=== PATIENT | female | born 1995 | race Caucasian/White ===

== ENCOUNTER 2024-07-01 06:09 | Emergency (ER) | payer MEDICAID, SELFPAY ==
[2024-07-01 06:14] VITALS: BP 154/98; PULSE 89; TEMP 36.4; O2SAT 98; BMI 26.5
--- NOTE | 2024-07-01 06:24 | XR_ITS ---
The [address] [address] Patient Name: MAYO BLISS MRN: [id number] date: 1995 Sex: F Assigned Patient Location: ER Current Patient Location: ED.MAIN Accession/Order Number: [id number] Exam Date: 07/01/2024 06:34 Report Date: 07/01/2024 06:44 At the request of: TOMMY MARKER Procedure: XR forearm LT 2V PROCEDURE: XR forearm LT 2V HISTORY: fall, prox forearm pain and swelling COMPARISON: None. FINDINGS: BONES:No fracture, acute abnormality, or significant arthropathy. SOFT TISSUES:No visible soft tissue swelling. EFFUSION:None visible. OTHER: Negative. XR/XR forearm LT 2V IMPRESSION: 1. No acute bone abnormality. 2. No radiopaque foreign bodies. Electronically authenticated by: INÉS FELIX Date: 07/01/2024 06:44
--- NOTE | 2024-07-01 06:25 | ED_ITS ---
HPI HPI - Extremity Injury (Upper) General Chief Complaint: Extremity Injury, Upper Stated Complaint: FALL, UPPER LEFT EXTREMITY INJURY Time Seen by Provider: 07/01/24 06:12 Source: patient Mode of arrival: walk-in Limitations: no limitations History of Present Illness HPI narrative: This 28-year-old female who is right-hand dominant presents for evaluation of an injury to her left proximal forearm. The patient states she slipped this morning and fell onto her forearm. She denies striking her head. She has no neck or back pain. She has an abrasion/contusion to the proximal aspect of the forearm with pain with range of motion. She states she also has pain with movement of her left fourth and fifth fingers. She denies any wrist pain. She did not injure her hand. She took ibuprofen prior to arrival and states it is starting to kick in but still has some pain with movement. She denies the possibility of . Related Data Home Medications ?Medication ?Instructions ?Recorded ?Confirmed No Known Home Medications 07/01/24 07/01/24 Allergies Allergy/AdvReac Type Severity Reaction Status Date / Time No Known Drug Allergies Allergy Verified 07/01/24 06:19 Opioid HPI Opioid Management Most Recent Pain and Opioid Data: No Data to Display Review of Systems ROS Status of ROS 10 or more systems reviewed and unremark able except as noted in history and below PFSH PFSH Social History Little interest or pleasure in doing things: not at all Feeling down, depressed, or hopeless: not at all Exam Narrative Exam Narrative: Vital signs and Nursing Notes reviewed: Pt is afebrile with a normal pulse, blood pressure is mildly elevated 154/98, she is not hypoxic with pulse ox of 98% on room air General: Awake, alert, oriented, no acute distress, sitting on the bed playing with her toddler, no distress noted GCS 15 HEENT: Normocephalic atraumatic, mucous membranes are moist and pink, eyes are clear, normal conjunctiva, vision is grossly intact Chest: Lungs are clear to auscultation with good air entry, there is no wheezing rhonchi or rales appreciated no accessory muscle use, patient is speaking in complete sentences-no chest wall tenderness to palpation CVS: Regular rate and rhythm S1-S2, no murmurs rubs or gallops, pulses are brisk and equal bilaterally Extremities: There is an approximately 6 cm x 3 cm area of ecchymosis with tenderness on the proximal aspect of the left forearm. She has full range of motion of her elbow. There is no tenderness to her shoulder, clavicle, humerus, wrist or fingers. Skin: Normal in appearance without rash,pallor, petechiae or purpura Neuro: No focal deficits Constitutional Vital Signs, click to edit/add: Last Vital Signs Temp 97.5 F L 07/01/24 06:14 Pulse 89 07/01/24 06:14 Resp 18 07/01/24 06:14 BP 154/98 H 07/01/24 06:14 Pulse Ox 98 07/01/24 06:14 O2 Del Method Room Air 07/01/24 06:14 Course Vital Signs Vital signs: Vital Signs Temperature 97.5 F L 07/01/24 06:14 Pulse Rate 89 07/01/24 06:14 Respiratory Rate 18 07/01/24 06:14 Blood Pressure 154/98 H 07/01/24 06:14 Pulse Oximetry 98 07/01/24 06:14 Oxygen Delivery Method Room Air 07/01/24 06:14 Temperature 97.5 F L 07/01/24 06:14 Pulse Rate 89 07/01/24 06:14 Respiratory Rate 18 07/01/24 06:14 Blood Pressure 154/98 H 07/01/24 06:14 Pulse Oximetry 98 07/01/24 06:14 Oxygen Delivery Method Room Air 07/01/24 06:14 MDM - Extremity Injury (Upper) MDM Narrative Medical decision making narrative: This otherwise healthy 28-year-old female presents for evaluation of a left forearm injury that she sustained after accidentally falling this morning and landing on the forearm. She denied any additional complaints. She has an abrasion/contusion to the left distal forearm. She has full range of motion of the extremity but states she has pain with movement of her elbow area. There is no point tenderness to the elbow. She is neurovascularly intact. She had taken ibuprofen prior to arrival and was medicated with a dose of Tylenol. X-ray of the forearm was reviewed by myself and does not show any fracture, foreign body or dislocation. She was placed in an Arcenio wrap by myself for comfort and compression and discharged home. Discharge Plan Discharge Chief Complaint: Extremity Injury, Upper Clinical Impression: Fall from standing, Contusion of forearm, left Patient Disposition: Home, Self-Care Time of Disposition Decision: 06:44 Condition: Good Prescriptions / Home Meds: No Action No Known Home Medications Print Language: Armenian Instructions: Contusion in Adults (ED), Fall Prevention (ED) Referrals: Physician,Non-Staff, MD [Primary Care Provider] - 1 week
[2024-07-01] MEDS: ACETAMINOPHEN 325 MG TABLET 650 MG PO (06:49)
== END 2024-07-01 06:55 | disposition home or self-care (01) ==
PROVIDERS: Emergency Provider Emergency Medicine
DX: S50.12XA Contusion of left forearm, initial encounter (principal); W01.0XXA Fall on same level from slipping, tripping and stumbling without subsequent striking against object, initial encounter; S50.812A Abrasion of left forearm, initial encounter
CPT/HCPCS: 73090; 99283

== ENCOUNTER 2025-01-21 17:38 | Emergency (ER) | payer MEDICAID, SELFPAY ==
[2025-01-21] VITALS (16 sets, daily range): BP systolic 133–149; BP diastolic 89–105; PULSE 69–83; TEMP 36.8; O2SAT 98–100; BMI 29.0
--- OUTSIDE RECORDS SUMMARY | 2025-01-21 17:48 | XMS_ITS | Encounter Summary ---
Author Organization [facility] Address [address] [place] [address] Care Team Providers Care Inter Com Servicer Name Role Phone Unallocated, Noms Provider Primary Care Provi efraín Liya Marc MD Primary Care Provider [phone] Encounter Details Date Type Department Care Team (Late Contact Info) Description 12/21/2022 Orders Only [facility] [address] [facility] [address] [place] [address] ProviderAriel MD [address] [place] [address] Social History Tobacco Use Types Packs/Day Years Used Date Smoking Tobacco: Never Smokeless Tobacco: Never Alcohol Use Standard Drinks/Week Comments Not Currently 0 (1 standard drink = 0.6 oz pure alcohol) Caffeine intake:1-2 cups per day of coffee Comments Yes Sex and Gender Information Value Date Recorded Sex Assigned at Not on file Legal Sex Female 6:59 PM EDT Gender Identity Not on file Sexual Orientation Not on file documented as of this encounter Plan of Treatment Upcoming Encounters Date Type Department Care Team (Late Contact Info) Description 08/04/2025 3:00 PM EST Office Visit [facility] [address] [facility] [address] [place] [address] Sony Champagne MD [address] [facility] [address] [place] [address] documented as of this encounter Procedures Procedure Name Priority Date/Time Associated Diagnosis Comments ULTRASOUND : OBSTETRICS Routine 12/15/19 11:27 AM EDT documented in this encounter Results * ULTRASOUND : OBSTETRICS (12/14/2022 11:27 AM EDT) Anatomical Region Laterality Modality Radiographic Viky ging us Historical Provider MD [facility] XR PROCEDURES Final R esult documented in this encounter Visit Diagnoses Not on filedocumented in this encounter Care Teams Inter Com Servicer Relationship Specialty Start Date End Date Unallocated, Noms Provider, [address] [place] [address] PCP - General 12/13/22 09/16/24 Liya Marc MD [address] [place] [address] PCP - General Family Medicine 09/17/24 documented as of this encounter
--- OUTSIDE RECORDS SUMMARY | 2025-01-21 17:48 | XMS_ITS | Encounter Summary ---
Author Organization [facility] Address [address] [place] [address] Care Team Providers Care Company Doctor Name Role Phone Unallocated, Noms Provider Primary Care Provi efraín Liya Marc MD Primary Care Provider [phone] Encounter Details Date Type Department Care Team (Late Contact Info) Description 03/22/2023 Orders Only [facility] [address] [facility] [address] [place] [address] Sony Champagne MD [address] [place] [address] [address] [place] [address] Social History Tobacco Use Types Packs/Day Years [...] Office Visit [facility] [address] [facility] [address] [place] [address] Sony Champagne MD [facility] [address] [facility] [address] [place] [address] documented as of this encounter Procedures Procedure Name Priority Date/Time Associated Diagnosis Comments ULTRASOUND : OBSTETRICS Routine 11/16/2022 8:52 AM EDT documented in this encounter Results * ULTRASOUND : OBSTETRICS (11/16/2022 8:52 AM EDT) Anatomical Region Laterality Modality Radiographic Viky ging us Sony Champagne MD IMG XR PROCEDURES Final Result documented in this encounter Visit Diagnoses Not on filedocumented in this encounter Care Teams Company Doctor Relationship Specialty Start Date End Date Unallocated, Noms MD Jarrod [address] [place] [address] PCP - General 12/13/22 09/16/24 Liya Marc MD [address] [place] [address] PCP - General Family Medicine 09/17/24 documented as of this encounter
--- OUTSIDE RECORDS SUMMARY | 2025-01-21 17:48 | XMS_ITS | Encounter Summary ---
Author Organization [facility] Address [address] [place] [address] Care Team Providers Care Dwarf Tree Grower Name Role Phone Unallocated, Noms Provider Primary Care Provi efraín Liya Marc MD Primary Care Provider [phone] Encounter Details Date Type Department Care Team (Late Contact Info) Description 12/09/2022 Abstract [facility] [address] [facility] [address] [place] [address] Sony Champagne MD [facility] [address] [facility] [address] [place] [address] Social History Tobacco Use Types Packs/Day Years Used Date Smoking Tobacco: Never Smokeless Tobacco: Never Tobacco Cessation:Counseling Given: Not Answered Alcohol Use Standard Drinks/Week Comments Not Currently [...] Encounters Date Type Department Care Team (Late st Contact Info) Description 08/04/2025 3:00 PM EST Office Visit [facility] [address] [facility] [address] [place] [address] Sony Champagne MD [facility] [address] [facility] [address] [place] [address] documented as of this encounter Visit Diagnoses Not on filedocumented in this encounter Care Teams Dwarf Tree Grower Relationship Specialty Start Date End Date Unallocated, Noms Provider, [address] [place] [address] PCP - General 12/13/22 09/16/24 Liya Marc MD [address] [place] [address] PCP - General Family Medicine 09/17/24 documented as of this encounter
--- OUTSIDE RECORDS SUMMARY | 2025-01-21 17:48 | XMS_ITS | Clinical Summary ---
Author Organization [facility] Address [address] [place] [address] Care Team Providers Care Nurses' Association Counselor Name Role Phone Liya Marc MD Primary Care Provider [phone] Allergies No known active allergies Medications predniSONE (Deltasone) 20 MG tabletIndications :Rash and nonspecific skin eruption Take 3 tabs for 2 days, 2 tabs for 2 days, 1 tab for 2 days, 1/2 tab for 2 days then stop 13 tablet 09/17/2024 Active Resolved Problems Problem Noted Date Diagnosed Date Resolved Date premature rupture of membranes (PPROM) with onset of labor after 24 hours of rupture in first trimester, antepartum ([facility]) 02/07/2023 06/01/2023 Family History Medical History Relation Name Comments No Known Problems Brother 2 brothers No Known Problems Daughter Diabetes Maternal Grandfather No Known Problems Sister Relation Name Status Comments Brother Daughter Alive Father Alive Maternal Grandfather Mother Alive Sister Social History Tobacco Use Types Packs/Day Years Used Date Smoking Tobacco: Former Cigarettes Smokeless Tobacco: Never Tobacco Cessation:Counseling Given: Not Answered Alcohol Use Standard Drinks/Week Comments Never 0 (1 standard drink = 0.6 oz pure alcohol) Caffeine intake:1-2 cups per day of coffee PHQ-2 Answer Date Recorded Patient Health Questionnaire-2 Score 0 06/01/2023 Comments No Sex and Gender Information Value Date Recorded Sex Assigned at Not on file Legal Sex Female 6:59 PM EDT Gender Identity Not on file Sexual Orientation Not on file Last Filed Vital Signs Vital Sign Reading Time Taken Comments Blood Pressure 130/80 09/17/2024 9:34 AM EST Pulse 97 09/17/2024 9:34 AM EST Temperature 36.7 C (98 F) 09/17/2024 9:34 AM EST Respiratory Rate - - Oxygen Saturation 98% 09/17/2024 9:34 AM EST Inhaled Oxygen Concentration - - Weight 98.9 kg (218 lb) 09/17/2024 9:34 AM EST Height 180.3 cm (5' 11 ) 09/15/2022 12:00 PM EST Body Mass Index 30.4 09/15/2022 12:00 PM EST Plan of Treatment Upcoming Encounters Date Type Department Care Team (Late st Contact Info) Description 08/04/2025 3:00 PM EST Office Visit [facility] [address] [facility] [address] [place] [address] Sony Champagne MD [address] [facility] [address] [place] [address] Insurance [facility] MEDICAID [place] Care Teams Nurses' Association Counselor Relationship Specialty Start Date End Date Liya Marc MD PCP - General Family Medicine 09/17/24
--- OUTSIDE RECORDS SUMMARY | 2025-01-21 17:48 | XMS_ITS | Clinical Summary ---
Author Organization [facility] Address [address] [facility] [place] [address] Care Team Providers Care Head Of Physics Name Role Phone Unknown, Provider Primary Care Provider Unavaila ble Encounters Date Type Department Care Team Description 11/20/2024 Telephone [facility] [address] [facility] 2nd [place] [address] Marivel Silverman MS, [facility] Results from Last 3 Months Social History Tobacco Use Types Packs/Day Years Used Date Smoking Tobacco: Never Assessed Comments Unknown Sex and Gender Information Value Date Recorded Sex Assigned at Not on file Legal Sex Female 5:29 PM EST Gender Identity Not on file Sexual Orientation Not on file Plan of Treatment Health Maintenance Due Date Last Done Comments MMR Vaccine (1 of 1 - Standa rd series) 1997 DTaP/Tdap/Td Vaccine (1 - Tdap) 11/06/2003 Varicella Vaccine (1 of 2 - 13+ 2-dose series) 2009 Hepatitis B Vaccine (1 of 3 - 19+ 3-dose series) 11/06/2015 COVID-19 Vaccine ( - 2023-2 5 season) 2024 Influenza Vaccine (Season Ended) 2025 HIB Vaccine Aged Out No longer eligi ble based on patient's age to complete this topic HPV Vaccine Aged Out No longer eligi ble based on patient's age to complete this topic Hepatitis A Vaccine Aged Out No longe r eligible based on patient's age to complete this topic IPV Vaccine Aged Out No longer eligi ble based on patient's age to complete this topic Meningococcal ACWY Vaccine Aged Out N o longer eligible based on patient's age to complete this topic Meningococcal B Vaccine Aged Out No l onger eligible based on patient's age to complete this topic Pneumococcal Vaccine Aged Out No long er eligible based on patient's age to complete this topic RSV, Nirsevimab Immunization Aged Out No longer eligible based on patient's age to complete this topic Rotavirus Vaccine Aged Out No longer eligible based on patient's age to complete this topic Insurance [employer] [place] MEDICAID [facility] Non-Cap Care Teams Head Of Physics Relationship Specialty Start Date End Date Unknown, Provider PCP - General 07/09/24
--- NOTE | 2025-01-21 18:11 | ECG_ITS ---
The [facility] Test Date: 2025-01-21 Pat Name: MAYO BLISS Department: Room: - Gender: Female Solar Energy System Installer: : 1995 Requested By: [id number] Order Number: [id number] Reading MD: GALO BALLESTEROS M.D. Measurements Intervals Media Rate: 77 P: 69 MT: 190 QRS: 62 QRSD: 94 T: 40 QT: 396 QTc: 428 Interpretive Statements 1100 Sinus rhythm 9110 normal ECG No previous ECG available for comparison Electronically Signed On 01-22-2025 6:44:45 EDT by GALO BALLESTEROS M.D.
[2025-01-21 18:18] LABS: Hematocrit 37.7 % (36.0-48.0); Hemoglobin 12.9 g/dL (12.0-16.0); Immature Granulocytes Abs Auto 0.02 10^3/uL (0.00-0.03); Immature Granulocytes Pct Auto 0.3 % (0.0-0.5); Lymphocytes Absolute Auto 2.2 10^3/uL (1.2-3.8); Mean Corpuscular HGB Conc 34.2 g/dL (29.9-35.2); Mean Corpuscular Hemoglobin 29.4 pg (26.7-34.0); Mean Corpuscular Volume 85.9 fL (81.0-99.0); Platelet Count 210 10^3/uL (150-450); Red Blood Count 4.39 10^6/uL (4.20-5.40); White Blood Count 7.0 10^3/uL (4.0-11.0)
[2025-01-21 18:19] LABS: Glucose Urine UA NEGATIVE (NEGATIVE)
[2025-01-21] MEDS: 0.9 % SODIUM CHLORIDE 1,000 ML 999 ML IV (18:22)
--- NOTE | 2025-01-21 18:26 | ED_ITS ---
HPI HPI - General Adult General Chief complaint: Dizziness Stated complaint: DIZZY, WEAKNESS Time Seen by Provider: 01/21/25 17:39 Source: patient Mode of arrival: walk-in Limitations: no limitations History of Present Illness HPI narrative: 29-year-old female to the emergency department with chief complaint of generalized weakness, malaise, nausea. Patient reports that she had some nausea and vomiting weekend which is since resolved. No diarrhea. She denies any abdominal pain, chest pain, shortness of breath. She reports when she stands up she feels mildly dizzy. She works at a detention. They took her blood pressure there today with a variety of readings between 140 and 160 systolic of which the nurse there was concerned and directed her to the emergency department for. Patient reports she took a negative test at home. Related Data Home Medications ?Medication ?Instructions ?Recorded ?Confirmed No Known Home Medications 07/01/2404/16 Allergies Allergy/AdvReac Type Severity Reaction Status Date / Time No Known Drug Allergies Allergy Verified 07/01/24 06:19 Review of Systems ROS Status of ROS 10 or more systems reviewed and unremark able except as noted in history and below PFSH PFSH Social History Little interest or pleasure in doing things: not at all Feeling down, depressed, or hopeless: not at all Exam Narrative Exam Narrative: VITALS: I have reviewed the triage vital signs. GENERAL: Well developed, well appearing adult in no acute distress. NEURO: Alert and oriented. Moves all extremities. Face is symmetric and expressive. EYES: PERRL. No scleral icterus or conjunctival injection. No discharge. HENT: Normocephalic, atraumatic. Hearing is grossly intact. Nares grossly patent and without discharge. Mucous membranes moist. NECK: No JVD. Patient moves neck without restriction. CARDIO: Rhythm regular. Normal rate. No murmur, rub, or gallop. Pulses equal bilaterally in the upper and lower extremity. No lower extremity edema. PULM: Lungs clear to auscultation in all rinaldi. No wheezes, rales, or rhonchi. No conversational dyspnea. No splinting, stridor, or accessory muscle use. GI/: Abdomen is soft and non-tender. Normoactive bowel sounds. EXTREMITIES: Symmetric muscle bulk. No joint swelling. No clubbing, cyanosis, or deformity. SKIN: Warm and dry. Normal turgor. No rash or lesions appreciated. PSYCH: Mood, affect, and interaction is appropriate to the setting. Constitutional Vital Signs, click to edit/add: Last Vital Signs Temp 98.2 F 01/21/25 17:43 Pulse 74 01/21/25 17:43 Resp 18 01/21/25 17:43 BP 147/105 H 01/21/25 17:43 Pulse Ox 99 01/21/25 17:51 O2 Del Method Room Air 01/21/25 17:51 Course Vital Signs Vital signs: Vital Signs Temperature 98.2 F 01/21/25 17:43 Pulse Rate 74 01/21/25 17:43 Respiratory Rate 18 01/21/25 17:43 Blood Pressure 147/105 H 01/21/25 17:43 Pulse Oximetry 99 01/21/25 17:43 Oxygen Delivery Method Room Air 01/21/25 17:43 Temperature 98.2 F 01/21/25 17:43 Pulse Rate 74 01/21/25 17:43 Respiratory Rate 18 01/21/25 17:43 Blood Pressure 147/105 H 01/21/25 17:43 Pulse Oximetry 99 01/21/25 17:51 Oxygen Delivery Method Room Air 01/21/25 17:51 Medical Decision Making MDM Narrative Medical decision making narrative: 29-year-old female to the emergency department chief complaint of malaise, fatigue, dizziness and nausea. Vital stable, the patient is afebrile. Her exam is unremarkable. Will proceed with some Zofran, fluids and basic labs. Patient agrees with this plan. Care was signed out to Dr. Lowe with plan for repeat evaluation and likely discharge. Working diagnosis: Dizziness Nausea Asymptomatic hypertension Medical Records Medical records reviewed: Yes I reviewed the patient's medical records Lab Data Lab results reviewed: Yes I reviewed the patient's lab results Labs: Lab Results 01/21/25 Range/Units 18:00 WBC 7.0 (4.0-11.0) 10^3/uL RBC 4.39 (4.20-5.40) 10^6/uL Hgb 12.9 (12.0-16.0) g/dL Hct 37.7 (36.0-48.0) % MCV 85.9 (81.0-99.0) fL MCH 29.4 (26.7-34.0) pg MCHC 34.2 (29.9-35.2) g/dL RDW 13.1 (11.0-15.0) % Plt Count 210 (150-450) 10^3/uL MPV 11.8 (9.5-13.5) fL Neut % (Auto) 59.7 (43.0-75.0) % Lymph % (Auto) 31.3 (20.5-60.0) % Stonewall % (Auto) 7.3 (1.7-12.0) % Eos % (Auto) 1.1 (0.9-7.0) % Baso % (Auto) 0.3 (0.2-2.0) % Neut # (Auto) 4.2 (1.4-6.5) 10^3/uL Lymph # (Auto) 2.2 (1.2-3.8) 10^3/uL Stonewall # (Auto) 0.5 (0.3-0.8) 10^3/uL Eos # (Auto) 0.1 (0.0-0.7) 10^3/uL Baso # (Auto) 0.0 (0.0-0.1) 10^3/uL Abs Immat Gran (auto) 0.02 (0.00-0.03) 10^3/uL Imm/Tot Granulo (auto) 0.3 (0.0-0.5) % Serum HCG, Qual Negative (NEGATIVE) Urine Color Lt. yellow (YELLOW) Urine Clarity Clear (CLEAR) Urine pH 6.0 (5.0-9.0) Ur Specific Mclaughlin 1.010 (1.005-1.025) Urine Protein Negative (NEG/TRACE) mg/dL Urine Glucose (UA) Negative (NEGATIVE) mg/dL Urine Ketones Trace A (NEGATIVE) mg/dL Urine Occult Blood Large A (NEGATIVE) Urine Nitrite Negative (NEGATIVE) Urine Bilirubin Negative (NEGATIVE) Urine Urobilinogen 0.2 (0.2-1.0) EU/dL Ur Leukocyte Esterase Negative (NEGATIVE) Urine RBC 10-20 A (0-2) #/HPF Urine WBC None seen (NONE SEEN) #/HPF Ur Squamous Epith Cells Moderate A (NONE/RARE) #/LPF Urine Crystals None seen (None Seen) #/HPF Urine Bacteria Trace A (NONE SEEN) #/HPF Urine Casts None seen (NONE SEEN) #/LPF Urine Mucus Trace A (NONE SEEN) Ur Culture Indicated? No ECG Data Attestation: I personally reviewed and interpreted this ECG as follows: (Normal sinus rhythm at a rate of 77. No STEMI. Normal QTc of 428.) Discharge Plan Discharge Patient Disposition: Still a Patient
[2025-01-21 18:29] LABS: Cast Seen? NONE SEEN #/LPF (NONE SEEN); Crystals Seen? None Seen #/HPF (None Seen); Urine Culture Indicated NO
[2025-01-21 18:40] LABS: Anion Gap 13.2; Blood Urea Nitrogen 9.0 mg/dL (7.0-18.0); Calcium 8.8 mg/dL (8.5-10.1); Carbon Dioxide 27.2 mmol/L (21.0-32.0); Chloride 101 mmol/L (98-107); Estimated GFR (African America >60 (>=60 mL/min/1.73m^2); Estimated GFR (Non-African Ame >60 (>=60 mL/min/1.73m^2); Glucose 83 mg/dL (74-106); Potassium 3.4 mmol/L (3.5-5.1); Sodium 138 mmol/L (136-145)
--- NOTE | 2025-01-21 19:26 | ED.DIZZY1 ---
HPI - Dizziness General Chief Complaint: Dizziness Stated Complaint: DIZZY, WEAKNESS Time Seen by Provider: 01/21/25 17:39 Source: patient Mode of arrival: walk-in Limitations: no limitations History of Present Illness HPI Narrative: This 29-year-old female was signed out to me at shift change. She presents for evaluation of dizziness. 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 She had a GI bug over the weekend with nausea and some vomiting. She has not had any diarrhea. She denies any chest pain or shortness of breath. An IV was placed and EKG and routine labs were ordered. She has a normal EKG. She has normal white count and stable hemoglobin. Electrolytes are normal. Urine is negative for infection. She was given IV fluids and Zofran. On reevaluation she states she is feeling better and anxious to be discharged home. She declines the need for any medications to be prescribed to her at the time of discharge. Related Data Home Medications ?Medication ?Instructions ?Recorded ?Confirmed No Known Home Medications 07/01/24 07/01/24 Allergies Allergy/AdvReac Type Severity Reaction Status Date / Time No Known Drug Allergies Allergy Verified 07/01/24 06:19 PFSH PFSH Social History Little interest or pleasure in doing things: not at all Feeling down, depressed, or hopeless: not at all Exam Constitutional Vital Signs, click to edit/add: Last Vital Signs Temp 98.2 F 01/21/25 17:43 Pulse 71 01/21/25 18:50 Resp 18 01/21/25 18:50 BP 133/93 H 01/21/25 18:30 Pulse Ox 100 01/21/25 18:50 O2 Del Method Room Air 01/21/25 17:51 Course Vital Signs Vital signs: Vital Signs Temperature 98.2 F 01/21/25 17:43 Pulse Rate 74 01/21/25 17:43 Respiratory Rate 18 01/21/25 17:43 Blood Pressure 147/105 H 01/21/25 17:43 Pulse Oximetry 99 01/21/25 17:43 Oxygen Delivery Method Room Air 01/21/25 17:43 Temperature 98.2 F 01/21/25 17:43 Pulse Rate 71 01/21/25 18:50 Respiratory Rate 18 01/21/25 18:50 Blood Pressure 133/93 H 01/21/25 18:30 Pulse Oximetry 100 01/21/25 18:50 Oxygen Delivery Method Room Air 01/21/25 17:51 MDM - Dizziness Lab Data Labs: Lab Results 01/21/25 Range/Units 18:00 WBC 7.0 (4.0-11.0) 10^3/uL RBC 4.39 (4.20-5.40) 10^6/uL Hgb 12.9 (12.0-16.0) g/dL Hct 37.7 (36.0-48.0) % MCV 85.9 (81.0-99.0) fL MCH 29.4 (26.7-34.0) pg MCHC 34.2 (29.9-35.2) g/dL RDW 13.1 (11.0-15.0) % Plt Count 210 (150-450) 10^3/uL MPV 11.8 (9.5-13.5) fL Neut % (Auto) 59.7 (43.0-75.0) % Lymph % (Auto) 31.3 (20.5-60.0) % [place] % (Auto) 7.3 (1.7-12.0) % Eos % (Auto) 1.1 (0.9-7.0) % Baso % (Auto) 0.3 (0.2-2.0) % Neut # (Auto) 4.2 (1.4-6.5) 10^3/uL Lymph # (Auto) 2.2 (1.2-3.8) 10^3/uL [place] # (Auto) 0.5 (0.3-0.8) 10^3/uL Eos # (Auto) 0.1 (0.0-0.7) 10^3/uL Baso # (Auto) 0.0 (0.0-0.1) 10^3/uL Abs Immat Gran (auto) 0.02 (0.00-0.03) 10^3/uL Imm/Tot Granulo (auto) 0.3 (0.0-0.5) % Sodium 138 (136-145) mmol/L Potassium 3.4 L (3.5-5.1) mmol/L Chloride 101 (98-107) mmol/L Carbon Dioxide 27.2 (21.0-32.0) mmol/L Anion Gap 13.2 BUN 9.0 (7.0-18.0) mg/dL Creatinine 0.73 (0.55-1.02) mg/dL Est GFR ( Amer) >60 (>=60 mL/min/1.73m^2) Est GFR (Non-Af Amer) >60 (>=60 mL/min/1.73m^2) BUN/Creatinine Ratio 12.3 Glucose 83 (74-106) mg/dL Calcium 8.8 (8.5-10.1) mg/dL Troponin I High Sens 4.1 (4.0-51.3) pg/mL Serum HCG, Qual Negative (NEGATIVE) Urine Color Lt. yellow (YELLOW) Urine Clarity Clear (CLEAR) Urine pH 6.0 (5.0-9.0) Ur Specific [place] 1.010 (1.005-1.025) Urine Protein Negative (NEG/TRACE) mg/dL Urine Glucose (UA) Negative (NEGATIVE) mg/dL Urine Ketones Trace A (NEGATIVE) mg/dL Urine Occult Blood Large A (NEGATIVE) Urine Nitrite Negative (NEGATIVE) Urine Bilirubin Negative (NEGATIVE) Urine Urobilinogen 0.2 (0.2-1.0) EU/dL Ur Leukocyte Esterase Negative (NEGATIVE) Urine RBC 10-20 A (0-2) #/HPF Urine WBC None seen (NONE SEEN) #/HPF Ur Squamous Epith Cells Moderate A (NONE/RARE) #/LPF Urine Crystals None seen (None Seen) #/HPF Urine Bacteria Trace A (NONE SEEN) #/HPF Urine Casts None seen (NONE SEEN) #/LPF Urine Mucus Trace A (NONE SEEN) Ur Culture Indicated? No Discharge Plan Discharge Chief Complaint: Dizziness Clinical Impression: Dizziness, Asymptomatic hypertension Patient Disposition: Home, Self-Care Time of Disposition Decision: 19:24 Prescriptions / Home Meds: No Action No Known Home Medications Print Language: Azeri Instructions: Hypertension (ED), Dizziness (ED) Referrals: Physician,Non-Staff, MD [Primary Care Provider] - 1 week
== END 2025-01-21 19:34 | disposition home or self-care (01) ==
PROVIDERS: Student in an Organized Health Care Education/Training Program; Emergency Provider Emergency Medicine
DX: R42 Dizziness and giddiness (principal); I10 Essential (primary) hypertension; R11.0 Nausea
CPT/HCPCS: 36415; 80048; 81001; 84484; 84703; 85025; 93005; 96361; 96374; 99285; J2405

== ENCOUNTER 2025-04-28 09:14 | Emergency (ER) | payer MEDICAID, SELFPAY ==
[2025-04-28 09:20] VITALS: BP 138/89; PULSE 57; TEMP 36.8; O2SAT 96; BMI 29.3
--- NOTE | 2025-04-28 09:32 | ED.GENADUL1 ---
HPI HPI - General Adult General Chief complaint: Back Pain/Injury Stated complaint: LOW BACK, BILATERAL HIP PAIN, PELVIC PAIN Time Seen by Provider: 04/28/25 09:26 Source: patient Mode of arrival: walk-in Limitations: no limitations History of Present Illness HPI narrative: cc: pelvic cramping Pt has been experiencing intermittent pain across the anterior pelvis with occasional pain in the low back for about 2-3 months. She said that the pain was worse this morning so she came to the ED for evaluation. She said that tylenol and motrin typically help the pain but she did not take any this morning. No urinary complaints. No vaginal discharge or bleeding. No irregular vaginal bleeding other than some spotting in mid January that preceded a normal mesntrual period. Since then her menstrual periods have been normal . LMP about 4 weeks ago. She said her chief concern is that she had abnormal cervical swabs in the past and while I doubt it is my cervix, I just want it checked out . Her F[employer] AND [employer]SEM[employer] SUPERVIS[employer] is at [facility] in [place] - she has not contacted them about any of these symptoms. Related Data Home Medications ?Medication ?Instructions ?Recorded ?Confirmed metoprolol succinate 25 mg 25 mg PO DAILY 04/28/25 04/28/25 tablet,extended release 24 hr Allergies Allergy/AdvReac Type Severity Reaction Status Date / Time No Known Drug Allergies Allergy Verified 07/01/24 06:19 Opioid HPI Opioid Management Most Recent Opioid Data: Last Pain Scale 7 Today, 09:26 PFSH PFSH Social History Little interest or pleasure in doing things: not at all Feeling down, depressed, or hopeless: not at all Exam Narrative Exam Narrative: Nurses notes and vital signs reviewed and patient is not hypoxic. afebrile General: Well-appearing and in no apparent distress. Skin: Warm, dry, no pallor noted. Eye: Pupils are equal, round and EOMI. No scleral icterus. Cardiovascular: Regular Rate and Rhythm without murmur, gallop or rub. Respiratory: No accessory muscle use or respiratory distress. Lungs are clear to auscultation, no wheezing, rales or rhonchi Back: No CVA tenderness Musculoskeletal: normal ROM, no lower extremity edema/swelling GI: Abdomen is soft, non-distended. Normal bowel sounds. No abdominal or adnexal masses appreciated. minimal anterior pelvic tenderness to palpation. No rebound, guarding, or rigidity noted. Neurological: A&O x4. No cranial nerve dysfunction observed. No truncal ataxia. Moves all extremities. Sensation intact. Psychiatric: Cooperative and interactive. Normal mood and affect. Constitutional Vital Signs, click to edit/add: Last Vital Signs Temp 98.2 F 04/28/25 09:20 Pulse 57 L 04/28/25 09:20 Resp 18 04/28/25 09:20 BP 138/89 04/28/25 09:20 Pulse Ox 96 04/28/25 09:20 O2 Del Method Room Air 04/28/25 09:20 Course Vital Signs Vital signs: Vital Signs Temperature 98.2 F 04/28/25 09:20 Pulse Rate 57 L 04/28/25 09:20 Respiratory Rate 18 04/28/25 09:20 Blood Pressure 138/89 04/28/25 09:20 Pulse Oximetry 96 04/28/25 09:20 Oxygen Delivery Method Room Air 04/28/25 09:20 Temperature 98.2 F 04/28/25 09:20 Pulse Rate 57 L 04/28/25 09:20 Respiratory Rate 18 04/28/25 09:20 Blood Pressure 138/89 04/28/25 09:20 Pulse Oximetry 96 04/28/25 09:20 Oxygen Delivery Method Room Air 04/28/25 09:20 Medical Decision Making MDM Narrative Medical decision making narrative: Patient has been experiencing intermittent pelvic pain anteriorly for about 2 months. While her menstrual periods have mostly been normal, she is concerned that there is a pelvic issue related to her uterus and ovaries. She has not contacted her [employer] SUPER[employer]. No urinary symptoms, no irregular vaginal bleeding - aide from some spotting in January prior to her normal period - and no vaginal discharge. She said that she had an STD screen that was negative. Her exam today is unremarkable other than mild anterior pelvic tenderness. Urine obtained and sent for testing. Urine is negative. UA also negative. She was ordered to get pelvic US for further evaluation. According to the radiologist, pelvic ultrasound does not reveal any worrisome pathology. No ovarian cysts. No free fluid. No evidence of torsion. Results were discussed with the patient and she was given reassurance. She was instructed to call her laboratory director for office follow-up. ED return if she worsens. Lab Data Lab results reviewed: Yes I reviewed the patient's lab results Labs: Lab Results 10/06/25 Range/Units 09:35 Urine Color Yellow (YELLOW) Urine Clarity Clear (CLEAR) Urine pH 5.5 (5.0-9.0) Ur Specific [place] 1.020 (1.005-1.025) Urine Protein Negative (NEG/TRACE) mg/dL Urine Glucose (UA) Negative (NEGATIVE) mg/dL Urine Ketones Negative (NEGATIVE) mg/dL Urine Occult Blood Negative (NEGATIVE) Urine Nitrite Negative (NEGATIVE) Urine Bilirubin Negative (NEGATIVE) Urine Urobilinogen 0.2 (0.2-1.0) EU/dL Ur Leukocyte Esterase Negative (NEGATIVE) Urine HCG, Qual Negative (NEGATIVE) Imaging Data pelvic US: Radiologist's impression: ITS Impressions Transvaginal US 04/28/25 09:47 Impression: Unremarkable pelvic ultrasound. Impression dictated by: Roberto Carlos Lowe Jr. [email or web address] 04/28/2025 10:27 AM Dictation Location: [facility] Electronically authenticated by: [id number] Y Date: 04/28/2025 10:27 Discharge Plan Discharge Chief Complaint: Back Pain/Injury Clinical Impression: Pelvic pain Patient Disposition: Home, Self-Care Time of Disposition Decision: 10:33 Prescriptions / Home Meds: No Action metoprolol succinate 25 mg tablet extended release 24 hr 25 mg PO DAILY Print Language: Haitian Instructions: Pelvic Pain (ED) Additional Instructions: call your [facility] laboratory director today for earliest available follow up
--- OUTSIDE RECORDS SUMMARY | 2025-04-28 09:38 | XMS_ITS | Encounter Summary ---
Author Organization [facility] Address [address] [place] [address] Care Team Providers Care Chief Credit Officer Name Role Phone Unallocated, Noms Provider Primary Care Provi efraín Liya Marc MD Primary Care Provider Encounter Details Date Type Department Care Team (Late st Contact Info) Description 03/22/2023 Orders Only DEDRICK SAWYER [address] [facility] [address] [place] [address] Sony Champagne MD [address] [facility] [address] [place] [address] Social History Tobacco Use Types [...] Description 08/04/2025 3:00 PM EST Office Visit DEDRICK SAWYER [address] [place] [address] Sony Champagne MD [address] [place] [address] documented as of this encounter [...] on filedocumented in this encounter Care Teams Chief Credit Officer Relationship Specialty Start Date End Date Unallocated, Noms MD Jarrod [address] [place] [address] PCP - General 12/13/22 09/16/24 Liya Marc MD [address] [place] [address] PCP - General Family Medicine 09/17/24 documented as of this encounter
--- OUTSIDE RECORDS SUMMARY | 2025-04-28 09:38 | XMS_ITS | Encounter Summary ---
Author Organization [facility] Address [address] [facility] [place] [address] Care Team Providers Care Laborer Stores Name Role Phone Unallocated, Noms Provider Primary Care Provi efraín Liya Marc MD Primary Care Provider [phone] Encounter Details Date Type Department Care Team (Late st Contact Info) Description 12/09/2022 Abstract DEDRICK SAWYER [address] [facility] [address] [place] [address] Sony Champagne MD [address] [facility] [address] [place] [address] Social History Tobacco Use Types [...] EST Office Visit DEDRICK SAWYER [address] [place] [address] Sony Champagne MD [address] [facility] [address] [place] [address] documented as of this encounter Visit Diagnoses Not on filedocumented in this encounter Care Teams Laborer Stores Relationship Specialty Start Date End Date Unallocated, Noms Provider, [address] [place] [address] PCP - General 12/13/22 09/16/24 Liya Marc MD [address] [address] PCP - General Family Medicine 09/17/24 documented as of this encounter
--- OUTSIDE RECORDS SUMMARY | 2025-04-28 09:38 | XMS_ITS | Encounter Summary ---
Author Organization [facility] Address [address] [place] [address] Care Team Providers Care Floor Assembler Name Role Phone Unallocated, Noms Provider Primary Care Provi efraín Liya Marc MD Primary Care Provider [phone] Encounter Details Date Type Department Care Team (Late st Contact Info) Description 12/21/2022 Orders Only DEDRICK SAWYER [address] [facility] [address] [place] [address] ProviderAriel MD [address] [place] [address] Social History Tobacco Use Types Packs/Day [...] Description 08/04/2025 3:00 PM EST Office Visit NOM[facility] SAWYER [address] [facility] [address] [place] [address] Sony Champagne MD [address] [facility] [address] [place] [address] documented as of this encounter [...] on filedocumented in this encounter Care Teams Floor Assembler Relationship Specialty Start Date End Date Unallocated, Noms Provider, [address] [place] [address] PCP - General 12/13/22 09/16/24 Liya Marc MD [address] [place] [address] PCP - General Family Medicine 09/17/24 documented as of this encounter
--- OUTSIDE RECORDS SUMMARY | 2025-04-28 09:38 | XMS_ITS | Clinical Summary ---
Author Organization [facility] Address [address] [facility] [place] [address] Care Team Providers Care Cold Roll Packer Sheet Iron Name Role Phone Unknown, Provider Primary Care Provider Unavaila ble Social History Tobacco Use Types Packs/Day Years [...] of 3 - 19+ 3-dose series) 11/06/2015 HPV Vaccine (1 - 3-dose SCDM series) 11/06/2023 COVID-19 Vaccine (2023-2 5 season) 2025 Influenza Vaccine (#1) 2025 HIB Vaccine Aged Out No longer [...] patient's age to complete this topic Insurance [facility] MEDICAID [place] Non-Cap Care Teams Cold Roll Packer Sheet Iron Relationship Specialty Start Date End Date Unknown, Provider PCP - General 07/09/24
--- OUTSIDE RECORDS SUMMARY | 2025-04-28 09:38 | XMS_ITS | Clinical Summary ---
Author Organization [facility] Address [address] [place] [address] Care Team Providers Care Brake Drum Molder Name Role Phone Liya Marc MD Primary Care Provider [phone] Allergies No known active allergies Medications predniSONE [...] hours of rupture in first trimester, antepartum ([facility]) 02/07/2023 06/01/2023 Family History Medical History Relation [...] 08/04/2025 3:00 PM EST Office Visit [facility] [place] [facility] [address] [facility] [address] [place] [id number] Sony Champagne MD [address] [facility] [address] [place] [address] Insurance [employer] [place] Care Teams Brake Drum Molder Relationship Specialty Start Date End Date Liya Marc MD PCP - General Family Medicine 09/17/24
[2025-04-28 09:44] LABS: Glucose Urine UA NEGATIVE (NEGATIVE)
[2025-04-28 09:45] LABS: HCG Qualitative Urine* NEGATIVE (NEGATIVE)
--- OUTSIDE RECORDS SUMMARY | 2025-04-28 09:45 | XMS_ITS | CCD ---
Author Organization [facility] Care Team Providers Care Hvac Mechanic Name Role Phone NO FAMILY, PHYSICIAN Primary Care Provider Unava ilable NO FAMILY, PHYSICIAN Primary Care Provider Unava ilable Britany, FITTING ROOM SUPERVISOR Matthias Emergency Provider [phone] ALPHONSE ., ZAIRA Admitting Unavailable ALPHNOSE ., ZAIRA Attending Unavailable FELIX CAMPBELL Consulting Unavailable REQUEST, NONE LISTED Primary Care Unavaila ble ALPHONSE ., ZAIRA Consulting Unavailable REQUEST, NONE LISTED Primary Care Unavaila RAFY Thomson Admitting Unavailable SOLOMON .JUAN Consulting UnavailRAFY Marquez Attending Unavailable DEQUAN KEANE Consulting Unavailable DIAB ., RAFY Consulting Unavailable DIAB ., RAFY Admitting Unavailable DIAB ., RAFY Attending Unavailable ALPHONSE ., ZAIRA Consulting Unavailable ALPHONSE ., ZAIRA Admitting Unavailable MISC, DR BOWIE Primary Care Unavailable ALPHONSE ., ZAIRA Attending Unavailable DIAB ., RAFY Consulting Unavailable DIAB ., RAFY Admitting Unavailable DIAB ., RAFY Attending Unavailable NO FAMILY, PHYSICIAN Primary Care Provider Unava ilable Britany, FITTING ROOM SUPERVISOR Matthias Emergency Provider [phone] NO FAMILY, PHYSICIAN Primary Care Unavailable Britany, Matthias Admitting Unavailable Eduardo Gargothy Attending Unavailable NO FAMILY, PHYSICIAN Primary Care Unavailable Britany, Matthias Admitting Unavailable Eduardo Gargothy Attending Unavailable Bakari Greenfield Admitting Unavailable Bakari Greenfield Attending Unavailable NO FAMILY, PHYSICIAN Primary Care Unavailable NONE, XXXX Primary Care Physician Unavailab le Unavailable Primary Care Provider UnavailROSETTA Paredes Consulting Unavailable RASHID KINSEY Attending Unavailable RASHID KINSEY Admitting Unavailable NO PRIMARY CAREMD Primary Care Unavailable NESTOR HUMMEL Referring Unavailable LATOYA MOORE Attending Unavailable NO PRIMARY CAREMD Primary Care Unavailable NESTOR HUMMEL Attending Unavailable Unallocated MD, Noms Provider Primary Care Provi efraín Unavailable Primary Care Provider UnavailBENJAMIN Mendez Attending Unavailable REANNA MCKEON Attending Unavailable LOUIS TRINH Attending Unavailable SHERWIN NOVOA Attending Unavailable SHERWIN NOVOA Attending Unavailable SONY DISLA Attending Unavailable SONY DISLA Attending Unavailable JUAN CARLOS ABDULLAHI Primary Care Physician Juan Carlos Abdullahi MD Primary Care Provider UNKNOWN, PROVIDER Primary Care Unavailable MASON DE ANDA Attending Unavailable Unknown, Provider Primary Care Provider UnavailJuan Carlos Duke MD Primary Care Provider Juan Carlos Abdullahi MD Attending Provider DO Jesus Stanley Attending Unavailable Fahad Coleman Attending Unavailable Unavailable Unavailable Unavailable Medications Current Medications Medication Drug Class(es) Dates Sig (Normalized) Sig (Original) amoxicillin 500 mg oral capsule (2 sources) Penicillin-class Antibacterial Start: 07-07-2024 End: 07-17-2024 take 1 capsule by mouth in the morning amoxicillin (Amoxil) 500 MG capsule Indications: Acute streptococcal pharyngitis Take 1 capsule (500 mg) by mouth in the morning and 1 capsule (500 mg) before bedtime. Do all this for 10 days. 20 capsule 07/07/2024 07/17/2024 Active cephalexin 500 mg oral capsule (2 sources) Cephalosporin Antibacterial Start: 09-17-2024 End: 09-24-2024 take 1 capsule by mouth in the morning, then take 1 capsule by mouth in the evening, then take 1 capsule by mouth at bedtime cephalexin (Keflex) 500 MG capsule Indications: Rash and nonspecific skin eruption Take 1 capsule (500 mg) by mouth in the morning and 1 capsule (500 mg) in the evening and 1 capsule (500 mg) before bedtime. Do all this for 7 days. 21 capsule 09/17/2024 09/24/2024 Active docusate sodium 100 mg oral capsule (2 sources) Start: 02-16-2023 End: 03-19-2023 take 1 capsule by mouth twice daily as needed for constipation Docusate Sodium (DSS) 100 MG capsule Take 1 capsule (100 mg) by mouth 2 times daily as needed for constipation. 60 capsule 0 02/17/2023 03/19/2023 Active ferrous sulfate 325 mg oral tablet (2 sources) Start: 02-16-2023 End: 03-19-2023 take 1 tablet by mouth in the morning ferrous sulfate 325 (65 Fe) MG tablet Take 1 tablet (325 mg) by mouth in the morning and 1 tablet (325 mg) in the evening. Take with meals. 60 tablet 0 02/17/2023 03/19/2023 Active ibuprofen 600 mg oral tablet (6 sources) Nonsteroidal Anti-inflammatory Drug Start: 02-16-2023 End: 03-12-2023 take 1 tablet by mouth every six hours ibuprofen 600 MG tablet Take 1 tablet (600 mg) by mouth in the morning and 1 tablet (600 mg) at noon and 1 tablet (600 mg) in the evening and 1 tablet (600 mg) before bedtime. Do all this for 23 days. 90 tablet 0 02/17/2023 03/12/2023 Active Start: 11-06-2021 End: 10-26-2022 take 1 tablet by mouth three times daily as needed for pain Ibuprofen 800 mg tablet Discontinued 800 MG PO Three times daily as needed for pain November 06, 2021 2:25pm October 26, 2022 1:37pm 24 hr metoprolol succinate 25 mg extended release oral tablet (1 source) beta-Adrenergic Darin Start: 01-28-2025 take 1 tablet by mouth once daily Metoprolol Succinate (Toprol Xl) 25 mg tablet extended release 24 hr Active 25 MG PO Daily January 28, 2025 12:00am Complies with drug therapy [place] (No Known Home Meds) (2 sources) Start: 10-26-2022 [place] (No Known Home Meds) Active October 25, 2022 11:00pm Start: 10-26-2022 [place] (No Kn own Home Meds) Active October 26, 2022 12:00am oxyCODONE hydrochloride 5 mg oral tablet (2 sources) Opioid Agonist Start: 02-17-2023 End: 02-22-2023 take 1 tablet by mouth every six hours as needed for pain oxyCODONE (Roxicodone) 5 MG immediate release tablet Indications: S/P Take 1 tablet (5 mg) by mouth every 6 hours as needed for moderate pain (4-6) for up to 5 days. 20 tablet 0 02/17/2023 02/22/2023 Active Start: 02-16-2023 End: 02-20-2023 take 1 tablet by mouth every four hours as needed for pain oxyCODONE (Roxicodone) immediate release tablet 5 mg predniSONE 20 mg oral tablet (2 sources) Start: 09-17-2024 predniSONE (De ltasone) 20 MG tablet Indications: Rash and nonspecific skin eruption Take 3 tabs for 2 days, 2 tabs for 2 days, 1 tab for 2 days, 1/2 tab for 2 days then stop 13 tablet 09/17/2024 Active Byrrlyor-Zzt-Ty-FA ( 1 + IRON PO) (3 sources) Multivi t-Min-Fe-FA ( 1 + IRON PO) Take by mouth. 0 Active Multivi t-Min-Fe-FA ( 1 + IRON PO) Take by mouth. 0 Suspended Multivitamins (2 sources) Start: 02-06-2023 take 1 tablet by mouth once daily Multivitamins 1 tab(s), Oral, Daily, Refill(s) 0 Start Date: 02/06/23 Status: Ordered Completed/Discontinued Medications Medication Drug Class(es) Dates Sig (Normalized) Sig (Original) acetaminophen 325 mg oral tablet (1 source) Start: 02-16-2023 End: 02-20-2023 take 1 tablet by mouth every six hours as needed 650 mg, Oral, Every 6 hours PRN, other, Pain (1-10), Starting on Janie 02/16/23 at 0319, Give in addition to any other pain medication ordered at same time for any pain indication. & amp;nbsp;Maximum dose of acetaminophen is 4000mg from all sources in 24 hours. Alternate ibuprofen and acetaminophen every 3 hours. acetaminophen (Ofirmev) injection (1 source) Start: 02-16-2023 End: 02-16-2023 acetaminophen (Ofirmev) injection acetaminophen 325 mg / butalbital 50 mg / caffeine 40 mg oral tablet (1 source) Barbiturate, Central Nervous System Stimulant, Methylxanthine Start: 02-18-2023 End: 02-20-2023 take 1 tablet by mouth every four hours as needed for headache butalbital-acetami nophen-caffeine 50-325-40 MG per tablet 1 tablet acetaminophen 325 mg / HYDROcodone bitartrate 5 mg oral tablet (4 sources) Opioid Agonist Start: 03-16-2020 End: 06-29-2020 take 1 tablet by mouth every eight hours as needed for pain Hydrocodone-Acetam inophen 5-325 mg tablet Discontinued 1 TAB PO Q8H as needed for pain 10 March 16, 2020 June 29, 2020 12:53pm ARIPiprazole 15 mg oral tablet (5 sources) Atypical Antipsychotic Start: 01-30-2020 End: 06-29-2020 take 1 tablet by mouth once daily Aripiprazole (Abilify) 15 mg Tablet Discontinued 15 MG PO Daily January 30, 2020 12:00am June 29, 2020 12:53pm azithromycin (Zithromax) 500 mg in sodium chloride 0.9 % 250 mL IVPB (ADD-[place]) (1 source) Start: 02-16-2023 End: 02-16-2023 azithromycin (Zithromax) 500 mg in sodium chloride 0.9 % 250 mL IVPB (ADD-[place]) betamethasone 3 mg/ml / betamethasone acetate 3 mg/ml injectable suspension (2 sources) Corticosteroid Start: 02-15-2023 End: 02-15-2023 betamethasone acetate-betamethas one sodium phosphate ([place]) injection 12 mg Start: 02-07-2023 End: 02-07-2023 inject 12 mg by intramuscular injection once 12 mg, IntraMUSCular, Once, On Mon02/07/23 at 0400, For 1 dose, Pre-Delivery 20 ml bupivacaine hydrochloride 7.5 mg/ml injection (1 source) Amide Local Anesthetic Start: 02-16-2023 End: 02-16-2023 bupivacaine in dextrose (Marcaine Spinal) 0.75-8.25 % injection calcium chloride 0.0014 meq/ml / potassium chloride 0.004 meq/ml / sodium chloride 0.103 meq/ml / sodium lactate 0.028 meq/ml injectable solution (2 sources) Start: 02-16-2023 End: 02-16-2023 lactated Ringer's (LR) infusion Start: 02-07-2023 End: 02-07-2023 take 50 mL intravenously every hour 50 mL/hr, IntraVENous, Continuous, Starting on Mon02/07/23 at 0345, Pre-Delivery ceFAZolin 2000 mg injection (1 source) Cephalosporin Antibacterial Start: 02-16-2023 End: 02-16-2023 take 2000 mg intravenously every eight hours ceFAZolin in dextrose 4% (Ancef) IVPB 2,000 mg citric acid 66.8 mg/ml / sodium citrate 100 mg/ml oral solution (2 sources) Calculi Dissolution Agent, Anti-coagulant Start: 02-16-2023 End: 02-16-2023 citric acid-sodium citrate (Bicitra) solution 30 mL Start: 02-15-2023 End: 02-16-2023 citric acid-sodium citrate ( Bicitra) 500-334 MG/5ML solution - Pyxis ADS Override Pull dexamethasone phosphate 10 mg/ml injectable solution (1 source) Corticosteroid Start: 02-16-2023 End: 02-16-2023 dexAMETHasone (Decadron) injection dexAMETHasone-bupiv acaine-epinephrine (TAP) syringe (1 source) Start: 02-16-2023 End: 02-16-2023 dexAMETHasone-bu pivacaine-epinep hrine (TAP) syringe 1 ml diphenhydrAMINE hydrochloride 50 mg/ml cartridge (1 source) Histamine-1 Receptor Antagonist Start: 02-16-2023 End: 02-20-2023 take 25 mg intravenously every six hours as needed 25 mg, IntraVENous, Every 6 hours PRN, itching, hives, Starting on Janie 02/16/23 at 0319, 0.4 ml enoxaparin sodium 100 mg/ml prefilled syringe (1 source) Low Molecular Weight Heparin Start: 02-16-2023 End: 02-20-2023 inject 40 mg by subcutaneous injection once daily in the evening 40 mg, SubCUTAneous, Every evening, First dose on Janie 02/16/23 at 1800, Indication of Use: Prophylaxis-DVT/ PE 1 ml ePHEDrine sulfate 50 mg/ml injection (1 source) alpha-Adrenergic Agonist, beta-Adrenergic Agonist, Norepinephrine Releasing Agent Start: 02-16-2023 End: 02-16-2023 ePHEDrine injection famotidine 20 mg oral tablet (1 source) Histamine-2 Receptor Antagonist Start: 02-16-2023 End: 02-20-2023 take 1 tablet by mouth every twenty-four hours as needed for gastroesophageal reflux disease 20 mg, Oral, Daily PRN, indigestion, heartburn, Starting on Mon02/16/23 at 0319, Renal dose per pharmacy for peptic ulcer prophylaxis.&nbs p; 2 ml fentaNYL 0.05 mg/ml injection (1 source) Opioid Agonist Start: 02-16-2023 End: 02-16-2023 fentaNYL (Sublimaze) injection HYDROmorphone (Dilaudid) injection 0.25 mg (1 source) Start: 02-16-2023 End: 02-20-2023 HYDROmorphone (Dilaudid) injection 0.25 mg 2 ml ketorolac tromethamine 30 mg/ml cartridge (1 source) Nonsteroidal Anti-inflammatory Drug, Cyclooxygenase Inhibitor Start: 02-16-2023 End: 02-16-2023 inject 60 mg by intramuscular injection once 60 mg, IntraMUSCular, Once, On Mon02/16/23 at 0145, For 1 dose, Post-Delivery Postop in recovery room lanolin 1000 mg/ml topical cream (1 source) Start: 02-16-2023 End: 02-20-2023 Topical, Every 1 hour PRN, dry skin, nipple discomfort, Starting on Mon02/16/23 at 0319, Apply to affected area 500 ml magnesium sulfate 40 mg/ml injection (6 sources) Start: 02-16-2023 End: 02-16-2023 magnesium sulfate 20 GM/500ML infusion Start: 02-15-2023 End: 02-15-2023 magnesium sulfate IVPB premi x 4,000 mg Start: 02-07-2023 End: 02-07-2023 take 50 mL intravenously every hour 2,000 mg/hr (50 mL/hr), IntraVENous, Continuous, Starting on Mon02/07/23 at 0415, For 12 hours, Pre-Delivery Pre-Infusion: Assess baseline vital signs (blood pressure, pulse, pulse oximetry, respirations, and temperature), breath sounds, intake and output, neurologic status (deep tendon reflexes, presence or absence of clonus, level of consciousness (LOC), presence of headaches/visual disturbances, presence/absence of epigastric pain, and if applicable Heart Rate/Contractions (continuous monitoring). Loading Dose/Infusion: - Stay with the patient for first hour of initiation of magnesium sulfate to monitor for adverse drug reactions. - Continuous pulse oximetry for first 2 hours of initiation of magnesium sulfate. - Reassess Temperature every 4 hours if membranes are intact or every 2 hours if membranes have ruptured. - Reassess all other parameters every 30 minutes from the initiation of the bolus, through the maintenance dosing for the first 2 - 4 hours. Notify care provider immediately of absent deep tendon reflexes, a urine output of less than 30 mL/hour, respirations of less than 12 breaths/minute, or an oxygen saturation level of less than 90%. Grams to milligrams conversion table: 1 gram = 1000 mg 2 grams = 2000 mg 4 grams = 4000 mg 6 grams = 6000 mg 20 grams = 20,000 mg Start: 02-07-2023 End: 02-07-2023 4,000 mg, IntraVENous, Admin ister over 20 Minutes, Once, On Mon02/07/23 at 0345, For 1 dose, Pre-Delivery Pre-Infusion: Assess baseline vital signs (blood pressure, pulse, pulse oximetry, respirations, and temperature), breath sounds, intake and output, neurologic status (deep tendon reflexes, presence or absence of clonus, level of consciousness (LOC), presence of headaches/visual disturbances, presence/absence of epigastric pain, and if applicable Heart Rate/Contractions (continuous monitoring). Loading Dose/Infusion: - Stay with the patient for first hour of initiation of magnesium sulfate to monitor for adverse drug reactions. - Continuous pulse oximetry for first 2 hours of initiation of magnesium sulfate. - Reassess Temperature every 4 hours if membranes are intact or every 2 hours if membranes have ruptured. - Reassess all other parameters every 30 minutes from the initiation of the bolus, through the maintenance dosing for the first 2 - 4 hours. Notify care provider immediately of absent deep tendon reflexes, a urine output of less than 30 mL/hour, respirations of less than 12 breaths/minute, or an oxygen saturation level of less than 90%. Grams to milligrams conversion table: 1 gram = 1000 mg 2 grams = 2000 mg 4 grams = 4000 mg 6 grams = 6000 mg 20 grams = 20,000 mg metoclopramide 10 mg oral tablet (1 source) Dopamine-2 Receptor Antagonist Start: 02-12-2023 End: 02-12-2023 metoclopramide (Reglan) tablet 10 mg 2 ml morphine sulfate 0.5 mg/ml injection (1 source) Opioid Agonist Start: 02-16-2023 End: 02-16-2023 morphine PF (Duramorph) 0.5 MG/ML injection Ondansetron (3 sources) Serotonin-3 Receptor Antagonist End: 02-20-2023 Ondansetron HCl (ZOFRAN PO) Take by mouth. 0 02/20/2023 Discontinued (Stop taking at discharge) Ondansetron HCl (ZOFRAN PO) Take by mouth. 0 Suspended ondansetron ODT (Zofran-ODT) disintegrating tablet 4 mg (1 source) Start: 02-16-2023 End: 02-20-2023 take 1 tablet by mouth every eight hours as needed for nausea and vomiting ondansetron ODT (Zofran-ODT) disintegrating tablet 4 mg oxytocin (Pitocin) 30 units in 500 mL infusion (2 sources) Start: 02-16-2023 End: 02-16-2023 oxytocin (Pitocin) 30 units in 500 mL infusion oxytocin (Pitocin) 30 units infusion - Pyxis ADS Override Pull (1 source) Start: 02-15-2023 End: 02-16-2023 oxytocin (Pitocin) 30 units infusion - Pyxis ADS Override Pull polyethylene glycol 3350 20237 mg powder for oral solution (1 source) Osmotic Laxative Start: 02-07-2023 End: 02-16-2023 take 17 g by mouth every twenty-four hours as needed for constipation 17 g, Oral, Daily PRN, constipation, Starting on Mon02/07/23 at 0318, Pre-Delivery 1st line for treatment of constipation - give scheduled if no bowel movement in past 24 hours. vitamin tablet (2 sources) Start: 02-16-2023 End: 02-20-2023 take 1 tablet by mouth once daily 1 tablet, Oral, Daily, First dose on Mon02/16/23 at 0900, Begin when normal bowel activity resumes. Start: 02-07-2023 End: 02-16-2023 take 1 tablet by mouth once daily 1 tablet, Oral, Daily, First dose on Mon02/07/23 at 0900, Pre-Delivery With First Dose As Scheduled. simethicone 80 mg chewable tablet (1 source) Start: 02-16-2023 End: 02-20-2023 take 1 tablet by mouth every six hours as needed 80 mg, Oral, Every 6 hours PRN, flatulence, cramping, Starting on Mon02/16/23 at 0319, 5 ml sodium chloride 9 mg/ml injection (4 sources) Start: 02-16-2023 End: 02-20-2023 take 1 dose intravenously twice daily 5-40 mL, IntraVENous, Every 12 hours scheduled (2 times per day), First dose on Mon02/16/23 at 0900, or Line Patency: Peripheral IV = 5 mL; Midline or Central Line = 10 mL/lumen. &n bsp;If following IV push medication, administer flush at same rate as the IV push. Flush volume is determined by type of infusion therapy being given. For non-viscous solutions use: Peripheral IV = 5 mL Midline or Central Line = 10 mL/lumen F or viscous solutions (i.e. blood components, parenteral nutrition, contrast media, or after obtaining blood sample) use: Peripheral IV = 10 mL Midline or Central Line = 20 mL/lumen Start: 02-16-2023 End: 02-20-2023 5-250 mL/hr, IntraVENous, NH N, if patient receiving piggyback infusions and maintenance fluids are not ordered OR KVO fluids to protect IV site / prevent frequent line interruptions/ long duration, Starting on Mon02/16/23 at 0319, For piggyback infusion, administer at same rate as piggyback for a total of 25 mL. Enter 25 mL into dose field and piggyback rate into rate field of order. If piggyback is infusing at a rate less than 100 mL/hr, enter 25 mL into dose field and 100 mL/hr into rate field of order. For KVO fluids, enter rate of 20 mL/hr or less into rate field of order. Start: 02-16-2023 End: 02-20-2023 take 5-40 mL intravenously once as needed 5-40 mL, IntraVENous, PRN, line care, After every IV line use, Starting on Janie 02/16/23 at 0319, or Line Patency: Peripheral IV = 5 mL; Midline or Central Line = 10 mL/lumen. If following IV push medication, administer flush at same rate as the IV push. Flush volume is determined by type of infusion therapy being given. For non-viscous solutions use: Peripheral IV = 5 mL Midline or Central Line = 10 mL/lumen For viscous solutions (i.e. blood components, parenteral nutrition, contrast media, or after obtaining blood sample) use: Peripheral IV = 10 mL Midline or Central Line = 20 mL/lumen Start: 02-08-2023 End: 02-16-2023 take 5-40 mL intravenously every twelve hours sodium chloride 0.9% (NS) flush 5-40 mL 1 ml triamcinolone acetonide 40 mg/ml prefilled syringe (6 sources) Corticosteroid Start: 09-17-2024 End: 09-17-2024 triamcinolone acetonide (Kenalog-40) 40 MG/ML injection Indications: Rash and nonspecific skin eruption Inject 1 mL (40 mg) into the joint 1 (one) time for 1 dose 09/17/2024 09/17/2024 Discontinued (Ineffective) Start: 09-17-2024 End: 09-17-2024 triamcinolone acetonide (Kenalog-40) injection 40 mg Start: 09-17-2024 End: 09-17-2024 inject 40 mg by intramuscular injection once 40 mg, Intramuscular, Once, On Mon09/17/24 at 1030, For 1 dose Start: 09-17-2024 End: 09-17-2024 triamcinolone acetonide (Kenalog-40) injection 40 mg Start: 09-17-2024 End: 09-17-2024 inject 40 mg by intramuscular injection once 40 mg, Intramuscular, Once, On Mon09/17/24 at 1030, For 1 dose Problems Active Problems Problem Classification Problem Date Documented Date Episodic/Chronic Abdominal pain (4 sources) Lower abdominal pain, unspecified; Translations: [LOWER ABDOMINAL PAIN UNSPECIFIED] Onset: 08-23-2022 Episodic Allergic reactions (1 source) Urticaria; Translations: [Urticaria, unspecified] Onset: 09-18-2024 Episodic Cancer of cervix (4 sources) Low grade squamous intraepithelial lesion on cytologic smear of cervix (LGSIL); Translations: [Atypical squamous cells of undetermined significance on cervical Papanicolaou smear] Onset: 03-08-2022 07-30-2024 Episodic Fracture of upper limb (4 sources) Fracture of metacarpal bone; Translations: [Unspecified fracture of other metacarpal bone, initial encounter for closed fracture] 03-16-2020 Episodic Hemorrhage during ; abruptio placenta; placenta previa (8 sources) Antepartum hemorrhage, unspecified, unspecified trimester; Translations: [Hemorrhage in early , unspecified] Onset: 09-11-2022 Episodic Immunizations and screening for infectious disease (5 sources) Contact with and (suspected) exposure to other viral communicable diseases; Translations: [Contact with or exposure to other viral diseases] 01-31-2020 Episodic Malaise and fatigue (2 sources) Fatigue; Translations: [Other fatigue] 06-12-2024 Episodic Nausea and vomiting (2 sources) Nausea; Translations: [Nausea] 06-12-2024 Episodic Other complications of (4 sources) Other specified related conditions, first trimester; Translations: [OTH SPEC PREG RELATED COND 1ST TRI] Onset: 08-25-2022 Episodic Other complications of (1 source) Smoking (tobacco) complicating , first trimester; Translations: [SMOKING TOBACCO COMP PREG 1ST TRI] Onset: 08-24-2022 Episodic Other complications of (3 sources) Spotting per vagina in ; Translations: [Spotting complicating , second trimester] 10-26-2022 Episodic Other injuries and conditions due to external causes (4 sources) Hematoma; Translations: [Other injury of unspecified body region, initial encounter] 11-06-2021 Episodic Other skin disorders (2 sources) Eruption; Translations: [Rash and other nonspecific skin eruption] 09-17-2024 Episodic Other upper respiratory infections (8 sources) Upper respiratory infection; Translations: [Acute upper respiratory infection, unspecified] 07-22-2021 Episodic Residual codes; unclassified (1 source) Less than 8 weeks gestation of ; Translations: [< 8 WEEKS GESTATION ] Onset: 09-13-2022 Episodic Residual codes; unclassified (2 sources) History of uterine scar from previous surgery; Translations: [History of uterine scar from previous surgery] Onset: 02-07-2023 Episodic Residual codes; unclassified (2 sources) Family history of hereditary disease; Translations: [Family history of other specified conditions] 06-14-2024 Episodic Screening and history of mental health and substance abuse codes (1 source) Personal history of nicotine dependence; Translations: [PERSONAL HISTORY OF NICOTINE DEPEND] Onset: 09-13-2022 Episodic Substance-related disorders (1 source) Nicotine dependence, cigarettes, uncomplicated; Translations: [NICOTINE DEPEND CIGARETTES UNCOMP] Onset: 08-24-2022 Chronic Unclassified (1 source) Spotting complicating , second trimester; Translations: [Spotting complicating , second trimester] Onset: 10-26-2022 Unclassified (1 source) S80.11XA - Contusion of right lower leg, initial encounter; Translations: [S80.11XA - Contusion of right lower leg, initial encounter] Onset: 11-06-2021 Viral infection (7 sources) Disease caused by 2019-nCoV; Translations: [COVID-19] 06-29-2020 Episodic Past or Other Problems Problem Classification Problem Date Documented Da te Episodic/Chronic Polyhydramnios and other problems of amniotic cavity (18 sources) premature rupture of membranes with onset of labor later than 24 hours after rupture; Translations: [ premature rupture of membranes, onset of labor more than 24 hours following rupture, first trimester] Onset: 02-07-2023 Resolved: 06-01-2023 02-07-2023 Episodic Residual codes; unclassified (1 source) Family history of other specified conditions; Translations: [Family history of other specified conditions] Onset: 07-06-2024 Episodic Unclassified (4 sources) Onset: 01-09-2016 Resolved: 07-24-2023 02-06-2023 Results Test Name Value Interpretation Reference Range Facility ED Clinical Summaryon 2024 ED Clinical Summary ED Clinical Summary [place] [id number] ED Clinical Summary Person Information Name: [facility] Age[facility] 28 Years : 1995 Sex: Female Language: Honduran PCP: JUAN CARLOS ABDULLAHI MD Marital Status: Single Visit Id: Visit Reason: Rash; RASH Speciality: Acuity: 4 Enc Type: Emergency Med Service: Emergency Arrival: 09/18/2024 07:39:20 Discharge: 09/18/2024 10:01:38 LOS: 000 02:22 Checkin: 09/18/2024 07:39:20 Checkout: 09/18/2024 10:01:38 Dispo Type: Home (Routine DC) EVENTS: Event Name Event Status Request Date/Time Start Date/Time Complete Date/Time Arrive Complete 09/18/2024 07:39:20 09/18/2024 07:39:20 09/18/2024 07:39:20 Document Home Meds Request 09/18/2024 07:39:20 Triage Complete 09/18/2024 07:39:20 09/18/2024 07:53:59 09/18/2024 07:53:59 Registration Complete 09/18/2024 07:45:55 09/18/2024 07:45:55 09/18/2024 07:45:55 Reg Complete Request 09/18/2024 07:45:55 Reg Bed Request Complete 09/18/2024 07:45:55 09/18/2024 07:45:55 09/18/2024 07:45:55 Bed Assign Complete 09/18/2024 07:50:11 09/18/2024 07:50:11 09/18/2024 07:50:11 Dr Exam Complete 09/18/2024 07:50:11 09/18/2024 08:03:07 09/18/2024 08:03:07 RN Exam Complete 09/18/2024 07:50:11 09/18/2024 07:57:54 09/18/2024 07:57:54 Registration Request 09/18/2024 08:03:07 Dr Exam Complete 09/18/2024 08:03:54 09/18/2024 08:03:54 09/18/2024 08:03:54 Meds Admin Cancel 09/18/2024 08:18:35 09/18/2024 08:32:17 Meds Admin Complete 09/18/2024 08:25:43 09/18/2024 08:50:22 Discharge Complete 09/18/2024 09:56:18 09/18/2024 10:01:45 09/18/2024 10:01:45 Transfer Complete 09/18/2024 10:01:45 09/18/2024 10:01:45 09/18/2024 10:01:45 ADDRESS: [address] [place] [phone] [facility] DOC NOTES: MEDICAL INFORMATION: Prescriptions Given: Medications to Continue with No Changes Other Medications multivitamin, ( Multivitamins) 1 Tablets By Mouth every day. PATIENT EDUCATION INFORMATION: Instructions: Hives Follow up: With: Address: When: ASHISH GRANDA In 3 days 09/21/2024 With: Address: When: JUAN CARLOS ABDULLAHI [address] [place], [place] [id number] [facility] () In 3 days 09/21/2024 Comments: Call Dr for diagnosis based follow up. You may take Zyrtec as well as Pepcid for symptoms DIAGNOSIS: Urticarial rash Normal [facility] ED Note-Physicianon 09-18-19 ED Note-Physician ED Note-Physician Basic Information Time Seen: Faustino Sung PA-C 09/18/2024 08:03 Chief Complaint Pt reports rash since yesterday. Pt went to yest and was given steroid injection and PO steroids. Rash is worse today and very itchy. Was also given ABX. Denies any changes in soaps, detergents, allergies. Has not been sick recently. History of Present Illness A 28-year-old female reports to the ED with concerns of a rash. Reports the rash is gone since Monday, with worsening symptoms yesterday. Denies any new soaps due to detergents or shampoos. Denies any new medications. She states that she was placed on steroids as well as antibiotics, and has no improvement. Denies taking any Benadryl. Reports is very itchy. Denies any fevers or chills. States no history of MRSA. She reports that she did was given a steroid shot and did start steroids orally today. Reports no improvement. Review of Systems No other aggravating or relieving factors no other associated symptoms no other prior treatments or complaints. Family: Reviewed and noncontributory Social: lives at home Review of systems negative unless otherwise specified in the HPI. Physical Exam Vitals & Measurements T: 36.7 ???C(Oral) HR: 69(Peripheral) RR: 16 BP: 134/87 SpO2: 100% HT: 180.34 cm WT: 97 kg BMI: 29.83 General: The patient appears well and in no apparent distress. Patient is resting comfortably in chair. Afebrile Skin: Warm, dry, no pallor noted. Scattered on the lower extremities are areas of wheals of the urticaria, that extend into smaller areas located on the legs, as well as the arms. Blanches when palpated. No warmth on palpation. Head: Normocephalic, atraumatic Neck: No JVD Eye: PERRLA, EOMI ENT: Moist mucus membranes. No oral mucosal involvement Cardiovascular: Regular rate. normal peripheral perfusion Respiratory: No respiratory distress. no accessory muscle use. no obvious audible wheezing. Lung sounds clear to auscultation Chest Wall: no deformity Musculoskeletal: normal ROM, no deformity, no swelling GI: No obvious distention Neurological: A&O. moves all extremities equal strength and symmetry Psychiatric: Cooperative and appropriate Medical Decision Making MEDICAL DECISION MAKING Number and Complexity of Problems Differential Diagnosis: [] [facility] Data External documents reviewed: [] My EKG interpretation: [] My CT interpretation: [] My X-ray interpretation: [] My Ultrasound interpretation: [] Decision rules/scores evaluated: [] Discussed with: [] Treatment and Disposition ED Course: 28-year-old female reports to Emergency Department with concerns of a rash. Reports that this has been going on since Monday but worsened over the last couple of days. Exam is consistent with appears to be a urticarial type rash. Blanches when palpated. No signs of infection. No history of MRSA. Patient given hydroxyzine here. Patient already on steroids, as well as she did have a Kenalog shot yesterday. Did start her steroids today. Discussed she needs to continue to take antihistamines as well as let the steroids kick in. Discussed follow-up with dermatology if this is not improved. Follow-up with your primary care provider in 3 to 5 days. If symptoms worsen, do not improve, or new symptoms arise please report back to emergency department for further evaluation. The patient was understanding and agreeable to plan moving forward. Shared decision making: [] Code status: [] Assessment/Plan Urticarial rash (L50.9: Urticaria, unspecified) Orders: hydrOXYzine, 25 mg = 1 tab(s), Tab, Oral, Once, Stop date 09/18/24 8:24:00 EST, STAT, Start date 09/18/24 8:24:00 EST, 09/18/24 8:24:00 EST Disposition Plan Patient Discharge Condition stable Discharge Disposition to home Discharge Prescription List Prescriptions No active prescription medications Follow-up With When Contact Information JUAN CARLOS ADBULLAHI In 3 days 09/21/[address] [place], [place] [id number] Business (1) Additional Instructions: Call Dr for diagnosis based follow up. You may take Zyrtec as well as Pepcid for symptoms ASHISH GRANDA In 3 days 09/21/2024 EST Additional Instructions: Patient Education Hives Attestation Patient seen and evaluated by the physician assistant property manager. Attending physician was present in the emergency department and supervised care. This visit was performed by both the physician and an APC. I performed all aspects of the MDM as documented. This report was transcribed using voice recognition software. Every effort was made to ensure accuracy, however, inadvertently computerized deputy assessor mistakes may be present. Appropriate healthcare PPE was used in evaluating this patient. The patient was placed in a mask. The healthcare provider was wearing mask, gloves, and utilizing proper hand hygiene. All equipment was properly cleansed. I performed a substantive part of the MDM during the (more content not included)... [facility] Comment on above: Result Comment: Elec tronically Signed By: Faustino Sung PA-C\.br\Date and Time Signed: 09/18/24 11:12 EST\.br\Electronically Co-Signed By: Fahad Coleman M.D.\.br\Date and Time Co-Signed: 09/18/24 12:04 EST ED Patient Summaryon 025 ED Patient Summary ED Patient Summary [place] [id number] Patient Discharge Instructions Person Information Name: LEIGHA HERNANDEZYEVJ Velazquez Age: 28 Years Arrival Date: 09/18/2024 07:39:20 Discharge Diagnosis: Urticarial rash Primary Care Physician: JUAN CARLOS ABDULLAHI MD Provider Information Primary Provider: Fahad Coleman M.D. Advanced Publishing Editor:Faustino Sung PA-C The exam and treatment you received in the Emergency Department were for an urgent problem and are not intended as complete care. It is important that you follow up with a doctor, nurse practitioner, or physician???s assistant property manager for ongoing care. If your symptoms become worse or you do not improve as expected and you are unable to reach your usual health care provider, you should return to the Emergency Department. We are available 24 hours a day. MAYO HERNANDEZ Caroline has been given the following list of patient education materials, prescriptions and follow-up instructions: Follow-up Instructions: With: Address: When: ASHISH GRANDA In 3 days 09/21/2024 With: Address: When: JUAN CARLOS ABDULLAHI [address] [place] [id number] [facility] () In 3 days 09/21/2024 Comments: Call Dr for diagnosis based follow up. You may take Zyrtec as well as Pepcid for symptoms In the event that this physician does not participate in your insurance network, please consult with your insurance company to find a nearby participating provider. Patient Education Materials: Hives A MESSAGE TO ALL PATIENTS REGARDING OPIOIDS PRESCRIPTION OPIOIDS: WHAT YOU NEED TO KNOW Prescription opioids can be used to help relieve [id number] pain and are often prescribed following a surgery or injury, or for certain health conditions. These medications can be an important part of the treatment but also come with serious risks. It is important to work with your healthcare provider to make sure you are getting the safest, most effective care. WHAT ARE THE RISKS AND SIDE EFFECTS OF OPIOID USE? Prescription opioids carry serious risks of addiction and overdose, especially with prolonged use. An opioid overdose, often marked by slowed breathing, can cause sudden . The use of prescription opioids can have a number of side effects as well, even when taken as directed: ??? Tolerance???meaning you might need to take more of the medication for the same pain relief ??? Physical dependence???meanin g you have symptoms of withdrawal when a medication is stopped ??? Increased sensitivity to pain ??? Constipation ??? Nausea, vomiting, and dry mouth ??? Sleepiness and dizziness ??? Confusion ??? Depression ??? Low levels of testosterone that can result in lower sex drive, energy, and strength ??? Itching and sweating RISKS ARE GREATER WITH: ??? History of drug misuse, substance use disorder, or overdose ??? Mental health conditions (such as depression or anxiety) ??? Sleep apnea ??? Older age (65 years and older) ??? Avoid alcohol while taking prescription opioids. Also, unless specifically advised by your health care provider, medications to avoid include: ??? Benzodiazepines (such as Xanax or Valium) ??? Muscle relaxants (such as Soma or Flexeril) ??? Hypnotics (such as Ambien or Lunesta) ??? Other prescription opioids KNOW YOUR OPTIONS Talk to your health care provider about ways to manage your pain that don???t involve prescription opioids. Some of these options may actually work better and have fewer risks and side effects. Options may include: ??? Pain relievers such as acetaminophen, ibuprofen, and naproxen ??? Some medication that are also used for depression or seizures ??? Physical therapy and exercise ??? Cognitive behavioral therapy, a psychological, goal-directed approach, in which patients learn how to modify physical, behavioral, and emotional triggers of pain and stress. IF YOU ARE PRESCRIBED OPIOIDS FOR PAIN: ??? Never take opioids in greater amounts or more often than prescribed. ??? Follow up with your primary health care provider. o Work together to create a plan on how to manage your pain. o Talk about ways to help manage your pain that don???t involve prescription opioids. o Talk about any and all concerns and side effects. ??? Help prevent misuse and abuse o Never sell or share prescription opioids. o Never use another person???s prescription opioids. ??? Store prescription opioids in a secure place and out of reach of others (this may include visitors, children, friends, and family). ??? Safely dispose of unused prescription opioids: Find your community drug take-back program or your pharmacy mail-back program, or flush them down the toilet, following guidance from the Food and Drug Administration (www.fda.gov/Drugs/ ResourcesForYou). ??? Visit www.cdc.gov/drugove rdose to learn (more content not included)... [facility] Colposcopyon 08-06-2024 Sony Disla MD 08/06/2024 1:28 PM Colposcopy Date/Time: 08/06/2024 1:25 PM Performed by: Sony Disla MD Authorized by: Sony Disla MD Consent: Patient questions answered: yes Consent obtained: Verbal Consent given by: Patient Pre-procedure: Prep solution(s): acetic acid Procedure: Colposcopy with: cervical biopsy Colposcopy details: Satisfactory. AW change at 4:00. Nearly the entire lesio was removed with single biopsy. ECC done. Cauterized with AgNO3 Cervix visibility: fully visualized SCJ visibility: fully visualized Lesion visualized: fully visualized Acetowhite lesion(s): cervix Ferric subsulfate solution applied: no Tampon inserted: no Post-procedure: Patient tolerance of procedure: Patient tolerated the procedure well with no immediate complications [facility] HCG ( test) Ql (U)o n 08-06-2024 Preg Test, Ur Negative Negative [facility] S. pyogenes DNA VERONICA+probe No m (Unsp spec)on 07-07-2024 Interpretation and review of laboratory results Abnormal [facility] RESULT Positive Negative [facility] Lab Reporton 07-06-2024 Report Normal [facility] Comment on above: Performed By: #### G ALDAIR #### Performed at [facility], [address] [place] [address], [place] [address] CBC W Auto Differential pane l (Bld)on 06-13-2024 Basophils (Bld) [#/Vol] 0 10*3/uL [facility] Basophils/100 WBC (Bld) 0 % Not Estab. [facility] Eosinophils (Bld) [#/Vol] 0.1 10*3/uL [facility] Eosinophils/100 WBC (Bld) 1 % Not Estab. [facility] Erythrocyte distribution width (RBC) [Ratio] 12.7 % 11.7 - 15.4 % [facility] Hematocrit (Bld) [Volume fraction] 39.8 % 34.0 - 46.6 % [facility] Hemoglobin (Bld) [Mass/Vol] 13 g/dL 11.1 - 15.9 g/dL [facility] Immature granulocytes (Bld) [#/Vol] 0 10*3/uL [facility] Immature granulocytes/100 WBC (Bld) 0 % Not Estab. [facility] Lymphocytes (Bld) [#/Vol] 2.4 10*3/uL [facility] Lymphocytes/100 WBC (Bld) 32 % Not Estab. [facility] MCH (RBC) [Entitic mass] 28.6 pg 26.6 - 33.0 pg [facility] MCHC (RBC) [Mass/Vol] 32.7 g/dL 31.5 - 35.7 g/dL [facility] MCV (RBC) [Entitic vol] 88 fL 79 - 97 fL [facility] Monocytes (Bld) [#/Vol] 0.5 10*3/uL [facility] Monocytes/100 WBC (Bld) 7 % Not Estab. [facility] Neutrophils (Bld) [#/Vol] 4.6 10*3/uL [facility] Neutrophils/100 WBC (Bld) 60 % Not Estab. [facility] Platelets (Bld) [#/Vol] 217 10*3/uL [facility] RBC (Bld) [#/Vol] 4.55 10*6/uL [facility] WBC (Bld) [#/Vol] 7.7 10*3/uL [facility] Comment on above: Effective June 24, 2024 profile [id number] WBC will be made non-orderable as a stand-alone order code. Laboratory - Chemistry and C hemistry - challengeon 06-13-2024 Albumin [Mass/Vol] 4.1 g/dL 4.0 - 5.0 g/dL NO [facility] ALP [Catalytic activity/Vol] 46 U/L [facility] ALT [Catalytic activity/Vol] 29 U/L [facility] AST [Catalytic activity/Vol] 24 U/L [facility] Bilirubin [Mass/Vol] 0.2 mg/dL 0.0 - 1 .2 mg/dL [facility] Calcium [Mass/Vol] 9.7 mg/dL 8.7 - 10. 2 mg/dL [facility] Chloride [Moles/Vol] 99 mmol/L 96 - 10 6 mmol/L [facility] CO2 [Moles/Vol] 25 mmol/L 20 - 29 mmol/L [facility] Cobalamin (Vitamin B12) [Mass/Vol] 728 pg/mL 232 - 1245 pg/mL [facility] Creatinine [Mass/Vol] 0.79 mg/dL 0.57 - 1.00 mg/dL [facility] GFR/1.73 sq M.predicted among non-blacks MDRD (S/P/Bld) [Vol rate/Area] 105 mL/min/{1.73_m2} 59 - PINF mL/min/1.73 [facility] Globulin (S) [Mass/Vol] 3 g/dL 1.5 - 4.5 g/ dL [facility] Glucose [Mass/Vol] 86 mg/dL 70 - 99 mg/dL [facility] Potassium [Moles/Vol] 4 mmol/L 3.5 - 5.2 mmol/L [facility] Protein [Mass/Vol] 7.1 g/dL 6.0 - 8.5 g/dL NO [facility] Sodium [Moles/Vol] 138 mmol/L 134 - 144 mmol/L [facility] Urea nitrogen [Mass/Vol] 10 mg/dL 6 - 20 mg/dL [facility] Urea nitrogen/Creatinine [Mass ratio] 13 mg/mg 9 - 23 [facility] No Panel Informationon 06-13 Performed at: [address] [place] [address] [id number] Accounts Executive: Raffi Ngo PhD, Phone: [phone] [facility] HCG ( test) Ql (U)o n 06-12-2024 Interpretation and review of laboratory results Normal [facility] Preg Test, Ur Negative Negative [facility] Laboratory - Chemistry and C hemistry - challengeon 06-12-2024 Bilirubin Ql (U) Negative Negative [facility] Glucose [Mass/Vol] Negative Negative [facility] Ketones Ql (U) Negative Negative [facility] pH (U) 6 [pH] 5.0 - 6.0 [facility] Specific gravity (U) [Rel density] 1.005 1.001 - 1.035 [facility] Urobilinogen (U) [Mass/Vol] 0.2 mg/dL 0.2 - 1.0 [facility] Laboratory - Hematology and Cell countson 06-12-2024 Hemoglobin Ql (U) Negative Negative [facility] Laboratory - Urinalysison Nitrite Ql (U) Negative Negative [facility] Protein Ql (U) Negative Negative [facility] No Panel Informationon 06-12 Interpretation and review of laboratory results Normal [facility] LEUKOCYTES Negative Negative [facility] Progress Noteon 03-23-2023 Sales Activity Manager Authentication Interface Message Text Visit Subjective: Mayo Hernandez is a 27 y.o. female who presents for a visit. She is 5 weeks following a delivery low transverse. I have fully reviewed the and intrapartum course. The delivery was at 29 gestational weeks for PPROM and PreE without SF. Delivering Provider: Hospitalist Avelino . course has been complicated by NICU stay. Baby is feeding by pumped breastmilk. Bleeding staining only. Bowel function is normal. Bladder function is normal. Patient is not sexually active. Contraception method is condoms and plans future BTL with OB . depression screening: negative. Patient's medications, allergies, past medical, surgical, , social, and family histories were reviewed and updated as appropriate. She is unaccompanied. Review of Systems All other systems reviewed and are negative. Objective: BP 118/80 Pulse 88 Ht 180.3 cm Wt 94.7 kg (208 lb 12.8 oz) SpO2 98% Yes Comment: pumping BMI 29.12 kg/m Physical Exam Nursing note and vitals reviewed. Constitutional: Appearance: She is well-developed and well-nourished. Pulmonary: Effort: Pulmonary effort is normal. Abdominal: Palpations: Abdomen is soft. Musculoskeletal: General: Normal range of motion. Neurological: Mental Status: She is alert and oriented to person, place, and time. Skin: General: Skin is warm and dry. Psychiatric: Mood and Affect: Mood and affect normal. Behavior: Behavior normal. Incision healing well Assessment/Plan: Normal exam. 1. Contraception: condoms and Plans future tubal with OB 2. Pt to call with any concerns 3. Follow up with Primary OB for BTL planning and WWE as scheduled. The total time spent on patient care today 03/23/2023 was 30 minutes. -15 minutes direct patient care -15 minutes chart review and documentation Normal [facility] Progress Noteon 02-23-2023 Sales Activity Manager Authentication Interface Message Text Visit Subjective: Mayo Hernandez is a 27 y.o. female who presents for a visit. She is 1 week following a delivery low transverse. I have fully reviewed the and intrapartum course. The delivery was at 29 gestational weeks due to PROM, cat II FHR tracing. Delivering Provider: Hospitalist Avelino . course has been unremarkable. Baby (Marcin) is in NICU due to prematurity. Pt is providing breast milk. Denies issues with breasts. Bleeding no bleeding. Bowel function is normal. Bladder function is normal. Patient is not sexually active. Contraception method is likely planning tubal sterilization . depression screening: denies any mood lability. Aware of Dr Martin for psych support. Patient's medications, allergies, past medical, surgical, , social, and family histories were reviewed and updated as appropriate. She is unaccompanied. Review of Systems Musculoskeletal: Positive for back pain (back and hips sore but improved since blood patch while in hospital). Objective: BP 128/76 Pulse 82 Resp 18 Ht 180.3 cm Wt 92.9 kg (204 lb 11.2 oz) SpO2 98% Yes Comment: pumping for baby in nicu BMI 28.55 kg/m Physical Exam Vitals reviewed. Constitutional: Appearance: She is well-developed and well-nourished. Cardiovascular: Rate and Rhythm: Normal rate. Pulmonary: Effort: Pulmonary effort is normal. Abdominal: Palpations: Abdomen is soft. Musculoskeletal: General: Normal range of motion. Neurological: Mental Status: She is alert and oriented to person, place, and time. Skin: General: Skin is warm and dry. Psychiatric: Mood and Affect: Mood and affect normal. Behavior: Behavior normal. Thought Content: Thought content normal. Judgment: Judgment normal. Incision: incision intact, clean and dry, and without drainage. Steri strips intact. 4 inch ecchymosis on left half of incision. No palpable mass No tenderness with palpation. 27 y.o. at Unknown with Active Non-Hospital Problems Diagnosis Date Noted care following delivery 02/22/2023 02/16/23 Primary LTCS for Cat II tracing. PROM at 29 weeks Pre-eclampsia in puerperium 02/22/2023 PreEcw/o SF Mild range BP and proteinuria antepartum - s/p blood patch on 02/19 for spinal headache without VC or other symptoms - Asx today - One low mild range BP overnight 02/23 Normotensive and asymptomatic History of premature rupture of membranes 02/07/2023 1st PROM 36 weeks with delivery PROM at 28 weeks (was not on progesterone with this ) Delivery 01/2723 for Cat II tracing Follow up : 1 month for final pp visit. Reinforced precautions OK to drive The total time spent on patient care today was 20 minutes. -10 minutes direct patient care -10 minutes chart review and documentation Normal [facility] 36on 02-21-2023 36 Called and scheduled pp visit. Normal [facility] CARECOORDon 02-20-2023 CAR[place]OORD Date: 02/20/2023 Name: Mayo Hernandez : 1995 [facility] Information: [place] Patient Information Primary Caregiver: Self Accompanied by/Relationship: S/O;Family Marital Status: Single Support System: SO/Family Church/Cultural Factors: None Activities of Daily Living Communication: See demographics Living Arrangements Current Residence: Private residence Lives With: S/O; Family Support System: S/O; Family Income Information Income Source: Employed Financial Resource Strain How hard is it for you to pay for the very basics like food, housing, medical care and heating? N/A Housing Stability In the last 12 months, was there a time when you did not have a steady place to sleep or slept in a retirement (including now)? No Transportation Needs Has the lack of Transportation kept you from medical appointments? No In the past 12 months, has the lack of transportation kept you from meetings, work, or from getting things needed for daily living? No Food Insecurity Within the past 12 months, have you worried that your food would run out before you got the money to buy more? No Stress Do you feel stress - tense, restless, nervous, or anxious, or unable to sleep at night because you mind is troubled all the time? Mood stable Referral To Financial Resources: N/A Community Resources: Admission folder given upon admission to PP Unit Social Work: N/A CLP: N/A Medical Information s/p PCD for PNU admit for PPROM at 28/1 weeks; in NICU Discharge Plan Home or Community Resources: Admission folder given upon admission to PP unit Equipment: N/A Education Given: Patient is independent and has insurance. She is prepared with her baby supplies. Denies any needs for housing, transportation or food. Discussion on the A. B. C's of safe sleep. Always place your baby on his or her back to sleep, use a firm sleep surface and your baby should not sleep in an adult bed, on a couch or chair. Keep soft objects, toys and loose bedding out of your baby's sleep area. Reviewed depression. It is common to have blues. This is a normal response to many of the hormonal changes, stress and lack of sleep that go with raising a and physically recovering from the . Don't hesitate to talk to your provider with any concerns. There are resources in your home going booklet. To help prevent germs from spreading to you and your baby, make sure everyone washes their hands before they handle your . Avoid crowds, and keep away from sick people, anyone who is sick with a cough or fever, including family members. Post- warning signs information reviewed with patient per nurse with discharge To be discharged to home. Denies any concerns at this time. Additional Information: N/A Mental Health Services: N/A Developmental Delay: N/A Children's Services: N/A [facility] worker James Cheekwrse [phone] here to meet with new mother before DC. [facility] OK FOR DC [facility] Progress Noteon 02-20-2023 Progress Note Patient discharged to home with FOB at 1327. Patient has all belongings. Jesusita Shrestha RN reviewed paperwork with MOB. Answered all questions and concerns. Patient ambulated to car at 1327. Normal [facility] Progress Note Note- POST OPERATIVE DAY # 4 Mayo Hernandez is a 27 y.o. who was seen & examined today. Her was complicated by: Patient Active Problem List Diagnosis premature rupture of membranes (PPROM) with onset of labor after 24 hours of rupture in first trimester, antepartum Today she is doing well without any chief complaint. Her lochia is light. She denies Headache, Chest Pain, Vision Changes, and Shortness of Breath. She is ambulating well. Flatus present. Bowel movement present. Voiding without difficulty. She is tolerating solids. Pain is controlled yes. Vital Signs: Vitals: 02/18/23 2105 02/19/23 0752 02/19/23 1931 02/19/23 2031 BP: 138/82 123/81 (!) 134/92 134/81 BP Location: Left arm Patient Position: Lying Pulse: 73 76 82 84 Resp: 16 16 16 Temp: 36.8 ?C (98.2 ?F) 36.9 ?C (98.4 ?F) 36.9 ?C (98.4 ?F) TempSrc: Temporal Temporal Temporal SpO2: 98% 98% 100% Weight: Height: Urine Input & Output last 24hrs: No intake or output data in the 24 hours ending 02/20/23 0613 Physical Exam: GENERAL APPEARANCE: alert, well appearing, in no apparent distress ABDOMEN : benign non-tender, without masses or organomegaly palpable EXTREMITIES: no redness or tenderness in the calves or thighs, no edema NEUROLOGIC: alert, oriented, normal speech, no focal findings or movement disorder noted UTERUS : normal size, well involuted, firm, non-tender Desc; incision: healing well, no drainage, no erythema, no swelling, well approximated, slight bruising Labs: Lab Results Component Value Date WBC 11.0 (H) 02/14/2023 HGB 11.3 (L) 02/16/2023 HCT 36.7 02/14/2023 MCV 89.8 02/14/2023 PLT 210 02/14/2023 A+ Antibody Screen: No results found for: LABANTI No results found for: RUBELLAIGG LABOR DELIVERY ??? SCD's ONLY (labor through ambulation) SCD's PLUS Prophylactic Anticoagulation until discharge SCD's PLUS Prophylactic Anticoagulation for 6 weeks SCD's PLUS Therapeutic Anticoagulation for 6 weeks Vaginal Delivery [] BMI ? 40 kg/m2 Delivery All patients Vaginal Delivery [] BMI ? 40 kg/m2 AND [] Antepartum hospitalization ? 72 hours within the past month Delivery 1 Major Risk Factor: [] BMI ? 35 kg/m2 [] Low Risk Thrombophilia [] PPH+RBCs, IR, or operation [] Infection+Antibioti cs [] Antepartum hospitalization ? 72 hours within the past month [] PMH: Sickle Cell, SLE, Cardiac Dz, Active IBD, Active Cancer, Nephrotic Syndrome OR 2 Minor Risk Factors: [] Multiple gestation [] Age > 40 [] PPH ? 1,000cc [] (+)FMH of VTE [] Smoker [] Preeclampsia [] BMI ? 40 kg/m2 AND [] Low Risk Thrombophilia OR ANY OF THE FOLLOWING: [] High Risk Thrombophilia without prior VTE [] Low Risk Thrombophilia with (+)FMH of VTE [] Any single prior VTE ANY OF THE FOLLOWING: [] Already on LMWH/UFH [] Multiple prior VTE [] High Risk Thrombophilia with prior VTE Low Risk Thrombophilia: FVL (heterozygous), Prothrombin (heterozygous), Protein C, Protein S High Risk Thrombophilia: FVL (homozygous), Prothrombin (homozygous), FVL+Prothrombin (heterozygous), Antithrombin III, APLS Assessment/Plan: Mayo Hernandez is a 27 y.o. POD # 4 s/p PLTCS 2/2 PPROM Care - Doing well, VSS - Male - both, breast and bottle feeding - Contraception: Per Private Attending - Encourage ambulation and use of incentive spirometer - D/C rodrigues catheter and saline lock IV on POD #1 - Postop Hb 11.3 - VTE Prophylaxis: Not Indicated PrewoSF - Mild range BP and proteinuria antepartum - s/p blood patch on 02/19 for spinal headache without VC or other symptoms - Asx today - One low mild range BP overnight PPROM - ROM 02/06/2023 - s/p 2 doses of BMZ - s/p mag Disposition: Continue current care Based on my clinical assessment, this patient Yes: Plan B - Risks and benefits discussed. safe for self discharge (does not need transport by wheelchair) if she so chooses. Provider's Name: MD Josette Garcia MD 02/20/2023, 6:13 AM Attestation Statement I saw and evaluated the patient. I agree with the findings and plans of the resident physician, and agree as documented in her note. Doing well POD#4, meeting milestones. CALERO has completely resolved s/p blood patch. BP remains stable, one isolated mild range, otherwise WNL. Ok for discharge to home. Plan f/up 3-5 days for BP and incision check, then 6 weeks routine PP. PP/post-op precautions and instruction provided. The total time spent on patient care today was 25 minutes. -10 minutes of the visit face to face patient care for counseling/coordina tion of care -15 minutes chart review and documentation , 9:13 AM [facility] Blood Patchon 02-19-2023 YANETH Ramsay CRNA 02/19/2023 4:33 PM Blood Patch: Patient location during procedure: Floor Start time: 02/19/2023 3:50 PM End time: 02/19/2023 4:20 PM Time Out: 02/19/2023 3:52 PM Reason for Blood Patch: post-dural puncture headache Staffing: MAULIK/Resident: YANETH Ramsay CRNA Other anesthesia staff: Dusty Ty CRNA Performed by: MAULIK Preanesthetic Checklist: Completed: patient identified, pre-op evaluation, risks and benefits discussed, monitors and equipment checked, IV bolus and anesthesia consent given Procedure Information: Location of venous blood draw: arm Patient position: sitting Prep: Chloraprep Patient monitoring: continuous pulse oximetry, EKG and blood pressure monitoring Approach: midline Injection technique: PATO saline Location: L4-5 Injection method: art Needle gauge: 17 Needle length: 10 cm Loss of resistance depth: 9 cm Assessment: Events: well tolerated [facility] Consulton 02-19-[address] Anil Guerra for anesthesiology consult by Secure Chat, He will have a SEARCH STRATEGIST see the patient today. [facility] Progress Noteon 02-19-2023 Progress Note Note- POST OPERATIVE DAY # 3 Mayo Hernandez is a 27 y.o. who was seen & examined today. Her was complicated by: Patient Active Problem List Diagnosis premature rupture of membranes (PPROM) with onset of labor after 24 hours of rupture in first trimester, antepartum Today she is doing well without any chief complaint. Her lochia is light. She denies Chest Pain, Vision Changes, and Shortness of Breath. She is ambulating well. Flatus present. Bowel movement present. Voiding without difficulty. She is tolerating solids. Pain is controlled yes. The patient has been having persistent headaches when upright and was told it was due to a spinal headache. She denies a blood patch at this time. She is getting some relief with ibuprofen and tylenol. Vital Signs: Vitals: 02/17/23 1935 02/17/23 2254 02/18/23 0718 02/18/23 2105 BP: 112/82 119/76 101/73 138/82 Pulse: 82 73 71 73 Resp: 18 18 18 16 Temp: 36.7 ?C (98 ?F) 36.7 ?C (98.1 ?F) 36.7 ?C (98 ?F) 36.8 ?C (98.2 ?F) TempSrc: Temporal Temporal Temporal Temporal SpO2: 98% 98% 98% 98% Weight: Height: Urine Input & Output last 24hrs: No intake or output data in the 24 hours ending 02/19/23 0630 Physical Exam: GENERAL APPEARANCE: alert, well appearing, in no apparent distress ABDOMEN : benign non-tender, without masses or organomegaly palpable EXTREMITIES: no redness or tenderness in the calves or thighs, no edema NEUROLOGIC: alert, oriented, normal speech, no focal findings or movement disorder noted UTERUS : normal size, well involuted, firm, non-tender Desc; incision: healing well, no drainage, no erythema, no swelling, well approximated, there is ecchymosis superior to the incision stable from previous exams. There is no induration or purulent discharge. Labs: Lab Results Component Value Date WBC 11.0 (H) 02/14/2023 HGB 11.3 (L) 02/16/2023 HCT 36.7 02/14/2023 MCV 89.8 02/14/2023 PLT 210 02/14/2023 A Antibody Screen: No results found for: LABANTI No results found for: RUBELLAIGG LABOR DELIVERY ??? SCD's ONLY (labor through ambulation) SCD's PLUS Prophylactic Anticoagulation until discharge SCD's PLUS Prophylactic Anticoagulation for 6 weeks SCD's PLUS Therapeutic Anticoagulation for 6 weeks Vaginal Delivery [] BMI ? 40 kg/m2 Delivery All patients Vaginal Delivery [] BMI ? 40 kg/m2 AND [] Antepartum hospitalization ? 72 hours within the past month Delivery 1 Major Risk Factor: [] BMI ? 35 kg/m2 [] Low Risk Thrombophilia [] PPH+RBCs, IR, or operation [] Infection+Antibioti cs [] Antepartum hospitalization ? 72 hours within the past month [] PMH: Sickle Cell, SLE, Cardiac Dz, Active IBD, Active Cancer, Nephrotic Syndrome OR 2 Minor Risk Factors: [] Multiple gestation [] Age > 40 [] PPH ? 1,000cc [] (+)FMH of VTE [] Smoker [] Preeclampsia [] BMI ? 40 kg/m2 AND [] Low Risk Thrombophilia OR ANY OF THE FOLLOWING: [] High Risk Thrombophilia without prior VTE [] Low Risk Thrombophilia with (+)FMH of VTE [] Any single prior VTE ANY OF THE FOLLOWING: [] Already on LMWH/UFH [] Multiple prior VTE [] High Risk Thrombophilia with prior VTE Low Risk Thrombophilia: FVL (heterozygous), Prothrombin (heterozygous), Protein C, Protein S High Risk Thrombophilia: FVL (homozygous), Prothrombin (homozygous), FVL+Prothrombin (heterozygous), Antithrombin III, APLS Assessment/Plan: Mayo Hernandez is a 27 y.o. POD # 3 s/p PLTCS 2/2 PPROM Care - Doing well, VSS - Male - both, breast and bottle feeding - Contraception: Per Private Attending - Encourage ambulation and use of incentive spirometer - D/C rodrigues catheter and saline lock IV on POD #1 - Postop Hb 11.3Not Indicated - VTE Prophylaxis: PrewoSF - mild range BP and proteinuria antepartum - spinal headache this am without VC or other sxs. - normotensive - will continue to monitor 4. PPROM - ROM 02/06/2023 - 2 doses of BMZ - S/p mag 5. Disposition: Continue current care Based on my clinical assessment, this patient Yes: Plan B - Risks and benefits discussed. safe for self discharge (does not need transport by wheelchair) if she so chooses. Provider's Name: MD Larry Garcia MD 02/19/2023, 6:30 AM Attestation Statement I saw and evaluated the patient. I agree with the findings and plans of the resident physician, and agree as documented in his note. Doing well overall POD#3, still c/o CALERO, now radiating down neck to shoulders. Better when laying flat. Has tried conservative management since yesterday, pain meds including Fioricet, heating pad, caffeine and increased fluids. VS including BP WNL. Initially did not want to meet with Anesthesia, now willing to discuss blood patch. Finding it hard to pump and visit baby in NICU with the CALERO. Anesthesia consult order. Patient tracee (more content not included)... [facility] Progress Noteon 02-18-2023 Progress Note .Nutrition update completed. Chart reviewed. Patient to be monitored and followed by the diet central supply technician. .BALBIR Ribeiro [facility] Progress Note Note- POST OPERATIVE DAY # 2 Mayo Hernandez is a 27 y.o. who was seen & examined today. Her was complicated by: Patient Active Problem List Diagnosis premature rupture of membranes (PPROM) with onset of labor after 24 hours of rupture in first trimester, antepartum Today she is doing well without any chief complaint. Her lochia is light. She denies Headache, Chest Pain, Vision Changes, and Shortness of Breath. She is ambulating well. Flatus present. Bowel movement present. Voiding without difficulty. She is tolerating solids. Pain is controlled yes. Vital Signs: Vitals: 02/17/23 0759 02/17/23 1558 02/17/23 1935 02/17/23 2254 BP: 120/78 138/85 112/82 119/76 Pulse: 75 77 82 73 Resp: 18 18 18 18 Temp: 37.2 ?C (99 ?F) 36.8 ?C (98.2 ?F) 36.7 ?C (98 ?F) 36.7 ?C (98.1 ?F) TempSrc: Temporal Temporal Temporal Temporal SpO2: 97% 98% 98% 98% Weight: Height: Urine Input & Output last 24hrs: No intake or output data in the 24 hours ending 02/18/23 0626 Physical Exam: GENERAL APPEARANCE: alert, well appearing, in no apparent distress ABDOMEN : mild tenderness diffusely, no peritoneal signs. Mildly painful along the incision. EXTREMITIES: no redness or tenderness in the calves or thighs, no edema NEUROLOGIC: alert, oriented, normal speech, no focal findings or movement disorder noted UTERUS : normal size, well involuted, firm Desc; incision: no drainage, well approximated, ecchymosis around the pfannenstiel incision Labs: Lab Results Component Value Date WBC 11.0 (H) 02/14/2023 HGB 11.3 (L) 02/16/2023 HCT 36.7 02/14/2023 MCV 89.8 02/14/2023 PLT 210 02/14/2023 LABOR DELIVERY ??? SCD's ONLY (labor through ambulation) SCD's PLUS Prophylactic Anticoagulation until discharge SCD's PLUS Prophylactic Anticoagulation for 6 weeks SCD's PLUS Therapeutic Anticoagulation for 6 weeks Vaginal Delivery [] BMI ? 40 kg/m2 Delivery All patients Vaginal Delivery [] BMI ? 40 kg/m2 AND [] Antepartum hospitalization ? 72 hours within the past month Delivery 1 Major Risk Factor: [] BMI ? 35 kg/m2 [] Low Risk Thrombophilia [] PPH+RBCs, IR, or operation [] Infection+Antibioti cs [] Antepartum hospitalization ? 72 hours within the past month [] PMH: Sickle Cell, SLE, Cardiac Dz, Active IBD, Active Cancer, Nephrotic Syndrome OR 2 Minor Risk Factors: [] Multiple gestation [] Age > 40 [] PPH ? 1,000cc [] (+)FMH of VTE [] Smoker [] Preeclampsia [] BMI ? 40 kg/m2 AND [] Low Risk Thrombophilia OR ANY OF THE FOLLOWING: [] High Risk Thrombophilia without prior VTE [] Low Risk Thrombophilia with (+)FMH of VTE [] Any single prior VTE ANY OF THE FOLLOWING: [] Already on LMWH/UFH [] Multiple prior VTE [] High Risk Thrombophilia with prior VTE Low Risk Thrombophilia: FVL (heterozygous), Prothrombin (heterozygous), Protein C, Protein S High Risk Thrombophilia: FVL (homozygous), Prothrombin (homozygous), FVL+Prothrombin (heterozygous), Antithrombin III, APLS Assessment/Plan: Mayo Hernandez is a 27 y.o. POD # 2 s/p PLTCS 2/2 non reassuring well-being Care - Doing well, VSS - Male - both, breast and bottle feeding - Contraception: Per Private Attending - Encourage ambulation and use of incentive spirometer - D/C rodrigues catheter and saline lock IV on POD #1 - Postop Hb 11.3 - VTE Prophylaxis: Not Indicated PreEwoSF - BP's normotensive - Asymptomatic - Continue to monitor closely Disposition: Continue current care Based on my clinical assessment, this patient Yes: Plan B - Risks and benefits discussed. safe for self discharge (does not need transport by wheelchair) if she so chooses. Provider's Name: MD Larry Garcia MD 02/18/2023, 6:26 AM Attestation Statement I saw and evaluated the patient. I agree with the findings and plans of the resident physician, and agree as documented in his note. Doing well POD#2, meeting milestones. Patient c/o off and on frontal CALERO, seems better in the morning and gets worse as the day progresses. No CALERO currently. Has been resting, taking pain meds, and did have a coffee this morning. Advised patient to keep an eye on the CALERO, if returns can consult anesthesia re: spinal CALERO and management (d/w nurse). Advised patient that she can try adding an abdominal binder to decrease intraabdominal pressure if CALERO returns to continue trying conservative mgmt of spinal CALERO. Blood pressures normal range. Patient states that she would like discharge on Monday morning, as baby is in the [facility] NICU. Discussed will look as PP censes tomorrow, but would be ok with discharge POD#4. Continue current management. The total time spent on patient care today was 25 minutes. -10 minutes of the visit face to face patient care for counseling/coordina tion of care -15 minutes richardson (more content not included)... Normal [facility] 42on 02-17-2023 42 This is the patient's second baby. She pumped and bottle fed one year with her first. This baby was born at 29 weeks and is in the NICU. She is going to contact nicu for a hospital pump for home. She has a credit card and her licence ready. Pt denies discomfort or problems with pumping. Reviewed settings and regimen, reviewed establishing a milk supply. Reviewed and shown breast milk storage chart. Discussed collection, labeling, storage and transport. Informed of support and how to contact as needed. Denies questions or needs at this time. Normal [facility] CARECOORDon 02-17-2023 CARECOSANDERS Sw consult due to thc use. Tox screen positive thc on 02-06-23 while at [facility] in [place]. Baby born at 29 wks gestation and is in the [facility] NICU at [facility]. [facility] Sw has met with new mother and completed full Sw assessment. Referral will be [facility] and mob is aware. NICU SW to follow. OK FOR MOB TO BE DC WHEN MEDICALLY READY. Normal [facility] CARECOORD Date: 02/17/2023 Name: Mayo Hernandez : 1995 Patient Information Primary Caregiver: Self Accompanied by/Relationship: S/O;Family Marital Status: single Support System: SO/Family Church/Cultural Factors: declined to answer Activities of Daily Living Communication: See demographics Living Arrangements Current Residence: Private residence Lives With: S/O; Family Support System: S/O; Family Income Information Income Source: Employed Financial Resource Strain How hard is it for you to pay for the very basics like food, housing, medical care and heating? N/A Housing Stability In the last 12 months, was there a time when you did not have a steady place to sleep or slept in a retirement (including now)? No Transportation Needs Has the lack of Transportation kept you from medical appointments? No In the past 12 months, has the lack of transportation kept you from meetings, work, or from getting things needed for daily living? No Food Insecurity Within the past 12 months, have you worried that your food would run out before you got the money to buy more? No Stress Do you feel stress - tense, restless, nervous, or anxious, or unable to sleep at night because you mind is troubled all the time? Mood stable Referral To Financial Resources: N/A Community Resources: Admission folder given upon admission to PP Unit Social Work: N/A CLP: N/A Medical Information 27 year old admitted for PPROM at 28/1 weeks. 2 Para 1. History of delivery. delivery for Cat II FHT, PPROM and preeclampsia without severe features. Infant jn NICU Discharge Plan Home or Community Resources: Admission folder given upon admission to PP unit Equipment: N/A Education Given: Patient is independent and has insurance. She is prepared with her baby supplies. Denies any needs for housing, transportation or food. Discussion on the A. B. C's of safe sleep. Always place your baby on his or her back to sleep, use a firm sleep surface and your baby should not sleep in an adult bed, on a couch or chair. Keep soft objects, toys and loose bedding out of your baby's sleep area. Reviewed depression. It is common to have blues. This is a normal response to many of the hormonal changes, stress and lack of sleep that go with raising a and physically recovering from the . Don't hesitate to talk to your provider with any concerns. There are resources in your home going booklet. To help prevent germs from spreading to you and your baby, make sure everyone washes their hands before they handle your . Avoid crowds, and keep infant away from sick people, anyone who is sick with a cough or fever, including family members. Post- warning signs information reviewed with patient per nurse with discharge To be discharged to home. Denies any concerns at this time. Additional Information: N/A Mental Health Services: N/A Developmental Delay: N/A Children's Services: N/A [facility] Progress Noteon 02-17-2023 Progress Note Note- POST OPERATIVE DAY # 1 Mayo Hernandez is a 27 y.o. who was seen & examined today. Her was complicated by: Patient Active Problem List Diagnosis premature rupture of membranes (PPROM) with onset of labor after 24 hours of rupture in first trimester, antepartum Today she is doing well without any chief complaint. Her lochia is light. She denies Headache, Chest Pain, Vision Changes, and Shortness of Breath. She is ambulating well. Flatus present. Bowel movement present. Voiding without difficulty. She is tolerating solids. Pain is controlled yes. Vital Signs: Vitals: 02/16/23 0555 02/16/23 1727 02/16/23 1807 02/17/23 0006 BP: 127/68 130/83 131/84 123/61 Pulse: 87 72 72 70 Resp: 16 16 18 15 Temp: 36.7 ?C (98 ?F) 36.3 ?C (97.4 ?F) 36.9 ?C (98.4 ?F) 36.8 ?C (98.2 ?F) TempSrc: Oral Temporal Temporal Temporal SpO2: 100% 100% 100% 97% Weight: Height: Urine Input & Output last 24hrs: Intake/Output Summary (Last 24 hours) at 02/17/2023 0550 Last data filed at 02/16/2023 0800 Gross per 24 hour Intake 260.42 ml Output 2450 ml Net -2189.58 ml Physical Exam: GENERAL APPEARANCE: alert, well appearing, in no apparent distress ABDOMEN : benign non-tender, without masses or organomegaly palpable EXTREMITIES: no redness or tenderness in the calves or thighs NEUROLOGIC: alert, oriented, normal speech, no focal findings or movement disorder noted UTERUS : normal size, well involuted, firm, non-tender Desc; incision: Dressing in place without drainage, no surrounding erythema Labs: Lab Results Component Value Date WBC 11.0 (H) 02/14/2023 HGB 11.3 (L) 02/16/2023 HCT 36.7 02/14/2023 MCV 89.8 02/14/2023 PLT 210 02/14/2023 A Antibody Screen: No results found for: LABANTI No results found for: RUBELLAIGG LABOR DELIVERY ??? SCD's ONLY (labor through ambulation) SCD's PLUS Prophylactic Anticoagulation until discharge SCD's PLUS Prophylactic Anticoagulation for 6 weeks SCD's PLUS Therapeutic Anticoagulation for 6 weeks Vaginal Delivery [] BMI ? 40 kg/m2 Delivery All patients Vaginal Delivery [] BMI ? 40 kg/m2 AND [] Antepartum hospitalization ? 72 hours within the past month Delivery 1 Major Risk Factor: [] BMI ? 35 kg/m2 [] Low Risk Thrombophilia [] PPH+RBCs, IR, or operation [] Infection+Antibioti cs [x] Antepartum hospitalization ? 72 hours within the past month [] PMH: Sickle Cell, SLE, Cardiac Dz, Active IBD, Active Cancer, Nephrotic Syndrome OR 2 Minor Risk Factors: [] Multiple gestation [] Age > 40 [] PPH ? 1,000cc [] (+)FMH of VTE [] Smoker [] Preeclampsia [] BMI ? 40 kg/m2 AND [] Low Risk Thrombophilia OR ANY OF THE FOLLOWING: [] High Risk Thrombophilia without prior VTE [] Low Risk Thrombophilia with (+)FMH of VTE [] Any single prior VTE ANY OF THE FOLLOWING: [] Already on LMWH/UFH [] Multiple prior VTE [] High Risk Thrombophilia with prior VTE Low Risk Thrombophilia: FVL (heterozygous), Prothrombin (heterozygous), Protein C, Protein S High Risk Thrombophilia: FVL (homozygous), Prothrombin (homozygous), FVL+Prothrombin (heterozygous), Antithrombin III, APLS Assessment/Plan: Mayo Hernandez is a 27 y.o. POD # 1 s/p PLTCS 2/2 Cat II, PPROM Care - Doing well, VSS - Male - Contraception: Declines - Encourage ambulation and use of incentive spirometer - D/C rodrigues catheter and saline lock IV on POD #1 - Postop Hb 11.3 - VTE Prophylaxis: Prophylactic Dosing until Discharge PreEwoSF -Met criteria with mild range BP and proteinuria -Bps trending normotensive overall with occasional mild range noted -Asx this AM -Continue to monitor PPROM -ROM 02/06/2023 @ 1730 -s/p 2 doses BMZ -s/p mag for neuroprotection Disposition: Continue current care Based on my clinical assessment, this patient Yes: Plan B - Risks and benefits discussed. safe for self discharge (does not need transport by wheelchair) if she so chooses. Provider's Name: MD Nicole Garcia Beth Salcedo, DO 02/17/2023, 5:50 AM Attestation Statement I saw and evaluated the patient. I agree with the findings and plans of the resident physician, and agree as documented in her note. Doing well POD#1, meeting milestones. BP normal range. Baby boy in [facility]. Continue current management. The total time spent on patient care today was 25 minutes. -10 minutes of the visit face to face patient care for counseling/coordina tion of care -15 minutes chart review and documentation , 10:11 AM [facility] 36on 02-16-2023 36 Unable to lm, Normal [facility] 36 Please schedule pt for visit on HROB (02/27/2023) [facility] 42on 02-16-2023 42 Patient in l&d due to full capacity on floor. Breast pump use indicated for this pt. Due to: 29 weeks in [facility] breast pump, supplies kit, swabs and colostrum collectors provided and set up for patient at the bedside. Instruction given on pump operation, settings, technique and frequency/duration. Return demonstration given by patient. Observation of pumping session and flange fitting done. Mom instructed to double pump every 2-3 hours for 8-10 times per day with at least one pump session between 12 and 6 AM. Suction to be set for comfort but recommend between 20-60%. Reassured patient that it is normal to not collect any significant amounts of breast milk in the first days of pumping, but consistent pumping is important and typically results in increased milk production. Discussed projected amounts and daily goals. Reviewed breast massage and hand expression for increasing milk production. Reviewed colostrum collectors and swabs- how to use and collect colostrum and label swabs/syringes. Breast milk storage guidelines reviewed. Cleaning of pump parts reviewed and basin, soap and clean towels provided for this purpose. Encouraged skin to skin as soon as baby's condition is stable. Discussed plans for home electric breast pump. All questions answered. Will continue to monitor, encourage and support patient. Last was also and patient pumped for 1 year for infant. No longer eligible for ameda carol pump study since it's been over 6 hours after delivery. Educated patient would need rental pump for home through NICU Normal [facility] Hemoglobinon 02-16-2023 Hemoglobin (Bld) [Mass/Vol] 11.3 g/dL Low 11.7 - 16.0 g/dL [facility] Hemoglobin (Bld) [Mass/Vol]o n 02-16-2023 Interpretation and review of laboratory results Abnormal [facility] Op Noteon 02-16-2023 Op Note Operative Note Patient: Mayo Hernandez : 1995 Date of Procedure: 02/16/2023 Principal Problem: premature rupture of membranes (PPROM) with onset of labor after 24 hours of rupture in first trimester, antepartum PREOPERATIVE DIAGNOSES: 1. at 29w3d 2. Unscheduled Primary 3. Cat II FHT 4. PPROM 5. PreEwoSF POSTOPERATIVE DIAGNOSES: 1. Same 2. Living , male PROCEDURE: Primary low transverse section SURGEON: Dr. You ASST: Dr. Mahmood ANESTHESIA: spinal ANTIBIOTIC(S): 2g Ancef and Azithromycin VAG PREP (Iodine): Yes FINDINGS: Normal appearing uterus, ovaries and fallopian tubes FLUIDS: 1800 ml crystalloids URINE: 200 ml EBL: 600 ml QBL: Quantitative Blood Loss (mL): 655 mL DRAINS: rodrigues catheter SPECIMENS: none COMPLICATIONS: none CONDITION: good, transferred to : post anesthesia recovery FINDINGS: Live male infant, Cephalic APGARS 1 min: 7 5 min: 8 Weight: 1440 grams Tubes and ovaries: within normal limits. Description: normal INDICATION FOR PROCEDURE Patient admitted to Labor and Delivery for PPROM, patient had already received latency antibiotics and betamethasone when first admitted. On hospital day 9, FHT became Cat II and therefore was consented for a primary section. She was started on Magnesium for neuroprotection and given rescue steroids. Patient was consented for a section and was agreeable to blood products as medically indicated. This was a unscheduled non-emergent section. DETAILS OF PROCEDURE: Patient was brought into the operating room and she was placed in the supine position slightly tilted to the left. The abdomen was prepped and draped in the usual manner. Anesthesia level was checked and was found to be adequate. The abdomen was entered through a pfannenstiel incision. The incision was carried through the subcutaneous tissue to the fascia which was nicked in the midline and carried transversely using paz scissors. Kochers were used to grasp the edges of the fascia and sharp and blunt dissection used to reflect the underlying rectus abdominis muscles. The muscles were in the midline bluntly and sharply exposing the parietal peritoneum. The peritoneum was entered bluntly. The peritoneal incision was extended bluntly with good visualization of bladder. Bladder retractor was placed as well as Malin retractor. The lower uterine segment was opened in a low transverse fashion with a scalpel. The amniotic cavity was entered and Clear amniotic fluid was noted. Bladder retractor and Malin retractor were removed, and baby was delivered from the cephalic presentation with fundal pressure without difficulty.The baby was handed over to the NICU personnel standing by. Placenta was extracted intact with gentle traction. The uterus was exteriorized and wrapped in a wet lap. The uterine cavity was swept and cleared of all clots and debris using a dry lap. The uterine incision was closed using a continuous locked suture of 0 monocryl. A second layer was performed. Hemostasis was ensured. The uterus was replaced in the abdomen. Hemostasis of the operative field was ensured and the gutters were cleared of all clots and debris. Fascia was closed with 0 Vicryl in a running fashion. Subcutaneous closure was performed with 3-0 Monocryl Hemostasis was ensured. Skin closure was performed with 4-0 Vicryl suture and steri-strips. Sponge, needle and instrument counts were correct twice. Patient was transferred to the recovery room in satisfactory stable condition. BUD MAHMOOD DO 02/16/2023 1:40 AM LABOR DELIVERY ??? SCD's ONLY (labor through ambulation) SCD's PLUS Prophylactic Anticoagulation until discharge SCD's PLUS Prophylactic Anticoagulation for 6 weeks SCD's PLUS Therapeutic Anticoagulation for 6 weeks Vaginal Delivery [] BMI ? 40 kg/m2 Delivery All patients Vaginal Delivery [] BMI ? 40 kg/m2 AND [] Antepartum hospitalization ? 72 hours within the past month Delivery 1 Major Risk Factor: [] BMI ? 35 kg/m2 [] Low Risk Thrombophilia [] PPH+RBCs, IR, or operation [] Infection+Antibioti cs [x] Antepartum hospitalization ? 72 hours within the past month [] PMH: Sickle Cell, SLE, Cardiac Dz, Active IBD, Active Cancer, Nephrotic Syndrome OR 2 Minor Risk Factors: [] Multiple gestation [] Age > 40 [] PPH ? 1,000cc [] (+)FMH of VTE [] Smoker [] Preeclampsia [] BMI ? 40 kg/m2 AND [] Low Risk Thrombophilia OR ANY OF THE FOLLOWING: [] High Risk Thrombophilia without prior VTE [] Low Risk Thrombophilia with (+)FMH of VTE [] Any single prior VTE ANY OF THE FOLLOWING: [] Already on LMWH/UFH [] Multiple prior VTE [] High Risk Thrombophilia with prior VTE Low Risk Thrombophilia: FVL (heterozygous), Prothrombin (heterozygous), Protein C, Pro (more content not included)... [facility] Peripheral Blockon 3 YANETH Roman CRNA 02/16/2023 1:21 AM Peripheral Block Time Out: 02/16/2023 1:15 AM Patient location during procedure: Procedural Start time: 02/16/2023 1:15 AM End time: 02/16/2023 1:20 AM Reason for block: at surgeon's request and post-op pain management Staffing Performed: MAULIK Resident/SEARCH STRATEGIST: YANETH Roman CRNA Preanesthetic Checklist Completed: patient identified, IV checked, site marked, risks and benefits discussed, surgical consent, monitors and equipment checked, pre-op evaluation and timeout performed Region: Truncal Primary: TAP (60ml of Bupivacaine 0.375% with dexamethasone 0.01% with epinephrine 1:200,000 divided evenly bilaterally) Peripheral Block Patient position: supine Prep: ChloraPrep Patient monitoring: heart rate, restaurant front manager and continuous pulse ox O2: Room air Laterality: bilateral Injection technique: single-shot Guidance: ultrasound guided -image retained in chart, tip of the needle identified by ultraound during injection. Needle Needle: 21G X 110 mm Additional Notes 02/16/2023 1:15 AM Assessment Injection assessment: negative aspiration for heme, no paresthesia on injection, incremental injection and local visualized surrounding nerve on ultrasound Paresthesia pain: none Heart rate change: no Slow fractionated injection: yes Required Documentation: Relevant anatomy identified (Nerves, Vessels, Muscles), Negative for blood on aspiration, Local anesthetic injected incrementally with intermittent aspiration every 5 mL, No EKG changes noted, No symptoms of toxicity, Local anesthetic spread visualized around nerves or plane., Normal resistance with injection, No paresthesias reported by patient during injection and Local anesthetic injected without difficultyMedicatio ns dexAMETHasone-bupiv acaine-epinephrine (TAP) syringe - Injection 50 mL - 02/16/2023 1:18:00 AM [facility] Progress Noteon 02-16-2023 Progress Note Ameda Carol Study - Screen Failure RN noted that patient had delivered [id number] @ 0037 and call was not received to 24 hour research cell phone until day shift arrived. Breast assessment and pumping session not charted by warehouse shift supervisor staff. I rounded on subject this morning to evaluate at approximate 0800. Subject states she had to have an unscheduled during the night. She states she has not pumped at all since delivery. Subject did not meet study I&E criteria based on inclusion 4, as she did not initiate and expression of breast milk with Ameda Carol breast pump within 6 hours of delivery. Breast tissue assessment (Exclusion 1) is also unknown at this time. Subject did not use Ameda Carol pump at any point while in her possession or participate in any study related procedures during night. At this time she has been determined to be a screen-failure on day of delivery. At end of discussion, subject did not have any immediate questions or concerns. Reassurance provided to subject about not participating. Reiterated voluntary nature or research and thanked her for her time. Ameda Carol pump taken back to CRC. Dr. Tesfaye notified of Subject 16 screen failure. For questions or concerns, please call the 24 Hour Research Cellphone ([phone]). I have reviewed the study documentation and am aware of the screen failure. Gin Tesfaye, DO Normal [facility] Progress Note Safety Huddle: FHT tracing Cat II for recurrent variable decels for the past 45min and now late decels despite conservative measures with IVF and repositioning. Pattern ran with Dr. Pardo and agrees to proceed with delivery. Mag bolus running for neuroprotection and dose of BMZ given. SSE performed and closed cervix, no cord noted. Patient consented for PCD 2/2 Cat II FHT remote from delivery. Dr. You notified and counseled the patient as well on PCD. Consents signed. Chad called, Dr. You, OB anesthesia, primary RN, battery recharger, NICU present and all in agreement. Will proceed with primary unscheduled, non-emergent section. BUD TIMOTEO, 02/15/2023 11:54 PM Normal [facility] Spinal Blockon 02-16-2023 YANETH Roman CRNA 02/16/2023 12:16 AM Spinal Block Time Out: 02/16/2023 12:14 AM Patient location during procedure: OB Start time: 02/16/2023 12:14 AM End time: 02/16/2023 12:17 AM Reason for block: primary anesthetic Staffing Performed: SEARCH STRATEGIST Resident/SEARCH STRATEGIST: YANETH Roman CRNA Performed by: YANETH Roman CRNA Authorized by: YANETH Roman CRNA Preanesthetic Checklist Completed: patient identified, IV checked, site marked, risks and benefits discussed, surgical consent, monitors and equipment checked, pre-op evaluation and timeout performed Spinal Block Patient position: sitting Prep: ChloraPrep Sterility prep: drape Sedation level: no sedation Patient monitoring: continuous pulse oximetry and heart rate Approach: midline Location: L3-4 Injection technique: single-shot Needle Needle type: pencil-tip Needle gauge: 24 G Needle length: 10 cm Medications Administered bupivacaine in dextrose (Marcaine Spinal) 0.75-8.25 % injection - Intrathecal 13.5 mg - 02/16/2023 12:14:00 AM morphine PF (Duramorph) 0.5 MG/ML injection - Intrathecal 150 mcg - 02/16/2023 12:14:00 AM Assessment Sensory level: T10 Block outcome: block to be assessed in the OR Number of attempts: 1 Additional Notes Free flow CSF. No Heme. No Parathesia [facility] Blood type and Crossmatch pa guerita (Bld)on 02-15-2023 ABO group Nom (Bld) A [facility] Blood group antibody screen GEL Ql Negative [facility] D Ag Ql (RBC) [facility] Progress Noteon 02-15-2023 Progress Note Weekly inpatient rounding done on subject yesterday morning. Subject denies any questions or concerns regarding Ameda Carol study or breast pump at this time. Will continue to monitor and intermittently touch base with nursing staff regarding subject enrollment and procedures. Please call the 24 Hour Research Cellphone ([phone]) if subject delivers. For the subject to remain enrolled in the study, a breast assessment must be charted before first pumping session. If breast assessment is normal, the first pumping session must be within 6 hours of delivery and subject must exclusively use Ameda Carol pump a minimum of 6 times per day to remain compliant with study. Normal [facility] Progress Note ---- Attestation signed by Aubrie Pardo MD at 02/15/2023 4:42 PM I independently saw and evaluated the patient. I agree with the findings and plan of care as documented in the resident's note. No vaginal bleeding or concerns today 27 yr old at 29 2/7 GA with the following: PPROM s/p Magnesium for neuroprotection, s/p BMZ x 2 and AGA growth s/p latency antibiotics reports with past history of precipitous delivery low threshold to perform spec exam PreEwoSF by mild range BP and proteinuria. Watch for signs and symptoms of pre-eclampsia with SF plan for weekly labs History of not on vaginal progesterone not a candidate currently with PROM Ongoing inpatient hospitalization recommended and expectant management, no signs of chorioamnionitis or concerns currently. Recommend delivery for concerns of wellbeing, labor, vaginal bleeding or chorio whichever comes first prior to 34 weeks GA. She is a candidate for neuroprotection if delivery occurs prior to 32 weeks GA I spent 20 minutes in the visit today on the floor reviewing the chart, discussing the case with the residency staff and nursing Aubrie Pardo MD ---- Maternal Medicine Service Resident Progress Note 02/15/2023 5:31 AM 02/07/2023 Hospital Day: 9 Mayo Hernanedz, 27 y.o. 29w2d Patient has been seen and examined. Pt has no acute complaints this AM. Patient states that her bleeding has resolved and has not had another episode since the morning. She denies experiencing any headaches, abdominal pain, fevers, chills, or night sweats. She states she is still experiencing leakage of fluid at this time. Positive movement Negative vaginal bleeding Positive LOF Negative Contractions Vitals: 02/14/23 1556 02/14/237 02/15/23 0019 02/15/23 0411 BP: 130/79 132/79 116/69 BP Location: Left arm Patient Position: Sitting Pulse: 74 84 84 70 Resp: 18 18 18 16 Temp: 36.4 ?C (97.6 ?F) 37 ?C (98.6 ?F) 37.4 ?C (99.4 ?F) 37 ?C (98.6 ?F) TempSrc: Oral Temporal Temporal Temporal SpO2: 100% 98% 98% 98% Weight: Height: FHT: 130, moderate variability Accels: present Decels: absentabsent Contractions: none Physical Exam: Gen: NAD, resting comfortably in bed HEENT: Normocephalic, Atraumatic Resp: No increased WOB, no respiratory distress Card: Regular rate Abd: soft, NTND, no rebound, no guarding. negative fundal tenderness Ext: No calf tenderness, swelling Medications: Current Facility-Administer ed Medications Medication Dose Route Frequency Provider Last Rate Last Admin calcium gluconate 10 % injection 1 g 1 g IntraVENous PRN Bud Mahmood, DO ondansetron ODT (Zofran-ODT) disintegrating tablet 4 mg 4 mg Oral q8h PRN Bud Mahmood DO 4 mg at 02/14/23 0626 Or ondansetron (Zofran) injection 4 mg 4 mg IntraVENous q6h PRN Bud Mahmood, DO polyethylene glycol (PEG) 3350 (Miralax) packet 17 g 17 g Oral Daily PRN Bud Mahmood, DO 17 g at 02/14/232028 vitamin tablet 1 tablet Oral Daily Bud Mahmood, DO 1 tablet at 02/14/23 0936 sodium chloride 0.9 % infusion 5-250 mL/hr IntraVENous PRN Bud Mahmood, sodium chloride 0.9% (NS) flush 5-40 mL 5-40 mL IntraVENous q12h Bud Timoteo, DO 10 mL at 02/12/23 2235 sodium chloride 0.9% (NS) flush 5-40 mL 5-40 mL IntraVENous PRN Bud Mahmood, Assessment/Plan: Mayo Hernandez is a 27 y.o. female 29w2d PPROM - Ruptured 02/06/2023 at 1730 - S/p x2 dose of betamethasone 02/06-02/07. - S/p magnesium sulfate for 12 hrs for neuroprotection - S/p latency antibiotics - US BPP 02/10: 6/8, off for fluid, SANAZ 1 cm, no 2x2 pocket - Pending US BPP 02/17 - S/P NICU consult on 02/08 - Repeat exam 02/14 showed a closed cervix - Rh positive - Continue inpatient management until 34 weeks or sooner pending clinical indications PreEwoSF - Met criteria with 2 mild range BP >4hrs apart - Total protein slightly elevated at 16 on protein urine 02/07 - UPC ~.17 - CMP, CMP wnl - Asymptomatic w/ normal Bps overnight - Will continue to trend Bps and weekly labs History of Delivery - Delivered at 36 weeks for PPROM - Not on vaginal progesterone this - Per patient hx of quick labor IUP @ 29w2d - Dating by LMP - Cephalic on 02/10 - Monitorinhr TID - Diet:General - BMZ x2 on 02/06-02/07 Further plan pending d/w attending. Ashish Lujan 02/15/2023, 5:31 AM I saw and evaluated the patient, participating in the mark portions of the service. I reviewed the medical student's note. I agree with the medical student?s findings and plan. Etta Kraus, DO 02/15/2023 6:32 AM [facility] CBC panel Auto (Bld)on 02-14 Erythrocyte distribution width (RBC) [Ratio] 13.6 % 11.5 - 14.5 % [facility] Hematocrit (Bld) [Volume fraction] 36.7 % 35.0 - 47.0 % [facility] Hemoglobin (Bld) [Mass/Vol] 12.2 g/dL 11.7 - 16.0 g/dL [facility] Interpretation and review of laboratory results Abnormal [facility] MCH (RBC) [Entitic mass] 29.8 pg 26.0 - 34.0 pg [facility] MCHC (RBC) [Mass/Vol] 33.2 % 32.0 - 36.0 % [facility] MCV (RBC) [Entitic vol] 89.8 fL 80.0 - 98.0 fL [facility] Platelet mean volume (Bld) [Entitic vol] 9.7 fL 7.4 - 12.4 fL [facility] Platelets (Bld) [#/Vol] 210 10*3/uL 140 - 440 10*3/uL [facility] RBC (Bld) [#/Vol] 4.09 10*6/uL 3.8 - 5.20 10*6/uL [facility] WBC (Bld) [#/Vol] 11.0 10*3/uL High 3.6 - 10.7 10*3/uL [facility] Comprehensive metabolic 1998 panelon 02-14-2023 Albumin [Mass/Vol] 3.2 g/dL Low 3.5 - 5.0 g/dL [facility] ALP [Catalytic activity/Vol] 53 U/L 38 - 126 U/L [facility] ALT [Catalytic activity/Vol] 25 U/L 0 - 34 U/L [facility] Anion gap [Moles/Vol] 4 mmol/L 3 - 13 mmol/L [facility] AST [Catalytic activity/Vol] 23 U/L 15 - 46 U/L [facility] Bilirubin [Mass/Vol] 0.3 mg/dL 0.2 - 1 .3 mg/dL [facility] Calcium [Mass/Vol] 8.4 mg/dL 8.4 - 10. 4 mg/dL [facility] Chloride [Moles/Vol] 104 mmol/L 98 - 10 7 mmol/L [facility] CO2 [Moles/Vol] 24 mmol/L 22 - 30 mmol/L [facility] Creatinine [Mass/Vol] 0.46 mg/dL Low 0.52 - 1.04 mg/dL [facility] GFR/1.73 sq M.predicted MDRD (S/P/Bld) [Vol rate/Area] - PINF [facility] Comment on above: Calculation based on the Chronic Kidney Disease Epidemiology Collaboration (CKD-EPI) equation refit without adjustment for race Glucose [Mass/Vol] 72 mg/dL 70 - 100 mg/dL [facility] Interpretation and review of laboratory results Abnormal [facility] Potassium [Moles/Vol] 4.1 mmol/L 3.5 - 5.1 mmol/L [facility] Protein [Mass/Vol] 6.3 g/dL 6.3 - 8.2 g/dL [facility] Sodium [Moles/Vol] 132 mmol/L Low 135 - 145 mmol/L [facility] Urea nitrogen [Mass/Vol] 10 mg/dL 7 - 17 mg/dL [facility] Creatinine (U) [Mass/Vol]on 02-14-2023 CREATININE, URINE 64.5 mg/dL No Range [facility] ealt No Panel Informationon 02-14 [facility] Progress Noteon 02-14-2023 Progress Note Nutrition update completed. Chart reviewed. Patient to be monitored and followed by the diet central supply technician. Normal [facility] Progress Note Blood drawn for CBC & CMP on 2nd attempt from right AC ,URINE obtained for protien & creatinine,all sent to lab. Normal [facility] Progress Note ---- Attestation signed by Aubrie Pardo MD at 02/14/2023 4:01 PM I independently saw and evaluated the patient. I agree with the findings and plan of care as documented in the resident's note. Some pink this am 27 yr old at 29 1/7 GA with the following: PPROM s/p Magnesium for neuroprotection, s/p BMZ x 2 and AGA growth s/p latency antibiotics reports with past history of precipitous delivery will plan spec post rounding today PreEwoSF by mild range BP and proteinuria. Watch for signs and symptoms of pre-eclampsia with SF plan for weekly labs History of not on vaginal progesterone Ongoing inpatient hospitalization recommended and expectant management, no signs of chorioamnionitis or concerns currently. Recommend delivery for concerns of wellbeing, labor, vaginal bleeding or chorio whichever comes first prior to 34 weeks GA. She is a candidate for neuroprotection if delivery occurs prior to 32 weeks GA I spent 25 minutes in the visit today on the floor reviewing the chart, discussing the case with the residency staff and nursing Aubrie Pardo MD ---- Maternal Medicine Service Resident Progress Note 02/14/2023 5:35 AM 02/07/2023 Hospital Day: 8 Mayo Hernandez, 27 y.o. 29w1d Patient has been seen and examined. Pt has no complaints at this time. She denies any headaches, abdominal pain, fevers, chills, or night sweats. Positive movement Negative vaginal bleeding Positive LOF Negative Contractions Vitals: 02/13/23 1810 02/13/23 1815 02/13/23201902/13/23 2333 BP: 125/82 123/83 BP Location: Left arm Left arm Patient Position: Lying Sitting Pulse: 77 75 83 70 Resp: 18 18 Temp: 37.5 ?C (99.5 ?F) 36.9 ?C (98.4 ?F) TempSrc: Temporal Temporal SpO2: 97% 99% Weight: Height: FHT: 130, moderate variability Accels: present Decels: absentabsent Contractions: none Physical Exam: Gen: NAD, resting comfortably in bed HEENT: Normocephalic, Atraumatic Resp: No increased WOB, no respiratory distress Card: Regular rate Abd: soft, NTND, no rebound, no guarding. negative fundal tenderness Ext: No calf tenderness, swelling Medications: Current Facility-Administer ed Medications Medication Dose Route Frequency Provider Last Rate Last Admin calcium gluconate 10 % injection 1 g 1 g IntraVENous PRN Bud Timoteo, DO ondansetron ODT (Zofran-ODT) disintegrating tablet 4 mg 4 mg Oral q8h PRN Bud Mahmood, DO 4 mg at 02/13/23 1020 Or ondansetron (Zofran) injection 4 mg 4 mg IntraVENous q6h PRN Bud Timoteo, DO polyethylene glycol (PEG) 3350 (Miralax) packet 17 g 17 g Oral Daily PRN Bud Mahmood, DO vitamin tablet 1 tablet Oral Daily Bud Mahmood, DO 1 tablet at 02/13/23 0918 sodium chloride 0.9 % infusion 5-250 mL/hr IntraVENous PRN Budsri Mahmood, DO sodium chloride 0.9% (NS) flush 5-40 mL 5-40 mL IntraVENous q12h Bud Timoteo, DO 10 mL at 02/12/23 2235 sodium chloride 0.9% (NS) flush 5-40 mL 5-40 mL IntraVENous PRN Bud Timoteo, DO Assessment/Plan: Mayo Hernandez is a 27 y.o. female 29w1d PPROM - Ruptured 02/06/2023 at 1730 - S/p x2 dose of betamethasone 02/06-02/07. - S/p magnesium sulfate for 12 hrs for neuroprotection - S/p latency antibiotics - GBS negative - Urine culture negative - US BPP 02/10: 6/8, off for fluid, SANAZ 1 cm, no 2x2 pocket - S/P NICU consult on 02/08 - Continue inpatient management until 34 weeks or sooner pending clinical indications PreEwoSF - Met criteria with 2 mild range BP >4hrs apart - Total protein slightly elevated at 16 on protein urine 02/07 - Pending CMP, CBC, UPC today - Asymptomatic - BP NT overnight - Will continue to trend Bps and weekly labs History of Delivery - Delivered at 36 weeks for PPROM - Not on vaginal progesterone this - Per patient hx of quick labor IUP @ 29w1d - Dating by LMP - Cephalic on 02/10 - Monitorinhr TID - Diet:General - BMZ x2 on 02/06-02/07 Further plan pending d/w attending. Ashish Lujan 02/14/2023, 5:35 AM I saw and evaluated the patient, participating in the mark portions of the service. I reviewed the medical student?s note. I agree with the medical student?s findings and plan. Etta Kraus DO 02/14/2023 6:32 AM Normal [facility] Protein, urine, randomon Interpretation and review of laboratory results Normal [facility] Protein (U) [Mass/Vol] 11 mg/dL 0 - 12 mg/dL [facility] CARECOORDon 02-13-2023 [facility] Hospital day 6; Mood stable; no concerns at this time Normal [facility] Progress Noteon 02-13-2023 Progress Note ---- Attestation signed by Kelly Leslie DO at 02/13/2023 3:52 PM Hospital Care (Independent): I independently saw and evaluated the patient. I agree with the findings and plan of care as documented in the resident's note. 27 y.o. yo at 29w0d hospital day 6 with PPROM. Stable maternal and status at this time. Pt requests to leave IV out. RN verified that she has good IV access and RN feels confident that IV could be quickly obtained in an emergency. Okay to leave IV out at this time to preserve IV sites for future use and increase pt comfort. Pt also desires wheelchair ride with family. R/B/A reviewed and pt agreeable. Chart review and preparation: 10 minutes. Face to face: 10 minutes. Documentation and care coordination: 8 minutes. Total time spent on patient care today: 28 minutes. ---- Maternal Medicine Service Resident Progress Note 02/13/2023 5:12 AM 02/07/2023 Hospital Day: 7 Mayo Hernandez, 27 y.o. 29w0d Patient has been seen and examined. Pt complains of continued LOF that has remained the same throughout admission. Patient states she had a headache last night that resolved with 1x dose of Reglan. Patient denies any headaches, vision changes, abdominal pain, or swelling this AM. Patient also denies any fevers, chills, or night sweats. Positive movement Negative vaginal bleeding Positive LOF Negative Contractions Vitals: 02/12/23 1208 02/12/23 1613 02/12/23 1945 02/12/23 2338 BP: 124/83 129/87 139/84 114/72 BP Location: Left arm Left arm Left arm Patient Position: Sitting Sitting Pulse: 92 80 92 73 Resp: 18 20 17 16 Temp: 37.1 ?C (98.8 ?F) 36.8 ?C (98.3 ?F) 36.8 ?C (98.3 ?F) 37.3 ?C (99.1 ?F) TempSrc: Temporal Temporal Temporal Temporal SpO2: 96% 98% 97% 96% Weight: Height: FHT: 140, moderate variability Accels: present Decels: absentabsent Contractions: none Physical Exam: Gen: NAD, resting comfortably in bed HEENT: Normocephalic, Atraumatic Resp: No increased WOB, no respiratory distress Card: Regular rate Abd: soft, NTND, no rebound, no guarding. negative fundal tenderness Ext: No calf tenderness, swelling Medications: Current Facility-Administer ed Medications Medication Dose Route Frequency Provider Last Rate Last Admin amoxicillin (Amoxil) capsule 500 mg 500 mg Oral 3 times per day Bud Mahmood DO 500 mg at 02/12/23 2235 azithromycin (Zithromax) tablet 500 mg 500 mg Oral Daily Bud Mahmood, DO 500 mg at 02/12/23 1004 calcium gluconate 10 % injection 1 g 1 g IntraVENous PRN Bud Mahmood, DO ondansetron ODT (Zofran-ODT) disintegrating tablet 4 mg 4 mg Oral q8h PRN Bud Mahmood, DO 4 mg at 02/12/23 0315 Or ondansetron (Zofran) injection 4 mg 4 mg IntraVENous q6h PRN Bud Mahmood, DO polyethylene glycol (PEG) 3350 (Miralax) packet 17 g 17 g Oral Daily PRN Budsri Mahmood, DO vitamin tablet 1 tablet Oral Daily Bud Mahmood, DO 1 tablet at 02/12/23 1004 sodium chloride 0.9 % infusion 5-250 mL/hr IntraVENous PRN Bud Mahmood, DO sodium chloride 0.9% (NS) flush 5-40 mL 5-40 mL IntraVENous q12h Bud Mahmood, DO 10 mL at 02/12/23 2235 sodium chloride 0.9% (NS) flush 5-40 mL 5-40 mL IntraVENous PRN Bud Mahmood, DO Assessment/Plan: Mayo Hernandez is a 27 y.o. female 29w0d PPROM - Ruptured 02/06/2023 at 1730 - S/p x2 dose of betamethasone 02/06-02/07. - S/p magnesium sulfate for 12 hrs for neuroprotection - Last day of PO Amoxicillin and Azithromycin - Received 1x dose of Reglan overnight for headache - GBS negative - Urine culture negative - US BPP 02/10: 6/8, off for fluid, SANAZ 1 cm, no 2x2 pocket - S/P NICU consult on 02/08 - Continue inpatient management until 34 weeks or sooner pending clinical indications PreEwoSF - Met criteria with 2 mild range BP >4hrs apart - Total protein slightly elevated at 16 on protein urine 02/07 - Bps normotensive overnight, patient asymptomatic this am - Pending CMP, CBC on 02/14 - Will continue to trend Bps and weekly labs History of Delivery - Delivered at 36 weeks for PPROM - Not on vaginal progesterone this - Per patient hx of quick labor IUP @ 29w0d - Dating by LMP - Cephalic on 02/10 - Monitorinhr TID - Diet:General - BMZ x2 on 02/06-02/07 Further plan pending d/w attending. Ashish Lujan 02/13/2023, 5:12 AM I saw and evaluated the patient, participating in the mark portions of the service. I reviewed the med student?s note. I agree with the med student?s findings and plan. Etta Kraus DO 6:22 AM 02/13/2023 [facility] Progress Noteon 02-12-2023 Progress Note ---- Attestation signed by Aubrie Pardo MD at 02/12/2023 11:39 AM I independently saw and evaluated the patient. I agree with the findings and plan of care as documented in the resident's note. Late entry no changes today 27 yr old at 28 6/7 GA with the following: PPROM s/p Magnesium for neuroprotection, s/p BMZ x 2 and AGA growth continued latency antibiotics reports with past history of precipitous delivery PreEwoSF by mild range BP and proteinuria. Watch for signs and symptoms of pre-eclampsia with SF plan for weekly labs History of not on vaginal progesterone Ongoing inpatient hospitalization recommended and expectant management, no signs of chorioamnionitis or concerns currently. Recommend delivery for concerns of wellbeing, labor, vaginal bleeding or chorio whichever comes first prior to 34 weeks GA. I spent 20 minutes in the visit today on the floor reviewing the chart, discussing the case with the residency staff and nursing Aubrie Pardo MD ---- Maternal Medicine Service Resident Progress Note 02/12/2023 7:13 AM 02/07/2023 Hospital Day: 6 Mayo Hernandez, 27 y.o. 28w6d Patient has been seen and examined. She is doing well this morning. She denies any fevers or chills. Notes continued leakage of fluid, but states it has not increased. She denies any headache, blurry vision, chest pain or shortness of breath. Positive movement Negative vaginal bleeding Negative LOF Negative Contractions Vitals: 02/11/23 1606 02/11/23 2002 02/12/23 0013 02/12/23 0551 BP: 139/87 122/83 99/67 104/65 BP Location: Left arm Left arm Left arm Left arm Patient Position: Sitting Pulse: 90 82 75 80 Resp: 18 18 17 18 Temp: 36.9 ?C (98.4 ?F) 36.6 ?C (97.9 ?F) 36.8 ?C (98.3 ?F) 36.9 ?C (98.5 ?F) TempSrc: Temporal Temporal Temporal Temporal SpO2: 98% 97% 97% 97% Weight: Height: FHT Baseline 140, moderate variability, spontaneous accelerations, no decelerations noted Physical Exam: Gen: NAD HEENT: Normocephalic, Atraumatic, EOMI, MMM Resp: no increased work of breathing Abd: soft, gravid, NTND, no rebound, no guarding, no fundal tenderness Ext: No LE edema, no calf tenderness or swelling Medications: Current Facility-Administer ed Medications Medication Dose Route Frequency Provider Last Rate Last Admin amoxicillin (Amoxil) capsule 500 mg 500 mg Oral 3 times per day Bud Mahmood DO 500 mg at 02/12/23 0550 azithromycin (Zithromax) tablet 500 mg 500 mg Oral Daily Bud Mahmood DO 500 mg at 02/11/23 0945 calcium gluconate 10 % injection 1 g 1 g IntraVENous PRN Bud Mahmood DO ondansetron ODT (Zofran-ODT) disintegrating tablet 4 mg 4 mg Oral q8h PRN Bud Mahmood DO 4 mg at 02/12/23 0315 Or ondansetron (Zofran) injection 4 mg 4 mg IntraVENous q6h PRN Bud Mahmood, DO polyethylene glycol (PEG) 3350 (Miralax) packet 17 g 17 g Oral Daily PRN Bud Mahmood, DO vitamin tablet 1 tablet Oral Daily Bud Mahmood, DO 1 tablet at 02/11/23 0945 sodium chloride 0.9 % infusion 5-250 mL/hr IntraVENous PRN Bud Mahmood, DO sodium chloride 0.9% (NS) flush 5-40 mL 5-40 mL IntraVENous q12h Bud Mahmood, DO 10 mL at 02/11/23 2147 sodium chloride 0.9% (NS) flush 5-40 mL 5-40 mL IntraVENous PRN Bud Mahmood, DO Tdap (BoostRIX) vaccine 0.5 mL 0.5 mL IntraMUSCular Once Lilian Jarrett, Assessment/Plan: Mayo Hernandez is a 27 y.o. female 28w6d PPROM - Ruptured 02/06/2023 at 1730 - Afebrile this morning, with no fundal tenderness - S/p x2 dose of betamethasone 02/06-02/07. - S/p magnesium sulfate for 12 hrs for neuroprotection - Continue PO Amoxicillin and Azithromycin for 5 days; on day 45 - GBS negative - Urine culture negative - Growth US 02/07: AGA EFW 1204 grams (53%), oligohydramnios w SANAZ of 1.3, 6/ BPP, off for fluid - US BPP 02/12: 6/8, off for fluid, SANAZ 1 cm, no 2x2 pocket - S/P NICU consult on 02/08 - Continue inpatient management until 34 weeks or sooner pending clinical indications PreEwoSF - Met criteria with 2 mild range BP >4hrs apart - Bps normotensive overnight, patient asymptomatic this am - Total protein slightly elevated at 16 on protein urine 02/07 - Will continue to monitor and trend Bps History of Delivery - Delivered at 36 weeks for PPROM - Not on vaginal progesterone this - Pt denies any abdominal cramping this am - Per patient hx of quick labor IUP @ 28w6d - Dating by LMP - Cephalic - Monitorinhr TID - Diet:General - BMZ x2 on 02/06-02/07 Further plan pending d/w attending. Kya Silver, DO 02/12/2023, 7:13 AM Normal [facility] Blood type and Crossmatch juan dexter (Bld)on 02-11-2023 ABO group Nom (Bld) A [facility] Blood group antibody screen GEL Ql Negative [facility] [employer] [facility] D Ag Ql (RBC) Positive [facility] Progress Noteon 02-11-2023 Progress Note ---- Attestation signed by Aubrie Pardo MD at 02/11/2023 10:10 PM I independently saw and evaluated the patient. I agree with the findings and plan of care as documented in the resident's note. Late entry no changes today 27 yr old at 28 5/7 GA with the following: PPROM s/p Magnesium for neuroprotection, s/p BMZ x 2 and AGA growth continued latency antibiotics reports with past history of precipitous delivery PreEwoSF by mild range BP and proteinuria. Watch for signs and symptoms of pre-eclampsia with SF plan for weekly labs History of not on vaginal progesterone Ongoing inpatient hospitalization recommended and expectant management, no signs of chorioamnionitis or concerns currently. Recommend delivery for concerns of wellbeing, labor, vaginal bleeding or chorio whichever comes first prior to 34 weeks GA. I spent 25 minutes in the visit today on the floor reviewing the chart, discussing the case with the residency staff and nursing Aubrie Pardo MD ---- Maternal Medicine Service Resident Progress Note 02/11/2023 5:16 AM 02/07/2023 Hospital Day: 5 Mayo Hernandez, 27 y.o. 28w5d Patient has been seen and examined. Pt complains of continued intermittent leakage when moving. She denies any fevers, chills or night night sweats. She states she slept well. Positive movement Negative vaginal bleeding Positive LOF Negative Contractions Vitals: 02/10/23 1236 02/10/23 1628 02/10/23 2100 02/11/23 0007 BP: 122/74 125/76 107/68 114/71 BP Location: Patient Position: Pulse: 76 92 82 72 Resp: 16 16 15 15 Temp: 37.2 ?C (99 ?F) 36.9 ?C (98.5 ?F) 36.7 ?C (98 ?F) 36.5 ?C (97.7 ?F) TempSrc: Temporal Temporal Temporal Temporal SpO2: 98% 98% 98% 98% Weight: Height: FHT: 140, moderate variability Accels: present Decels: absent Contractions: none Physical Exam: Gen: NAD HEENT: Normocephalic, Atraumatic, EOMI, MMM Resp: No increased WOB, no respiratory distress Card: Regular rate Abd: soft, gravid, NTND, no rebound, no guarding. No fundal tenderness Ext: No LE edema, no calf tenderness or swelling Medications: Current Facility-Administer ed Medications Medication Dose Route Frequency Provider Last Rate Last Admin amoxicillin (Amoxil) capsule 500 mg 500 mg Oral 3 times per day Bud Mahmood, DO 500 mg at 02/10/23 2100 azithromycin (Zithromax) tablet 500 mg 500 mg Oral Daily Bud Mahmood, DO 500 mg at 02/10/23 0808 calcium gluconate 10 % injection 1 g 1 g IntraVENous PRN Bud Mahmood DO ondansetron ODT (Zofran-ODT) disintegrating tablet 4 mg 4 mg Oral q8h PRN Bud Mahmood, DO 4 mg at 02/10/23 0935 Or ondansetron (Zofran) injection 4 mg 4 mg IntraVENous q6h PRN Bud Mahmood, DO polyethylene glycol (PEG) 3350 (Miralax) packet 17 g 17 g Oral Daily PRN Bud Mahmood, vitamin tablet 1 tablet Oral Daily Bud Mahmood, DO 1 tablet at 02/10/23 0808 sodium chloride 0.9 % infusion 5-250 mL/hr IntraVENous PRN Bud Mahmood, sodium chloride 0.9% (NS) flush 5-40 mL 5-40 mL IntraVENous q12h Bud Mahmood, DO 5 mL at 02/10/23 2245 sodium chloride 0.9% (NS) flush 5-40 mL 5-40 mL IntraVENous PRN Bud Mahmood, Assessment/Plan: Mayo Hernandez is a 27 y.o. female 28w5d PPROM - Ruptured 02/06/2023 at 1730 - Afebrile, with no fundal tenderness - S/p x2 dose of betamethasone 02/06-02/07. - S/p magnesium sulfate for 12 hrs for neuroprotection - Continue PO Amoxicillin and Azithromycin for 5 days; on day 35 - GBS negative - Urine culture negative - Growth US 02/07: AGA EFW 1204 grams (53%), oligohydramnios w SANAZ of 1.3, 12/29 BPP, off for fluid - US BPP yesterday 12/29, off for fluid, SANAZ 1 cm, no 2x2 pocket - S/P NICU consult on 02/08, appreciate recommendations - Continue inpatient management until 34 weeks or sooner pending clinical indications PreEwoSF - Met criteria with 2 mild range BP >4hrs apart - Bps normotensive overnight, patient asymptomatic this am - Total protein slightly elevated at 16 on protein urine 02/07 - Will continue to monitor and trend Bps - Patient asymptomatic this am History of Delivery - Delivered at 36 weeks for PPROM - Not on vaginal progesterone this - Per patient hx of quick labor IUP @ 28w5d - Dating by LMP - Cephalic on 02/07 - Monitorinhr TID - Diet:General - BMZ x2 on 02/06-02/07 Further plan pending d/w attending. Kya Silver, 02/11/2023, 5:16 AM [facility] Progress Noteon 02-10-2023 Progress Note ---- Attestation signed by Aubrie Pardo MD at 02/10/2023 6:17 PM I independently saw and evaluated the patient. I agree with the findings and plan of care as documented in the resident's note. No complaints some cramping intermittently 27 yr old at 28 4/7 GA with the following: PPROM s/p Magnesium for neuroprotection, s/p BMZ x 2 and AGA growth continued latency antibiotics reports with past history of precipitous delivery PreEwoSF by mild range BP and proteinuria. Watch for signs and symptoms of pre-eclampsia with SF plan for weekly labs History of not on vaginal progesterone Ongoing inpatient hospitalization recommended and expectant management, no signs of chorioamnionitis or concerns currently. Recommend delivery for concerns of wellbeing, labor, vaginal bleeding or chorio whichever comes first prior to 34 weeks GA. I spent 25 minutes in the visit today on the floor reviewing the chart, discussing the case with the residency staff and nursing Aubrie Pardo MD ---- Maternal Medicine Service Resident Progress Note 02/10/2023 5:19 AM 02/07/2023 Hospital Day: 4 Mayo Hernandez, 27 y.o. 28w4d Patient has been seen and examined. Pt complains of continued leakage of clear fluid, mostly when she gets up from bed. Patient states amount of leakage seems to be decreasing. Patient denies any fevers, chills, or night sweats. Per nurse, patient slept well throughout night with no complaints. Positive movement Negative vaginal bleeding Positive LOF Negative Contractions Vitals: 02/09/23 1624 02/09/23201102/10/23 0010 02/10/23 0408 BP: 121/82 95/64 99/67 110/73 BP Location: Left arm Left arm Left arm Left arm Patient Position: Sitting Lying Lying Lying Pulse: 73 71 73 63 Resp: 18 18 16 16 Temp: 36.7 ?C (98.1 ?F) 36.6 ?C (97.9 ?F) 36.6 ?C (97.9 ?F) 37 ?C (98.6 ?F) TempSrc: Oral Temporal Temporal Temporal SpO2: 98% 99% 97% 98% Weight: Height: FHT: 140, moderate variability Accels: present Decels: absentabsent Contractions: none Physical Exam: Gen: NAD, resting comfortably in bed HEENT: Normocephalic, Atraumatic Resp: No increased WOB, no respiratory distress Card: Regular rate Abd: soft, NTND, no rebound, no guarding. negative fundal tenderness Ext: No calf tenderness, swelling Medications: Current Facility-Administer ed Medications Medication Dose Route Frequency Provider Last Rate Last Admin amoxicillin (Amoxil) capsule 500 mg 500 mg Oral 3 times per day Bud Mahmood, DO 500 mg at 02/09/23 2139 azithromycin (Zithromax) tablet 500 mg 500 mg Oral Daily Bud Mahmood DO 500 mg at 02/09/23 0841 calcium gluconate 10 % injection 1 g 1 g IntraVENous PRN Bud Mahmood, DO ondansetron ODT (Zofran-ODT) disintegrating tablet 4 mg 4 mg Oral q8h PRN Bud Mahmood, DO 4 mg at 02/08/23 0625 Or ondansetron (Zofran) injection 4 mg 4 mg IntraVENous q6h PRN Bud Mahmood, polyethylene glycol (PEG) 3350 (Miralax) packet 17 g 17 g Oral Daily PRN Bud Mahmood, DO vitamin tablet 1 tablet Oral Daily Bud Mahmood, DO 1 tablet at 02/09/23 0841 sodium chloride 0.9 % infusion 5-250 mL/hr IntraVENous PRN Bud Mahmood DO sodium chloride 0.9% (NS) flush 5-40 mL 5-40 mL IntraVENous q12h Bud Mahmood, DO 10 mL at 02/09/232138 sodium chloride 0.9% (NS) flush 5-40 mL 5-40 mL IntraVENous PRN Bud Mahmood DO Assessment/Plan: Mayo Hernandez is a 27 y.o. female 28w4d PPROM - Ruptured 02/06/2023 at 1730 - remains Afebrile, with no fundal tenderness - S/p x2 dose of betamethasone 02/06-02/07. - S/p magnesium sulfate for 12 hrs for neuroprotection - Continue PO Amoxicillin and Azithromycin for 5 days; on day 25 - GBS negative - Urine culture negative - Growth US 02/07: AGA EFW 1204 grams (53%), oligohydramnios w SANAZ of 1.3, 12/29 BPP (off for fluid) - US BPP pending this AM - S/P NICU consult on 02/08, appreciate recommendations - Continue inpatient management until 34 weeks or sooner pending clinical indications PreEwoSF - Met criteria with 2 mild range BP >4hrs apart - remains asymptomatic and normotensive overnight - total protein slightly elevated at 16 on protein urine 02/07 - continue to monitor and trend Bps History of delivery -Delivered at 36 weeks for PPROM -Not on vaginal progesterone this -Per patient hx of quick labor IUP @ 28w4d - Dating by LMP - Cephalic on 02/07 - Monitorinhr TID - Diet:General - BMZ x2 on 02/06-02/07 Further plan pending d/w attending. Ashish Lujan 02/10/2023, 5:19 AM I saw and evaluated the patient, participating in the mark portions of the service. I review (more content not included)... Normal [facility] US BIOPHYSICAL PROFILE WO NON STRESS TESTINGon 02-10-2023 US BIOPHYSICAL PROFILE WO NON STRESS TESTING OBSTETRICS REPORT (Signed Final 02/10/2023 10:57 am) PATIENT INFO: ID #: [id number] : [birth year] (27 yrs)(F) Name: MAYO HERNANDEZ Visit Date: 02/10/2023 09:27 am PERFORMED BY: Attending: Aubrie Pardo MD Performed By: Bebe Jackman RDMS Referred By: RYAN ALEXANDRA Location: [facility] IP Visit Type: Inpatient - Hospital SERVICE(S) PROVIDED: AMADEO w/out TEENA [id number] INDICATIONS: premature rupture of membranes, O42.111 onset of labor more than 24 hours following rupture, first trimester VITAL SIGNS: Weight (lb): 210 Height: 5'11 BMI: 29.29 EVALUATION: Num Of Fetuses: 1 Heart Rate(bpm): 134 Cardiac Activity: Regular rhythm Lie: Longitudinal Spine up Presentation: Cephalic Placenta: Anterior Amniotic Fluid SANAZ FV: Oligohydramnios SANAZ Sum(cm) %Tile 1 < 3 Comment: There is no 2 x 2cm pocket. BIOPHYSICAL EVALUATION: Amniotic F.V: Oligohydramnios F. Tone: Observed F. Movement: Observed Score: 6 F. Breathing: Observed BIOMETRY: GESTATIONAL AGE: Clinical GEORGINA: 28w 4d GEORGINA: 05/01/23 Best: 28w 4d Det. By: Clinical GEORGINA GEORGINA: 05/01/23 ANATOMY: Stomach: Normal appearance Bladder: Normal appearance Aubrie Pardo MD Electronically Signed Final Report 02/10/2023 10:57 am IMPRESSION: - Garcia live intrauterine at 28w 4d. - The amniotic fluid index is 1.cm, which is oligohydramnios - Reassuring biophysical profile, 6/8. see IP note from today Ultrasound is not diagnostic of chromosomal aneuploidy and does not detect all subtle defects. Normal ultrasound findings do not guarantee normal outcomes. Normal [facility] US biophysical profile wo non stress testingon 02-10-2023 - Garcia live intrauterine at 28w 4d. - The amniotic fluid index is 1.cm, which is oligohydramnios - Reassuring biophysical profile, 6/8. see IP note from today Ultrasound is not diagnostic of chromosomal aneuploidy and does not detect all subtle defects. Normal ultrasound findings do not guarantee normal outcomes. [facility] OBSTETRICS REPORT (Signed Final 02/10/2023 10:57 am) PATIENT INFO: ID #: [id number] : [birth year] (27 yrs)(F) Name: MAYO HERNANDEZ Visit Date: 02/10/2023 09:27 am PERFORMED BY: Attending: Aubrie Pardo MD Performed By: Bebe Jackman RDMS Referred By: RYAN ALEXANDRA Location: [facility] Visit Type: Inpatient - Hospital SERVICE(S) PROVIDED: AMADEO w/out JAYJAYT [id number] INDICATIONS: premature rupture of membranes, O42.111 onset of labor more than 24 hours following rupture, first trimester VITAL SIGNS: Weight (lb): 210 Height: 5'11 BMI: 29.29 EVALUATION: Num Of Fetuses: 1 Heart Rate(bpm): 134 Cardiac Activity: Regular rhythm Lie: Longitudinal Spine up Presentation: Cephalic Placenta: Anterior Amniotic Fluid SANAZ FV: Oligohydramnios SANAZ Sum(cm) %Tile 1 < 3 Comment: There is no 2 x 2cm pocket. BIOPHYSICAL EVALUATION: Amniotic F.V: Oligohydramnios F. Tone: Observed F. Movement: Observed Score: 6/8 F. Breathing: Observed BIOMETRY: GESTATIONAL AGE: Clinical GEORGINA: 28w 4d GEORGINA: 05/01/23 Best: 28w 4d Det. By: Clinical GEORGINA GEORGINA: 05/01/23 ANATOMY: Stomach: Normal appearance Bladder: Normal appearance Aubrie Pardo MD Electronically Signed Final Report 02/10/2023 10:57 am [facility] Aubrie Pardo MD - 02/10/2023 OBSTETRICS REPORT (Signed Final 02/10/2023 10:57 am) PATIENT INFO: ID #: [id number] : [birth year] (27 yrs)(F) Name: MAYO HERNANDEZ Visit Date: 02/10/2023 09:27 am PERFORMED BY: Attending: Aubrie Pardo MD Performed By: Bebe Jackman RDMS Referred By: RYAN ALEXANDRA Location: [facility] IP Visit Type: Inpatient - Hospital SERVICE(S) PROVIDED: BPP w/out NST 27808 INDICATIONS: premature rupture of membranes, O42.111 onset of labor more than 24 hours following rupture, first trimester VITAL SIGNS: Weight (lb): 210 Height: 5'11 BMI: 29.29 EVALUATION: Num Of Fetuses: 1 Heart Rate(bpm): 134 Cardiac Activity: Regular rhythm Lie: Longitudinal Spine up Presentation: Cephalic Placenta: Anterior Amniotic Fluid SANAZ FV: Oligohydramnios SANAZ Sum(cm) %Tile 1 < 3 Comment: There is no 2 x 2cm pocket. BIOPHYSICAL EVALUATION: Amniotic F.V: Oligohydramnios F. Tone: Observed F. Movement: Observed Score: 12/29 F. Breathing: Observed BIOMETRY: GESTATIONAL AGE: Clinical GEORGINA: 28w 4d GEORGINA: 05[birth year] Best: 28w 4d Det. By: Clinical GEORGINA GEORGINA: 05/01/23 ANATOMY: Stomach: Normal appearance Bladder: Normal appearance Aubrie Pardo MD Electronically Signed Final Report 02/10/2023 10:57 am IMPRESSION: - Garcia live intrauterine at 28w 4d. - The amniotic fluid index is 1.cm, which is oligohydramnios - Reassuring biophysical profile, 12/29. see IP note from today Ultrasound is not diagnostic of chromosomal aneuploidy and does not detect all subtle defects. Normal ultrasound findings do not guarantee normal outcomes. [facility] Study observation (narrative) Nabilliat Kay alth US biophysical profile wo non stress testingOrdered By: Aubrie Pardo on 02-10-2023 [facility] Work Phone: CARECOORDon 02-09-2023 CHRISTIANOALEXX Spoke with pt re: +THC in [place]; Pamphlet given; pt states she used for N/V and appetite in earlier preg; Marijuana use during can be harmful to your baby's health. The chemicals in marijuana (in particular, THC) pass through your system to your baby and can negatively affect your baby's development. Some research shows that using marijuana while you are can cause health problems in newborns-- including low weight and developmental problems. Research shows marijuana use during may make it hard for your child to pay attention or to learn, these issues may only become noticeable as your child grows older Chemicals from marijuana can be passed to your baby through breast milk. THC is stored in fat and is slowly released over time, meaning an infant could be exposed for a longer period of time. Normal [facility] [employer] [facility] Consulton 02-09-2023 Consult Consult by Neonatology Request by OB: Dr. Leslie Reason for Consult: 28wk pprom Maternal History and current problem: PPROM 02/06/23 around 1730 Significant history: Per H&P Patient noted water broke around 1730 on 02/06/2023, she went to [facility] where she was noted to be P PROM. They started her on penicillin and gave her a dose of betamethasone and transported to our hospital. She is comfortable, she declines any contractions at this time. She denies any vaginal bleeding or decreased movement. Her is uncomplicated. She does have a history of a delivery at 36 weeks and her first , she presented with PPROM as well at that time and delivered within a few days of admission. She has not been on any vaginal progesterone during this . Medications: PNV Betamethasone given: 02/06, 02/07 Labs: Blood type: A+ Antibody: neg GBS: unk Hepatitis B Ag: RPR: Rubella: HIV: Hepatitis C: neg GC/CT: neg HSV history: unk CF: Glucose challenge test: Present for Consult: Patient, maternal grandmother, maternal aunts Baby Sex: boy Baby Name: Marcin US findings: EFW ~1200g (53% on 02/07), low SANAZ Any known anomalies: none I discussed: Survival statistics (>90%) Delivery room management: Delayed cord clamping, possible need for CPAP, Oxygen, intubation and surfactant. IV access, possible need for advanced resuscitation, possible need for umbilical lines. Baby is a full resuscitation. Respiratory distress syndrome, chronic lung disease Feeding with NG tube and benefit of MBM. Mom plans on providing MBM--she reports providing BrM for her daughter. Fortification of MBM. Feeding readiness and growth expectations, Risk of Necrotizing enterocolitis Jaundice and phototherapy Apnea of prematurity and caffeine Possible need for transfusion Heart Murmur: PDA Neurodevelopmental Outcome and Risk: IVH Retinopathy of prematurity Hearing problems Risk of infection- early and late onset Skin to skin opportunities Physiologic criteria for discharge and timing of discharge estimate from NICU Potential need for transfer to [facility] if needs esclation of care, based on a variety of factors. Handouts given. No further questions. Mom's older child delivered at 36wks GA, complex congenital heart defect with heterotaxy--spent significant time in CVICU at [facility]. She is familiar with pumping/providing BrM and plans to do the same for this baby. Reviewed anticipated length of stay, discharge criteria (good PO intake, weight gain, stable temps in open crib, and free from apnea/bradycardia events). A/P: Patient is a 27 Year old G2 P 1 At 28 Weeks With PPROM 1. Current Management per OB 2. NICU to attend delivery 3. Call NICU if further questions. Consult done on 7/19/23. Total consult time 50 min, >50% face to face. Mildred Santos MD [facility] Progress Noteon 02-09-2023 Progress Note Subject consented to the APS01 Ameda Carol Breast Pump study on [id number]. See Documentation of Informed Consent in the Media Tab. Subject completed initial questionnaires and final enrollment is pending delivery and normal breast tissue assessment. Subject has Ameda Carol pump and supplies, pumping logs, and remaining questionnaires in room. Subject aware how to contact research staff with questions or concerns. consultants, bedside staff and maternal department managers notified of consent. Please call the 24 Hour Research Cellphone ([phone]) if subject delivers. For the patient to remain enrolled in the study, a breast assessment must be charted before first pumping session. If breast assessment is normal, the first pumping session must be within 6 hours of delivery. Patient must exclusively use Ameda Carol pump a minimum of 6 times per day over next 14 days and cannot breastfeed to remain compliant with study. Normal [facility] Progress Note Nutrition rescreen completed. Chart reviewed. Patient to be monitored and followed by the diet central supply technician. BALBIR Quintana [facility] Progress Note ---- Attestation signed by Aubrie Pardo MD at 02/09/2023 11:40 AM (Updated) I independently saw and evaluated the patient. I agree with the findings and plan of care as documented in the resident's note. No complaints, significant other Helga in room sleeping today 27 yr old at 28 3/7 GA with the following: PPROM s/p Magnesium for neuroprotection, s/p BMZ x 2 and AGA growth continued latency antibiotics PreEwoSF by mild range BP and proteinuria. Watch for signs and symptoms of pre-eclampsia with SF History of not on vaginal progesterone Ongoing inpatient hospitalization recommended and expectant management, no signs of chorioamnionitis or concerns currently. Recommend delivery for concerns of wellbeing, labor, vaginal bleeding or chorio whichever comes first prior to 34 weeks GA. I spent 25 minutes in the visit today on the floor reviewing the chart, discussing the case with the residency staff and nursing Aubrie Pardo MD ---- Maternal Medicine Service Resident Progress Note 02/09/2023 5:42 AM 02/07/2023 Hospital Day: 3 Mayo Hernandez, 27 y.o. 28w3d Patient has been seen and examined. Pt has no complaints at this time. Slept throughout the night. Denies any fevers, chills, or night sweats. Positive movement Negative vaginal bleeding Negative LOF Negative Contractions Vitals: 02/08/23 1630 02/08/23 1700 02/08/23 2104 02/09/23 0005 BP: 105/62 111/70 BP Location: Left arm Pulse: 75 75 78 64 Resp: 17 17 Temp: 37.4 ?C (99.4 ?F) 37.4 ?C (99.4 ?F) TempSrc: Temporal Temporal SpO2: 98% 98% Weight: Height: FHT: 130, moderate variability Accels: present Decels: presentvariable @ 2219, otherwise no other decel noted Contractions: none Physical Exam: Gen: NAD, resting comfortably in bed HEENT: Normocephalic, Atraumatic Resp: No increased WOB, no respiratory distress Card: Regular rate Abd: soft, NTND, no rebound, no guarding. negative fundal tenderness Ext: No calf tenderness, swelling Medications: Current Facility-Administer ed Medications Medication Dose Route Frequency Provider Last Rate Last Admin amoxicillin (Amoxil) capsule 500 mg 500 mg Oral 3 times per day Bud Mahmood DO azithromycin (Zithromax) tablet 500 mg 500 mg Oral Daily Bud Mahmood DO calcium gluconate 10 % injection 1 g 1 g IntraVENous PRN Budsri Mahmood, DO ondansetron ODT (Zofran-ODT) disintegrating tablet 4 mg 4 mg Oral q8h PRN Bud Mahmood, DO 4 mg at 02/08/23 0625 Or ondansetron (Zofran) injection 4 mg 4 mg IntraVENous q6h PRN Bud Timoteo, DO polyethylene glycol (PEG) 3350 (Miralax) packet 17 g 17 g Oral Daily PRN Bud Mahmood, DO vitamin tablet 1 tablet Oral Daily Bud Timoteo, DO 1 tablet at 02/08/23 0953 sodium chloride 0.9 % infusion 5-250 mL/hr IntraVENous PRN Bud Mahmood, DO sodium chloride 0.9% (NS) flush 5-40 mL 5-40 mL IntraVENous q12h Bud Mahmood, DO 10 mL at 02/08/23 2354 sodium chloride 0.9% (NS) flush 5-40 mL 5-40 mL IntraVENous PRN Bud Mahmood, DO Assessment/Plan: Mayo Hernandez is a 27 y.o. female 28w3d PPROM - Ruptured 02/06/2023 at 1730 - remains Afebrile, with no fundal tenderness - S/p x2 dose of betamethasone 02/06-02/07. - S/p magnesium sulfate for 12 hrs for neuroprotection - Start on PO Amoxicillin and Azithromycin for 5 days - GBS negative - Growth US 02/07: AGA EFW 1204 grams (53%), oligohydramnios w SANAZ of 1.3, 12/29 BPP (off for fluid) - S/P NICU consult on 02/08, appreciate recommendations - Continue inpatient management until 34 weeks or sooner pending clinical indications gHTN with Proteinuria PreEwoSF? - Met criteria with 2 mild range BP >4hrs apart - remains asymptomatic and normotensive - total protein slightly elevated at 16 on protein urine 02/07 - consider repeat total protein level - continue to monitor and trend Bps History of delivery -Delivered at 36 weeks for PPROM -Not on vaginal progesterone this IUP @ 28w3d - Dating by LMP - Cephalic on 02/07 - Monitorinhr TID - Diet:General - BMZ x2 on 02/06-02/07 Further plan pending d/w attending. Ashish Le 02/09/2023, 5:42 AM I saw and evaluated the patient, participating in the mark portions of the service. I reviewed the medical student?s note. I agree with the medical students?s findings and plan. Etta Efra, 02/09/2023 6:15 AM [facility] Bacteria identified Cx Nom ( U)Ordered By: Nahomi Reyes on 02-08-2023 Interpretation and review of laboratory results Normal [facility] Progress Noteon 02-08-2023 Progress Note Spoke to Dr. Franklin, requested that an order for saline flush orders be put into this pt's orders. Also asked to have toco orders entered to read as one hour tid to correspond with monitoring times. She states she will enter those orders as soon as she is able. [facility] Progress Note ---- Attestation signed by Aubrie Pardo MD at 02/08/2023 1:10 PM I independently saw and evaluated the patient. I agree with the findings and plan of care as documented in the resident's note. 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 Recommend delivery for concerns of wellbeing, labor, vaginal bleeding or chorio whichever comes first prior to 34 weeks GA. I spent 25 minutes in the visit today on the floor reviewing the chart, discussing the case with the residency staff and nursing Aubrie Pardo MD ---- Maternal Medicine Service Resident Progress Note 02/08/2023 5:35 AM 02/07/2023 Hospital Day: 2 Mayo Hernandez, 27 y.o. 28w2d Patient has been seen and examined. Patient has no complaints at this time. Patient states she slept throughout the night, she has clear LOF only, denies any contractions. She also states she is experiencing no fevers, chills, or night sweats. Positive movement Negative vaginal bleeding Positive LOF Negative Contractions Vitals: 02/07/23 1631 02/07/23 1958 02/08/23 0025 02/08/23 0431 BP: 136/86 126/89 112/67 108/65 Pulse: 83 81 68 73 Resp: Temp: 37.1 ?C (98.7 ?F) 37.4 ?C (99.3 ?F) 37.2 ?C (98.9 ?F) 37.3 ?C (99.1 ?F) TempSrc: Temporal Temporal Temporal Temporal SpO2: 98% 98% 96% 100% Weight: Height: FHT: 130, moderate variability Accels: present Decels: rare variable decel, overall reassuring Contractions: none Physical Exam: Gen: NAD HEENT: Normocephalic, Atraumatic, EOMI, MMM Resp: CTABL, no WRR Card: RRR S1S2 Abd: soft, gravid, NTND, no rebound, no guarding. negative fundal tenderness Ext: No LE edema, no calf tenderness or swelling Medications: Current Facility-Administer ed Medications Medication Dose Route Frequency Provider Last Rate Last Admin ampicillin (Omnipen) 2,000 mg in sodium chloride 0.9 % 100 mL IVPB 2,000 mg IntraVENous 4 times per day Bud Mahmood DO Stopped at 02/08/23 0051 Followed by [START ON 02/09/2023] amoxicillin (Amoxil) capsule 500 mg 500 mg Oral 3 times per day Bud Mahmood DO [START ON 02/09/2023] azithromycin (Zithromax) tablet 500 mg 500 mg Oral Daily Bud Mahmood, calcium gluconate 10 % injection 1 g 1 g IntraVENous PRN Bud Mahmood, ondansetron ODT (Zofran-ODT) disintegrating tablet 4 mg 4 mg Oral q8h PRN Bud Mahmood, Or ondansetron (Zofran) injection 4 mg 4 mg IntraVENous q6h PRN Bud Mahmood, DO polyethylene glycol (PEG) 3350 (Miralax) packet 17 g 17 g Oral Daily PRN Bud Mahmood, DO vitamin tablet 1 tablet Oral Daily Bud Mahmood, DO 1 tablet at 02/07/23 0840 Assessment/Plan: Mayo Hernandez is a 27 y.o. female 28w2d PPROM - Ruptured 02/06/2023 at 1730 - Afebrile, VSS, no fundal tenderness - S/p x2 dose of betamethasone 02/06-02/07. - S/p magnesium sulfate for 12 hrs for neuroprotection - Continue on Azithromycin and Amp, start PO tomorrow - GBS and urine culture pending - Growth US 02/07: AGA EFW 1204 grams (53%), oligohydramnios w SANAZ of 1.3, 12/29 BPP (off for fluid) - NICU consulted, pending recs - Continue inpatient management until 34 weeks or sooner pending clinical indications tHTN Proteinuria - Mild range BP on 02/07 - Normotensive otherwise - ASX - CBC, CMP wnl on admission - UPC elevated at 0.51, no prior to compare - Continue trending Bps per protocol - If another elevated BP, will meet criteria for PreEwoSF History of delivery -Delivered at 36 weeks for PPROM -Not on vaginal progesterone this IUP @ 28w2d - Dating by LMP - Cephalic on 02/07 - Monitorinhr TID - Diet:General - BMZ x2 on 02/06-02/07 Further plan pending d/w attending. Ashish Lujan 02/08/2023, 5:35 AM Above documentation per Medical student with changes made to reflect current clinical status. PPROM, s/p BMZx2 and Mag for neuroprotection. Cervix appeared visually close on admission, No ctx on toco. Vertex presentation. Continue inpatient management. Mild range BP on 02/07, if another elevated BP, will meet criteria for PreEwoSF due to proteinuria. Ryan Alexandra MD 02/08/2023 6:28 AM Normal [facility] Urine cultureOrdered By: Alpa rincon Danielonesimo Reyes on 02-08-2023 Bacteria identified Cx Nom (U) No growth (<1,000 CFU/mL) [facility] ABO and Rh group Confirm Nom (Bld)on 02-07-2023 ABO group Nom (Bld) A [facility] D Ag Ql (RBC) Positive [facility] AmniSure ROMOrdered By: Costa Lanza on 02-07-2023 [id number] lacental Ql (Vag fld) Positive Abnormal Negative [facility] Comment on above: Rupture of membranes is likely. Methodology: Lateral flow immunoassay Interpretation and review of laboratory results Abnormal [facility] Bacterial vaginosis and vagi nitis rRNA panel Probe (Vag fld)on 02-07-2023 Bacterial vaginosis Ql (Vag fld) [Interp] Not detected Not Detected [facility] C. glabrata DNA VERONICA+probe Ql (Vag fld) Not detected Not Detected [facility] Inge sp DNA VERONICA+probe Ql (Vag fld) Not detected Not Detected [facility] Interpretation and review of laboratory results Normal [facility] T. vaginalis DNA VERONICA+probe Ql (Vag fld) Not detected Not Detected [facility] Methodology: real-time PCR A negative result does not preclude a possible infection. This assay can detect the Inge species C. albicans, C. tropicalis, C. parapsilosis, and C. dubliniensis but does not differentiate among them. The assay also detects C. glabrata and C. krusei, but does not differentiate between them. Results should be interpreted in conjunction with other clinical data. This test has not been validated for use with specimens collected by patients at home. This test is intended for medical purposes only and is not valid for the evaluation of suspected sexual abuse or for other forensic purposes. [facility] Blood type and Crossmatch pa guerita (Bld)on 02-07-2023 ABO group Nom (Bld) A [facility] Blood group antibody screen GEL Ql Negative [facility] D Ag Ql (RBC) Positive [facility] CARECOORDon 02-07-2023 RONAN Vides is a 27 yo admitted at 28/1 weeks for PPROM from [place]; denies concerns with food, transportation, or housing; no other concerns voiced at this time; will let primary RN know if any other needs arise that we can assist with Normal [facility] CBC panel Auto (Bld)Ordered By: Bere Leslie on 02-07-2023 Erythrocyte distribution width (RBC) [Ratio] 13.6 % 11.5 - 14.5 % [facility] Hematocrit (Bld) [Volume fraction] 33.7 % Low 35.0 - 47.0 % [facility] Hemoglobin (Bld) [Mass/Vol] 11.3 g/dL Low 11.7 - 16.0 g/dL [facility] Interpretation and review of laboratory results Abnormal [facility] MCH (RBC) [Entitic mass] 30.0 pg 26.0 - 34.0 pg [facility] MCHC (RBC) [Mass/Vol] 33.6 % 32.0 - 36.0 % [facility] MCV (RBC) [Entitic vol] 89.3 fL 80.0 - 98.0 fL [facility] Platelet mean volume (Bld) [Entitic vol] 10.3 fL 7.4 - 12.4 fL [facility] Platelets (Bld) [#/Vol] 201 10*3/uL 140 - 440 10*3/uL [facility] RBC (Bld) [#/Vol] 3.78 10*6/uL Low 3.8 - 5.20 10*6/uL [facility] WBC (Bld) [#/Vol] 14.0 10*3/uL High 3.6 - 10.7 10*3/uL [facility] Comprehensive metabolic 1998 panelon 02-07-2023 Albumin [Mass/Vol] 3.3 g/dL Low 3.5 - 5.0 g/dL [facility] ALP [Catalytic activity/Vol] 63 U/L 38 - 126 U/L [facility] ALT [Catalytic activity/Vol] 23 U/L 0 - 34 U/L [facility] Anion gap [Moles/Vol] 7 mmol/L 3 - 13 mmol/L [facility] AST [Catalytic activity/Vol] 25 U/L 15 - 46 U/L [facility] Bilirubin [Mass/Vol] 0.5 mg/dL 0.2 - 1 .3 mg/dL [facility] Calcium [Mass/Vol] 7.9 mg/dL Low 8.4 - 10. 4 mg/dL [facility] Chloride [Moles/Vol] 105 mmol/L 98 - 10 7 mmol/L [facility] CO2 [Moles/Vol] 20 mmol/L Low 22 - 30 mmol/L [facility] Creatinine [Mass/Vol] 0.43 mg/dL Low 0.52 - 1.04 mg/dL [facility] GFR/1.73 sq M.predicted MDRD (S/P/Bld) [Vol rate/Area] - PINF [facility] Comment on above: Calculation based on the Chronic Kidney Disease Epidemiology Collaboration (CKD-EPI) equation refit without adjustment for race Glucose [Mass/Vol] 109 mg/dL High 70 - 100 mg/dL [facility] Interpretation and review of laboratory results Abnormal [facility] Potassium [Moles/Vol] 4.0 mmol/L 3.5 - 5.1 mmol/L [facility] Protein [Mass/Vol] 6.5 g/dL 6.3 - 8.2 g/dL [facility] Sodium [Moles/Vol] 132 mmol/L Low 135 - 145 mmol/L [facility] Urea nitrogen [Mass/Vol] 5 mg/dL Low 7 - 17 mg/dL [facility] Creatinine (U) [Mass/Vol]on 02-07-2023 CREATININE, URINE 31.1 mg/dL No Range [facility] HCV Ab IA Qlon 02-07-2023 Interpretation and review of laboratory results Normal [facility] Hepatitis C antibodyon 02-07 HCV Ab IA Ql Not detected Not Detected [facility]asema Comment on above: Patients with DETECT ED Hepatitis C Ab results should have a new specimen submitted for supplemental testing with a Hepatitis C Quantitative RNA assay (viral load), if clinically indicated. N. gonorrhoeae DNA VERONICA+probe Ql (Cervical mucus)on 02-07-2023 C. trachomatis DNA VERONICA+probe Ql (Unsp spec) Not detected Not Detected [facility] Interpretation and review of laboratory results Normal [facility] N gonorrhoeae, DNA Probe Not detected Not Detected [facility] Methodology: real-time PCR This test is intended for medical purposes only and is not intended for the evaluation of suspected sexual abuse or for other forensic purposes. In certain contexts, culture may be required to meet applicable laws and regulations for diagnosis of C. trachomatis and N. gonorrhoeae infections. Per 2014 CDC recommmendations, this test does not include confirmation of positive results by an alternative nucleic acid target. A negative result does not exclude the possibility of infection. A result of invalid indicates that a new specimen should be collected if clinically indicated. [facility] No Panel Informationon 02-07 1. Garcia live intrauterine at 28w 1d with known PPROM. 2. Normal growth; EFW 1204 grams, which is at the 53% for this gestational age. 3. Oligohydramnios. The amniotic fluid index is 1.3cm. 4. Visualized anatomy appears normal as noted above. [facility] OBSTETRICS REPORT (Signed Final 02/07/2023 12:43 pm) PATIENT INFO: ID #: [id number] : [birth year] (27 yrs)(F) Name: MAYO HERNANDEZ Visit Date: 02/07/2023 09:09 am PERFORMED BY: Attending: Kelly Leslie DO, FACOG Performed By: Bebe Jackman RDMS Referred By: RYAN ALEXANDRA Location: [facility] IP Visit Type: Inpatient - Hospital SERVICE(S) PROVIDED: [place] [address] BPP w/out NST 49731 INDICATIONS: premature rupture of membranes, O42.111 onset of labor more than 24 hours following rupture, first trimester premature rupture of membranes, O42.111 onset of labor more than 24 hours following rupture, first trimester VITAL SIGNS: Weight (lb): 210 Height: 5'11 BMI: 29.29 EVALUATION: Num Of Fetuses: 1 Heart Rate(bpm): 139 Cardiac Activity: Regular rhythm Lie: Longitudinal Presentation: Cephalic Placenta: Anterior Amniotic Fluid SANAZ FV: Oligohydramnios SANAZ Sum(cm) %Tile Largest Pocket(cm) 1.3 < 3 1.3 RUQ(cm) 1.3 Comment: There is no 2 x 2cm pocket. BIOPHYSICAL EVALUATION: Amniotic F.V: Pocket < 2 cm two F. Tone: Observed planes F. Movement: Observed Score: 12/29 F. Breathing: Observed BIOMETRY: BPD: 75.2 mm G.Age: 30w 1d 92 % OFD: 95.6 mm HC: 274.1 mm G.Age: 30w 0d 75 % AC: 228.9 mm G.Age: 27w 2d 18 % FL: 54.9 mm G.Age: 29w 0d 60 % LV: 8.7 mm CI: 78.7 % 70 - 86 FL/HC: 20.0 % 18.8 - 20.6 HC/AC: 1.20 1.05 - 1.21 FL/BPD: 73.0 % 71 - 87 FL/AC: 24.0 % 20 - 24 Est. FW: 1204 gm 2 lb 10 oz 53 % GESTATIONAL AGE: Clinical GEORGINA: 28w 1d GEORGINA: 05/01/[birth year] U/S Today: 29w 1d GEORGINA: 04/24/23 Best: 28w 1d Det. By: Clinical GEORGINA GEORGINA: [birth year]/01/[birth year] ANATOMY: Cranium: Normal appearance Cavum: Suboptimal views Ventricles: Normal appearance Choroid Plexus: Normal appearance Cerebellum: Normal appearance Posterior Fossa: Normal appearance Nuchal Fold: Normal appearance Face: Suboptimal views Lips: Suboptimal views Palate: Suboptimal views Thoracic: Normal appearance Heart: Normal appearance RVOT: Normal appearance LVOT: Normal appearance Aortic Arch: Normal appearance Ductal Arch: Normal appearance Diaphragm: Normal appearance Stomach: Normal appearance Abdomen: Normal appearance Abdominal Wall: Normal appearance Cord Vessels: Normal 3-Vessel Cord Kidneys: Normal appearance Bladder: Normal appearance Spine: Suboptimal views Upper Extremities: Present Lower Extremities: Present RECOMMENDATIONS: See inpatient chart. Ultrasound is not diagnostic of chromosomal aneuploidy and does not detect all subtle defects. Normal ultrasound findings do not guarantee normal outcomes. Kelly Leslie DO, FACOG Electronically Signed Final Report 02/07/2023 12:43 pm [facility] Kelly Leslie DO - 02/07/2023 OBSTETRICS REPORT (Signed Final 02/07/2023 12:43 pm) PATIENT INFO: ID #: [id number] : [birth year] (27 yrs)(F) Name: MAYO HERNANDEZ Visit Date: 02/07/2023 09:09 am PERFORMED BY: Attending: Kelly Leslie DO, FACOG Performed By: Bebe Jackman RDMS Referred By: RYAN ALEXANDRA Location: [facility] IP Visit Type: Inpatient - Hospital SERVICE(S) [place]: [place] [address] BPP w/out NST 54959 INDICATIONS: premature rupture of membranes, O42.111 onset of labor more than 24 hours following rupture, first trimester premature rupture of membranes, O42.111 onset of labor more than 24 hours following rupture, first trimester VITAL SIGNS: Weight (lb): 210 Height: 5'11 BMI: 29.29 EVALUATION: Num Of Fetuses: 1 Heart Rate(bpm): 139 Cardiac Activity: Regular rhythm Lie: Longitudinal Presentation: Cephalic Placenta: Anterior Amniotic Fluid SANAZ FV: Oligohydramnios SANAZ Sum(cm) %Tile Largest Pocket(cm) 1.3 < 3 1.3 RUQ(cm) 1.3 Comment: There is no 2 x 2cm pocket. BIOPHYSICAL EVALUATION: Amniotic F.V: Pocket < 2 cm two F. Tone: Observed planes F. Movement: Observed Score: 6/8 F. Breathing: Observed BIOMETRY: BPD: 75.2 mm G.Age: 30w 1d 92 % OFD: 95.6 mm HC: 274.1 mm G.Age: 30w 0d 75 % AC: 228.9 mm G.Age: 27w 2d 18 % FL: 54.9 mm G.Age: 29w 0d 60 % LV: 8.7 mm CI: 78.7 % 70 - 86 FL/HC: 20.0 % 18.8 - 20.6 HC/AC: 1.20 1.05 - 1.21 FL/BPD: 73.0 % 71 - 87 FL/AC: 24.0 % 20 - 24 Est. FW: 1204 gm 2 lb 10 oz 53 % GESTATIONAL AGE: Clinical GEORGINA: 28w 1d GEORGINA: 05/01/23 U/S Today: 29w 1d GEORGINA: 04/24/23 Best: 28w 1d Det. By: Clinical GEORGINA GEORGINA: 05/01/23 ANATOMY: Cranium: Normal appearance Cavum: Suboptimal views Ventricles: Normal appearance Choroid Plexus: Normal appearance Cerebellum: Normal appearance Posterior Fossa: Normal appearance Nuchal Fold: Normal appearance Face: Suboptimal views Lips: Suboptimal views Palate: Suboptimal views Thoracic: Normal appearance Heart: Normal appearance RVOT: Normal appearance LVOT: Normal appearance Aortic Arch: Normal appearance Ductal Arch: Normal appearance Diaphragm: Normal appearance Stomach: Normal appearance Abdomen: Normal appearance Abdominal Wall: Normal appearance Cord Vessels: Normal 3-Vessel Cord Kidneys: Normal appearance Bladder: Normal appearance Spine: Suboptimal views Upper Extremities: Present Lower Extremities: Present RECOMMENDATIONS: See inpatient chart. Ultrasound is not diagnostic of chromosomal aneuploidy and does not detect all subtle defects. Normal ultrasound findings do not guarantee normal outcomes. Kelly Leslie DO, FACOG Electronically Signed Final Report 02/07/2023 12:43 pm IMPRESSION: 1. Garcia live intrauterine at 28w 1d with known PPROM. 2. Normal growth; EFW 1204 grams, which is at the 53% for this gestational age. 3. Oligohydramnios. The amniotic fluid index is 1.3cm. 4. Visualized anatomy appears normal as noted above. [employer] [facility] Radiology Study observation (narrative) Jared Snyder Panel InformationOrdered By: Kelly Leslie on 02-07-2023 [employer] [facility] Work Phone: Protein, urine, randomon Interpretation and review of laboratory results Abnormal [employer] [facility] Protein (U) [Mass/Vol] 16 mg/dL High 0 - 12 mg/dL [employer] [facility] T. vaginalis DNA VERONICA+probe Q l (Genital specimen)on 02-07-2023 Interpretation and review of laboratory results Normal [facility] [employer] [facility] Trichomonas vaginalis Not detected Not Detected [facility] [employer] [facility] Methodology: real-time PCR A negative result does not completely rule out infection with T. vaginalis. Results should be interpreted in conjunction with other clinical data. This test has not been validated for use with self-collected vaginal swab specimens from patients. This test is intended for medical purposes only and is not intended for the evaluation of suspected sexual abuse or for other forensic purposes. [facility] [employer] [facility] BIOPHYSICAL PROFILE WO NON STRESS TESTINGon 02-07-2023 US BIOPHYSICAL PROFILE WO NON STRESS TESTING OBSTETRICS REPORT (Signed Final 02/07/2023 12:43 pm) PATIENT INFO: ID #: [id number] : [birth year] (27 yrs)(F) Name: MAYO HERNANDEZ Visit Date: 02/07/2023 09:09 am PERFORMED BY: Attending: Kelly Leslie DO, FACOG Performed By: Bebe Jackman RDMS Referred By: RYAN ALEXANDRA Location: [facility] IP Visit Type: Inpatient - Hospital SERVICE(S) [place] [address] BPP w/out NST 22707 INDICATIONS: premature rupture of membranes, O42.111 onset of labor more than 24 hours following rupture, first trimester premature rupture of membranes, O42.111 onset of labor more than 24 hours following rupture, first trimester VITAL SIGNS: Weight (lb): 210 Height: 5'11 BMI: 29.29 EVALUATION: Num Of Fetuses: 1 Heart Rate(bpm): 139 Cardiac Activity: Regular rhythm Lie: Longitudinal Presentation: Cephalic Placenta: Anterior Amniotic Fluid SANAZ FV: Oligohydramnios SANAZ Sum(cm) %Tile Largest Pocket(cm) 1.3 < 3 1.3 RUQ(cm) 1.3 Comment: There is no 2 x 2cm pocket. BIOPHYSICAL EVALUATION: Amniotic F.V: Pocket < 2 cm two F. Tone: Observed planes F. Movement: Observed Score: 12/29 F. Breathing: Observed BIOMETRY: BPD: 75.2 mm G.Age: 30w 1d 92 % OFD: 95.6 mm HC: 274.1 mm G.Age: 30w 0d 75 % AC: 228.9 mm G.Age: 27w 2d 18 % FL: 54.9 mm G.Age: 29w 0d 60 % LV: 8.7 mm CI: 78.7 % 70 - 86 FL/HC: 20.0 % 18.8 - 20.6 HC/AC: 1.20 1.05 - 1.21 FL/BPD: 73.0 % 71 - 87 FL/AC: 24.0 % 20 - 24 Est. FW: 1204 gm 2 lb 10 oz 53 % GESTATIONAL AGE: Clinical GEORGINA: 28w 1d GEORGINA: 05/01/23 U/S Today: 29w 1d GEORGINA: 04/24/23 Best: 28w 1d Det. By: Clinical GEORGINA GEORGINA: 05/01/23 ANATOMY: Cranium: Normal appearance Cavum: Suboptimal views Ventricles: Normal appearance Choroid Plexus: Normal appearance Cerebellum: Normal appearance Posterior Fossa: Normal appearance Nuchal Fold: Normal appearance Face: Suboptimal views Lips: Suboptimal views Palate: Suboptimal views Thoracic: Normal appearance Heart: Normal appearance RVOT: Normal appearance LVOT: Normal appearance Aortic Arch: Normal appearance Ductal Arch: Normal appearance Diaphragm: Normal appearance Stomach: Normal appearance Abdomen: Normal appearance Abdominal Wall: Normal appearance Cord Vessels: Normal 3-Vessel Cord Kidneys: Normal appearance Bladder: Normal appearance Spine: Suboptimal views Upper Extremities: Present Lower Extremities: Present RECOMMENDATIONS: See inpatient chart. Ultrasound is not diagnostic of chromosomal aneuploidy and does not detect all subtle defects. Normal ultrasound findings do not guarantee normal outcomes. Kelly Leslie DO, FACOG Electronically Signed Final Report 02/07/2023 12:43 pm IMPRESSION: 1. Garcia live intrauterine at 28w 1d with known PPROM. 2. Normal growth; EFW 1204 grams, which is at the 53% for this gestational age. 3. Oligohydramnios. The amniotic fluid index is 1.3cm. 4. Visualized anatomy appears normal as noted above. Normal [facility] US OB FOLLOW UP TRANSABDOMIN AL APPROACHon 02-07-2023 US OB FOLLOW UP TRANSABDOMINAL APPROACH OBSTETRICS REPORT (Signed Final 02/07/2023 12:43 pm) PATIENT INFO: ID #: [id number] : [birth year] (27 yrs)(F) Name: MAYO HERNANDEZ Visit Date: 02/07/2023 09:09 am PERFORMED BY: Attending: Kelly Leslie DO, FACOG Performed By: Bebe Jackman RDMS Referred By: RYAN ALEXANDRA Location: [facility] IP Visit Type: Inpatient - Hospital SERVICE([place] [address] [facility] w/out [facility] [id number] INDICATIONS: premature rupture of membranes, O42.111 onset of labor more than 24 hours following rupture, first trimester premature rupture of membranes, O42.111 onset of labor more than 24 hours following rupture, first trimester VITAL SIGNS: Weight (lb): 210 Height: 5'11 BMI: 29.29 EVALUATION: Num Of Fetuses: 1 Heart Rate(bpm): 139 Cardiac Activity: Regular rhythm Lie: Longitudinal Presentation: Cephalic Placenta: Anterior Amniotic Fluid SANAZ FV: Oligohydramnios SANAZ Sum(cm) %Tile Largest Pocket(cm) 1.3 < 3 1.3 RUQ(cm) 1.3 Comment: There is no 2 x 2cm pocket. BIOPHYSICAL EVALUATION: Amniotic F.V: Pocket < 2 cm two F. Tone: Observed planes F. Movement: Observed Score: 6/8 F. Breathing: Observed BIOMETRY: BPD: 75.2 mm G.Age: 30w 1d 92 % OFD: 95.6 mm HC: 274.1 mm G.Age: 30w 0d 75 % AC: 228.9 mm G.Age: 27w 2d 18 % FL: 54.9 mm G.Age: 29w 0d 60 % LV: 8.7 mm CI: 78.7 % 70 - 86 FL/HC: 20.0 % 18.8 - 20.6 HC/AC: 1.20 1.05 - 1.21 FL/BPD: 73.0 % 71 - 87 FL/AC: 24.0 % 20 - 24 Est. FW: 1204 gm 2 lb 10 oz 53 % GESTATIONAL AGE: Clinical GEORGINA: 28w 1d GEORGINA: 05/01/23 U/S Today: 29w 1d GEORGINA: 04/24/23 Best: 28w 1d Det. By: Clinical GEORGINA GEORGINA: 05/01/23 ANATOMY: Cranium: Normal appearance Cavum: Suboptimal views Ventricles: Normal appearance Choroid Plexus: Normal appearance Cerebellum: Normal appearance Posterior Fossa: Normal appearance Nuchal Fold: Normal appearance Face: Suboptimal views Lips: Suboptimal views Palate: Suboptimal views Thoracic: Normal appearance Heart: Normal appearance RVOT: Normal appearance LVOT: Normal appearance Aortic Arch: Normal appearance Ductal Arch: Normal appearance Diaphragm: Normal appearance Stomach: Normal appearance Abdomen: Normal appearance Abdominal Wall: Normal appearance Cord Vessels: Normal 3-Vessel Cord Kidneys: Normal appearance Bladder: Normal appearance Spine: Suboptimal views Upper Extremities: Present Lower Extremities: Present RECOMMENDATIONS: See inpatient chart. Ultrasound is not diagnostic of chromosomal aneuploidy and does not detect all subtle defects. Normal ultrasound findings do not guarantee normal outcomes. Kelly Leslie DO, FACOG Electronically Signed Final Report 02/07/2023 12:43 pm IMPRESSION: 1. Garcia live intrauterine at 28w 1d with known PPROM. 2. Normal growth; EFW 1204 grams, which is at the 53% for this gestational age. 3. Oligohydramnios. The amniotic fluid index is 1.3cm. 4. Visualized anatomy appears normal as noted above. Normal [facility] [employer] [facility] BLOOD BANKOrdered By: Marti Ortega on 02-06-2023 [facility] 0 mL Invalid Interpretation Code [facility] CHEMISTRYOrdered By: T[employer] SYSTEM on 02-06-2023 Albumin [Mass/Vol] 3.1 g/dL Low 3.3 - 5.0 gm/dL [facility] Albumin/Globulin [Mass ratio] 0.9 {ratio} Low 1.1 - 2.2 [facility] ALP [Catalytic activity/Vol] 46 [iU]/d Normal 21 - 98 Int._Unit/L [facility] ALT No additional P-5'-P [Catalytic activity/Vol] 21 [iU]/d Normal 6 - 46 Int._Unit/L [facility] Anion gap [Moles/Vol] 14 mmol/L Normal 6 - 16 mEq/L F [facility] AST [Catalytic activity/Vol] 19 [iU]/d Normal 5 - 43 Int._Unit/L [facility] Bilirubin [Mass/Vol] 0.6 mg/dL Normal 0.0 - 1 .1 mg/dL [facility] Bilirubin.direct [Mass/Vol] mg/dL Normal 0.1 - 0.4 mg/dL [facility] Bilirubin.indirect [Mass or moles/Vol] Unable to Calculate mg/dL Invalid Interpretation Code 0.1 - 0.9 mg/dL [facility] Chloride [Moles/Vol] 104 mmol/L Normal 101 - 1 11 mmol/L [facility] CO2 [Moles/Vol] 23 mmol/L Normal 21 - 31 mmol/L [facility] Creatinine [Mass/Vol] 0.6 mg/dL Normal 0.5 - 1.3 mg/dL [facility] GFR/1.73 sq M.predicted among non-blacks MDRD (S/P/Bld) [Vol rate/Area] 127 mL/min/1.73 m2 Normal >=59mL/min/1.7 3 m2 [facility] Chem S Globulin (S) [Mass/Vol] 3.4 g/dL Normal 1.4 - 4.0 gm/dL [facility] Potassium [Moles/Vol] 3.6 mmol/L Normal 3.5 - 5.3 mmol/L [facility] Protein [Mass/Vol] 6.5 g/dL Normal 6.0 - 7.8 gm/dL [facility] Sodium [Moles/Vol] 137 mmol/L Normal 135 - 145 mmol/L [facility] Urate [Mass/Vol] 3.8 mg/dL Normal 2.2 - 7.4 mg/dL [facility] Urea nitrogen [Mass/Vol] 10 mg/dL Normal 5 - 21 mg/dL [facility] Amphetamines Screen method >1000 ng/mL Ql (U) Negative (02/06/23 7:13 PM) Normal Negative [facility] Barbiturates Screen Ql (U) Negative (02/06/23 7:13 PM) Normal Negative [facility] Benzodiazepines Ql (U) Negative (02/06/23 7:13 PM) Normal Negative [facility] Cocaine Ql (U) Negative (02/06/23 7:13 PM) Normal Negative [facility] Opiates Screen Ql (U) Negative (02/06/23 7:13 PM) Normal Negative [facility] Phencyclidine Screen method >25 ng/mL Ql (U) Negative (02/06/23 7:13 PM) Normal Negative [facility] Tetrahydrocannabinol Screen method >50 ng/mL Ql (U) Positive 1 *ABN* (02/06/23 7:13 PM) Invalid Interpretation Code Negative [facility] Comment on above: Result Comment: Crit ical Result verified by repeat analysis\No confirmation requested by Physican\Unconfirmed by alternate method\Critical Result UD_THC:POS Called to VERONICA TADEO AT OB by FABIANO LUI And Read Back For Confirmation at: 02/06/2023 22:24:31 COAGULATIONOrdered By: Annabel Ortega on 02-06-2023 aPTT Coag (PPP) [Time] 29.8 s Normal 25.1 - 36.5 second(s) [facility] Auto Coag Fibrin+Fibrinogen fragments (S) [Mass/Vol] <10 (02/06/23 9:55 PM) Normal <10 [facility] Man Sero Fibrinogen Coag (PPP) [Mass/Vol] 341 mg/dL Normal 200 - 393 mg/dL [facility] Auto Coag INR Coag (PPP) [Relative time] 0.9 {INR} Invalid Interpretation Code [facility] Auto Coag PT Coag (PPP) [Time] 10.0 s Normal 9.4 - 1 2.5 second(s) [facility] Auto Coag HEMATOLOGYOrdered By: Shilpa James on 02-06-2023 Erythrocyte distribution width (RBC) [Ratio] 13.5 % Normal 10.9 - 14.2 % [facility] HemeAutoSS Hematocrit (Bld) [Volume fraction] 34.8 % Normal 34.0 - 46.0 % [facility] HemeAutoSS Hemoglobin (Bld) [Mass/Vol] 11.8 g/dL Low 12.0 - 16.0 gm/dL [facility] HemeAutoSS MCH (RBC) [Entitic mass] 29.6 pg Normal 27.0 - 34.0 pg [facility] HemeAutoSS MCHC (RBC) [Mass/Vol] 33.9 g/dL Normal 31.4 - 36.0 gm/dL [facility] HemeAutoSS MCV (RBC) [Entitic vol] 87.6 fL Normal 80.0 - 100.0 fL [facility] HemeAutoSS Platelet mean volume (Bld) [Entitic vol] 9.6 fL Normal 6.4 - 10.8 fL [facility] HemeAutoSS Platelets (Bld) [#/Vol] 208.0 E9/L Normal 150. 0 - 500.0 E9/L [facility] HemeAutoSS RBC (Bld) [#/Vol] 4.0 E12/L Low 4.3 - 5.9 E12/L [facility] HemeAutoSS WBC corrected for nucl RBC Auto (Bld) [#/Vol] 12.3 E9/L High 4.0 - 11.0 E9/L [facility] HemeAutoSS SEROLOGYOrdered By: Saumya Ortega on 02-06-2023 PAMG-1 Protein Positive 2 *CRIT* (02/06/23 7:13 PM) Invalid Interpretation Code Negative [facility] SendOutsSS Comment on above: Result Comment: Resu lts Called To Veronica Tadeo/OB By Lindy Ortega And Read Back For Confirmation On 02/06/2023 19:43:16 EDT. URINALYSISOrdered By: Marti Ortega on 02-06-2023 Bilirubin Ql (U) Negative (02/06/23 7:13 PM) Normal Negative [facility] UA Auto SS Clarity (U) Clear (02/06/23 7:13 PM) Normal Clear [facility] UA Auto SS Color (U) STRAW Invalid Interpretation Code [facility] UA Auto SS Epithelial cells.squamous LM.HPF (Urine sed) [#/Area] 0-2 /HPF Normal 0-2/HPF [facility] UA Aut o SS Glucose Test strip (U) [Mass/Vol] Negative (02/06/23 7:13 PM) Normal Negative [facility] UA Auto SS Hemoglobin Ql (U) Negative (02/06/23 7:13 PM) Normal Negative [facility] UA Auto SS Ketones (U) [Mass/Vol] Negative (02/06/23 7:13 PM) Normal Negative [facility] UA Auto SS [place].plasma/[place]. RBC (Bld) [Mass ratio] 0-3 /HPF Normal 0-3/HPF [facility] UA A uto SS Nitrite Ql (U) Negative (02/06/23 7:13 PM) Normal Negative [facility] UA Auto SS pH (U) 7.0 *NA* (02/06/23 7:13 PM) Invalid Interpretation Code 5.0 - 9.0 [facility] UA Auto SS Protein (U) [Mass/Vol] Negative (02/06/23 7:13 PM) Normal Negative [facility] UA Auto SS Specific gravity (U) [Rel density] 1.010 *NA* (02/06/23 7:13 PM) Invalid Interpretation Code 1.005 - 1.030 [facility] UA Auto SS UA Spec Desc Clean Catch (02/06/23 7:13 PM) Normal [facility] UA Auto SS Urobilinogen Qn (U) [id number] {Berry'U}/dL Normal 0.0 - 1.0 EU/dL [facility] UA Auto SS WBC Auto Ql (U) Negative (02/06/23 7:13 PM) Normal Negative [facility] UA Auto SS WBC LM.HPF (Urine sed) [#/Area] 0-5 /HPF Normal 0-5/HPF [facility] UA Auto SS Activated partial thrombopla stin time (aPTT) in platelet poor plasma by coagulation aOrdered By: Matthias Garg on 10-26-2022 aPTT Coag (PPP) [Time] 31.4 s 25.1-36.5 [facility] Automated erythrocytes count in urine sediment (number/area)Ordered By: Matthias Garg on 10-26-2022 RBC Auto (Urine sed) [#/Area] None seen [HPF] 0-4 [facility] Automated leukocytes count i n urine sediment (number/area)Ordered By: Matthias Garg on 10-26-2022 WBC Auto (Urine sed) [#/Area] None seen [HPF] 0-4 [facility] Basic Metabolic Panelon Anion gap [Moles/Vol] 10.4 mmol/L Normal 6.0-15.0 [facility] Comment on above: Performed By: #### H CGQNT, BMP, CBC #### [facility] [address] [place] [address] [place] Calcium [Mass/Vol] 9.2 mg/dL Normal 8.6-10.3 [facility] Comment on above: Performed By: #### H CGQNT, BMP, CBC #### [facility] [address] [place] [address] [place] Chloride [Moles/Vol] 102 mmol/L Normal 98-107 [facility] Comment on above: Performed By: #### H CGQNT, BMP, CBC #### [facility] [address] [place] [address] [place] CO2 [Moles/Vol] 26.9 mmol/L Normal 21.0-31.0 [facility] Comment on above: Performed By: #### H CGQNT BMP, CBC #### [facility] [address] [place] [address] [place] Creatinine [Mass/Vol] 0.59 mg/dL Low 0.60-1.20 [facility] Comment on above: Performed By: #### H CGQNT, BMP, CBC #### [facility] [address] [place] [address] [place] Creatinine Clr Calc Pharmacy 162.92 [facility] Comment on above: Performed By: #### H CGQNT BMP, CBC #### [facility] [address] [place] [address] [place] GFR/1.73 sq M.predicted MDRD (S/P/Bld) [Vol rate/Area] mL/min/{1.73_m2} [facility] Comment on above: Performed By: #### H CGQNT BMP, CBC #### [place] [address] [place] Glucose [Mass/Vol] 78 mg/dL Normal 70-100 [facility] Comment on above: Result Comment: [place] Glucose Reference Range is dependent on time and content of last meal. Glucose of more than 200 mg/dL in a nonstressed, ambulatory subject supports the diagnosis of Diabetes Mellitus. ADA recommended reference range Performed By: #### H CGQNT BMP, CBC #### [facility] [address] [place] [address] [place] Potassium [Moles/Vol] 4.3 mmol/L Normal 3.5-5.1 [facility] Comment on above: Performed By: #### H CGQNT, BMP, CBC #### [facility] [address] [place] [address] [place] Sodium [Moles/Vol] 135 mmol/L Low 136-145 [facility] Comment on above: Performed By: #### H CGQNT, BMP, CBC #### [facility] [address] [place] [id number] [facility] Urea nitrogen [Mass/Vol] 8 mg/dL Normal 7-25 [facility] Comment on above: Performed By: #### H CGQNT, BMP, CBC #### [facility] [address] [place] [id number] [facility] Basophils Auto (Bld) [#/Vol] Ordered By: Matthias Garg on 10-26-2022 Basophils (Bld) [#/Vol] 0.0 10*3/uL 0.0-0.2 [facility] Basophils/100 WBC Auto (Bld) Ordered By: Matthias Garg on 10-26-2022 Basophils/100 WBC (Bld) 0.4 % . [facility] Bilirubin Test strip Ql (U)O rdered By: Matthias Garg on 10-26-2022 Bilirubin Ql (U) Negative Negative [facility] Calcium [Mass/volume] in Ser um or PlasmaOrdered By: Matthias Garg on 10-26-2022 Calcium [Mass/Vol] 9.2 mg/dL 8.6-10.3 [facility] Carbon dioxide, total [Moles /volume] in Serum or PlasmaOrdered By: Matthias Garg on 10-26-2022 CO2 [Moles/Vol] 26.9 mmol/L 21.0-31.0 [facility] Chloride [Moles/volume] in S guerrero or PlasmaOrdered By: Matthias Garg on 10-26-2022 Chloride [Moles/Vol] 102 mmol/L 98-107 [facility] Choriogonadotropin.beta subu nit [Units/volume] in Serum or PlasmaOrdered By: Matthias Garg on 10-26-2022 [place] [address].00 m[IU]/mL [facility] Comment on above: Approximate Approxim ate hCG Gestational Age Range (mIU/ml) (weeks)0.2-1 5-50 1-2 50-500 2-3 100-5,000 3-4 500-10,000 4-5 1,000-50,000 5-6 10,000-100,000 6-8 15,000-200,000 8-12 10,000-100,000 Color Auto (U)Ordered By: Isrrael Garg on 10-26-2022 Color (U) Yellow Yellow [facility] Complete Blood Count Auto Di ffon 10-26-2022 Basophils (Bld) [#/Vol] 0.0 10*3/uL Normal 0.0-0.2 [facility] Comment on above: Result Comment: PERF ORMED BY: [place] [address] PATHOLOGIST [employer] SPECIALIST SAI GOLDMAN M.D. Performed By: #### H CGQNT, BMP, CBC #### [facility] [address] Basophils/100 WBC (Bld) 0.4 % Normal . [facility] Comment on above: Performed By: #### H CGQNT, BMP, CBC #### [facility] [address] [place] [address] Eosinophils (Bld) [#/Vol] 0.1 10*3/uL Normal 0.0-0.45 [facility] Comment on above: Performed By: #### H CGQNT, BMP, CBC #### [facility] [address] [place] [address] Eosinophils/100 WBC (Bld) 0.7 % Normal . [facility] Comment on above: Performed By: #### H CGQNT, BMP, CBC #### [facility] [address] [place] [address] Erythrocyte distribution width (RBC) [Ratio] 13.3 % Normal 11.9-15.3 [facility] Comment on above: Performed By: #### H CGQNT, BMP, CBC #### [facility] [address] Hematocrit (Bld) [Volume fraction] 36.4 % Normal 34.0-46.4 [facility] Comment on above: Performed By: #### H CGQNT, BMP, CBC #### [facility] [address] Hemoglobin (Bld) [Mass/Vol] 12.1 g/dL Normal 11.8-15.4 [facility] Comment on above: Performed By: #### H CGQNT, BMP, CBC #### [address] Lymphocytes (Bld) [#/Vol] 1.7 10*3/uL Normal 1.00-4.8 [facility] Comment on above: Performed By: #### H CGQNT, BMP, CBC #### [address] Lymphocytes/100 WBC (Bld) 17.8 % Normal . [facility] Comment on above: Performed By: #### H CGQNT, BMP, CBC #### [address] MCH (RBC) [Entitic mass] 29.5 pg Normal 24.7-34.3 [facility] Comment on above: Performed By: #### H CGQNT, BMP, CBC #### [address] MCV (RBC) [Entitic vol] 88.5 fL Normal 80-100 [facility] Comment on above: Performed By: #### H CGQNT, BMP, CBC #### [address] Mean Corpuscular HGB Conc 33.3 g/dL Normal 32.0-35.0 [facility] Comment on above: Performed By: #### H CGQNT, BMP, CBC #### [address] Monocytes (Bld) [#/Vol] 0.4 10*3/uL Normal 0.0-0.8 [facility] Comment on above: Performed By: #### H CGQNT, BMP, CBC #### [address] Monocytes/100 WBC (Bld) 17.94 % Normal 0.00-20.00 [facility] [facility] Comment on above: Performed By: #### H CGQNT, BMP, CBC #### [address] [address] [place] [address] [place] Monocytes/100 WBC (Bld) 4.6 % Normal . [facility] Comment on above: Performed By: #### H CGQNT, BMP, CBC #### [facility] [address] Neutrophils (Bld) [#/Vol] 7.4 10*3/uL Normal 1.8-7.7 [facility] Comment on above: Performed By: #### H CGQNT, BMP, CBC #### [facility] [address] Neutrophils/100 WBC (Bld) 76.5 % Normal . [facility] Comment on above: Performed By: #### H CGQNT, BMP, CBC #### [facility] [address] NRBC% 0.1 /100{WBC} Normal 0-0.5 [facility] Comment on above: Performed By: #### H CGQNT, BMP, CBC #### [facility] [address] [place] [address] [place] Platelet mean volume (Bld) [Entitic vol] 9.5 fL Normal 6.3-10.7 [facility] Comment on above: Performed By: #### H CGQNT, BMP, CBC #### [facility] [address] [place] [address] [place] Platelets (Bld) [#/Vol] 214 10*3/uL Normal 150-450 [facility] Comment on above: Performed By: #### H CGQNT, BMP, CBC #### [facility] [address] [place] [address] [place] RBC (Bld) [#/Vol] 4.12 10*6/uL Normal 3.60-5.00 [facility] Comment on above: Performed By: #### H CGQNT, BMP, CBC #### [facility] [address] [place] [address] [place] WBC (Bld) [#/Vol] 9.6 10*3/uL Normal 3.8-11.6 [facility] Comment on above: Performed By: #### H CGQNT, BMP, CBC #### [facility] [address] Creatinine [Mass/volume] in Serum or PlasmaOrdered By: Matthias Garg on 10-26-2022 Creatinine [Mass/Vol] 0.59 mg/dL 0.60-1.20 [facility] Dipstick and Microscopicon 0 10-26-2022 Appearance (U) Clear Normal Clear [facility] Comment on above: Order Comment: Name Collection Type:: Clean-Voided Midstream Performed By: #### U HCG, ADDONUAPLUS #### [facility] [address] [place] [address] Bacteria,Urine None Seen Normal None Seen [facility] Comment on above: Order Comment: Name Collection Type:: Clean-Voided Midstream Performed By: #### U HCG, ADDONUAPLUS #### [facility] [address] [place] [address] [place] Bilirubin,Urine Negative Normal Negative [facility] Comment on above: Order Comment: Name Collection Type:: Clean-Voided Midstream Performed By: #### U HCG, ADDONUAPLUS #### [facility] [address] [place] [address] Color (U) Yellow Normal Yellow [facility] Comment on above: Order Comment: Name Collection Type:: Clean-Voided Midstream Performed By: #### U HCG, ADDONUAPLUS #### [facility] [address] [place] [address] [place] Glucose Ql (U) Normal Normal Normal [facility] Comment on above: Order Comment: Name Collection Type:: Clean-Voided Midstream Performed By: #### U HCG, ADDONUAPLUS #### [facility] [address] [place] [address] [place] Hyaline Casts,Urine None Seen Normal 0-8 [facility] Comment on above: Order Comment: Name Collection Type:: Clean-Voided Midstream Performed By: #### U HCG, ADDONUAPLUS #### [address] [address] [place] Ketones Ql (U) Negative Normal Negative [facility] Comment on above: Order Comment: Name Collection Type:: Clean-Voided Midstream Performed By: #### U HCG, ADDONUAPLUS #### [facility] [address] [place] [address] Leukocyte esterase Test strip Ql (U) Negative Normal Negative [facility] Comment on above: Order Comment: Name Collection Type:: Clean-Voided Midstream Performed By: #### U HCG, ADDONUAPLUS #### [facility] [address] [place] [address] Nitrite,Urine Negative Normal Negative [facility] Comment on above: Order Comment: Name Collection Type:: Clean-Voided Midstream Performed By: #### U HCG, ADDONUAPLUS #### [facility] [address] [place] [address] Occult Blood,Urine 3+ High Negative [facility] Comment on above: Order Comment: Name Collection Type:: Clean-Voided Midstream Performed By: #### U HCG, ADDONUAPLUS #### [facility] [address] [place] [address] [place] pH (U) 6.5 [pH] Normal 5.0-9.0 [facility] Comment on above: Order Comment: Name Collection Type:: Clean-Voided Midstream Performed By: #### U HCG, ADDONUAPLUS #### [facility] [address] [place] [address] [place] Protein,Urine Negative Normal Negative [facility] Comment on above: Order Comment: Name Collection Type:: Clean-Voided Midstream Performed By: #### U HCG, ADDONUAPLUS #### [facility] [address] [place] [address] [place] RBC,Urine None Seen Normal 0-4 [facility] Comment on above: Order Comment: Name Collection Type:: Clean-Voided Midstream Performed By: #### U HCG, ADDONUAPLUS #### [facility] [address] [place] [address] [place] Specificy [place],Urine 1.007 Normal 1.001-1.030 [facility] Comment on above: Order Comment: Name Collection Type:: Clean-Voided Midstream Performed By: #### U HCG, ADDONUAPLUS #### [facility] [address] [place] [address] Squamous Epithelial Cell,Urine 0-1 Normal 0-2 [facility] Comment on above: Order Comment: Name Collection Type:: Clean-Voided Midstream Performed By: #### U HCG, ADDONUAPLUS #### [facility] [address] [place] [address] Urobilinogen,Urine Normal Normal Normal [facility] Comment on above: Order Comment: Name Collection Type:: Clean-Voided Midstream Performed By: #### U HCG, ADDONUAPLUS #### [facility] [address] [place] [address] WBC,Urine None Seen Normal 0-4 [facility] Comment on above: Order Comment: Name Collection Type:: Clean-Voided Midstream Performed By: #### U HCG, ADDONUAPLUS #### [facility] [address] [place] [address] Eosinophils Auto (Bld) [#/Vo l]Ordered By: Matthias Garg on 10-26-2022 Eosinophils (Bld) [#/Vol] 0.1 10*3/uL 0.0-0.45 [facility] Eosinophils/100 WBC Auto (Bl d)Ordered By: Matthias Garg on 10-26-2022 Eosinophils/100 WBC (Bld) 0.7 % . [facility] Erythrocyte distribution wid th Auto (RBC) [Ratio]Ordered By: Matthias Garg on 10-26-2022 Erythrocyte distribution width (RBC) [Ratio] 13.3 % 11.9-15.3 [facility] Glucose [Mass/volume] in Ser um or PlasmaOrdered By: Matthias Garg on 10-26-2022 Glucose [Mass/Vol] 78 mg/dL 70-100 [facility] Comment on above: ADA recommended refe rence rangeRandom Glucose Reference Range is dependent on time and content of last meal. Glucose of more than 200 mg/dL in a nonstressed, ambulatory subject supports the diagnosis of Diabetes Mellitus. HCG ( test) IA.rapi d Ql (U)Ordered By: Matthias Garg on 10-26-2022 HCG ( test) Ql (U) Positive [facility] HCG,Quantitativeon 3 HCG,Quantitative 83330.00 m[iU]/mL Normal [facility] Comment on above: Result Comment: Appr oximate Approximate hCG Gestational Age Range (mIU/ml) (weeks) 0.2-1 5-50 1-2 50-500 2-3 100-5,000 3-4 500-10,000 4-5 1,000-50,000 5-6 10,000-100,000 6-8 15,000-200,000 8-12 10,000-100,000 PERFORMED BY: [place] [address] PATHOLOGIST [employer] SPECIALIST SAI GOLDMAN M.D. Performed By: #### H CGQNT, BMP, CBC #### [facility] [address] [place] [address] HCG,Urineon 10-26-2022 Beta HCG ( test) Ql (U) Positive High [facility] Comment on above: Order Comment: Name Collection Type:: Clean-Voided Midstream Result Comment: PERF ORMED BY: [place] [address] PATHOLOGIST [employer] SPECIALIST SAI GOLDMAN M.D. Performed By: #### U HCG, ADDONUAPLUS #### [facility] [address] [place] [address] Hematocrit Auto (Bld) [Volum e fraction]Ordered By: Matthias Garg on 10-26-2022 Hematocrit (Bld) [Volume fraction] 36.4 % 34.0-46.4 [facility] Hemoglobin [Mass/volume] in BloodOrdered By: Matthias Garg on 10-26-2022 Hemoglobin (Bld) [Mass/Vol] 12.1 g/dL 11.8-15.4 [facility] Ketones Auto test strip (U) [Mass/Vol]Ordered By: Matthias Garg on 10-26-2022 Ketones (U) [Mass/Vol] Negative Negative [facility] - UrinalysisOrder ed By: Matthias Garg on 10-26-2022 Hyaline casts LM Ql (Urine sed) None seen [LPF] 0-8 [facility] Leukocytes [#/volume] correc jie for nucleated erythrocytes in Blood by Automated counOrdered By: Matthias Garg on 10-26-2022 WBC corrected for nucl RBC Auto (Bld) [#/Vol] 9.6 10*3/uL 3.8-11.6 [facility] Lymphocytes Auto (Bld) [#/Vo l]Ordered By: Matthias Garg on 10-26-2022 Lymphocytes (Bld) [#/Vol] 1.7 10*3/uL 1.00-4.8 [facility] Lymphocytes/100 WBC Auto (Bl d)Ordered By: Matthias Garg on 10-26-2022 Lymphocytes/100 WBC (Bld) 17.8 % . [facility] MCH Auto (RBC) [Entitic mass ]Ordered By: Matthias Garg on 10-26-2022 MCH (RBC) [Entitic mass] 29.5 pg 24.7-34.3 [facility] MCHC Auto (RBC) [Mass/Vol]Or dered By: Matthias Garg on 10-26-2022 MCHC (RBC) [Mass/Vol] 33.3 g/dL 32.0-35.0 [facility] MCV Auto (RBC) [Entitic vol] Ordered By: Matthias Garg on 10-26-2022 MCV (RBC) [Entitic vol] 88.5 fL 80-100 [facility] Monocyte distribution width [Entitic volume] in Blood by AutomatedOrdered By: Matthias Garg on 10-26-2022 Monocyte distribution width Auto (Bld) [Entitic vol] 17.94 % 0.00-20.00 [facility] Monocytes Auto (Bld) [#/Vol] Ordered By: Matthias Garg on 10-26-2022 Monocytes (Bld) [#/Vol] 0.4 10*3/uL 0.0-0.8 [facility] Monocytes/100 WBC Auto (Bld) Ordered By: Matthias Garg on 10-26-2022 Monocytes/100 WBC (Bld) 4.6 % . [facility] Neutrophils Auto (Bld) [#/Vo l]Ordered By: Matthias Garg on 10-26-2022 Neutrophils (Bld) [#/Vol] 7.4 10*3/uL 1.8-7.7 [facility] Neutrophils/100 WBC Auto (Bl d)Ordered By: Matthias Garg on 10-26-2022 Neutrophils/100 WBC (Bld) 76.5 % . [facility] Nitrite Test strip Ql (U)Ord ered By: Matthias Garg on 10-26-2022 Nitrite Ql (U) Negative Negative [facility] No Panel InformationOrdered By: Matthias Garg on 10-26-2022 Estimated GFR (CKD-EPI) > 60.0 mL/Min [facility] Pharmacy Creatinine Clearance (Chem 162.92 [facility] Nucleated erythrocytes [Pres ence] in Blood by Automated countOrdered By: Matthias Garg on 10-26-2022 Nucleated RBC Auto Ql (Bld) 0.1 /100{WBC} 0-0.5 [facility] Partial Thromboplastin Timeo n 10-26-2022 aPTT Coag (Bld) [Time] 31.4 s Normal 25.1-36.5 [facility] Comment on above: Result Comment: PERF ORMED BY: [place] [address] PATHOLOGIST [employer] SPECIALIST SAI GOLDMAN M.D. Performed By: #### P TT #### [address] Platelet mean volume Auto (B ld) [Entitic vol]Ordered By: Matthias Garg on 10-26-2022 Platelet mean volume (Bld) [Entitic vol] 9.5 fL 6.3-10.7 [facility] Platelets Auto (Bld) [#/Vol] Ordered By: Matthias Garg on 10-26-2022 Platelets (Bld) [#/Vol] 214 10*3/uL 150-450 [facility] Potassium [Moles/volume] in Serum or PlasmaOrdered By: Matthias Garg on 10-26-2022 Potassium [Moles/Vol] 4.3 mmol/L 3.5-5.1 [facility] Protein Auto test strip (U) [Mass/Vol]Ordered By: Matthias Garg on 10-26-2022 Protein (U) [Mass/Vol] Negative Negative [facility] RBC Auto (Bld) [#/Vol]Ordere d By: Matthias Garg on 10-26-2022 RBC (Bld) [#/Vol] 4.12 10*6/uL 3.60-5.00 [facility] Serum or plasma anion gap de terminationOrdered By: Matthias Garg on 10-26-2022 Anion gap [Moles/Vol] 10.4 mmol/L 6.0-15.0 [facility] Sodium [Moles/volume] in Ser um or PlasmaOrdered By: Matthias Garg on 10-26-2022 Sodium [Moles/Vol] 135 mmol/L 136-145 [facility] Specific gravity Auto test s trip (U) [Rel density]Ordered By: Matthias Garg on 10-26-2022 Specific gravity (U) [Rel density] 1.007 1.001-1.030 [facility] Squamous epithelial cells de tection in urine sediment by light microscopyOrdered By: Matthias Garg on 10-26-2022 Epithelial cells.squamous LM Ql (Urine sed) 0-1 [HPF] 0-2 [facility] US OB <= 14 weeks fetuson US OB <= 14 [place] [address] Ultrasound Report Signed Patient: Mayo Hernandez I MR#: [id number] : 1995 Acct:[id number] Age/Sex: 26 / F ADM Date: 10/26/22 Loc: ER Room: Type: [facility] ER Attending Dr: Ordering Provider: Matthias Garg APRN Date of Service: 10/26/22 US/US OB <= 14 weeks fetus: OB/Uterine Contractions Copies to: Matthias Garg APRN Obstetrical ultrasound for fetus less than 14 weeks HISTORY: Spotting for 2 days COMPARISON: None The heart rate is 153bpm. LEFT ovary not visualized. RIGHT ovary unremarkable. No free fluid identified in cul-de-sac. No subchorionic hemorrhage identified. Gutierrez-rump length measures 7.1cm consistent with 13 weeks 3 days. The yolk sac is not seen. The estimated due date by this ultrasound is 05/01/23. US/US OB <= 14 weeks fetus IMPRESSION: Single live intrauterine gestation 13 weeks 3 days. Impression dictated by: Tanner Sharma M.D.10/26/2022 3:24 PM Dictation Location: [place] [address] Tech: Latoya Dahlia Transcribed By: VIJAY 10/26/22 1524 Dictated By: Tanner Sharma DO 10/26/22 1522 Signed By: 10/26/22 1524 Normal [facility] Urea nitrogen [Mass/volume] in Serum or PlasmaOrdered By: Matthias Garg on 10-26-2022 Urea nitrogen [Mass/Vol] 8 mg/dL 7-25 [facility] Urine bacteria detection by automated methodOrdered By: Matthias Garg on 10-26-2022 Bacteria Auto Ql (U) None seen None Seen [facility] Urine clarity by refractomet ry automatedOrdered By: Matthias Garg on 10-26-2022 Clarity Refractometry automated (U) Clear Clear [facility] Urine glucose measurement by automated test strip (mass/volume)Ordered By: Matthias Garg on 10-26-2022 Glucose Auto test strip (U) [Mass/Vol] Normal mg/dL Normal [facility] Urine hemoglobin detection b y automated test stripOrdered By: Matthias Garg on 10-26-2022 Hemoglobin Auto test strip Ql (U) 3+ Negative [facility] Urine leukocyte esterase det ection by automated test stripOrdered By: Matthias Garg on 10-26-2022 Leukocyte esterase Auto test strip Ql (U) Negative Negative [facility] Urobilinogen Auto test strip (U) [Mass/Vol]Ordered By: Matthias Garg on 10-26-2022 Urobilinogen (U) [Mass/Vol] Normal mg/dL Normal [facility] WBC Auto (Bld) [#/Vol]Ordere d By: Matthias Medranomond on 10-26-2022 WBC (Bld) [#/Vol] 9.6 10*3/uL 3.8-11.6 [facility] pH Auto test strip (U)Ordere d By: Matthias Medranomond on 10-26-2022 pH (U) 6.5 [pH] 5.0-9.0 [facility] Chlamydia sp identified Org specific cx Nom (Genital specimen)on 10-11-2022 External Chlamydia Screen Negative Negative [facility] Gonorrhea screenon External Gonorrhea Screen Negative Negative [facility] No Panel Informationon 10-11 [facility] HBV surface Ag IA Qlon 09-15 External Hepatitis B Surface Ag Negative Negative, None Detected [facility] HIV 1+2 Ab and HIV1 p24 Ag I A.rapid Nom (S/P/Bld)on 09-15-2022 HIV-1/HIV-2 Ab Non-Reactive [facility]th No Panel Informationon 09-15 [facility] Reagin Ab RPR Ql (S)on 09-15 External RPR Non-Reactive Borderline, Nonreactive, Weakly Reactive, Equivocal, Undetermined [facility] Rubella antibody, IgGon 08-25 External Rubella IGG Quantitation Negative [facility] Comment on above: <0.90 [facility] RH FACTOR, EXTE RNAL RESULTon 09-15-2022 External Rh Factor Positive [facility] PREG QUANT HCGon 09-13-2022 HCG QUANT 9955 mIU/mL Normal [facility] Comment on above: Performed By: #### P REGQNT #### [facility] [address] [address] [address] Marisa Cardona HCG RANGE SEE BELOW Normal [facility] Comment on above: Result Comment: 5-50 0.2-1 WEEK 50-500 1-2 WEEKS 100-5,000 2-3 WEEKS 500-10,000 3-4 WEEKS 1,000-50,000 4-5 WEEKS 10,000-100,000 5-6 WEEKS 15,000-200,000 6-8 WEEKS 10,000-100,000 2-3 MONTHS Performed By: #### P REGQNT #### [facility] [address] [place] [address] Dr. Marisa Cardona CBC AUTO DIFFon 09-11-2022 BASO # 0.0 103/ul Normal 0.0-0.1 [facility] Comment on above: Performed By: #### P REGQNT #### [facility] [address] [place] [address] Dr. Marisa Cardona Basophils/100 WBC (Bld) 0.3 % Normal 0.2-2.0 [facility] [place] [facility] Comment on above: Performed By: #### P REGQNT #### [facility] [address] [place] [address] Dr. Marisa Cardona EO # 0.1 103/ul Normal 0.0-0.7 [facility] Comment on above: Performed By: #### P REGQNT #### [facility] [address] [place] [address] Dr. Marisa Cardona Eosinophils/100 WBC (Bld) 1.8 % Normal 0.9-7.0 [facility] Comment on above: Performed By: #### P REGQNT #### [facility] [address] [place] [address] Dr. Marisa Cardona Erythrocyte distribution width (RBC) [Ratio] 12.8 % Normal 11.0-15.0 [facility] Comment on above: Performed By: #### P REGQNT #### [facility] [address] [place] [address] Dr. Marisa Cardona Hematocrit (Bld) [Volume fraction] 37.7 % Normal 36.0-48.0 [facility] Comment on above: Performed By: #### P REGQNT #### [facility] [address] [place] [address] Dr. Marisa Cardona Hemoglobin (Bld) [Mass/Vol] 12.7 g/dL Normal 12.0-16.0 [facility] Comment on above: Performed By: #### P REGQNT #### [facility] [address] [place] [address] Dr. Marisa Cardona IG # 0.04 10e3/ul Critically high 0.00-0.03 [facility] Comment on above: Performed By: #### P REGQNT #### [facility] [address] [place] [address] Dr. Marisa Cardona IG % 0.6 % Critically high 0.0-0.5 [facility] Comment on above: Performed By: #### P REGQNT #### [facility] [address] [place] [address] Dr. Marisa Cardona LYMPH # 1.2 103/ul Normal 1.2-3.8 [facility] Comment on above: Performed By: #### P REGQNT #### [facility] [address] [place] [address] Dr. Marisa Cardona Lymphocytes/100 WBC (Bld) 18.6 % Critically low 20.5-60.0 [facility] Comment on above: Performed By: #### P REGQNT #### [facility] [address] [place] [address] Dr. Marisa Cardona MANUAL DIFF REQ NO Normal [facility] Comment on above: Performed By: #### P REGQNT #### [facility] [address] [place] [address] Dr. Marisa Cardona MCH (RBC) [Entitic mass] 29.3 pg Normal 26.7-34.0 [facility] Comment on above: Performed By: #### P REGQNT #### [facility] [address] [place] [address] Dr. Marisa Cardona MCHC (RBC) [Mass/Vol] 33.7 g/dL Normal 29.9-35.2 [facility] Comment on above: Performed By: #### P REGQNT #### [facility] [address] [place] [address] Dr. Marisa Cardona MCV (RBC) [Entitic vol] 86.9 fL Normal 81.0-99.0 [facility] [place] [facility] Comment on above: Performed By: #### P REGQNT #### [facility] [address] [place] [address] Dr. Marisa Cardona MONO # 0.4 103/ul Normal 0.3-0.8 [facility] Comment on above: Performed By: #### P REGQNT #### [facility] [address] [place] [address] Dr. Marisa Cardona Monocytes/100 WBC (Bld) 6.6 % Normal 1.7-12.0 [facility] [place] [facility] Comment on above: Performed By: #### P REGQNT #### [facility] [address] [place] [address] Dr. Marisa Cardona NEUT # 4.7 103/ul Normal 1.4-6.5 [facility] Comment on above: Performed By: #### P REGQNT #### [facility] [address] [place] [address] Dr. Marisa Cardona Neutrophils/100 WBC (Bld) 72.1 % Normal 43.0-75.0 [facility] Comment on above: Performed By: #### P REGQNT #### [facility] [address] [place] [address] Dr. Marisa Cardona Platelet mean volume (Bld) [Entitic vol] 11.0 fL Normal 9.5-13.5 [facility] Comment on above: Performed By: #### P REGQNT #### [facility] [address] [place] [address] Dr. Marisa Cardona PLT 199 103/ul Normal 150-450 [facility] Comment on above: Performed By: #### P REGQNT #### [facility] [address] [place] [address] Dr. Marisa Cardona RBC 4.34 106/ul Normal 4.20-5.40 [facility] Comment on above: Performed By: #### P REGQNT #### [facility] [address] [place] [address] Dr. Marisa Cardona WBC 6.5 103/ul Normal 4.0-11.0 [facility] Comment on above: Performed By: #### P REGQNT #### [facility] [address] [place] [address] Dr. Marisa Cardona ER URINE PROFILEon 3 Bilirubin Ql (U) Negative Normal NEGATIVE [facility] Comment on above: Performed By: #### U MICRO, ERUR #### [facility] [address] [address] [address] Marisa Cardona Clarity (U) CLEAR Normal CLEAR [facility] Comment on above: Performed By: #### U MICRO, ERUR #### [facility] [address] [address] [address] Marisa Cardona Color (U) LT. YELLOW Normal YELLOW [facility] Comment on above: Performed By: #### U MICRO, ERUR #### [facility] [address] [place] [address] Dr. Marisa MONTEMAYORD A micrscopic examination will be performed if indicated. Normal [facility] Comment on above: Performed By: #### U MICRO, ERUR #### [facility] [address] [place] [address] Dr. Marisa Cardona Glucose Ql (U) Negative Normal NEGATIVE [facility] Comment on above: Performed By: #### U MICRO, ERUR #### [facility] [address] [place] [address] Dr. Marisa Cardona Hemoglobin Ql (U) TRACE Abnormal NEGATIVE [facility] Comment on above: Performed By: #### U MICRO, ERUR #### [facility] [address] [place] [address] Dr. Marisa Cardona Ketones Ql (U) Negative Normal NEGATIVE [facility] Comment on above: Performed By: #### U MICRO, ERUR #### [facility] [address] [place] [address] Dr. Marisa Cardona LEUKOCYTES Negative Normal NEGATIVE [facility] Comment on above: Performed By: #### U MICRO, ERUR #### [facility] [address] [place] [address] Dr. Marisa Cardona Nitrite Ql (U) Negative Normal NEGATIVE [facility] Comment on above: Performed By: #### U MICRO, ERUR #### [facility] [address] [place] [address] Dr. Marisa Cardona pH (U) 7.0 [pH] Normal 5-9 [facility] Comment on above: Performed By: #### U MICRO, ERUR #### [facility] [address] [place] [address] Dr. Marisa Cardona SPEC GRAVITY <=1.005 Abnormal 1.005-<=1.025 [facility] Comment on above: Performed By: #### U MICRO, ERUR #### [facility] [address] [place] [address] Dr. Marisa Cardona UA PROTEIN Negative Normal NEGATIVE/ TRACE [facility] Comment on above: Performed By: #### U MICRO, ERUR #### [facility] [address] [place] [address] Dr. Marisa Cardona UR MICRO IND INDICATED Normal [facility] Comment on above: Performed By: #### U MICRO, ERUR #### [facility] [address] [place] [address] Dr. Marisa Cardona Urobilinogen Qn (U) 0.2 {Berry'U}/dL Normal 0.2 - 1. 0 [facility] Comment on above: Performed By: #### U MICRO, ERUR #### [facility] [address] [place] [address] Dr. Marisa Cardona PREG QUANT HCGon 09-11-2022 HCG QUANT 7641 mIU/mL Normal [facility] Comment on above: Performed By: #### P REGQNT #### [facility] [address] [place] [address] Dr. Marisa Cardona HCG RANGE SEE BELOW Normal [facility] Comment on above: Result Comment: 5-50 0.2-1 WEEK 50-500 1-2 WEEKS 100-5,000 2-3 WEEKS 500-10,000 3-4 WEEKS 1,000-50,000 4-5 WEEKS 10,000-100,000 5-6 WEEKS 15,000-200,000 6-8 WEEKS 10,000-100,000 2-3 MONTHS Performed By: #### P REGQNT #### [facility] [address] [place] [address] Dr. Marisa Cardona PROF CHEM 8 (BAS METB)on Anion gap [Moles/Vol] 12.3 mmol/L Normal [facility] Comment on above: Performed By: #### P REGQNT #### [facility] [address] [address] [address] Marisa Cardona Calcium [Mass/Vol] 9.5 mg/dL Normal 8.5-10.1 [facility] Comment on above: Performed By: #### P REGQNT #### [facility] [address] [address] [address] Marisa Cardona Chloride [Moles/Vol] 103 mmol/L Normal 98-107 [facility] Comment on above: Performed By: #### P REGQNT #### [facility] [address] [place] [address] Dr. Marisa Cardona CO2 [Moles/Vol] 27.0 mmol/L Normal 21.0-32.0 [facility] Comment on above: Performed By: #### P REGQNT #### [facility] [address] [address] [address] Marisa Cardona Creatinine [Mass/Vol] 0.66 mg/dL Normal 0.55-1.02 [facility] Comment on above: Performed By: #### P REGQNT #### [facility] [address] [place] [address] Dr. Marisa Cardona EGFR-AF COLOMBIAN >60 Normal >=60 [facility] Comment on above: Performed By: #### P REGQNT #### [facility] [address] [address] [address] Marisa Cardona EGFR-NON AF COLOMBIAN >60 Normal >=60 [facility] Comment on above: Performed By: #### P REGQNT #### [facility] [address] [address] [address] Marisa Cardona Glucose [Mass/Vol] 88 mg/dL Normal 74-106 [facility] Comment on above: Performed By: #### P REGQNT #### [facility] [address] [address] [address] Marisa Cardona Potassium [Moles/Vol] 4.3 mmol/L Normal 3.5-5.1 [facility] Comment on above: Performed By: #### P REGQNT #### [facility] [address] [place] [address] Dr. Marisa Cardona Sodium [Moles/Vol] 138 mmol/L Normal 136-145 [facility] Comment on above: Performed By: #### P REGQNT #### [facility] [address] [place] [address] Dr. Marisa Cardona Urea nitrogen [Mass/Vol] 7.0 mg/dL Normal 7.0-18.0 [facility] Comment on above: Performed By: #### P REGQNT #### [facility] [address] [place] [address] Dr. Marisa Cardona Urea nitrogen/Creatinine [Mass ratio] 10.6 mg/mg Normal [facility] Comment on above: Performed By: #### P REGQNT #### [facility] [address] [place] [address] Dr. Marisa Cardona URINE MICROSCOPIC ONLYon BACTERIA NONE SEEN Normal NONE SEEN [facility] Comment on above: Performed By: #### U MICRO, ERUR #### [facility] [address] [place] [address] Dr. Marisa Cardona Bacteria identified Cx Nom (U) NOT INDICATED Normal [facility] Comment on above: Performed By: #### U MICRO, ERUR #### [facility] [address] [place] [address] Dr. Marisa Cardona CAST NONE SEEN Normal NONE SEEN [facility] Comment on above: Performed By: #### U MICRO, ERUR #### [facility] [address] [place] [address] Dr. Marisa Cardona Crystals LM Nom (Urine sed) NONE SEEN Normal NONE SEEN [facility] Comment on above: Performed By: #### U MICRO, ERUR #### [facility] [address] [place] [address] Dr. Marisa Cardona Epithelial cells LM Ql (Urine sed) NONE SEEN Normal NONE SEEN /RARE [facility] Comment on above: Performed By: #### U MICRO, ERUR #### [facility] [address] [address] [address] Marisa Cardona MUCOUS NONE SEEN Normal NONE SEEN [facility] Comment on above: Performed By: #### U MICRO, ERUR #### [facility] [address] [address] [address] Marisa Cardona RBC 0-2 Normal 0-2 [facility] Comment on above: Performed By: #### U MICRO, ERUR #### [facility] [address] [address] [address] Marisa Cardona WBC NONE SEEN Normal NONE SEEN [facility] Comment on above: Performed By: #### U MICRO, ERUR #### [facility] [address] [address] [address] Marisa Cardona US PREG TVon 09-11-2022 US PREG TV EXAM: US PREG TV HISTORY: Abnormal vaginal bleeding COMPARISON: Pelvic ultrasound dated 09/06/2022. TECHNIQUE: Endovaginal approach ultrasound is performed. Multiple grayscale and color images are submitted for review. FINDINGS: Anteverted uterus is seen. Intrauterine gestation sac is seen which appears to be implanted low within the uterus and which appears small, and contains minimal internal sonolucence. Mean sac diameter measures 0.98 cm. Endometrial thickness measures 1.55 cm. Small hypoechoic area is seen adjacent to the gestational sac measuring 0.43 x 0.55 x 0.95 cm, suggestive of a small subchorionic hemorrhage. The yolk sac is poorly visualized. The visualized yolk sac measures 0.13 cm in diameter. pole is visualized. Gutierrez-rump length measures 0.92 cm in diameter, consistent with ultrasound dates 7 weeks 0 day. Cardiac activity is noted. heart rate measures 138 bpm. The right ovary measures 3.4 x 3.3 x 3.2 cm. A 2.5 x 2.2 x 2.4 cm a right ovarian cyst is seen which may represent a corpus luteal cyst. The left ovary measures 2.2 x 2.2 x 2.1 cm The cervix appears closed. The cervical length measures 4.9 cm. IMPRESSION: Single live intrauterine with ultrasound dates consistent with 7 weeks 0 day. However, the gestation sac appears small and appears implanted low within the uterus. Additionally, a definite normal-appearing yolk sac is not visualized. Threatened miscarriage cannot be excluded. Clinical, laboratory and possible continued ultrasound follow-up is suggested. heart rate measures 138 bpm. Small subchorionic hemorrhage. Probable right ovarian corpus luteal cyst. The cervix appears closed. I discussed findings with Physician: ZAIRA CUNHA in the ED at 3:30 PM. Electronically authenticated by: FELIX DIANAKAUSHAL Date: 2022-09-11 15:40 Normal [facility] ABO AND RH TYPEon 09-06-2022 ABO and Rh group Nom (Bld) ABO Rh Typing A Rh Positive Normal [facility] Comment on above: Performed By: #### P REGQNT #### [facility] [address] [place] [address] Dr. Marisa Cardona ER URINE PROFILEon 3 Bilirubin Ql (U) Negative Normal NEGATIVE [facility] Comment on above: Performed By: #### E RUR #### [facility] [address] [place] [address] Dr. Marisa Cardona Clarity (U) CLEAR Normal CLEAR [facility] Comment on above: Performed By: #### E RUR #### [facility] [address] [place] [address] Dr. Marisa aCrdona Color (U) LT. YELLOW Normal YELLOW [facility] Comment on above: Performed By: #### E RUR #### [facility] [address] [place] [address] Dr. Marisa Cardona ERUD A micrscopic examination will be performed if indicated. Normal [facility] Comment on above: Performed By: #### E RUR #### [facility] [address] [place] [address] Dr. Marisa Cardona Glucose Ql (U) Negative Normal NEGATIVE [facility] Comment on above: Performed By: #### E RUR #### [facility] [address] [place] [address] Dr. Marisa Cardona Hemoglobin Ql (U) Negative Normal NEGATIVE [facility] Comment on above: Performed By: #### E RUR #### [facility] [address] [place] [address] Dr. Marisa Cardona Ketones Ql (U) Negative Normal NEGATIVE [facility] Comment on above: Performed By: #### E RUR #### [facility] [address] [place] [address] Dr. Marisa Cardona LEUKOCYTES Negative Normal NEGATIVE [facility] Comment on above: Performed By: #### E RUR #### [facility] [address] [place] [address] Dr. Marisa Cardona Nitrite Ql (U) Negative Normal NEGATIVE [facility] Comment on above: Performed By: #### E RUR #### [facility] [address] [place] [address] Dr. Marisa Cardona pH (U) 6.0 [pH] Normal 5-9 [facility] Comment on above: Performed By: #### E RUR #### [facility] [address] [place] [address] Dr. Marisa Cardona SPEC GRAVITY 1.010 Normal 1.005-<=1.025 [facility] Comment on above: Performed By: #### E RUR #### [facility] [address] [place] [address] Dr. Marisa Cardona UA PROTEIN Negative Normal NEGATIVE/ TRACE [facility] Comment on above: Performed By: #### E RUR #### [facility] [address] [place] [address] Dr. Marisa Cardona UR MICRO IND NOT INDICATED Normal [facility] Comment on above: Performed By: #### E RUR #### [facility] [address] [place] [address] Dr. Marisa Cardona Urobilinogen Qn (U) 0.2 {Berry'U}/dL Normal 0.2 - 1. 0 [facility] Comment on above: Performed By: #### E RUR #### [facility] [address] [place] [address] Dr. Marisa Cardona PREG QUANT HCGon 09-06-2022 HCG QUANT 3534 mIU/mL Normal [facility] Comment on above: Performed By: #### P REGQNT #### [facility] [address] [place], [place] [address] Dr. Marisa Cardona HCG RANGE SEE BELOW Normal [facility] Comment on above: Result Comment: 5-50 0.2-1 WEEK 50-500 1-2 WEEKS 100-5,000 2-3 WEEKS 500-10,000 3-4 WEEKS 1,000-50,000 4-5 WEEKS 10,000-100,000 5-6 WEEKS 15,000-200,000 6-8 WEEKS 10,000-100,000 2-3 MONTHS Performed By: #### P REGQNT #### [facility] [address] [place], [place] [address] Dr. Marisa Cardona US PREG TVon 09-06-2022 US PREG TV Obstetrical ultrasound, 1st trimester CLINICAL: patient with vaginal bleeding. TECHNIQUE: Transabdominal and transvaginal obstetrical ultrasound was performed. FINDINGS: Comparison: None. UTERUS: A single intrauterine gestation sac is visualized. Mean gestational sac diameter is 0.68 cm. Yolk sac and pole identified. Gutierrez rump length is 4.2 mm. heart rate of 124 beats per minute. OVARIES/ADNEXA: The right ovary measures 4.8 x 4.4 x 3.1 cm, with a dominant mildly complex cyst measuring 2.7 x 2.5 x 2.2 cm. The left ovary measures 2.3 x 2.2 x 2.4 cm. There is normal vascular flow to both ovaries. Small physiologic sized follicles are identified in both ovaries. OTHER FINDINGS: None. There is no subchorionic hemorrhage. Cervix is closed and cervical length is 3.7 cm. ULTRASOUND GESTATIONAL AGE AND ESTIMATED DATE OF CONFINEMENT: The estimated gestational age by ultrasound is 6 weeks 1 day with an estimated date of confinement by the ultrasound of 05/01/2023. IMPRESSION: 1. Single viable intrauterine gestation with yolk sac and pole identified. heart rate of 124 beats per minute. Estimated gestational age by ultrasound is 6 weeks 1 day with an estimated date of confinement by ultrasound of 05/01/2023. Follow-up ultrasound at 18-22 weeks' gestation for anatomy evaluation. 2. Negative for subchorionic hemorrhage. 3. Probable 2.7 cm corpus luteum cyst in right ovary. 4. Closed cervix and cervical length of 3.7 cm. Electronically authenticated by: DEQUAN MCGEENG Date: 2022-09-06 16:57 Normal [facility] PREG QUANT HCGon 08-25-2022 HCG QUANT 111 mIU/mL Normal [facility] Comment on above: Performed By: #### P REGQNT #### [facility] [address] [place] [address] Dr. Marisa Cardona HCG RANGE SEE BELOW Normal [facility] Comment on above: Result Comment: 5-50 0.2-1 WEEK 50-500 1-2 WEEKS 100-5,000 2-3 WEEKS 500-10,000 3-4 WEEKS 1,000-50,000 4-5 WEEKS 10,000-100,000 5-6 WEEKS 15,000-200,000 6-8 WEEKS 10,000-100,000 2-3 MONTHS Performed By: #### P REGQNT #### [facility] [address] [place] [address] Dr. Marisa Cardona CBC AUTO DIFFon 08-23-2022 BASO # 0.1 103/ul Normal 0.0-0.1 [facility] Comment on above: Performed By: #### C BC #### [facility] [address] [place] [address] Dr. Marisa Cardona Basophils/100 WBC (Bld) 0.7 % Normal 0.2-2.0 [facility] Comment on above: Performed By: #### C BC #### [facility] [address] [place] [address] Dr. Marisa Cardona EO # 0.2 103/ul Normal 0.0-0.7 [facility] Comment on above: Performed By: #### C BC #### [facility] [address] [place] [address] Dr. Marisa Cardona Eosinophils/100 WBC (Bld) 2.5 % Normal 0.9-7.0 [facility] Comment on above: Performed By: #### C BC #### [facility] [address] [place] [address] Dr. Marisa Cardona Erythrocyte distribution width (RBC) [Ratio] 12.7 % Normal 11.0-15.0 [facility] Comment on above: Performed By: #### C BC #### [facility] [address] [place] [address] Dr. Marisa Cardona Hematocrit (Bld) [Volume fraction] 38.7 % Normal 36.0-48.0 [facility] Comment on above: Performed By: #### C BC #### [facility] [address] [place] [address] Dr. Marisa Cardona Hemoglobin (Bld) [Mass/Vol] 13.3 g/dL Normal 12.0-16.0 [facility] Comment on above: Performed By: #### C BC #### [facility] [address] [place] [address] Dr. Marisa Cardona IG # 0.01 10e3/ul Normal 0.00-0.03 [facility] Comment on above: Performed By: #### C BC #### [facility] [address] [place] [address] Dr. Marisa Cardona IG % 0.1 % Normal 0.0-0.5 [facility] Comment on above: Performed By: #### C BC #### [facility] [address] [place] [address] Dr. Marisa Cardona LYMPH # 2.4 103/ul Normal 1.2-3.8 [facility] Comment on above: Performed By: #### C BC #### [facility] [address] [place] [address] Dr. Marisa Cardona Lymphocytes/100 WBC (Bld) 31.7 % Normal 20.5-60.0 [facility] Comment on above: Performed By: #### C BC #### [facility] [address] [place] [address] Dr. Marisa Cardona MANUAL DIFF REQ NO Normal [facility] Comment on above: Performed By: #### C BC #### [facility] [address] [place] [address] Dr. Marisa Cardona MCH (RBC) [Entitic mass] 29.6 pg Normal 26.7-34.0 [facility] Comment on above: Performed By: #### C BC #### [facility] [address] [address] [address] Marisa Cardona MCHC (RBC) [Mass/Vol] 34.4 g/dL Normal 29.9-35.2 [facility] Comment on above: Performed By: #### C BC #### [facility] [address] [place] [address] Dr. Marisa Cardona MCV (RBC) [Entitic vol] 86.0 fL Normal 81.0-99.0 [facility] Comment on above: Performed By: #### C BC #### [facility] [address] [place] [address] Dr. Marisa Cardona MONO # 0.5 103/ul Normal 0.3-0.8 [facility] Comment on above: Performed By: #### C BC #### [facility] [address] [place] [address] Dr. Marisa Cardona Monocytes/100 WBC (Bld) 6.1 % Normal 1.7-12.0 [facility] Comment on above: Performed By: #### C BC #### [facility] [address] [place] [address] Dr. Marisa Cardona NEUT # 4.4 103/ul Normal 1.4-6.5 [facility] Comment on above: Performed By: #### C BC #### [facility] [address] [place] [address] Dr. Marisa Cardona Neutrophils/100 WBC (Bld) 58.9 % Normal 43.0-75.0 [facility] Comment on above: Performed By: #### C BC #### [facility] [address] [place] [address] Dr. Marisa Cardona Platelet mean volume (Bld) [Entitic vol] 10.8 fL Normal 9.5-13.5 [facility] Comment on above: Performed By: #### C BC #### [facility] [address] [place] [address] Dr. Marisa Cardona PLT 235 103/ul Normal 150-450 [facility] Comment on above: Performed By: #### C BC #### [facility] [address] [place] [address] Dr. Marisa Cardona RBC 4.50 106/ul Normal 4.20-5.40 [facility] Comment on above: Performed By: #### C BC #### [facility] [address] [place] [address] Dr. Marisa Cardona WBC 7.5 103/ul Normal 4.0-11.0 [facility] Comment on above: Performed By: #### C BC #### [facility] [address] [place] [address] Dr. Marisa Cardona ER URINE PROFILEon 3 Bilirubin Ql (U) Negative Normal NEGATIVE [facility] Comment on above: Performed By: #### E RUR #### [facility] [address] [place] [address] Dr. Marisa Cardona Clarity (U) CLEAR Normal CLEAR [facility] Comment on above: Performed By: #### E RUR #### [facility] [address] [place] [address] Dr. Marisa Cardona Color (U) YELLOW Normal YELLOW [facility] Comment on above: Performed By: #### E RUR #### [facility] [address] [place] [address] Dr. Marisa TRENT A micrscopic examination will be performed if indicated. Normal [facility] Comment on above: Performed By: #### E RUR #### [facility] [address] [place] [address] Dr. Marisa Cardona Glucose Ql (U) Negative Normal NEGATIVE [facility] Comment on above: Performed By: #### E RUR #### [facility] [address] [place] [address] Dr. Marisa Cardona Hemoglobin Ql (U) Negative Normal NEGATIVE [facility] Comment on above: Performed By: #### E RUR #### [facility] [address] [place] [address] Dr. Marisa Cardona Ketones Ql (U) TRACE Abnormal NEGATIVE [facility] Comment on above: Performed By: #### E RUR #### [facility] [address] [place] [address] Dr. Marisa Cardona LEUKOCYTES Negative Normal NEGATIVE [facility] Comment on above: Performed By: #### E RUR #### [facility] [address] [place] [address] Dr. Marisa Cardona Nitrite Ql (U) Negative Normal NEGATIVE [facility] Comment on above: Performed By: #### E RUR #### [facility] [address] [place] [address] Dr. Marisa Cardona pH (U) 5.5 [pH] Normal 5-9 [facility] Comment on above: Performed By: #### E RUR #### [facility] [address] [place] [address] Dr. Marisa Cardona SPEC GRAVITY 1.025 Normal 1.005-<=1.025 [facility] Comment on above: Performed By: #### E RUR #### [facility] [address] [place] [address] Dr. Marisa Cardona UA PROTEIN Negative Normal NEGATIVE/ TRACE [facility] Comment on above: Performed By: #### E RUR #### [facility] [address] [place] [address] Dr. Marisa Cardona UR MICRO IND NOT INDICATED Normal [facility] Comment on above: Performed By: #### E RUR #### [facility] [address] [place] [address] Dr. Marisa Cardona Urobilinogen Qn (U) 0.2 {Berry'U}/dL Normal 0.2 - 1. 0 [facility] Comment on above: Performed By: #### E RUR #### [facility] [address] [place] [address] Dr. Marisa Cardona PREG QUANT HCGon 08-23-2022 HCG QUANT 36 mIU/mL Normal [facility] Comment on above: Performed By: #### P REGQNT #### [facility] [address] [place] [address] Dr. Marisa Cardona HCG RANGE SEE BELOW Normal [facility] Comment on above: Result Comment: 5-50 0.2-1 WEEK 50-500 1-2 WEEKS 100-5,000 2-3 WEEKS 500-10,000 3-4 WEEKS 1,000-50,000 4-5 WEEKS 10,000-100,000 5-6 WEEKS 15,000-200,000 6-8 WEEKS 10,000-100,000 2-3 MONTHS Performed By: #### P REGQNT #### [facility] [address] [place] [address] Dr. Marisa Cardona PROF CHEM 8 (BAS METB)on Anion gap [Moles/Vol] 8.2 mmol/L Normal [facility] Comment on above: Performed By: #### B MP #### [facility] [address] [place] [address] Dr. Marisa Cardona Calcium [Mass/Vol] 9.1 mg/dL Normal 8.5-10.1 [facility] Comment on above: Performed By: #### B MP #### [facility] [address] [place] [address] Dr. Marisa Cardona Chloride [Moles/Vol] 104 mmol/L Normal 98-107 [facility] Comment on above: Performed By: #### B MP #### [facility] [address] [place] [address] Dr. Marisa Cardona CO2 [Moles/Vol] 30.2 mmol/L Normal 21.0-32.0 [facility] Comment on above: Performed By: #### B MP #### [facility] [address] [place] [address] Dr. Marisa Cardona Creatinine [Mass/Vol] 0.67 mg/dL Normal 0.55-1.02 [facility] Comment on above: Performed By: #### B MP #### [facility] [address] [place] [address] Dr. Marisa Cardona EGFR-AF COLOMBIAN >60 Normal >=60 [facility] Comment on above: Performed By: #### B MP #### [facility] [address] [place] [address] Dr. Marisa Cardona EGFR-NON AF COLOMBIAN >60 Normal >=60 [facility] Comment on above: Performed By: #### B MP #### [facility] [address] [address] [address] Marisa Cardona Glucose [Mass/Vol] 98 mg/dL Normal 74-106 [facility] Comment on above: Performed By: #### B MP #### [facility] [id number] Marisa Cardona Potassium [Moles/Vol] 3.4 mmol/L Critically low 3.5-5.1 [facility] Comment on above: Performed By: #### B MP #### [facility] [address] [address] [address] Marisa Cardona Sodium [Moles/Vol] 139 mmol/L Normal 136-145 [facility] Comment on above: Performed By: #### B MP #### [facility] [address] [address] [address] Marisa Cardona Urea nitrogen [Mass/Vol] 10.0 mg/dL Normal 7.0-18.0 [facility] Comment on above: Performed By: #### B MP #### [facility] [address] [address] [address] Marisa Cardona Urea nitrogen/Creatinine [Mass ratio] 14.9 mg/mg Normal [facility] Comment on above: Performed By: #### B MP #### [facility] [address] [address] [address] Marisa Aguiar 03-07-2022 L Specimen: [id number] Received: 03/08/22 Status: SUJATA Maynard Num: [id number] Spec Type: Surgical Subm Dr: Bakari Greenfield, Tissues: A Endocervix - Curettings (ECC) Procedures: HE Stain/2, Gross/Micro L4 Age/ Patient Sex Location Account Attending Physician Mayo Hernandez I 26/ [place] [id number] Bakari Greenfield DO SPEC NUM: [id number] RECD: 03/08/22 STATUS: SUJATA MAYNARD NUM: [id number] JOSE: 03/07/22- [facility] DR: Bakari Greenfield DO ENTERED: 03/08/22-1153 [facility] DR: MANOHAR TYPE: Surgical DEPT: S ORDERED: HE Stain/2, Gross/Micro L4 ORDERED: HE Stain/2, Gross/Micro L4 Pathological Diagnosis Endocervix, curettage: - Minute fragments of endocervical epithelium admixed with mucinous. - No dysplasia identified. Clinical Information LGSIL Gross Description Received in formalin labeled with the patient's name, number and ECC is a 1.4 x 1.0 x 0.3 cm aggregate of zabala brown mucous and soft tissue. Entirely submitted in one cassette labeled A1. Microscopic Description Two glass slide with H E stained material has been examined. The microscopic findings support the above pathologic diagnosis. CPT Codes 92943 Specimen: [id number] Received: 03/08/22 Status: SUJATA Maynard Num: [id number] Spec Type: Surgical Subm Dr: Bakari Greenfield DO Tissues: A Endocervix - Curettings (ECC) Procedures: HE Stain/2, Gross/Micro L4 Patient: HernandezMayo I [id number] (Continued) Signed (signatur e on file) Al Kovacs MD 03/09/22 1044 [facility] US venous duplex LE RTon US venous duplex LE RT [facility] [place] [address] [place] [address] Ultrasound Report Signed Patient: Mayo Hernandez I MR#: [id number] : 1995 Acct:[id number] Age/Sex: 26 / F ADM Date: 11/06/21 Loc: ER Room: Type: [facility] ER Attending Dr: Ordering Provider: Matthias Garg APRN Date of Service: 11/06/21 US/US venous duplex LE RT: pain, bruising Copies to: Matthias Garg APRN RIGHT LOWER EXTREMITY VENOUS DUPLEX INDICATION: Painful swollen right leg Unilateral right lower extremity venous duplex Doppler study was obtained utilizing B-mode, color- flow and spectral Doppler. FINDINGS: The right common femoral, femoral, and popliteal veins showed adequate compressibility, color-flow and augmentation. The right posterior tibial and peroneal veins were compressible, as well as proximal greater saphenous vein. The contralateral left common femoral vein was compressible with color-flow and augmentation. US/US venous duplex LE RT IMPRESSION: NO EVIDENCE OF DEEP VENOUS THROMBOSIS IN THE RIGHT LOWER EXTREMITY. NO SUPERFICIAL THROMBOPHLEBITIS WAS NOTED. Impression dictated by: Tanner Pitts M.D.11/10/2021 2:46 PM Dictation Location: [place] [address] Tech: [facility] Transcribed By: VIJAY 11/10/21 1446 Dictated By: Tanner Pitts MD 11/10/21 1445 Signed By: 11/10/21 1446 [facility] Vital Signs Date Time Vital Sign Value Performing Clinician Facility 01-28-2025 15:03-0400 Body height 180.34 cm Juan Carlos Abdullahi MD Work Phone: [facility] 01-28-2025 15:03-0400 Body mass index (BMI) [Ratio] 29.1 kg/m2 Juan Carlos Abdullahi MD Work Phone: [facility] 01-28-2025 15:03-0400 Body weight 94.8 kg Juan Carlos Abdullahi MD Work Phone: [facility] 01-28-2025 15:03-0400 Diastolic blood pressure 85 mm[Hg] Juan Carlos Abdullahi MD Work Phone: [facility] 01-28-2025 15:03-0400 Heart rate 77 /min Juan Carlos Abdullahi MD Work Phone: [facility] 01-28-2025 15:03-0400 Systolic blood pressure 123 mm[Hg] Juan Carlos Abdullahi MD Work Phone: [facility] 09-18-2024 07:50-0500 Body temperature 98.06 [degF] [facility] 09-18-2024 07:50-0500 Diastolic blood pressure 87 mm[Hg] [facility] 09-18-2024 07:50-0500 Heart rate 69 /min [facility] 09-18-2024 07:50-0500 Respiratory rate 16 /min [facility] 09-18-2024 07:50-0500 SaO2% (BldA) [Mass fraction] 100 % [facility] 09-18-2024 07:50-0500 Systolic blood pressure 134 mm[Hg] [facility] 09-17-2024 09:34-0500 Body mass index (BMI) [Ratio] 30.4 kg/m2 Benjamin Winters [employer] WORK[employer] Work Phone: [facility] 09-17-2024 09:34-0500 Body temperature 98.01 [degF] Benjamin Winters [employer] WORKER Work Phone: [facility] 09-17-2024 09:34-0500 Body weight 98.88 kg Benjamin Winters [employer] FA[employer] WORKER Work Phone: [facility] 09-17-2024 09:34-0500 Diastolic blood pressure 80 mm[Hg] Benjamin Winters [employer] FA[employer] WORKER Work Phone: [facility] 09-17-2024 09:34-0500 Heart rate 97 /min Benjamin Winters [employer] FA[employer] WORKER Work Phone: [facility] 09-17-2024 09:34-0500 SaO2% (BldA) [Mass fraction] 98 % Benjamin Winters [employer] WORKER Work Phone: [facility] 09-17-2024 09:34-0500 Systolic blood pressure 130 mm[Hg] Benjamin Winters [employer] FA[employer] WORKER Work Phone: [facility] 08-06-2024 13:04-0500 Body mass index (BMI) [Ratio] 29.29 kg/m2 Sony Disla MD Work Phone: [facility] 08-06-2024 13:04-0500 Body weight 95.25 kg Sony Disla MD Work Phone: [facility] 08-06-2024 13:04-0500 Diastolic blood pressure 78 mm[Hg] Sony Disla MD Work Phone: [facility] 08-06-2024 13:04-0500 Systolic blood pressure 120 mm[Hg] Sony Disla MD Work Phone: [facility] 07-30-2024 11:47-0500 Body mass index (BMI) [Ratio] 30.54 kg/m2 Sony Disla MD Work Phone: [facility] 07-30-2024 11:47-0500 Body weight 99.34 kg Sony Disla MD Work Phone: [facility] 07-30-2024 11:47-0500 Diastolic blood pressure 82 mm[Hg] Sony Disla MD Work Phone: [facility] 07-30-2024 11:47-0500 Systolic blood pressure 122 mm[Hg] Sony Disla MD Work Phone: [facility] 07-07-2024 10:43-0500 Body mass index (BMI) [Ratio] 30.68 kg/m2 Summer Workman PA Work Phone: [facility] 07-07-2024 10:43-0500 Body temperature 97.81 [degF] Summer Workman PA Work Phone: [facility] 07-07-2024 10:43-0500 Body weight 99.79 kg Summer Workman PA Work Phone: [facility] 07-07-2024 10:43-0500 Diastolic blood pressure 70 mm[Hg] Summer Workman PA Work Phone: [facility] 07-07-2024 10:43-0500 Heart rate 78 /min Summer Workman PA Work Phone: [facility] 07-07-2024 10:43-0500 SaO2% (BldA) [Mass fraction] 98 % Summer Workman PA Work Phone: [facility] 07-07-2024 10:43-0500 Systolic blood pressure 120 mm[Hg] Summer Workman PA Work Phone: [facility] 06-12-2024 12:55-0500 Body mass index (BMI) [Ratio] 30.68 kg/m2 Summer Workman PA Work Phone: [facility] 06-12-2024 12:55-0500 Body temperature 97.9 [degF] Summer Workman PA Work Phone: [facility] 06-12-2024 12:55-0500 Body weight 99.79 kg Summer Workman PA Work Phone: [facility] 06-12-2024 12:55-0500 Diastolic blood pressure 88 mm[Hg] Summer Workman PA Work Phone: [facility] 06-12-2024 12:55-0500 Heart rate 97 /min Summer Workman PA Work Phone: [facility] 06-12-2024 12:55-0500 SaO2% (BldA) [Mass fraction] 97 % Summer Workman PA Work Phone: [facility] 06-12-2024 12:55-0500 Systolic blood pressure 138 mm[Hg] Summer Workman PA Work Phone: [facility] 09-18-2023 11:32-0500 Body height 180.34 cm [facility] 09-18-2023 11:32-0500 Body mass index (BMI) [Ratio] 27.8 kg/m2 [facility] 09-18-2023 11:32-0500 Body weight 90.32 kg [facility] 09-18-2023 11:32-0500 Diastolic blood pressure 82 mm[Hg] [facility] 09-18-2023 11:32-0500 Heart rate 91 /min [facility] 09-18-2023 11:32-0500 SaO2% (BldA) [Mass fraction] 97 % [facility] 09-18-2023 11:32-0500 Systolic blood pressure 128 mm[Hg] [facility] 02-20-2023 08:11-0400 Body temperature 99.5 [degF] Rashid Kinsey MD Work Phone: [facility] 02-20-2023 08:11-0400 Diastolic blood pressure 83 mm[Hg] Rashid Kinsey MD Work Phone: [facility] 02-20-2023 08:11-0400 Heart rate 81 /min Rashid Kinsey MD Work Phone: [facility] 02-20-2023 08:11-0400 Respiratory rate 18 /min Rashid Kinsey MD Work Phone: [facility] 02-20-2023 08:11-0400 SaO2% (BldA) [Mass fraction] 97 % Rashid Kinsey MD Work Phone: [facility] 02-20-2023 08:11-0400 Systolic blood pressure 129 mm[Hg] Rashid Kinsey MD Work Phone: [facility] [employer] [facility] 02-07-2023 01:38-0400 Body height 180.3 cm Rashid Kinsey MD Work Phone: [facility] [employer] [facility] 02-07-2023 01:38-0400 Body mass index (BMI) [Ratio] 29.29 kg/m2 Rashid Kinsey MD Work Phone: [facility] 02-07-2023 01:38-0400 Body weight 95.25 kg Rashid Kinsey MD Work Phone: [facility] 02-06-2023 23:45-0400 Hourly Rounding Vipin Grider [facility] Comment on above: Result Comment: Patient transferred off unit with [facility]. No s/s of distress in patient. Pt discharged on stretcher. 02-06-2023 23:15-0400 Body temperature 97.88 [degF] Vipin Grider [facility] 02-06-2023 22:45-0400 Blood Pressure Location Vipin Grider [facility] 02-06-2023 22:45-0400 Diastolic blood pressure 71 mm[Hg] Vipin Grider [facility] 02-06-2023 22:45-0400 Heart rate 78 /min Vipin Grider [facility] 02-06-2023 22:45-0400 Mean blood pressure 93 mm[Hg] Vipin Grider [facility] 02-06-2023 22:45-0400 Respiratory rate 16 /min Vipin Grider [facility] 02-06-2023 22:45-0400 Systolic blood pressure 136 mm[Hg] Vipin Grider [facility] 02-06-2023 22:30-0400 Hourly Rounding Vipin Grider [facility] Comment on above: Result Comment: Patient sitting in bed. Pt denied any additional needs. Call light within reach. 02-06-2023 21:30-0400 Blood Pressure Location Vipin Grider [facility] 02-06-2023 21:30-0400 Body temperature 98.96 [degF] Vipin Grider [facility] 02-06-2023 21:30-0400 Diastolic blood pressure 79 mm[Hg] Vipin Grider [facility] 02-06-2023 21:30-0400 Heart rate 76 /min Vipin Grider [facility] 02-06-2023 21:30-0400 Mean blood pressure 100 mm[Hg] Vipin Grider [facility] 02-06-2023 21:30-0400 Respiratory rate 16 /min Vipin Grider [facility] 02-06-2023 21:30-0400 Systolic blood pressure 141 mm[Hg] Vipin Grider [facility] 02-06-2023 21:00-0400 Hourly Rounding Vipin Grider [facility] Comment on above: Result Comment: US in room. Pt denied an y additional needs. Call light within reach. 02-06-2023 19:10-0400 Body temperature 98.6 [degF] Vipin Grider [facility] 02-06-2023 19:07-0400 Blood Pressure Location Vipin Grider [facility] 02-06-2023 19:07-0400 Diastolic blood pressure 83 mm[Hg] Vipin Grider [facility] 02-06-2023 19:07-0400 Heart rate 76 /min Vipin Grider [facility] 02-06-2023 19:07-0400 Mean blood pressure 99 mm[Hg] Vipin Grider [facility] 02-06-2023 19:07-0400 Respiratory rate 16 /min Vipin Grider [facility] 02-06-2023 19:07-0400 Systolic blood pressure 132 mm[Hg] Vipin Grider [facility] 10-26-2022 13:38-0400 Body height 180.34 cm PHYSICIAN NO [facility] 10-26-2022 13:38-0400 Body temperature 98.2 [degF] PHYSICIAN NO [facility] 10-26-2022 13:38-0400 Body weight 84.35 kg PHYSICIAN NO [facility] 10-26-2022 13:38-0400 Diastolic blood pressure 74 mm[Hg] PHYSICIAN NO [facility] 10-26-2022 13:38-0400 Heart rate 65 /min PHYSICIAN NO [facility] 10-26-2022 13:38-0400 Respiratory rate 18 /min PHYSICIAN NO [facility] 10-26-2022 13:38-0400 SaO2% (BldA) [Mass fraction] 100 % PHYSICIAN NO [facility] 10-26-2022 13:38-0400 Systolic blood pressure 134 mm[Hg] PHYSICIAN NO [facility] 11-06-2021 13:05-0400 Body height 180.34 cm PHYSICIAN NO [facility] 11-06-2021 13:05-0400 Body mass index (BMI) [Ratio] 26.1 kg/m2 PHYSICIAN NO [facility] 11-06-2021 13:05-0400 Body temperature 98.2 [degF] PHYSICIAN NO [facility] 11-06-2021 13:05-0400 Body weight 85 kg PHYSICIAN NO [facility] 11-06-2021 13:05-0400 Diastolic blood pressure 84 mm[Hg] PHYSICIAN NO [facility] 11-06-2021 13:05-0400 Heart rate 98 /min PHYSICIAN NO [facility] 11-06-2021 13:05-0400 Respiratory rate 20 /min PHYSICIAN NO [facility] 11-06-2021 13:05-0400 SaO2% (BldA) [Mass fraction] 100 % PHYSICIAN NO [facility] 11-06-2021 13:05-0400 Systolic blood pressure 134 mm[Hg] PHYSICIAN NO [facility] 01-30-2020 15:12-0400 BMI (Body Mass Index) 36.8 kg/m2 PHYSICIAN NO [facility] 01-30-2020 15:12-0400 Body Temperature 99 [degF] PHYSICIAN NO [facility] 01-30-2020 15:12-0400 Body weight 119.74 kg PHYSICIAN NO [facility] 01-30-2020 15:12-0400 BP Diastolic 93 mm[Hg] PHYSICIAN NO [facility] 01-30-2020 15:12-0400 BP Systolic 145 mm[Hg] PHYSICIAN NO [facility] 01-30-2020 15:12-0400 Height 180.34 cm PHYSICIAN NO [facility] 01-30-2020 15:12-0400 Pulse (Heart Rate) 86 /min PHYSICIAN NO [facility] 01-30-2020 15:12-0400 Pulse Oximetry 98 % PHYSICIAN NO [facility] 01-30-2020 15:12-0400 Respiratory Rate 18 /min PHYSICIAN NO [facility] Encounters Encounter Date Encounter Type Care Provider Facility Start: 01-28-2025 End: 01-28-2025 ambulatory Juan Carlos Abdullahi MD Work Phone: [facility] Work Phone: Start: 01-28-2025 End: 01-28-2025 Patient encounter procedure Juan Carlos Abdullahi MD -[facility] Work Phone: Start: 01-27-2025 End: 01-27-2025 ambulatory DO Jesus Stanley Facility:[facility] Start: 11-20-2024 End: 11-21-2024 Telephone encounter Mason De [place]a MS, [facility] [place] [facility] Comment on above: Results Start: 09-18-2024 End: 09-18-2024 Emergency department patient visit Fahad Jennifer Jared [facility] Start: 09-17-2024 End: 09-17-2024 Office outpatient visit 25 minutes Benjamin Winters NP Work Phone: [facility] Comment on above: Rash and nonspecific skin eruption (Primary Dx) Start: 09-17-2024 End: 09-17-2024 ambulatory BENJAMIN WINTERS Not Available Start: 08-06-2024 End: 08-06-2024 Patient encounter procedure Sony Disla MD Work Phone: [facility] Comment on above: LGSIL of cervix of u ndetermined significance; Human papilloma virus (HPV) infection Start: 08-06-2024 End: 08-06-2024 ambulatory SONY DISLA Not Available Start: 07-30-2024 End: 07-30-2024 Bamboo flowsheet Sony Disla MD Work Phone: [facility] Start: 07-30-2024 End: 07-30-2024 Bamboo flowsheet Sony Disla MD Work Phone: [facility] Start: 07-30-2024 End: 07-30-2024 ambulatory SONY DISLA Not Available Start: 07-30-2024 End: 07-30-2024 Office outpatient visit 25 minutes Sony Disla MD Work Phone: [facility] Comment on above: ASCUS with positive high risk HPV cervical (Primary Dx); HPV (human papilloma virus) infection Start: 07-07-2024 End: 07-07-2024 ambulatory SUMMER M WORKMAN Not Available Start: 07-07-2024 End: 07-07-2024 Office outpatient visit 25 minutes Summer M Workman PA Work Phone: [facility] Comment on above: Acute streptococcal pharyngitis (Primary Dx); Pharyngitis, unspecified etiology Start: 07-06-2024 End: 07-06-2024 ambulatory PROVIDER UNKNOWN [facility] Start: 07-06-2024 End: 07-06-2024 Subsequent hospital visit by physician Mason De Anda MS, CGC Work Phone: [facility] Comment on above: Family history of ge netic disease Start: 06-14-2024 End: 06-25-2024 Orders Only Mason De Anda MS, CGC Work Phone: [facility] Comment on above: Genetic Counseling Start: 06-13-2024 End: 06-13-2024 Telephone encounter Summer M Workman PA Work Phone: [facility] Start: 06-12-2024 End: 06-12-2024 Office outpatient visit 25 minutes Summer M Workman PA Work Phone: [facility] Comment on above: Other fatigue (Prima ry Dx); Nausea Start: 06-12-2024 End: 06-12-2024 ambulatory SUMMER M WORKMAN Not Available Start: 10-25-2023 End: 10-25-2023 ambulatory LOUIS TRINH Not Available Start: 09-25-2023 End: 09-25-2023 ambulatory REANNA MCKEON Not Available Start: 09-20-2023 Patient encounter status Devi Abdullahi MD Work Phone: [facility] Start: 09-18-2023 End: 09-18-2023 ambulatory [facility] Work Phone: Start: 09-18-2023 End: 09-18-2023 Patient encounter procedure [facility] Physician [facility] Work Phone: Start: 03-23-2023 End: 03-23-2023 ambulatory MD NO PRIMARY CARE [facility] Start: 02-23-2023 End: 02-23-2023 ambulatory NO PRIMARY CARE [facility] Start: 02-16-2023 Telephone encounter Ryan stewart MD Work Phone: [facility] Start: 02-16-2023 End: 02-16-2023 Evaluation and management of inpatient Sony Alexandra MD Work Phone: [facility] Start: 02-07-2023 End: 02-20-2023 Evaluation and management of inpatient [facility] Start: 02-07-2023 End: 02-20-2023 Evaluation and management of inpatient Rashid Kinsey MD Work Phone: [facility] Comment on above: S/P (Prima ry Dx); premature rupture of membranes (PPROM) with onset of labor after 24 hours of rupture in first trimester, antepartum Start: 02-06-2023 End: 02-06-2023 OB Triage Vipin Martinez Marni [facility] Start: 10-26-2022 End: 10-26-2022 Emergency department patient visit PHYSICIAN NO FAMILY Facility:[facility] Start: 10-26-2022 End: 10-26-2022 Emergency department patient visit PHYSICIAN NO [facility] Work Phone: Start: 09-13-2022 End: 09-14-2022 ambulatory ZAIRA CUNHA . Facility:[facility] Start: 09-11-2022 End: 09-11-2022 ambulatory ZAIRA CUNHA . Facility:[facility] Start: 09-06-2022 End: 09-06-[address] NONE LISTED REQUEST Facility:[facility] Start: 08-25-2022 End: 08-26-2022 ambulatory RAFY DIAB . Facility:[facility] Start: 08-23-2022 End: 08-23-2022 ambulatory RAFY DIAB . Facility:[facility] Start: 03-08-2022 End: 03-08-2022 ambulatory Bakari Greenfield Facility:[facility] Start: 11-06-2021 End: 11-06-2021 Emergency department patient visit PHYSICIAN NO [facility] Facility:[facility] Start: 11-06-2021 End: 11-06-2021 Emergency department patient visit PHYSICIAN NO [facility] Start: 01-30-2020 End: 01-30-2020 Emergency department patient visit PHYSICIAN NO [facility] Procedures Date Procedure Procedure Detail Performing Clinician Start: 08-06-2024 COLPOSCOPY Sony maloney MD Work Phone: Start: 08-06-2024 Urine test visual color cmprsn meths Sony Disla MD Work Phone: Start: 07-07-2024 Iadna streptococcus group a amplified probe tq Louis Trinh DO Work Phone: Start: 06-12-2024 Complete blood count with white cell differential, automated Sherwin MARTINEZ Work Phone: Start: 06-12-2024 Comprehensive metabo lic panel [facility] Shira Novoa PA Work Phone: Start: 06-12-2024 End: 06-12-2024 Urine test visual color cmprsn meths [facility] Shira Novoa HI Work Phone: Start: 02-19-2023 Injection epidural blood/clot patch Mingcristi Edna [employer]TING RO[employer] SUPERVISOR - SEARCH STRATEGIST Start: 02-16-2023 Blood count hemoglobin Bud Mahmood DO Work Phone: Start: 02-16-2023 Tap block bilateral by injection(s) Maxx Lopez FITTING ROOM SUPERVISOR - SEARCH STRATEGIST Work Phone: Start: 02-16-2023 Spinal anesthesia Scott Lopez FITTING ROOM SUPERVISOR - SEARCH STRATEGIST Work Phone: Start: 02-15-2023 Blood typing serologic abo Rashid Kinsey MD Work Phone: Start: 02-14-2023 End: 02-14-2023 Comprehensive metabolic panel Karen Del Rio DO Work Phone: Start: 02-11-2023 Blood typing serologic abo Rashid Kinsey MD Work Phone: Start: 02-10-2023 biophysical pr ofile w/o non-stress testing Karen Del Rio DO Work Phone: Start: 02-07-2023 Creatinine other source Karen Del Rio DO Work Phone: Start: 02-07-2023 Culture bacterial quanttative colony count urine Etta Magisheldonjacinto DO Work Phone: Start: 02-07-2023 Us preg uterus real time f/u trnsabdl per fetus Bud Mahmood DO Work Phone: Start: 02-07-2023 ABO and Rh group [Ty pe] in Blood by Confirmatory method Bud Mahmood DO Work Phone: Start: 02-07-2023 Blood typing serologic abo Bud Mahmood DO Work Phone: Start: 02-07-2023 Comprehensive metabo lic panel Karen Del Rio DO Work Phone: Start: 02-07-2023 AMNISURE ROM Bud Ja mino DO Work Phone: Start: 02-07-2023 Bacterial vaginosis and vaginitis rRNA panel - Vaginal fluid by Probe Bud Mahmood DO Work Phone: Start: 10-26-2022 Diagnostic ultrasoun d of gravid uterus PHYSICIAN NO FAMILY Start: 10-11-2022 Chlamydia trachomatis H istorical Provider Work Phone: Start: 09-15-2022 Antibody hiv-1&hiv-2 single result Historical Provider Work Phone: Start: 09-15-2022 Iaad ia hepatitis b surface antigen Historical Provider Work Phone: Start: 09-15-2022 [employer] [id number] RH FACT OR, EXTERNAL RESULT Historical Provider Work Phone: Betamethasone (substance) Kevin cloud Marni section Yomaira You MD Work Phone: H/O: section S/P Guru Kinsey MD Work Phone: Plan of Treatment Date Care Activity Detail Author Start: 2046 Zoster Vaccines (1 o f 2) Zoster Vaccines (1 of 2) [employer] [facility] Start: 02-12-2033 DTaP/Tdap/Td Vaccine s (2 - Td or Tdap) DTaP/Tdap/Td Vaccines (2 - Td or Tdap) [facility] Start: 08-04-2025 End: 08-04-2025 Patient encounter procedure 08/04/2025 3:00 PM EST Office Visit [facility] [address] [place] [id number] Sony Disla MD [address] [place] [address] [facility] Start: 07-29-2024 End: 07-29-2024 Patient encounter procedure 07/29/2024 11:15 AM EST Office Visit [facility] [address] [place] [address] Sony Disla MD [address] [place] [address] [facility] Start: 06-14-2024 End: 07-31-2024 GENETICS STAT SPECIMEN LABEL- REQUIRED FOR INHOUSE GENETIC TESTING GENETICS STAT SPECIMEN LABEL- REQUIRED FOR INHOUSE GENETIC TESTING Lab STAT Family history of genetic disease Expected: 06/14/2024 (Approximate), Expires: 07/31/[address] [facility] Comment on above: Expected: 06/14/2024 (Approximate), Expires: 07/31/2024 Start: 06-14-2024 End: 07-31-2024 GENOME SEQUENCING - PARENT SAMPLE GENOME SEQUENCING - PARENT SAMPLE Lab Routine Family history of genetic disease Expected: 06/14/2024 (Approximate), Expires: 07/31/2024 [facility] Work Phone: Comment on above: Expected: 06/14/2024 (Approximate), Expires: 07/31/2024 Start: 03-24-2024 COVID-19 Vaccine ( season) COVID-19 Vaccine ( season) [facility] Start: 03-24-2024 Influenza vaccination Influenza Vacc ine (#1) [facility] Start: 03-24-2023 Influenza vaccination Influenza Vacc ine (#1) [facility] Start: 03-01-2023 End: 03-01-2023 Patient encounter procedure 03/01/2023 2:45 PM EDT Office Visit [facility] [address] [place] [id number] Tres Carvajal, [place] [facility] [place] [address] [facility] Start: 10-26-2022 Physical therapy procedure [facility] Start: 11-06-2021 Duplex scan of lower limb veins US venous duplex LE RT [facility] Start: 2017 Screening for malign ant neoplasm of cervix Pap Smear [facility] Start: 11-06-2015 Hepatitis B Vaccine (1 of 3 - 19+ 3-dose series) Hepatitis B Vaccine (1 of 3 - 19+ 3-dose series) [facility] Start: 2009 Varicella Vaccine (1 of 2 - 13+ 2-dose series) Varicella Vaccine (1 of 2 - 13+ 2-dose series) [facility] Start: 2008 Depression Screening Depression Scre ening [facility] Start: 11-06-2007 HPV Vaccines (1 - 2-dose series) HPV Vaccines (1 - 2-dose series) [facility] Start: 11-06-2003 DTaP/Tdap/Td Vaccine (1 - Tdap) DTaP/Tdap/Td Vaccine (1 - Tdap) [facility] Start: 1997 MMR Vaccine (1 of 1 - Standard series) MMR Vaccine (1 of 1 - Standard series) [facility] Start: 1997 MMR Vaccines (1 of 1 - Standard series) MMR Vaccines (1 of 1 - Standard series) [facility] Start: 1997 Varicella vaccination Varicell a Vaccines (1 of 2 - 2-dose childhood series) [facility] Start: 05-07-1997 COVID-19 Vaccine (#1) COVID-19 Vacci ne (#1) [facility] Start: 1996 Hepatitis B Vaccines (1 of 3 - 3-dose series) Hepatitis B Vaccines (1 of 3 - 3-dose series) [facility] Start: 1996 Lipid panel Lipid Panel [facility] End: 07-09-2024 GENETICS STAT SPECIMEN LABEL- REQUIRED FOR INHOUSE GENETIC TESTING [facility] Work Phone: Comment on above: One Time for 1 Occur rences starting 07/09/2024 until 07/09/2024 End: 07-09-2024 GENOME SEQUENCING - PARENT SAMPLE [facility] Comment on above: One Time for 1 Occur rences starting 07/09/2024 until 07/09/2024 IGP, APT HPV,RFX 16/18,45 IGP, APT HPV,RFX 16/18,45 Lab Routine ASCUS with positive high risk HPV cervical HPV (human papilloma virus) infection Ordered: 07/30/2024 [employer] Work Phone: Comment on above: Ordered: 07/30/2024 Pathology Report Pathology Repor t Pathology and Cytology Routine LGSIL of cervix of undetermined significance Human papilloma virus (HPV) infection Ordered: 08/06/2024 [employer] Work Phone: Comment on above: Ordered: 08/06/2024 Patient Education [facility] Patient referral [facility] Immunizations Immunization Date Immunization Notes Care Provider Rafael khan 02-12-2023 tetanus toxoid, redu josh diphtheria toxoid, and acellular pertussis vaccine, adsorbed Maxx Briscoe CRNA Work Phone: [employer] NEGATED: Highlighted row has not occurred!02-20-2023 measles, mumps and rubella virus vaccine Rashid Kinsey MD Work Phone: [employer] Comment on above: Deferred: Patient Re fused NEGATED: Highlighted row has not occurred!02-20-2023 tetanus toxoid, reduced diphtheria toxoid, and acellular pertussis vaccine, adsorbed Rashid Kinsey MD Work Phone: [employer] Comment on above: Deferred: Contraindi cation Payers Date Payer Category Payer Medicaid [id number] 2022 Medicaid [id number] 2021 Self-pay [id number] 1996 Unknown [id number] 2.16.84 0.1.792808.3.579.2.593 1996 Unknown [id number] 2.16.84 0.1.543538.3.579.2.593 1996 Unknown [id number] 2.16.84 0.1.452626.3.579.2.593 1996 Unknown [id number] 2.16.84 0.1.399524.3.579.2.593 1996 Unknown [id number] 2.16.84 0.1.345440.3.579.2.593 1996 Unknown [id number] 2.16. 840.1.534153.3.579.2.479 1996 Unknown [id number] 2.16. 840.1.021293.3.579.2.479 1996 Unknown [id number] 2.16.84 0.1.938439.3.579.2.1259 1996 Unknown [id number] 2.16.84 0.1.838385.3.579.2.1259 1996 Unknown [id number] 2.16.84 0.1.799865.3.579.2.1259 1996 Unknown [id number] 2.16.84 0.1.394298.3.579.2.1259 1996 Unknown [id number] 2.16.84 0.1.185017.3.579.2.1259 1996 Unknown [id number] 2.16.84 0.1.555105.3.579.2.1259 1996 Unknown [id number] 2.16.84 0.1.583477.3.579.2.1259 1996 Unknown [id number] 2.16.8 40.1.138491.3.579.2.727 1996 Unknown [id number] 2.16.8 40.1.587299.3.579.2.727 1959 Unknown [id number] Unknown Self Pay [id number] Unknown [id number] Unknown [id number] 2.16.8 40.1.419210.3.579.2.531 Unknown [id number] 2.16.8 40.1.255868.3.579.2.531 Unknown [id number] 2.16.8 40.1.490938.3.579.2.531 Social History Date Type Detail Facility Start: 01-30-2020 End: 11-06-2021 Tobacco smoking status NHIS Smoker (finding) [facility] Start: 1995 Sex Assigned At Female F [facility] Start: 10-26-2022 End: 01-28-2025 Tobacco smoking status NHIS Never smoked tobacco (finding) [facility] Tobacco smoking status No Smoking Status Entered [facility] Start: 02-16-2023 End: 06-01-2023 Sex Assigned At Female [facility] Start: 02-07-2023 End: 07-30-2024 Tobacco smoking status LAIS Ex-smoker [facility] History of tobacco use Cigarette Smoker [facility] Start: 02-07-2023 End: 07-30-2024 Tobacco use and exposure Smokeless tobacco non-user [facility] Start: 02-16-2023 End: 09-17-2024 Alcohol intake Lifetime non-drinker (finding) [facility] Start: 02-16-2023 End: 06-01-2023 History of Social function [facility] Start: 1995 Sex Assigned At Not on file [facility] [place] Start: 01-28-2023 End: 02-07-2023 Exposure to SARS-CoV-2 (event) Not sure [facility] Start: 06-01-2023 Tobacco smoking status NHIS Occasional tobacco smoker [facility] Start: 12-09-2022 Alcohol Comment Caffeine intak e:1-2 cups per day of coffee [facility] Tobacco smoking status NHIS Tobacco smoking consumption unknown [facility] Sex Female (finding) [facility] Goals Date Patient Goal Desired Activity /State Functional Status Date Assessment Result Facility 09-18-2024 Functional Status N/A [facility] 02-06-2023 Functional Status N/A [facility] Clinical Notes 02-06-2023 to 11-20-2024 Telephone Encounter - Her[place] [facility] [place]20[place] 4:15 PM EDTTelephone Encounter - Mason De Anda [place], [facility] [place] 11/20/2024 4:15 PM EDT Note Date & Type Note Facility 11-20-2024 Telephone encounter Note GENETIC TESTING RESULTS DISCUSSION I called and spoke with Mayo Hernandez on 11/20/2024 regarding her child's clinical trio genome sequencing results. As part of this testing, Mayo submitted a blood sample. Mayo's testing was performed at [facility] (accession number [id number]; report date 10/09/2024). This test report is available in the labs/results tab of Mayo's medical record. For a detailed review of Mayo's daughter's test results, please see her medical record. Mayo's testing did NOT identify any variants present in Mayo that are likely causal for her child's phenotype. 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 Please see her daughter's chart for additional details regarding this variant of uncertain significance. Additionally, Mayo elected to receive secondary findings (variants in medically actionable genes); this testing did not identify any secondary findings for Mayo. For a list of the genes included in the secondary findings category, please see the test report in the labs/results tab. A copy of Jessicas results will be provided to her. At this time, all of her questions were answered and I encouraged her to reach out should additional questions or concerns arise. These results and follow-up plan were reviewed with Dominic Mandel MD. Mason De Anda [place], [facility] [place], Certified Genetic Counselor [facility] Total Patient Care Time: 30 minutes Task(s) completed: Chart Review, Provider Consultation, Genetic Counseling, Genetic Test Order, Result Interpretation, Results Disclosure Clinic Subspecialty: CardioGenetics [facility] 11-20-2024 Miscellaneous Notes GENETIC TESTING RESULTS DISCUSSION I called and spoke with Mayo Hernandez on 11/20/2024 regarding her child's clinical trio genome sequencing results. As part of this testing, Mayo submitted a blood sample. Jessicas testing was performed at [facility] (accession number [id number]; report date 10/09/2024). This test report is available in the labs/results tab of Mayo's medical record. For a detailed review of Mayo's daughter's test results, please see her medical record. Mayo's testing did NOT identify any variants present in Mayo that are likely causal for her child's phenotype. 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 Please see her daughter's chart for additional details regarding this variant of uncertain significance. Additionally, Mayo elected to receive secondary findings (variants in medically actionable genes); this testing did not identify any secondary findings for Mayo. For a list of the genes included in the secondary findings category, please see the test report in the labs/results tab. A copy of Jessicas results will be provided to her. At this time, all of her questions were answered and I encouraged her to reach out should additional questions or concerns arise. These results and follow-up plan were reviewed with Dominic Mandel MD. Mason De Anda MS, [facility] [place], Certified Genetic Counselor [facility] Total Patient Care Time: 30 minutes Task(s) completed: Chart Review, Provider Consultation, Genetic Counseling, Genetic Test Order, Result Interpretation, Results Disclosure Clinic Subspecialty: CardioGenetics documented in this encounter [facility] 09-18-2024 Evaluation + Plan note Extrac jie from: Title:ED Note Author:Pineda COPPOLA, Faustino Ellsworth te:09/18/24 Urticarial rash (L50.9: Urti caria, unspecified) Orders: hydrOXYzine, 25 mg = 1 tab(s), Tab, Oral, Once, Stop date 09/18/24 8:24:00 EST, STAT, Start date 09/18/24 8:24:00 EST, 09/18/24 8:24:[address] [facility] 02-26-2025 Hospital Discharge instructions Patient Education 09/18/2024 10:01:46 Hives Hives Hives (urticaria) are itchy, red, swollen areas of skin. They can show up on any part of the body. They often fade within 24 hours (acute hives). If you get new hives after the old ones fade and the cycle goes on for many days or weeks, it is called chronic hives. Hives do not spread from person toperson (are not contagious). Hives can happen when your body reacts to something you are allergic to (allergen) or to something that irritates your skin. When you are exposed to something that triggers hives, your body releases a chemical called histamine. This causes redness, itching, and swelling. Hives can show up right after you are exposed to a trigger or hours later. What are the causes? Hives may be caused by: Food allergies. Insect bites or stings. Allergies to pollen or pets. Spending time in sunlight, heat, or cold (exposure). Exercise. Stress. You can also get hives from other conditions and treatments. These include: Viruses, such as the common cold. Bacterial infections, such as urinary tract infections and strep throat. Certain medicines. Contact with latex or chemicals. Allergy shots. Blood transfusions. In some cases, the cause of hives is not known (idiopathic hives). What increases the risk? You are more likely to get hives if: You are female. You have food allergies. Hives are more common if you are allergic to citrus fruits, milk, eggs, peanuts, tree nuts, or shellfish. You are allergic to: ?Medicines. ?Latex. ?Insects. ?Animals. ?Pollen. What are the signs or symptoms? Common symptoms of hives include raised, itchy, red or white bumps or patches on your skin. These areas may: Become large and swollen (welts). Quickly change shape and location. This may happen more than once. Be separate hives or connect over a large area of skin. Sting or become painful. Turn white when pressed in the center (sb). In severe cases, your hands, feet, and face may also become swollen. This may happen if hives form deeper in your skin. How is this diagnosed? Hives may be diagnosed based on your symptoms, medical history, and a physical exam. You may have skin, pee (urine), or blood tests done. These can help find out what is causing your hives and rule out other health issues. You may also have a biopsy done. This is when a small piece of skin is removed for testing. How is this treated? Treatment for hives depends on the cause and on how severe your symptoms are. You may be told to use cool, wet cloths (cool compresses) or to take cool showers to relieve itching. Treatment may also include: Medicines to help: ?Relieve itching (antihistamines). ?Reduce swelling (corticosteroids). ?Treat infection (antibiotics). An injectable medicine called omalizumab. You may need this if you have chronic idiopathic hives and still have symptoms even after you are treated with antihistamines. In severe cases, you may need to use a device filled with medicine that gives an emergency shot of epinephrine (auto-injector pen) to prevent a very bad allergic reaction (anaphylactic reaction). Follow these instructions at home: Medicines Take and apply ggjn-nlf-ojqhnch and prescription medicines only as told by your health care provider. If you were prescribed antibiotics, take them as told by your provider. Do not stop using the antibiotic even if you start to feel better. Skin care Apply cool compresses to the affected areas. Do not scratch or rub your skin. General instructions Do not take hot showers or baths. This can make itching worse. Do not wear tight-fitting clothing. Use sunscreen. Wear protective clothing when you are outside. Avoid anything that causes your hives. Keep a journal to help track what causes your hives. Write down: ?What medicines you take. ?What you eat and drink. ?What products you use on your skin. Keep all follow-up visits. Your provider will track how well treatment is working. Contact a health care provider if: Your symptoms do not get better with medicine. Your joints are painful or swollen. You have a fever. You have pain in your abdomen. Get help right away if: Your tongue, lips, or eyelids swell. Your chest or throat feels tight. You have trouble breathing or swallowing. These symptoms may be an emergency. Use the auto-injector pen right away. Then call 911. Do not wait to see if the symptoms will go away. Do not drive yourself to the hospital. This information is not intended to replace advice given to you by your health care provider. Make sure you discuss any questions you have with your health care provider. Document Revised: 04/06/2023 Document Reviewed: 03/28/2023 [employer] Patient Education 2023 [employer]. Follow Up Care 09/18/2024 07:40:34 With:ASHISH GRANDA Address:Unknown When:09/21/2024 09:55:59 With:JUAN CARLOS ABDULLAHI Address: [address] [place], [place] [address]- Business (1) When:09/21/2024 09:56:06 Comments:Call Dr for diagnosis based follow up. You may take Zyrtec as well as Pepcid for symptoms [facility] 02-26-2025 NoteED Patient Education Note Immunology Hives Hives (urticaria) are itchy, red, swollen areas of skin. They can show up on any part of the body. They often fade within 24 hours (acute hives). If you get new hives after the old ones fade and the cycle goes on for many days or weeks, it is called chronic hives. Hives do not spread from person toperson (are not contagious). Hives can happen when your body reacts to something you are allergic to (allergen) or to something that irritates your skin. When you are exposed to something that triggers hives, your body releases a chemical called histamine. This causes redness, itching, and swelling. Hives can show up right after you are exposed to a trigger or hours later. What are the causes? Hives may be caused by: ??? Food allergies. ??? Insect bites or stings. ??? Allergies to pollen or pets. ??? Spending time in sunlight, heat, or cold (exposure). ??? Exercise. ??? Stress. You can also get hives from other conditions and treatments. These include: ??? Viruses, such as the common cold. ??? Bacterial infections, such as urinary tract infections and strep throat. ??? Certain medicines. ??? Contact with latex or chemicals. ??? Allergy shots. ??? Blood transfusions. In some cases, the cause of hives is not known (idiopathic hives). What increases the risk? You are more likely to get hives if: ??? You are female. ??? You have food allergies. Hives are more common if you are allergic to citrus fruits, milk, eggs, peanuts, tree nuts, or shellfish. ??? You are allergic to: ? Medicines. ? Latex. ? Insects. ? Animals. ? Pollen. What are the signs or symptoms? Common symptoms of hives include raised, itchy, red or white bumps or patches on your skin. These areas may: ??? Become large and swollen (welts). ??? Quickly change shape and location. This may happen more than once. ??? Be separate hives or connect over a large area of skin. ??? Sting or become painful. ??? Turn white when pressed in the center (sb). In severe cases, your hands, feet, and face may also become swollen. This may happen if hives form deeper in your skin. How is this diagnosed? Hives may be diagnosed based on your symptoms, medical history, and a physical exam. ??? You may have skin, pee (urine), or blood tests done. These can help find out what is causing your hives and rule out other health issues. ??? You may also have a biopsy done. This is when a small piece of skin is removed for testing. How is this treated? Treatment for hives depends on the cause and on how severe your symptoms are. You may be told to use cool, wet cloths (cool compresses) or to take cool showers to relieve itching. Treatment may also include: ??? Medicines to help: ? Relieve itching (antihistamines). ? Reduce swelling (corticosteroids). ? Treat infection (antibiotics). ??? An injectable medicine called omalizumab. You may need this if you have chronic idiopathic hives and still have symptoms even after you are treated with antihistamines. In severe cases, you may need to use a device filled with medicine that gives an emergency shot of epinephrine (auto-injector pen) to prevent a very bad allergic reaction (anaphylactic reaction). Follow these instructions at home: Medicines ??? Take and apply zxkx-srj-wridzlz and prescription medicines only as told by your health care provider. ??? If you were prescribed antibiotics, take them as told by your provider. Do not stop using the antibiotic even if you start to feel better. Skin care ??? Apply cool compresses to the affected areas. ??? Do not scratch or rub your skin. General instructions ??? Do not take hot showers or baths. This can make itching worse. ??? Do not wear tight-fitting clothing. ??? Use sunscreen. Wear protective clothing when you are outside. ??? Avoid anything that causes your hives. Keep a journal to help track what causes your hives. Write down: ? What medicines you take. ? What you eat and drink. ? What products you use on your skin. ??? Keep all follow-up visits. Your provider will track how well treatment is working. Contact a health care provider if: ??? Your symptoms do not get better with medicine. ??? Your joints are painful or swollen. ??? You have a fever. ??? You have pain in your abdomen. Get help right away if: ??? Your tongue, lips, or eyelids swell. ??? Your chest or throat feels tight. ??? You have trouble breathing or swallowing. These symptoms may be an emergency. Use the auto-injector pen right away. Then call 911. ??? Do not wait to see if the symptoms will go away. ??? Do not drive yourself to the hospital. This information is not intended to replace advice given to you by your health care provider. Make sure you discuss any questions you have with your health care provider. Document Revised: 04/06/2023 Document Reviewed: 03/28/2023 Madelaine Butler (more content not included)...[facility] 09-17-2024 History of Present illness Narrative* Benjamin Winters NP - 09/17/2024 9:40 AM EST Images from the original note were not included. [address] , [address] [facility], [address] P: [phone] F: [phone] [facility] Historian of [facility]: patient Mayo Hernandez is a 28 y.o. female who presents today to the Urgent Care with the following complaints and denials which have been present for 2 day(s). C/O Denies Symptom Comments [] [x] Lesion [x] [] Rash Hands and Feet [] [x] Lump [] [x] Bump [] [x] Depression [] [x] abscess [] [x] cellulitis [x] [] itching [x] [] pain [x] [] burning [] [x] Sensation of insects crawling Additional Comments: pt has taken hydrocortisone cream OTC medication without relief Pt denies the following living changes new laundry detergent and new body soap Rash is slightly raised/red in appearance hives or welts on bilateral hands and feet. Pt admits to rash spreading fast up legs and on arms as well. Pt describes as itching and burning. ROS A complete system ROS was performed and negative aside from the pertinent positives noted in the HPI and PE. Visit Vitals BP 130/80 (BP Location: Left arm, Patient Position: Sitting, BP Cuff Size: Adult) Pulse 97 Temp 98 F Wt 218 lb SpO2 98% BMI 30.40 kg/m OB Status Having periods Smoking Status Former BSA 2.23 m PHYSICAL EXAM Physical Exam Vitals reviewed. Constitutional: General: She is not in acute distress. Appearance: Normal appearance. HENT: Head: Normocephalic. Nose: Nose normal. Mouth/Throat: Mouth: Mucous membranes are moist. Pharynx: Oropharynx is clear. Eyes: Extraocular Movements: Extraocular movements intact. Conjunctiva/sclera: Conjunctivae normal. Pupils: Pupils are equal, round, and reactive to light. Cardiovascular: Rate and Rhythm: Normal rate and regular rhythm. Pulses: Normal pulses. Heart sounds: Normal heart sounds. Pulmonary: Effort: Pulmonary effort is normal. No respiratory distress. Breath sounds: No wheezing, rhonchi or rales. Musculoskeletal: General: Normal range of motion. Cervical back: Normal range of motion and neck supple. Skin: General: Skin is warm and dry. Findings: Erythema and rash present. Comments: Bilateral arms, bilateral lower legs, ankles Neurological: General: No focal deficit present. Mental Status: She is alert and oriented to person, place, and time. Psychiatric: Mood and Affect: Mood normal. TREATMENT PLAN 1. Rash and nonspecific skin eruption (Primary) Presents today for evaluation of rash that started 3 days ago. The criselda is widespread and located onlegs, arms, and hands. She denies any illnesses. Denies any changes or other rashes on people in the house. Will treat with oral steroid and oral antibiotic for coverage of secondary skin infection due to intense itching. Follow up with PCP if no improvement. - predniSONE (Deltasone) 20 MG tablet; Take 3 tabs for 2 days, 2 tabs for 2 days, 1 tab for 2 days,1/2 tab for 2 days then stop Dispense: 13 tablet; Refill: 0 - cephalexin (Keflex) 500 MG capsule; Take 1 capsule (500 mg) by mouth in the morning and 1 capsule(500 mg) in the evening and 1 capsule (500 mg) before bedtime. Do all this for 7 days. Dispense: 21capsule; Refill: 0 - triamcinolone acetonide (Kenalog-40) injection 40 mg documented in this [facility]01-14-2025 History of Present illness Narrative* Sony Disla MD - 08/06/2024 1:15 PM ESTAssociated Order(s): Colposcopy Post-Procedure Diagnose(s): LGSIL of cervix of undetermined significance Images from the original note were not included. Patient ID: Mayo Hernandez is a 28 y.o. female. Colposcopy Date/Time: 08/06/2024 1:25 PM Performed by: Sony Disla MD Authorized by: Sony Disla MD Consent: Patient questions answered: yes Consent obtained: Verbal Consent given by: Patient Pre-procedure: Prep solution(s): acetic acid Procedure: Colposcopy with: cervical biopsy Colposcopy details: Satisfactory. AW change at 4:00. Nearly the entire lesio was removed with single biopsy. ECC done. Cauterized with AgNO3 Cervix visibility: fully visualized SCJ visibility: fully visualized Lesion visualized: fully visualized Acetowhite lesion(s): cervix Ferric subsulfate solution applied: no Tampon inserted: no Post-procedure: Patient tolerance of procedure: Patient tolerated the procedure well with no immediate complications documented in this [facility]01-07-2025 History of Present illness Narrative* Sony Disla MD - 07/30/2024 11:45 AM EST Images from the original note were not included. Sony Disla MD Obstetrics and Gynecology Patient: Mayo Hernandez, : 1995 (28 y.o.) DOS 07/30/24 Exam Date: 07/30/2024 HPI: Yealry exam PAP 06/15: ASCUS/HPV+ Colpo 06/15: neg BX Today is 1st follow up PAP She does not need/want BC Visit Vitals BP 122/82 Wt 219 lb LMP 07/28/2024 BMI 30.54 kg/m OB Status Having periods Smoking Status Former BSA 2.23 m OB History Para Term AB Living 2 2 1 1 0 2 SAB IAB Ectopic Multiple Live Births 0 0 0 0 2 # Outcome Date GA Lbr Wale/2nd Weight Sex Type Anes PTL Lv 2 Term 2022 CS-LTranv CHARO 1 2017 [id number] Vag-Spont CHARO Obstetric Comments Colpo: 06/15-Benign Pap: 06/15-ASCUS, HPV Pos Pap: 10/13-LGSIL: HPV Pos Pap: 03/14-LGSIL Pap: 06/15-ASCUS, HPV Pos No control; every month, varies in blood loss, LMP: 07/28/24 Medication and Allergies Medication Documentation Review Audit Reviewed by Sarah Turcios MA (Health Insurance Adjuster) on 07/30/24 at 1149 Medication Order Taking? Sig Documenting Provider Last Dose Status No Medications to Display No Known Allergies Past Medical History: Diagnosis Date Clotting disorder ([facility]) 08/2022 premature rupture of membranes (PPROM) with onset of labor after 24 hours of rupture in first trimester, antepartum 02/07/2023 Varicella zoster Past Surgical History: Procedure Laterality Date SECTION, LOW TRANSVERSE VAGINAL DELIVERY 08/2016 Physical Exam: Objective Physical Exam Constitutional: Appearance: Normal appearance. Genitourinary: Vulva normal. Vaginal bleeding present. No vaginal discharge. Right Adnexa: not palpable. Left Adnexa: not palpable. No cervical lesion. Uterus is not enlarged or tender. Breasts: Right: Normal. Left: Normal. Pulmonary: Effort: Pulmonary effort is normal. Abdominal: General: Abdomen is flat. Palpations: Abdomen is soft. Neurological: Mental Status: She is alert. Associated Treatments and Results - ICD-10-CM 1. ASCUS with positive high risk HPV cervical R87.610 R87.810 2. HPV (human papilloma virus) infection B97.7 PAP repeated today Assessment/Plan No orders of the defined types were placed in this encounter. documented in this encounterGolden Valley Memorial [id number] History of Present illness Narrative* JUAN Julian - 07/07/2024 10:15 AM EST [address], [address] [facility], [address] P: [phone] F: [phone] HPI Historian of HPI: patient Mayo Hernandez is a 28 y.o. female who presents today to the Urgent Care with the following complaints and denials which have been present for 1 and 2 day(s). Pt reports sore throat, dry cough, nasal congestion. 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 Denies fevers, chills, myalgias, sob, wheezing. Denies any chance of and is not . C/O Denies Symptom Comments [] [x] Runny Nose [] [x] Difficulty Swallowing [x] [] Sore Throat [x] [] Cough [] [x] Ear Pain [] [x] Fever [] [x] Chills [x] [] Nasal Congestion [] [x] Myalgia [] [x] Sinus Pain [] [x] Sinus Pressure Additional Comments: Pt c/o white spots in her throat and is requesting strep testing at this time. ROS A complete system ROS was performed and negative aside from the pertinent positives noted in the HPI and PE. IH Testing: The following tests were performed PCR Strep Test SEE TEST(S) ORDERS FOR RESULTS PHYSICAL EXAM General Examination: alert, oriented, normal affect, well-appearing, in no acute distress, well developed, well nourished. Head: normocephalic, atraumatic Eyes: sclera non-icteric Ears: auditory canal clear, tympanic membrane intact, clear Nose: Slight congestion noted Oral Cavity: no lesions, mucosa moist Throat: symmetrical rise of soft palate and uvula, + erythema + white exudate b/l, right worse thenleft, tonsils 2+ b/l Lymph Nodes: + anterior b/l cervical adenopathy Heart: regular rate and rhythm, S1, S2 normal Lungs: clear to auscultation bilaterally. No wheezes, rales, rhonchi. Psych: alert, oriented, cognitive function intact, cooperative with exam. TREATMENT PLAN 1. Acute streptococcal pharyngitis (Primary) Discussed etiology and management. Discussed antibiotic therapy and common side effects. Discussed symptomatic therapy such as increase in liquids, sore throat spray including either menthol or benzocaine as tolerated, OTC Tylenol. Discussed contagious until been taking antibiotic for 24 hours. Advised if symptoms worsen, persist, or do not change to return for immediate re- evaluation. Follow up with pcp in 3-5 days. Off work Monday and Monday note provided per front end developer designer. Recommend new toothbrush day 3 of antibiotic. Patient voiced understanding and agreement with the plan. All questions/concerns addressed - amoxicillin (Amoxil) 500 MG capsule; Take 1 capsule (500 mg) by mouth in the morning and 1 capsule (500 mg) before bedtime. Do all this for 10 days. Dispense: 20 capsule; Refill: 0 2. Pharyngitis, unspecified etiology Strep pos, reviewed with pt. - STREP DNA PROBE documented in this encounterGolden Valley Memorial HospitalBihjeveyff29-51-1521 Telephone encounter Note* Telephone Encounter - Mason De Anda MS[place] [facility] [place]14/[place]24 5:35 PM EST GENETIC COUNSELING NOTE - CONSENT FOR CLINICAL GENOME SEQUENCING - PARENTAL SAMPLE Rodriguez Hernandez is a 28 year old female who is the mother of Tonya Hernandez, a seven year old female under our care in the cardiovascular genetics clinic. At Mayo's daughter's recent visit, Dominic Mandel MD, recommended proceeding with clinical genome sequencing, including a sample from Tonya and both parents. I called and spoke with Mayo on 06/14/2024 to review the consent form for genome sequencing for inclusion of her sample. The following information was reviewed with Mayo. Purpose and Nature of Genome Sequencing (GS) I discussed with Mayo Hernandez that GS is recommended for her daughter. I explained that this test looks for genetic changes (variants) in a person's DNA that may cause or contribute to their medical condition. This test is best interpreted when samples for both biological parents are included, when available. What Will and Will Not be Reported I explained that the GS test report will list and describe variants found in DNA that may be related to the reason for testing this child. The GS report will include variant inheritance if biologicalparental samples were included in the testing. Each biological parent tested will receive a GS report including variant(s) identified in the patient that were inherited from that biological parent. We reviewed the possible types of genetic testing results, including positive, negative, and variants of uncertain significance. Positive results can include both pathogenic (disease-causing) and likely pathogenic variants. Benign (not disease-causing) and likely benign results will not be reportedby the laboratory. Variants of uncertain significance are uncertain results for which there is currently not enough information to determine whether they are pathogenic or benign. We reviewed the difference between primary and secondary findings. Primary findings include changesin genes that could be consistent with the clinical features seen in Mayo's daughter. Secondaryfindings include changes in genes that are not directly related to her daughter's current health concerns. Secondary findings include the ACMG recommended medically actionable disorders. This includes disease-causing genetic changes in genes that increase the chance for a person to develop certain types of cancers or increase the chance for a person to develop certain types of cardiac disease, among others. This does not include findings in genes that cause adult onset neurological conditionsfor which there is no prevention or cure. Mayo Hernandez consented to receive secondary findings on the call today and this choice is marked on the consent form. Limitations of GS I reviewed that the accuracy of GS results depend on the: Quality and type of sample sent to the laboratory; Way the test is performed and analyzed by the laboratory; Accuracy of medical information provided; Accuracy of the family history provided, including how family members are related to each other. Inaccurate or incomplete medical information may lead to inaccurate results and such inaccuracies may impact both the patient and biological parent reports. I described the limitations of GS testing including: A chance of error or test failure. Not all genes involved in human genetic disorders are known, and not all genetic variants can be found by GS. All the genes present in human DNA are not tested, nor does GS test all parts of known genes. Certain types of genetic abnormalities cannot be found by GS but can still cause disease. It is possible that the child's medical condition has a non-genetic cause. I explained that the interpretation of the genetic variants is based on information available at the time of testing and may change in the future. The laboratory may learn new information about variants in the future which may change their interpretation. If significant, the laboratory may issue anupdated report to the ordering healthcare provider and/or other healthcare provider(s) involved in the child's medical care. If new information about the child's medical condition is discovered in the future, re-analysis of the child's GS data in light of this new information may be performed with additional charges. Parental samples submitted for initial analysis, and data generated in this process, may be re-used as part of this reanalysis. Unanticipated Consequences of GS and Other Risks I explained the potential risks associated with this test including that: Genetic test results could have importance for additional family members; testing of other family members may be recommended. It is possible to learn genetic information about the child and/or their family that is not directly related to the reason for ordering GS. This information might relate to diseases with symptoms that may develop in the future in the patient or other family members, as well as conditions with no current treatment. The GS test can determine biological relationships between the patient and parents who submit samples for this test. If the reported relationships are different from the GS results, this information will be disclosed to the ordering healthcare provider. Please note that determinations of biological relationships from the GS results cannot be used to legally determine paternity or maternity. The GS test results and data will be kept as part of the medical record. A very small risk exists for data to be unintentionally released/accessed. I discussed considerations related to genetic discrimination. At this time there are federal laws in place that prevent health insurers and most employers from discriminating based on genetic information, such as the Genetic Information Nondiscrimination Act (SOLOMON) of 2008. It is possible that thislaw, like any other, may become less or more protective in the future. There are currently no federal laws that prohibit life insurance, long-term care, or disability insurance companies from discriminating based on genetic information. Different states may have more comprehensive laws about preventing discrimination based on genetic test results. SOL[place]ON does not apply to the [place] armed forces or employers with fewer than 15 employees. Data Sharing and Publication I explained information related to data sharing and publication. Results, data, and clinical information (such as age, sex, and medical symptoms) may be shared with the medical and scientific community after all personal identifying information is removed. Data sharing and publication are done to improve genetic test result interpretation and to help understand how different genetic variants relate to medical symptoms. Results from GS may be published in the medical literature, as may the combined results from GS of many patients. These publications will not include any personal identifying information that would enable others to link the published result to a specific patient's identity, unless a separate consent to allow this is obtained. [facility] may analyze compiled genome sequencing data from many patients for construction quality control manager or to assess test performance. Results of these analyses may be published in the medical literature without personal identifying information. I explained that information on variant(s) and/or DNA sequencing data, along with patient clinical information, may be submitted to public databases and/or restricted, controlled-access databases. Although all specific personal identifying information will be removed when data are sent to public and controlled-access databases, each person's DNA sequencing data contains unique components, and it may be possible to re-identify a person by comparing his/her DNA sequencing data to information available in genetic/ancestry databases. Consent for Testing Mayo Hernandez expressed a good understanding of the information discussed and elected to submit his sample as part of her daughter's clinical genome sequencing through [facility]. An order will be placed in her [facility] chart for this testing. She requested a saliva sample and a kit will be sent to the home address. The results from the genome sequencing will be available about 10 weeks after the lab receives the samples. A wet signature from Mayo is not needed on the consent form, as Kelly Murcia MS, SUE was a witness for the consent today. At this time, all of her questions were answered and she was encouraged to reach out should additional questions or concerns arise. I spent 15 minutes on the phone with Mayo today. This plan is being carried out under the recommendations of Dominic Mandel MD. Mason De Anda MS, CGC Licensed, Certified Genetic Counselor [facility] Total Patient Care Time: 45 minutes Task(s) completed: Genetic Counseling, Genetic Test Order, Send-out Coordination, Phone Consent Clinic Subspecialty: CardioGenetics [facility]11-22-2024 Miscellaneous Notes* Telephone Encounter - Mason De Anda MS, CGC - 06/14/2024 5:35 PM EST GENETIC COUNSELING NOTE - CONSENT FOR CLINICAL GENOME SEQUENCING - PARENTAL SAMPLE Rodriguez Hernandez is a 28 year old female who is the mother of Tonya Hernandez, a seven year old female under our care in the cardiovascular genetics clinic. At Mayo's daughter's recent visit, Dominic Mandel MD, recommended proceeding with clinical genome sequencing, including a sample from Tonya and both parents. I called and spoke with Mayo on 06/14/2024 to review the consent form for genome sequencing for inclusion of her sample. The following information was reviewed with Mayo. Purpose and Nature of Genome Sequencing (GS) I discussed with Mayo Hernandez that GS is recommended for her daughter. I explained that this test looks for genetic changes (variants) in a person's DNA that may cause or contribute to their medical condition. This test is best interpreted when samples for both biological parents are included, when available. What Will and Will Not be Reported I explained that the GS test report will list and describe variants found in DNA that may be related to the reason for testing this child. The GS report will include variant inheritance if biologicalparental samples were included in the testing. Each biological parent tested will receive a GS report including variant(s) identified in the patient that were inherited from that biological parent. We reviewed the possible types of genetic testing results, including positive, negative, and variants of uncertain significance. Positive results can include both pathogenic (disease-causing) and likely pathogenic variants. Benign (not disease-causing) and likely benign results will not be reportedby the laboratory. Variants of uncertain significance are uncertain results for which there is currently not enough information to determine whether they are pathogenic or benign. We reviewed the difference between primary and secondary findings. Primary findings include changesin genes that could be consistent with the clinical features seen in Mayo's daughter. Secondaryfindings include changes in genes that are not directly related to her daughter's current health concerns. Secondary findings include the ACMG recommended medically actionable disorders. This includes disease-causing genetic changes in genes that increase the chance for a person to develop certain types of cancers or increase the chance for a person to develop certain types of cardiac disease, among others. This does not include findings in genes that cause adult onset neurological conditionsfor which there is no prevention or cure. Mayo Hernandez consented to receive secondary findings on the call today and this choice is marked on the consent form. Limitations of GS I reviewed that the accuracy of GS results depend on the: Quality and type of sample sent to the laboratory; Way the test is performed and analyzed by the laboratory; Accuracy of medical information provided; Accuracy of the family history provided, including how family members are related to each other. Inaccurate or incomplete medical information may lead to inaccurate results and such inaccuracies may impact both the patient and biological parent reports. I described the limitations of GS testing including: A chance of error or test failure. Not all genes involved in human genetic disorders are known, and not all genetic variants can be found by GS. All the genes present in human DNA are not tested, nor does GS test all parts of known genes. Certain types of genetic abnormalities cannot be found by GS but can still cause disease. It is possible that the child's medical condition has a non-genetic cause. I explained that the interpretation of the genetic variants is based on information available at the time of testing and may change in the future. The laboratory may learn new information about variants in the future which may change their interpretation. If significant, the laboratory may issue anupdated report to the ordering healthcare provider and/or other healthcare provider(s) involved in the child's medical care. If new information about the child's medical condition is discovered in the future, re-analysis of the child's GS data in light of this new information may be performed with additional charges. Parental samples submitted for initial analysis, and data generated in this process, may be re-used as part of this reanalysis. Unanticipated Consequences of GS and Other Risks I explained the potential risks associated with this test including that: Genetic test results could have importance for additional family members; testing of other family members may be recommended. It is possible to learn genetic information about the child and/or their family that is not directly related to the reason for ordering GS. This information might relate to diseases with symptoms that may develop in the future in the patient or other family members, as well as conditions with no current treatment. The GS test can determine biological relationships between the patient and parents who submit samples for this test. If the reported relationships are different from the GS results, this information will be disclosed to the ordering healthcare provider. Please note that determinations of biological relationships from the GS results cannot be used to legally determine paternity or maternity. The GS test results and data will be kept as part of the medical record. A very small risk exists for data to be unintentionally released/accessed. I discussed considerations related to genetic discrimination. At this time there are federal laws in place that prevent health insurers and most employers from discriminating based on genetic information, such as the Genetic Information Nondiscrimination Act (SOLOMON) of 2008. It is possible that thislaw, like any other, may become less or more protective in the future. There are currently no federal laws that prohibit life insurance, long-term care, or disability insurance companies from discriminating based on genetic information. Different states may have more comprehensive laws about preventing discrimination based on genetic test results. SOL[place]ON does not apply to the [place] armed forces or employers with fewer than 15 employees. Data Sharing and Publication I explained information related to data sharing and publication. Results, data, and clinical information (such as age, sex, and medical symptoms) may be shared with the medical and scientific community after all personal identifying information is removed. Data sharing and publication are done to improve genetic test result interpretation and to help understand how different genetic variants relate to medical symptoms. Results from GS may be published in the medical literature, as may the combined results from GS of many patients. These publications will not include any personal identifying information that would enable others to link the published result to a specific patient's identity, unless a separate consent to allow this is obtained. [facility] may analyze compiled genome sequencing data from many patients for construction quality control manager or to assess test performance. Results of these analyses may be published in the medical literature without personal identifying information. I explained that information on variant(s) and/or DNA sequencing data, along with patient clinical information, may be submitted to public databases and/or restricted, controlled-access databases. Although all specific personal identifying information will be removed when data are sent to public and controlled-access databases, each person's DNA sequencing data contains unique components, and it may be possible to re-identify a person by comparing his/her DNA sequencing data to information available in genetic/ancestry databases. Consent for Testing Mayo Hernandez expressed a good understanding of the information discussed and elected to submit his sample as part of her daughter's clinical genome sequencing through [facility]. An order will be placed in her [facility] chart for this testing. She requested a saliva sample and a kit will be sent to the home address. The results from the genome sequencing will be available about 10 weeks after the lab receives the samples. A wet signature from Mayo is not needed on the consent form, as Kelly Murcia MS, [facility] was a witness for the consent today. At this time, all of her questions were answered and she was encouraged to reach out should additional questions or concerns arise. I spent 15 minutes on the phone with Mayo today. This plan is being carried out under the recommendations of Dominic Mandel MD. Mason De Anda MS, [facility] Licensed, Certified Genetic Counselor [facility] Total Patient Care Time: 45 minutes Task(s) completed: Genetic Counseling, Genetic Test Order, Send-out Coordination, Phone Consent Clinic Subspecialty: CardioGenetics documented in [facility]Nat[facility] Telephone encounter Note* Telephone Encounter - Stephanie Chavez MA - 06/13/2024 10:01 AM EST Spoke to pt over the phone, pt verbally understood results and had no questions during time of call. [facility] [id number] Miscellaneous Notes* Telephone Encounter - Stephanie Chavez MA - 06/13/2024 10:01 AM EST Spoke to pt over the phone, pt verbally understood results and had no questions during time of call. * Telephone Encounter - JUAN Julian - 06/13/2024 9:00 AM EST Let pt know labs looked good, follow up with pcp. documented in this encounterGolden Valley [facility] [id number] Telephone encounter Note* Telephone Encounter - JUAN Julian - 06/13/2024 9:00 AM EST Let pt know labs looked good, follow up with pcp. [facility] Work Phone: [phone] History of Present illness Narrative* JUAN Julian - 06/12/2024 12:50 PM EST Images from the original note were not included. [address], [address] [facility], [address] P: [phone] F: [phone] HPI Historian of HPI: patient Mayo Hernandez is a 28 y.o. female who presents today to the Urgent Care with the following complaints and denials which have been present for 2 day(s). Pt c/o feeling nauseated, fatigued, light headed, hot and cold flashes. Pt denies feeling sick . Reports she has had a loose cough for about a week but does not feel sick . Denies sore throat/cough/body aches, chest pain, abd pain, abdominal cramping, vaginal discharge or itching, dysuria, fevers, palpitations. Pt denies current /breast feeding. Pt also c/o mild frontal headache. LMP 06/02/24-06/06/24. C/O Denies Symptom Comments [] [x] Abd Pain [x] [] Nausea [] [x] Vomiting [] [x] Loss of appetite [] [x] Fever Just feels hot flashes [x] [] Chills [] [x] Radiation of pain [] [x] OTC Medication use [] [x] PMHx of Abd issues Additional Comments: No Known Allergies No current outpatient medications Visit Vitals BP 138/88 Pulse 97 Temp 97.9 F Wt 220 lb SpO2 97% BMI 30.68 kg/m OB Status Having periods Smoking Status Some Days BSA 2.24 m ROS A complete system ROS was performed and negative aside from the pertinent positives noted in the HPI and PE. PHYSICAL EXAM General Examination: alert, oriented, normal affect, well-appearing, in no acute distress, well developed, well nourished. Head: normocephalic, atraumatic Eyes: sclera non-icteric Ears: auditory canal clear, tympanic membrane intact, clear Oral Cavity: no lesions, mucosa moist Throat: clear, symmetrical rise of soft palate and uvula, no erythema or exudate Lymph Nodes: no cervical adenopathy Heart: regular rate and rhythm, S1, S2 normal Lungs: clear to auscultation bilaterally. No wheezes, rales, rhonchi. Neuro: PERRLA, EOMI, finger to nose normal, gait steady, heel to toe normal, romberg negative Abd: soft, non-tender, no HSM, no palpable masses, no guarding or rigidity Extremities: no edema, no cyanosis Psych: alert, oriented, cognitive function intact, cooperative with exam. TREATMENT PLAN 1. Other fatigue (Primary) Discussed ddx for multiple vague symptoms. Her UA is normal and urine preg is negative, reviewed with pt. She is going to get some blood work done today and I will call her with results once available. Advised any new/worse sx to ER. Patient voiced understanding and agreement with the plan. All questions/concerns addressed. Must follow up with pcp in 3-5 days or sooner if needed. - CBC and differential - Comprehensive metabolic panel - Vitamin B12 2. Nausea See above. documented in this encounterGolden Valley Memorial [id number] Telephone encounter Note* Telephone Encounter - Divina Bob MA - 02/21/2023 2:10 PM EDT Called and scheduled pp visit. [id number] Miscellaneous Notes* Telephone Encounter - Divina Bob MA - 02/21/2023 2:10 PM EDT Called and scheduled pp visit. * Telephone Encounter - Rosalia Lopez - 02/16/2023 12:06 PM EDT Unable to lm, * Telephone Encounter - Ryan Alexandra MD - 02/16/2023 10:35 AM EDT Please schedule pt for visit on [facility] (02/27/2023) documented in this [facility]07-31-2023 History of Present illness Narrative* Jacqui Alejo RN - 02/20/2023 1:27 PM EDT Patient discharged to home with FOB at 1327. Patient has all belongings. Jesusita Shrestha RN reviewed paperwork with MOB. Answered all questions and concerns. Patient ambulated to car at 1327. * Triny Zhang PA-C - 02/20/2023 6:13 AM EDT Images from the original note were not included. Note- POST OPERATIVE DAY # 4 Mayo Hernandez is a 27 y.o. who was seen & examined today. Her was complicated by: Patient Active Problem List Diagnosis premature rupture of membranes (PPROM) with onset of labor after 24 hours of rupture in first trimester, antepartum Today she is doing well without any chief complaint. Her lochia is light. She denies Headache, Chest Pain, Vision Changes, and Shortness of Breath. She is ambulating well. Flatus present. Bowel movement present. Voiding without difficulty. She is tolerating solids. Pain is controlled yes. Vital Signs: Vitals: 02/18/23 2105 02/19/23 0752 02/19/23 1931 02/19/23 2031 BP: 138/82 123/81 (!) 134/92 134/81 BP Location: Left arm Patient Position: Lying Pulse: 73 76 82 84 Resp: 16 16 16 Temp: 36.8 C (98.2 F) 36.9 C (98.4 F) 36.9 C (98.4 F) TempSrc: Temporal Temporal Temporal SpO2: 98% 98% 100% Weight: Height: Urine Input & Output last 24hrs: No intake or output data in the 24 hours ending 07/31/23 0613 Physical Exam: GENERAL APPEARANCE: alert, well appearing, in no apparent distress ABDOMEN : benign non-tender, without masses or organomegaly palpable EXTREMITIES: no redness or tenderness in the calves or thighs, no edema NEUROLOGIC: alert, oriented, normal speech, no focal findings or movement disorder noted UTERUS : normal size, well involuted, firm, non-tender Desc; incision: healing well, no drainage, no erythema, no swelling, well approximated, slight bruising Labs: Lab Results Component Value Date WBC 11.0 (H) 02/14/2023 HGB 11.3 (L) 02/16/2023 HCT 36.7 02/14/2023 MCV 89.8 02/14/2023 PLT 210 02/14/2023 A+ Antibody Screen: No results found for: LABANTI No results found for: RUBELLAIGG LABOR DELIVERY ??? SCD's ONLY (labor through ambulation) SCD's PLUS Prophylactic Anticoagulation until discharge SCD's PLUS Prophylactic Anticoagulation for 6 weeks SCD's PLUS Therapeutic Anticoagulation for 6 weeks Vaginal Delivery [] BMI ? 40 kg/m2 Delivery All patients Vaginal Delivery [] BMI ? 40 kg/m2 AND [] Antepartum hospitalization ? 72 hours within the past month Delivery 1 Major Risk Factor: [] BMI ? 35 kg/m2 [] Low Risk Thrombophilia [] PPH+RBCs, IR, or operation [] Infection+Antibiotics [] Antepartum hospitalization ? 72 hours within the past month [] PMH: Sickle Cell, SLE, Cardiac Dz, Active IBD, Active Cancer, Nephrotic Syndrome OR 2 Minor Risk Factors: [] Multiple gestation [] Age > 40 [] PPH ? 1,000cc [] (+)FMH of VTE [] Smoker [] Preeclampsia [] BMI ? 40 kg/m2 AND [] Low Risk Thrombophilia OR ANY OF THE FOLLOWING: [] High Risk Thrombophilia without prior VTE [] Low Risk Thrombophilia with (+)FMH of VTE [] Any single prior VTE ANY OF THE FOLLOWING: [] Already on LMWH/UFH [] Multiple prior VTE [] High Risk Thrombophilia with prior VTE Low Risk Thrombophilia: FVL (heterozygous), Prothrombin (heterozygous), Protein C, Protein S High Risk Thrombophilia: FVL (homozygous), Prothrombin (homozygous), FVL+Prothrombin (heterozygous), Antithrombin III, APLS Assessment/Plan: Mayo Hernandez is a 27 y.o. POD # 4 s/p PLTCS 2/2 PPROM Care - Doing well, VSS - Male - both, breast and bottle feeding - Contraception: Per Private Attending - Encourage ambulation and use of incentive spirometer - D/C rodrigues catheter and saline lock IV on POD #1 - Postop Hb 11.3 - VTE Prophylaxis: Not Indicated PrewoSF - Mild range BP and proteinuria antepartum - s/p blood patch on 02/19 for spinal headache without VC or other symptoms - Asx today - One low mild range BP overnight PPROM - ROM 02/06/2023 - s/p 2 doses of BMZ - s/p mag Disposition: Continue current care Based on my clinical assessment, this patient Yes: Plan B - Risks and benefits discussed. safe for self discharge (does not need transport by wheelchair) if she so chooses. Provider's Name: MD Josette Garcia MD 02/20/2023, 6:13 AM Attestation Statement I saw and evaluated the patient. I agree with the findings and plans of the resident physician, andagree as documented in her note. Doing well POD#4, meeting milestones. CALERO has completely resolved s/p blood patch. BP remains stable, one isolated mild range, otherwise WNL. Ok for discharge to home. Plan f/up 3-5 days for BP and incision check, then 6 weeks routine PP. PP/post-op precautions and instruction provided. The total time spent on patient care today was 25 minutes. -10 minutes of the visit face to face patient care for counseling/coordination of care -15 minutes chart review and documentation , 9:13 AM * Triny Zhang PA-C - 02/19/2023 6:30 AM EDT Images from the original note were not included. Note- POST OPERATIVE DAY # 3 Mayo Hernandez is a 27 y.o. who was seen & examined today. Her was complicated by: Patient Active Problem List Diagnosis premature rupture of membranes (PPROM) with onset of labor after 24 hours of rupture in first trimester, antepartum Today she is doing well without any chief complaint. Her lochia is light. She denies Chest Pain, Vision Changes, and Shortness of Breath. She is ambulating well. Flatus present. Bowel movement present. Voiding without difficulty. She is tolerating solids. Pain is controlled yes. The patient has been having persistent headaches when upright and was told it was due to a spinal headache. She denies a blood patch at this time. She is getting some relief with ibuprofen and tylenol. Vital Signs: Vitals: 02/17/23 1935 02/17/23 2254 02/18/23 0718 02/18/23 2105 BP: 112/82 119/76 101/73 138/82 Pulse: 82 73 71 73 Resp: 18 18 18 16 Temp: 36.7 C (98 F) 36.7 C (98.1 F) 36.7 C (98 F) 36.8 C (98.2 F) TempSrc: Temporal Temporal Temporal Temporal SpO2: 98% 98% 98% 98% Weight: Height: Urine Input & Output last 24hrs: No intake or output data in the 24 hours ending 02/19/23 0630 Physical Exam: GENERAL APPEARANCE: alert, well appearing, in no apparent distress ABDOMEN : benign non-tender, without masses or organomegaly palpable EXTREMITIES: no redness or tenderness in the calves or thighs, no edema NEUROLOGIC: alert, oriented, normal speech, no focal findings or movement disorder noted UTERUS : normal size, well involuted, firm, non-tender Desc; incision: healing well, no drainage, no erythema, no swelling, well approximated, there is ecchymosis superior to the incision stable from previous exams. There is no induration or purulent discharge. Labs: Lab Results Component Value Date WBC 11.0 (H) 02/14/2023 HGB 11.3 (L) 02/16/2023 HCT 36.7 02/14/2023 MCV 89.8 02/14/2023 PLT 210 02/14/2023 A Antibody Screen: No results found for: LABANTI No results found for: RUBELLAIGG LABOR DELIVERY ??? SCD's ONLY (labor through ambulation) SCD's PLUS Prophylactic Anticoagulation until discharge SCD's PLUS Prophylactic Anticoagulation for 6 weeks SCD's PLUS Therapeutic Anticoagulation for 6 weeks Vaginal Delivery [] BMI ? 40 kg/m2 Delivery All patients Vaginal Delivery [] BMI ? 40 kg/m2 AND [] Antepartum hospitalization ? 72 hours within the past month Delivery 1 Major Risk Factor: [] BMI ? 35 kg/m2 [] Low Risk Thrombophilia [] PPH+RBCs, IR, or operation [] Infection+Antibiotics [] Antepartum hospitalization ? 72 hours within the past month [] PMH: Sickle Cell, SLE, Cardiac Dz, Active IBD, Active Cancer, Nephrotic Syndrome OR 2 Minor Risk Factors: [] Multiple gestation [] Age > 40 [] PPH ? 1,000cc [] (+)FMH of VTE [] Smoker [] Preeclampsia [] BMI ? 40 kg/m2 AND [] Low Risk Thrombophilia OR ANY OF THE FOLLOWING: [] High Risk Thrombophilia without prior VTE [] Low Risk Thrombophilia with (+)FMH of VTE [] Any single prior VTE ANY OF THE FOLLOWING: [] Already on LMWH/UFH [] Multiple prior VTE [] High Risk Thrombophilia with prior VTE Low Risk Thrombophilia: FVL (heterozygous), Prothrombin (heterozygous), Protein C, Protein S High Risk Thrombophilia: FVL (homozygous), Prothrombin (homozygous), FVL+Prothrombin (heterozygous), Antithrombin III, APLS Assessment/Plan: Mayo Hernandez is a 27 y.o. POD # 3 s/p PLTCS 2/2 PPROM Care - Doing well, VSS - Male - both, breast and bottle feeding - Contraception: Per Private Attending - Encourage ambulation and use of incentive spirometer - D/C rodrigues catheter and saline lock IV on POD #1 - Postop Hb 11.3Not Indicated - VTE Prophylaxis: PrewoSF - mild range BP and proteinuria antepartum - spinal headache this am without VC or other sxs. - normotensive - will continue to monitor 4. PPROM - ROM 02/06/2023 - 2 doses of BMZ - S/p mag 5. Disposition: Continue current care Based on my clinical assessment, this patient Yes: Plan B - Risks and benefits discussed. safe for self discharge (does not need transport by wheelchair) if she so chooses. Provider's Name: MD Larry Garcia MD 02/19/2023, 6:30 AM Attestation Statement I saw and evaluated the patient. I agree with the findings and plans of the resident physician, andagrshellie as documented in his note. Doing well overall POD#3, still c/o CALERO, now radiating down neck to shoulders. Better when laying flat. Has tried conservative management since yesterday, pain meds including Fioricet, heating pad, caffeine and increased fluids. VS including BP WNL. Initially did not want to meet with Anesthesia, now willing to discuss blood patch. Finding it hard to pump and visit baby in NICU with the CALERO. Anesthesia consult order. Patient desires discharge tomorrow POD#4, awaiting a room at [facility]. Continue current post-op/PP management. The total time spent on patient care today was 25 minutes. -10 minutes of the visit face to face patient care for counseling/coordination of care -15 minutes chart review and documentation , 9:17 AM * Mary Wyman - 02/18/2023 2:20 PM EDT .Nutrition update completed. Chart reviewed. Patient to be monitored and followed by the diet central supply technician. .BALBIR Ribeiro * Triny Zhang PA-C - 02/18/2023 6:18 AM EDT Images from the original note were not included. Note- POST OPERATIVE DAY # 2 Mayo Hernandez is a 27 y.o. who was seen & examined today. Her was complicated by: Patient Active Problem List Diagnosis premature rupture of membranes (PPROM) with onset of labor after 24 hours of rupture in first trimester, antepartum Today she is doing well without any chief complaint. Her lochia is light. She denies Headache, Chest Pain, Vision Changes, and Shortness of Breath. She is ambulating well. Flatus present. Bowel movement present. Voiding without difficulty. She is tolerating solids. Pain is controlled yes. Vital Signs: Vitals: 02/17/23 0759 02/17/23 1558 02/17/23 1935 02/17/23 2254 BP: 120/78 138/85 112/82 119/76 Pulse: 75 77 82 73 Resp: 18 18 18 18 Temp: 37.2 C (99 F) 36.8 C (98.2 F) 36.7 C (98 F) 36.7 C (98.1 F) TempSrc: Temporal Temporal Temporal Temporal SpO2: 97% 98% 98% 98% Weight: Height: Urine Input & Output last 24hrs: No intake or output data in the 24 hours ending 02/18/23 06 Physical Exam: GENERAL APPEARANCE: alert, well appearing, in no apparent distress ABDOMEN : mild tenderness diffusely, no peritoneal signs. Mildly painful along the incision. EXTREMITIES: no redness or tenderness in the calves or thighs, no edema NEUROLOGIC: alert, oriented, normal speech, no focal findings or movement disorder noted UTERUS : normal size, well involuted, firm Desc; incision: no drainage, well approximated, ecchymosis around the pfannenstiel incision Labs: Lab Results Component Value Date WBC 11.0 (H) 02/14/2023 HGB 11.3 (L) 02/16/2023 HCT 36.7 02/14/2023 MCV 89.8 02/14/2023 PLT 210 02/14/2023 LABOR DELIVERY ??? SCD's ONLY (labor through ambulation) SCD's PLUS Prophylactic Anticoagulation until discharge SCD's PLUS Prophylactic Anticoagulation for 6 weeks SCD's PLUS Therapeutic Anticoagulation for 6 weeks Vaginal Delivery [] BMI ? 40 kg/m2 Delivery All patients Vaginal Delivery [] BMI ? 40 kg/m2 AND [] Antepartum hospitalization ? 72 hours within the past month Delivery 1 Major Risk Factor: [] BMI ? 35 kg/m2 [] Low Risk Thrombophilia [] PPH+RBCs, IR, or operation [] Infection+Antibiotics [] Antepartum hospitalization ? 72 hours within the past month [] PMH: Sickle Cell, SLE, Cardiac Dz, Active IBD, Active Cancer, Nephrotic Syndrome OR 2 Minor Risk Factors: [] Multiple gestation [] Age > 40 [] PPH ? 1,000cc [] (+)FMH of VTE [] Smoker [] Preeclampsia [] BMI ? 40 kg/m2 AND [] Low Risk Thrombophilia OR ANY OF THE FOLLOWING: [] High Risk Thrombophilia without prior VTE [] Low Risk Thrombophilia with (+)FMH of VTE [] Any single prior VTE ANY OF THE FOLLOWING: [] Already on LMWH/UFH [] Multiple prior VTE [] High Risk Thrombophilia with prior VTE Low Risk Thrombophilia: FVL (heterozygous), Prothrombin (heterozygous), Protein C, Protein S High Risk Thrombophilia: FVL (homozygous), Prothrombin (homozygous), FVL+Prothrombin (heterozygous), Antithrombin III, APLS Assessment/Plan: Mayo Hernandez is a 27 y.o. POD # 2 s/p PLTCS 2/2 non reassuring well-being Care - Doing well, VSS - Male - both, breast and bottle feeding - Contraception: Per Private Attending - Encourage ambulation and use of incentive spirometer - D/C rodrigues catheter and saline lock IV on POD #1 - Postop Hb 11.3 - VTE Prophylaxis: Not Indicated PreEwoSF - BP's normotensive - Asymptomatic - Continue to monitor closely Disposition: Continue current care Based on my clinical assessment, this patient Yes: Plan B - Risks and benefits discussed. safe for self discharge (does not need transport by wheelchair) if she so chooses. Provider's Name: MD Larry Garcia MD 02/18/2023, 6:26 AM Attestation Statement I saw and evaluated the patient. I agree with the findings and plans of the resident physician, andagrshellie as documented in his note. Doing well POD#2, meeting milestones. Patient c/o off and on frontal CALERO, seems better in the morning and gets worse as the day progresses. No CALERO currently. Has been resting, taking pain meds, and didhave a coffee this morning. Advised patient to keep an eye on the CALERO, if returns can consult anesthesia re: spinal CALERO and management (d/w nurse). Advised patient that she can try adding an abdominal binder to decrease intraabdominal pressure if CALERO returns to continue trying conservative mgmt of spinal CALERO. Blood pressures normal range. Patient states that she would like discharge on Monday morning, as baby is in the [facility] NICU. Discussed will look as PP censes tomorrow, but would be ok with discharge POD#4. Continue current management. The total time spent on patient care today was 25 minutes. -10 minutes of the visit face to face patient care for counseling/coordination of care -15 minutes chart review and documentation , 9:16 AM * Triny Zhang PA-C - 02/17/2023 5:50 AM EDT Images from the original note were not included. Note- POST OPERATIVE DAY # 1 Mayo Hernandez is a 27 y.o. who was seen & examined today. Her was complicated by: Patient Active Problem List Diagnosis premature rupture of membranes (PPROM) with onset of labor after 24 hours of rupture in first trimester, antepartum Today she is doing well without any chief complaint. Her lochia is light. She denies Headache, Chest Pain, Vision Changes, and Shortness of Breath. She is ambulating well. Flatus present. Bowel movement present. Voiding without difficulty. She is tolerating solids. Pain is controlled yes. Vital Signs: Vitals: 02/16/23 0555 02/16/23 1727 02/16/23 1807 02/17/23 0006 BP: 127/68 130/83 131/84 123/61 Pulse: 87 72 72 70 Resp: 16 16 18 15 Temp: 36.7 C (98 F) 36.3 C (97.4 F) 36.9 C (98.4 F) 36.8 C (98.2 F) TempSrc: Oral Temporal Temporal Temporal SpO2: 100% 100% 100% 97% Weight: Height: Urine Input & Output last 24hrs: Intake/Output Summary (Last 24 hours) at 02/17/2023 0550 Last data filed at 02/16/2023 0800 Gross per 24 hour Intake 260.42 ml Output 2450 ml Net -2189.58 ml Physical Exam: GENERAL APPEARANCE: alert, well appearing, in no apparent distress ABDOMEN : benign non-tender, without masses or organomegaly palpable EXTREMITIES: no redness or tenderness in the calves or thighs NEUROLOGIC: alert, oriented, normal speech, no focal findings or movement disorder noted UTERUS : normal size, well involuted, firm, non-tender Desc; incision: Dressing in place without drainage, no surrounding erythema Labs: Lab Results Component Value Date WBC 11.0 (H) 02/14/2023 HGB 11.3 (L) 02/16/2023 HCT 36.7 02/14/2023 MCV 89.8 02/14/2023 PLT 210 02/14/2023 A Antibody Screen: No results found for: LABANTI No results found for: RUBELLAIGG LABOR DELIVERY ??? SCD's ONLY (labor through ambulation) SCD's PLUS Prophylactic Anticoagulation until discharge SCD's PLUS Prophylactic Anticoagulation for 6 weeks SCD's PLUS Therapeutic Anticoagulation for 6 weeks Vaginal Delivery [] BMI ? 40 kg/m2 Delivery All patients Vaginal Delivery [] BMI ? 40 kg/m2 AND [] Antepartum hospitalization ? 72 hours within the past month Delivery 1 Major Risk Factor: [] BMI ? 35 kg/m2 [] Low Risk Thrombophilia [] PPH+RBCs, IR, or operation [] Infection+Antibiotics [x] Antepartum hospitalization ? 72 hours within the past month [] PMH: Sickle Cell, SLE, Cardiac Dz, Active IBD, Active Cancer, Nephrotic Syndrome OR 2 Minor Risk Factors: [] Multiple gestation [] Age > 40 [] PPH ? 1,000cc [] (+)FMH of VTE [] Smoker [] Preeclampsia [] BMI ? 40 kg/m2 AND [] Low Risk Thrombophilia OR ANY OF THE FOLLOWING: [] High Risk Thrombophilia without prior VTE [] Low Risk Thrombophilia with (+)FMH of VTE [] Any single prior VTE ANY OF THE FOLLOWING: [] Already on LMWH/UFH [] Multiple prior VTE [] High Risk Thrombophilia with prior VTE Low Risk Thrombophilia: FVL (heterozygous), Prothrombin (heterozygous), Protein C, Protein S High Risk Thrombophilia: FVL (homozygous), Prothrombin (homozygous), FVL+Prothrombin (heterozygous), Antithrombin III, APLS Assessment/Plan: Mayo Hernandez is a 27 y.o. POD # 1 s/p PLTCS 2/2 Cat II, PPROM Care - Doing well, VSS - Male - Contraception: Declines - Encourage ambulation and use of incentive spirometer - D/C rodrigues catheter and saline lock IV on POD #1 - Postop Hb 11.3 - VTE Prophylaxis: Prophylactic Dosing until Discharge PreEwoSF -Met criteria with mild range BP and proteinuria -Bps trending normotensive overall with occasional mild range noted -Asx this AM -Continue to monitor PPROM -ROM 02/06/2023 @ 1730 -s/p 2 doses BMZ -s/p mag for neuroprotection Disposition: Continue current care Based on my clinical assessment, this patient Yes: Plan B - Risks and benefits discussed. safe for self discharge (does not need transport by wheelchair) if she so chooses. Provider's Name: MD Nicole Garcia, 02/17/2023, 5:50 AM Attestation Statement I saw and evaluated the patient. I agree with the findings and plans of the resident physician, andagree as documented in her note. Doing well POD#1, meeting milestones. BP normal range. Baby boy in [facility]. Continue current management. The total time spent on patient care today was 25 minutes. -10 minutes of the visit face to face patient care for counseling/coordination of care -15 minutes chart review and documentation , 10:11 AM * Gin Tesfaye, - 02/16/2023 9:27 AM EDT Julio Hernandez Study - Screen Failure RN noted that patient had delivered [id number] @ 0037 and call was not received to 24 hour research cell phone until day shift arrived. Breast assessment and pumping session not charted by warehouse shift supervisor staff. I rounded on subject this morning to evaluate at approximate 0800. Subject states she had to have an unscheduled during the night. She states she has not pumped at all since delivery. Subject did not meet study I&E criteria based on inclusion 4, as she did not initiate and expression of breast milk with Ameda Carol breast pump within 6 hours of delivery. Breast tissue assessment (Exclusion 1) is also unknown at this time. Subject did not use Ameda Carol pump at any pointwhile in her possession or participate in any study related procedures during night. At this time she has been determined to be a screen-failure on day of delivery. At end of discussion, subject did not have any immediate questions or concerns. Reassurance provided to subject about not participating. Reiterated voluntary nature or research and thanked her for her time. Ameda Carol pump taken [facility] to [facility]. Dr. Tesfaye notified of Subject 16 screen failure. For questions or concerns, please call the 24 Hour Research Cellphone ([phone]). I have reviewed the study documentation and am aware of the screen failure. Gin Tesfaye DO * Ashish Gilmore - 02/15/2023 8:10 AM EDT Weekly inpatient rounding done on subject yesterday morning. Subject denies any questions or concerns regarding Ameda Carol study or breast pump at this time. Will continue to monitor and intermittently touch base with nursing staff regarding subject enrollment and procedures. Please call the 24 Hour Research Cellphone ([phone]) if subject delivers. For the subject to remain enrolled in the study, a breast assessment must be charted before first pumping session. If breast assessment is normal, the first pumping session must be within 6 hours of delivery and subject must exclusively use Ameda Carol pump a minimum of 6 times per day to remain compliant with study. * Etta Kraus DO - 02/15/2023 5:31 AM EDT Images from the original note were not included. Maternal Medicine Service Resident Progress Note 02/15/2023 5:31 AM 02/07/2023 Hospital Day: 9 Mayo Hernandez, 27 y.o. 29w2d Patient has been seen and examined. Pt has no acute complaints this AM. Patient states that her bleeding has resolved and has not had another episode since the morning. She denies experiencing any headaches, abdominal pain, fevers, chills, or night sweats. She states she is still experiencing leakage of fluid at this time. Positive movement Negative vaginal bleeding Positive LOF Negative Contractions Vitals: 02/14/23 1556 02/14/23202602/15/23 0019 02/15/23 0411 BP: 130/79 132/79 116/69 BP Location: Left arm Patient Position: Sitting Pulse: 74 84 84 70 Resp: 18 18 18 16 Temp: 36.4 C (97.6 F) 37 C (98.6 F) 37.4 C (99.4 F) 37 C (98.6 F) TempSrc: Oral Temporal Temporal Temporal SpO2: 100% 98% 98% 98% Weight: Height: FHT: 130, moderate variability Accels: present Decels: absentabsent Contractions: none Physical Exam: Gen: NAD, resting comfortably in bed HEENT: Normocephalic, Atraumatic Resp: No increased WOB, no respiratory distress Card: Regular rate Abd: soft, NTND, no rebound, no guarding. negative fundal tenderness Ext: No calf tenderness, swelling Medications: Current Facility-Administered Medications Medication Dose Route Frequency Provider Last Rate Last Admin calcium gluconate 10 % injection 1 g 1 g IntraVENous PRN Bud Mahmood, DO ondansetron ODT (Zofran-ODT) disintegrating tablet 4 mg 4 mg Oral q8h PRN Bud Mahmood, DO 4 mgat 02/14/23 0626 Or ondansetron (Zofran) injection 4 mg 4 mg IntraVENous q6h PRN Bud Timoteo, DO polyethylene glycol (PEG) 3350 (Miralax) packet 17 g 17 g Oral Daily PRN Bud Timoteo, DO 17 g at 02/14/232028 vitamin tablet 1 tablet Oral Daily Bud Mahmood, DO 1 tablet at 02/14/23 0936 sodium chloride 0.9 % infusion 5-250 mL/hr IntraVENous PRN Bud Mahmood, DO sodium chloride 0.9% (NS) flush 5-40 mL 5-40 mL IntraVENous q12h Bud Mahmood, DO 10 mL at 07/23/23 2235 sodium chloride 0.9% (NS) flush 5-40 mL 5-40 mL IntraVENous PRN Bud Mahmood DO Assessment/Plan: Mayo Hernandez is a 27 y.o. female 29w2d PPROM - Ruptured 02/06/2023 at 1730 - S/p x2 dose of betamethasone 02/06-02/07. - S/p magnesium sulfate for 12 hrs for neuroprotection - S/p latency antibiotics - US BPP 02/10: 6/8, off for fluid, SANAZ 1 cm, no 2x2 pocket - Pending US BPP 02/17 - S/P NICU consult on 02/08 - Repeat exam 02/14 showed a closed cervix - Rh positive - Continue inpatient management until 34 weeks or sooner pending clinical indications PreEwoSF - Met criteria with 2 mild range BP >4hrs apart - Total protein slightly elevated at 16 on protein urine 02/07 - UPC ~.17 - CMP, CMP wnl - Asymptomatic w/ normal Bps overnight - Will continue to trend Bps and weekly labs History of Delivery - Delivered at 36 weeks for PPROM - Not on vaginal progesterone this - Per patient hx of quick labor IUP @ 29w2d - Dating by LMP - Cephalic on 02/10 - Monitorinhr TID - Diet:General - BMZ x2 on 02/06-02/07 Further plan pending d/w attending. Ashish Lujan 02/15/2023, 5:31 AM I saw and evaluated the patient, participating in the mark portions of the service. I reviewed the medical student's note. I agree with the medical student s findings and plan. Etta Kraus DO 02/15/2023 6:32 AM Associated attestation - Aubrie Pardo MD - 02/15/2023 4:42 PM EDT I independently saw and evaluated the patient. I agree with the findings and plan of care as documented in the resident's note. No vaginal bleeding or concerns today 27 yr old at 29 2/7 GA with the following: PPROM s/p Magnesium for neuroprotection, s/p BMZ x 2 and AGA growth s/p latency antibiotics reportswith past history of precipitous delivery low threshold to perform spec exam PreEwoSF by mild range BP and proteinuria. Watch for signs and symptoms of pre- eclampsia with SF plan for weekly labs History of not on vaginal progesterone not a candidate currently with PROM Ongoing inpatient hospitalization recommended and expectant management, no signs of chorioamnionitis or concerns currently. Recommend delivery for concerns of wellbeing, labor, vaginal bleedingor chorio whichever comes first prior to 34 weeks GA. She is a candidate for neuroprotection if delivery occurs prior to 32 weeks GA I spent 20 minutes in the visit today on the floor reviewing the chart, discussing the case with the residency staff and nursing Aubrie Pardo MD * Divya Quach - 02/14/2023 7:11 AM EDT Nutrition update completed. Chart reviewed. Patient to be monitored and followed by the diet central supply technician. * Rae Jackman RN - 02/14/2023 6:10 AM EDT Blood drawn for CBC & CMP on 2nd attempt from right AC ,URINE obtained for protien & creatinine,all sent to lab. * Etta Kraus DO - 02/14/2023 5:35 AM EDT Images from the original note were not included. Maternal Medicine Service Resident Progress Note 02/14/2023 5:35 AM 02/07/2023 Hospital Day: 8 Mayo Hernandez, 27 y.o. 29w1d Patient has been seen and examined. Pt has no complaints at this time. She denies any headaches, abdominal pain, fevers, chills, or night sweats. Positive movement Negative vaginal bleeding Positive LOF Negative Contractions Vitals: 02/13/23 1810 02/13/23 1815 02/13/23201902/13/23 2333 BP: 125/82 123/83 BP Location: Left arm Left arm Patient Position: Lying Sitting Pulse: 77 75 83 70 Resp: 18 18 Temp: 37.5 C (99.5 F) 36.9 C (98.4 F) TempSrc: Temporal Temporal SpO2: 97% 99% Weight: Height: FHT: 130, moderate variability Accels: present Decels: absentabsent Contractions: none Physical Exam: Gen: NAD, resting comfortably in bed HEENT: Normocephalic, Atraumatic Resp: No increased WOB, no respiratory distress Card: Regular rate Abd: soft, NTND, no rebound, no guarding. negative fundal tenderness Ext: No calf tenderness, swelling Medications: Current Facility-Administered Medications Medication Dose Route Frequency Provider Last Rate Last Admin calcium gluconate 10 % injection 1 g 1 g IntraVENous PRN Budsri Mahmood, DO ondansetron ODT (Zofran-ODT) disintegrating tablet 4 mg 4 mg Oral q8h PRN Bud Mahmood, DO 4 mgat 02/13/23 1020 Or ondansetron (Zofran) injection 4 mg 4 mg IntraVENous q6h PRN Bud Timoteo, DO polyethylene glycol (PEG) 3350 (Miralax) packet 17 g 17 g Oral Daily PRN Bud Mahmood, DO vitamin tablet 1 tablet Oral Daily Bud Timoteo, DO 1 tablet at 02/13/23 0918 sodium chloride 0.9 % infusion 5-250 mL/hr IntraVENous PRN Bud Timoteo, DO sodium chloride 0.9% (NS) flush 5-40 mL 5-40 mL IntraVENous q12h Bud Timoteo, DO 10 mL at 02/12/23 2235 sodium chloride 0.9% (NS) flush 5-40 mL 5-40 mL IntraVENous PRN Bud Timoteo, DO Assessment/Plan: Mayo Hernandez is a 27 y.o. female 29w1d PPROM - Ruptured 02/06/2023 at 1730 - S/p x2 dose of betamethasone 02/06-02/07. - S/p magnesium sulfate for 12 hrs for neuroprotection - S/p latency antibiotics - GBS negative - Urine culture negative - US BPP 02/10: 6/8, off for fluid, SANAZ 1 cm, no 2x2 pocket - S/P NICU consult on 02/08 - Continue inpatient management until 34 weeks or sooner pending clinical indications PreEwoSF - Met criteria with 2 mild range BP >4hrs apart - Total protein slightly elevated at 16 on protein urine 02/07 - Pending CMP, CBC, UPC today - Asymptomatic - BP NT overnight - Will continue to trend Bps and weekly labs History of Delivery - Delivered at 36 weeks for PPROM - Not on vaginal progesterone this - Per patient hx of quick labor IUP @ 29w1d - Dating by LMP - Cephalic on 02/10 - Monitorinhr TID - Diet:General - BMZ x2 on 02/06-02/07 Further plan pending d/w attending. Ashish Lujan 02/14/2023, 5:35 AM I saw and evaluated the patient, participating in the mark portions of the service. I reviewed the medical student s note. I agree with the medical student s findings and plan. Etta Kraus, 02/14/2023 6:32 AM Associated attestation - Aubrie Pardo MD - 02/14/2023 4:01 PM EDT I independently saw and evaluated the patient. I agree with the findings and plan of care as documented in the resident's note. Some pink this am 27 yr old at 29 1/7 GA with the following: PPROM s/p Magnesium for neuroprotection, s/p BMZ x 2 and AGA growth s/p latency antibiotics reportswith past history of precipitous delivery will plan spec post rounding today PreEwoSF by mild range BP and proteinuria. Watch for signs and symptoms of pre- eclampsia with SF plan for weekly labs History of not on vaginal progesterone Ongoing inpatient hospitalization recommended and expectant management, no signs of chorioamnionitis or concerns currently. Recommend delivery for concerns of wellbeing, labor, vaginal bleedingor chorio whichever comes first prior to 34 weeks GA. She is a candidate for neuroprotection if delivery occurs prior to 32 weeks GA I spent 25 minutes in the visit today on the floor reviewing the chart, discussing the case with the residency staff and nursing Aubrie Pardo MD * Etta DO Efra - 02/13/2023 5:12 AM EDT Images from the original note were not included. Maternal Medicine Service Resident Progress Note 02/13/2023 5:12 AM 02/07/2023 Hospital Day: 7 Mayo Hernandez, 27 y.o. 29w0d Patient has been seen and examined. Pt complains of continued LOF that has remained the same throughout admission. Patient states she had a headache last night that resolved with 1x dose of Reglan. Patient denies any headaches, vision changes, abdominal pain, or swelling this AM. Patient also denies any fevers, chills, or night sweats. Positive movement Negative vaginal bleeding Positive LOF Negative Contractions Vitals: 02/12/23 1208 02/12/23 1613 02/12/23 1945 02/12/23 2338 BP: 124/83 129/87 139/84 114/72 BP Location: Left arm Left arm Left arm Patient Position: Sitting Sitting Pulse: 92 80 92 73 Resp: 18 20 17 16 Temp: 37.1 C (98.8 F) 36.8 C (98.3 F) 36.8 C (98.3 F) 37.3 C (99.1 F) TempSrc: Temporal Temporal Temporal Temporal SpO2: 96% 98% 97% 96% Weight: Height: FHT: 140, moderate variability Accels: present Decels: absentabsent Contractions: none Physical Exam: Gen: NAD, resting comfortably in bed HEENT: Normocephalic, Atraumatic Resp: No increased WOB, no respiratory distress Card: Regular rate Abd: soft, NTND, no rebound, no guarding. negative fundal tenderness Ext: No calf tenderness, swelling Medications: Current Facility-Administered Medications Medication Dose Route Frequency Provider Last Rate Last Admin amoxicillin (Amoxil) capsule 500 mg 500 mg Oral 3 times per day Bud Mahmood DO 500 mg at 02/12/23 2235 azithromycin (Zithromax) tablet 500 mg 500 mg Oral Daily Bud Mahmood, DO 500 mg at 02/12/23 1004 calcium gluconate 10 % injection 1 g 1 g IntraVENous PRN Budsri Mahmood, DO ondansetron ODT (Zofran-ODT) disintegrating tablet 4 mg 4 mg Oral q8h PRN Bud Timoteo, DO 4 mgat 02/12/23 0315 Or ondansetron (Zofran) injection 4 mg 4 mg IntraVENous q6h PRN Budsri Mahmood, DO polyethylene glycol (PEG) 3350 (Miralax) packet 17 g 17 g Oral Daily PRN Bud Timoteo, DO vitamin tablet 1 tablet Oral Daily Bud Timoteo, DO 1 tablet at 02/12/23 1004 sodium chloride 0.9 % infusion 5-250 mL/hr IntraVENous PRN Bud Mahmood, DO sodium chloride 0.9% (NS) flush 5-40 mL 5-40 mL IntraVENous q12h Bud Mahmood, DO 10 mL at 02/12/23 2235 sodium chloride 0.9% (NS) flush 5-40 mL 5-40 mL IntraVENous PRN Bud Timoteo, DO Assessment/Plan: Mayo Hernandez is a 27 y.o. female 29w0d PPROM - Ruptured 02/06/2023 at 1730 - S/p x2 dose of betamethasone 02/06-02/07. - S/p magnesium sulfate for 12 hrs for neuroprotection - Last day of PO Amoxicillin and Azithromycin - Received 1x dose of Reglan overnight for headache - GBS negative - Urine culture negative - US BPP 02/10: 6/8, off for fluid, SANAZ 1 cm, no 2x2 pocket - S/P NICU consult on 02/08 - Continue inpatient management until 34 weeks or sooner pending clinical indications PreEwoSF - Met criteria with 2 mild range BP >4hrs apart - Total protein slightly elevated at 16 on protein urine 02/07 - Bps normotensive overnight, patient asymptomatic this am - Pending CMP, CBC on 02/14 - Will continue to trend Bps and weekly labs History of Delivery - Delivered at 36 weeks for PPROM - Not on vaginal progesterone this - Per patient hx of quick labor IUP @ 29w0d - Dating by LMP - Cephalic on 02/10 - Monitorinhr TID - Diet:General - BMZ x2 on 02/06-02/07 Further plan pending d/w attending. Ashish Lujan 02/13/2023, 5:12 AM I saw and evaluated the patient, participating in the mark portions of the service. I reviewed the med student s note. I agree with the med student s findings and plan. Etta Kraus DO 6:22 AM 02/13/2023 Associated attestation - Kelly Leslie DO - 02/13/2023 3:52 PM EDT Hospital Care (Independent): I independently saw and evaluated the patient. I agree with the findings and plan of care as documented in the resident's note. 27 y.o. yo at 29w0d hospital day 6 with PPROM. Stable maternal and status at this time. Pt requests to leave IV out. RN verified that she has good IV access and RN feels confident that IV could be quickly obtained in an emergency. Okay to leave IV out at this time to preserve IV sitesfor future use and increase pt comfort. Pt also desires wheelchair ride with family. R/B/A reviewedand pt agreeable. Chart review and preparation: 10 minutes. Face to face: 10 minutes. Documentation and care coordination: 8 minutes. Total time spent on patient care today: 28 minutes. * Kya Silver, - 02/12/2023 5:37 AM EDT Images from the original note were not included. Maternal Medicine Service Resident Progress Note 02/12/2023 7:13 AM 02/07/2023 Hospital Day: 6 Mayo Hernandez, 27 y.o. 28w6d Patient has been seen and examined. She is doing well this morning. She denies any fevers or chills. Notes continued leakage of fluid, but states it has not increased. She denies any headache, blurryvision, chest pain or shortness of breath. Positive movement Negative vaginal bleeding Negative LOF Negative Contractions Vitals: 02/11/23 1606 02/11/23 2002 02/12/23 0013 02/12/23 0551 BP: 139/87 122/83 99/67 104/65 BP Location: Left arm Left arm Left arm Left arm Patient Position: Sitting Pulse: 90 82 75 80 Resp: 18 18 17 18 Temp: 36.9 C (98.4 F) 36.6 C (97.9 F) 36.8 C (98.3 F) 36.9 C (98.5 F) TempSrc: Temporal Temporal Temporal Temporal SpO2: 98% 97% 97% 97% Weight: Height: FHT Baseline 140, moderate variability, spontaneous accelerations, no decelerations noted Physical Exam: Gen: NAD HEENT: Normocephalic, Atraumatic, EOMI, MMM Resp: no increased work of breathing Abd: soft, gravid, NTND, no rebound, no guarding, no fundal tenderness Ext: No LE edema, no calf tenderness or swelling Medications: Current Facility-Administered Medications Medication Dose Route Frequency Provider Last Rate Last Admin amoxicillin (Amoxil) capsule 500 mg 500 mg Oral 3 times per day Bud Mahmood, DO 500 mg at 02/12/23 0550 azithromycin (Zithromax) tablet 500 mg 500 mg Oral Daily Bud Mahmood, DO 500 mg at 02/11/23 0945 calcium gluconate 10 % injection 1 g 1 g IntraVENous PRN Bud Mahmood, DO ondansetron ODT (Zofran-ODT) disintegrating tablet 4 mg 4 mg Oral q8h PRN Bud Mahmood, DO 4 mgat 02/12/23 0315 Or ondansetron (Zofran) injection 4 mg 4 mg IntraVENous q6h PRN Bud Mahmood, DO polyethylene glycol (PEG) 3350 (Miralax) packet 17 g 17 g Oral Daily PRN Bud Mahmood, DO vitamin tablet 1 tablet Oral Daily Bud Mahmood, DO 1 tablet at 02/11/23 0945 sodium chloride 0.9 % infusion 5-250 mL/hr IntraVENous PRN Bud Mahmood, DO sodium chloride 0.9% (NS) flush 5-40 mL 5-40 mL IntraVENous q12h uBd Mahmood, DO 10 mL at 02/11/23 2147 sodium chloride 0.9% (NS) flush 5-40 mL 5-40 mL IntraVENous PRN Bud Mahmood DO Tdap (BoostRIX) vaccine 0.5 mL 0.5 mL IntraMUSCular Once Lilian Jarrett DO Assessment/Plan: Mayo Hernandez is a 27 y.o. female 28w6d PPROM - Ruptured 02/06/2023 at 1730 - Afebrile this morning, with no fundal tenderness - S/p x2 dose of betamethasone 02/06-02/07. - S/p magnesium sulfate for 12 hrs for neuroprotection - Continue PO Amoxicillin and Azithromycin for 5 days; on day 4 - GBS negative - Urine culture negative - Growth US 02/07: AGA EFW 1204 grams (53%), oligohydramnios w SANAZ of 1.3, 12/29 BPP, off for fluid - US BPP 02/12: 6/8, off for fluid, SANAZ 1 cm, no 2x2 pocket - S/P NICU consult on 02/08 - Continue inpatient management until 34 weeks or sooner pending clinical indications PreEwoSF - Met criteria with 2 mild range BP >4hrs apart - Bps normotensive overnight, patient asymptomatic this am - Total protein slightly elevated at 16 on protein urine 02/07 - Will continue to monitor and trend Bps History of Delivery - Delivered at 36 weeks for PPROM - Not on vaginal progesterone this - Pt denies any abdominal cramping this am - Per patient hx of quick labor IUP @ 28w6d - Dating by LMP - Cephalic - Monitorinhr TID - Diet:General - BMZ x2 on 02/06-02/07 Further plan pending d/w attending. Kya Silver, 02/12/2023, 7:13 AM Associated attestation - Aubrie Pardo MD - 02/12/2023 11:39 AM EDT I independently saw and evaluated the patient. I agree with the findings and plan of care as documented in the resident's note. Late entry no changes today 27 yr old at 28 6/7 GA with the following: PPROM s/p Magnesium for neuroprotection, s/p BMZ x 2 and AGA growth continued latency antibiotics reports with past history of precipitous delivery PreEwoSF by mild range BP and proteinuria. Watch for signs and symptoms of pre- eclampsia with SF plan for weekly labs History of not on vaginal progesterone Ongoing inpatient hospitalization recommended and expectant management, no signs of chorioamnionitis or concerns currently. Recommend delivery for concerns of wellbeing, labor, vaginal bleedingor chorio whichever comes first prior to 34 weeks GA. I spent 20 minutes in the visit today on the floor reviewing the chart, discussing the case with the residency staff and nursing Aubrie Pardo MD * Kya Silver, DO - 02/11/2023 5:16 AM EDT Images from the original note were not included. Maternal Medicine Service Resident Progress Note 02/11/2023 5:16 AM 02/07/2023 Hospital Day: 5 Mayo Hernandez, 27 y.o. 28w5d Patient has been seen and examined. Pt complains of continued intermittent leakage when moving. Shedenies any fevers, chills or night night sweats. She states she slept well. Positive movement Negative vaginal bleeding Positive LOF Negative Contractions Vitals: 02/10/23 1236 02/10/23 1628 02/10/23 2100 02/11/23 0007 BP: 122/74 125/76 107/68 114/71 BP Location: Patient Position: Pulse: 76 92 82 72 Resp: 16 16 15 15 Temp: 37.2 C (99 F) 36.9 C (98.5 F) 36.7 C (98 F) 36.5 C (97.7 F) TempSrc: Temporal Temporal Temporal Temporal SpO2: 98% 98% 98% 98% Weight: Height: FHT: 140, moderate variability Accels: present Decels: absent Contractions: none Physical Exam: Gen: NAD HEENT: Normocephalic, Atraumatic, EOMI, MMM Resp: No increased WOB, no respiratory distress Card: Regular rate Abd: soft, gravid, NTND, no rebound, no guarding. No fundal tenderness Ext: No LE edema, no calf tenderness or swelling Medications: Current Facility-Administered Medications Medication Dose Route Frequency Provider Last Rate Last Admin amoxicillin (Amoxil) capsule 500 mg 500 mg Oral 3 times per day Bud Mahmood, DO 500 mg at 02/10/23 2100 azithromycin (Zithromax) tablet 500 mg 500 mg Oral Daily Bud Mahmood, DO 500 mg at 02/10/23 0808 calcium gluconate 10 % injection 1 g 1 g IntraVENous PRN Bud Mahmood, DO ondansetron ODT (Zofran-ODT) disintegrating tablet 4 mg 4 mg Oral q8h PRN Bud Mahmood, DO 4 mgat 02/10/23 0935 Or ondansetron (Zofran) injection 4 mg 4 mg IntraVENous q6h PRN Bud Mahmood, DO polyethylene glycol (PEG) 3350 (Miralax) packet 17 g 17 g Oral Daily PRN Bud Mahmood, DO vitamin tablet 1 tablet Oral Daily Bud Mahmood, DO 1 tablet at 02/10/23 0808 sodium chloride 0.9 % infusion 5-250 mL/hr IntraVENous PRN Bud Mahmood, DO sodium chloride 0.9% (NS) flush 5-40 mL 5-40 mL IntraVENous q12h Bud Mahmood, DO 5 mL at 02/10/23 2245 sodium chloride 0.9% (NS) flush 5-40 mL 5-40 mL IntraVENous PRN Bud Mahmood, DO Assessment/Plan: Mayo Hernandez is a 27 y.o. female 28w5d PPROM - Ruptured 02/06/2023 at 1730 - Afebrile, with no fundal tenderness - S/p x2 dose of betamethasone 02/06-02/07. - S/p magnesium sulfate for 12 hrs for neuroprotection - Continue PO Amoxicillin and Azithromycin for 5 days; on day 3/5 - GBS negative - Urine culture negative - Growth US 02/07: AGA EFW 1204 grams (53%), oligohydramnios w SANAZ of 1.3, 12/29 BPP, off for fluid - US BPP yesterday 12/29, off for fluid, SANAZ 1 cm, no 2x2 pocket - S/P NICU consult on 02/08, appreciate recommendations - Continue inpatient management until 34 weeks or sooner pending clinical indications PreEwoSF - Met criteria with 2 mild range BP >4hrs apart - Bps normotensive overnight, patient asymptomatic this am - Total protein slightly elevated at 16 on protein urine 02/07 - Will continue to monitor and trend Bps - Patient asymptomatic this am History of Delivery - Delivered at 36 weeks for PPROM - Not on vaginal progesterone this - Per patient hx of quick labor IUP @ 28w5d - Dating by LMP - Cephalic on 02/07 - Monitorinhr TID - Diet:General - BMZ x2 on 02/06-02/07 Further plan pending d/w attending. Kya Silver, 02/11/2023, 5:16 AM Associated attestation - Aubrie Pardo MD - 02/11/2023 10:10 PM EDT I independently saw and evaluated the patient. I agree with the findings and plan of care as documented in the resident's note. Late entry no changes today 27 yr old at 28 5/7 GA with the following: PPROM s/p Magnesium for neuroprotection, s/p BMZ x 2 and AGA growth continued latency antibiotics reports with past history of precipitous delivery PreEwoSF by mild range BP and proteinuria. Watch for signs and symptoms of pre- eclampsia with SF plan for weekly labs History of not on vaginal progesterone Ongoing inpatient hospitalization recommended and expectant management, no signs of chorioamnionitis or concerns currently. Recommend delivery for concerns of wellbeing, labor, vaginal bleedingor chorio whichever comes first prior to 34 weeks GA. I spent 25 minutes in the visit today on the floor reviewing the chart, discussing the case with the residency staff and nursing Aubrie Pardo MD * Etta Kraus, - 02/10/2023 5:19 AM EDT Images from the original note were not included. Maternal Medicine Service Resident Progress Note 02/10/2023 5:19 AM 02/07/2023 Hospital Day: 4 Mayo Hernandez, 27 y.o. 28w4d Patient has been seen and examined. Pt complains of continued leakage of clear fluid, mostly when she gets up from bed. Patient states amount of leakage seems to be decreasing. Patient denies any fevers, chills, or night sweats. Per nurse, patient slept well throughout night with no complaints. Positive movement Negative vaginal bleeding Positive LOF Negative Contractions Vitals: 02/09/23 1624 02/09/23201102/10/23 0010 02/10/23 0408 BP: 121/82 95/64 99/67 110/73 BP Location: Left arm Left arm Left arm Left arm Patient Position: Sitting Lying Lying Lying Pulse: 73 71 73 63 Resp: 18 18 16 16 Temp: 36.7 C (98.1 F) 36.6 C (97.9 F) 36.6 C (97.9 F) 37 C (98.6 F) TempSrc: Oral Temporal Temporal Temporal SpO2: 98% 99% 97% 98% Weight: Height: FHT: 140, moderate variability Accels: present Decels: absentabsent Contractions: none Physical Exam: Gen: NAD, resting comfortably in bed HEENT: Normocephalic, Atraumatic Resp: No increased WOB, no respiratory distress Card: Regular rate Abd: soft, NTND, no rebound, no guarding. negative fundal tenderness Ext: No calf tenderness, swelling Medications: Current Facility-Administered Medications Medication Dose Route Frequency Provider Last Rate Last Admin amoxicillin (Amoxil) capsule 500 mg 500 mg Oral 3 times per day Bud Mahmood DO 500 mg at 02/09/23 2139 azithromycin (Zithromax) tablet 500 mg 500 mg Oral Daily Bud Mahmood DO 500 mg at 02/09/23 0841 calcium gluconate 10 % injection 1 g 1 g IntraVENous PRN Bud Mahmood DO ondansetron ODT (Zofran-ODT) disintegrating tablet 4 mg 4 mg Oral q8h PRN Bud Mahmood DO 4 mgat 02/08/23 0625 Or ondansetron (Zofran) injection 4 mg 4 mg IntraVENous q6h PRN Bud Timoteo, DO polyethylene glycol (PEG) 3350 (Miralax) packet 17 g 17 g Oral Daily PRN Bud Mahmood, DO vitamin tablet 1 tablet Oral Daily Bud Mahmood, DO 1 tablet at 02/09/23 0841 sodium chloride 0.9 % infusion 5-250 mL/hr IntraVENous PRN Budsri Mahmood, DO sodium chloride 0.9% (NS) flush 5-40 mL 5-40 mL IntraVENous q12h Bud Timoteo, DO 10 mL at 02/09/23 2139 sodium chloride 0.9% (NS) flush 5-40 mL 5-40 mL IntraVENous PRN Bud Timoteo, DO Assessment/Plan: Mayo Hernandez is a 27 y.o. female 28w4d PPROM - Ruptured 02/06/2023 at 1730 - remains Afebrile, with no fundal tenderness - S/p x2 dose of betamethasone 02/06-02/07. - S/p magnesium sulfate for 12 hrs for neuroprotection - Continue PO Amoxicillin and Azithromycin for 5 days; on day 25 - GBS negative - Urine culture negative - Growth US 02/07: AGA EFW 1204 grams (53%), oligohydramnios w SANAZ of 1.3, 12/29 BPP (off for fluid) - US BPP pending this AM - S/P NICU consult on 02/08, appreciate recommendations - Continue inpatient management until 34 weeks or sooner pending clinical indications PreEwoSF - Met criteria with 2 mild range BP >4hrs apart - remains asymptomatic and normotensive overnight - total protein slightly elevated at 16 on protein urine 02/07 - continue to monitor and trend Bps History of delivery -Delivered at 36 weeks for PPROM -Not on vaginal progesterone this -Per patient hx of quick labor IUP @ 28w4d - Dating by LMP - Cephalic on 02/07 - Monitorinhr TID - Diet:General - BMZ x2 on 02/06-02/07 Further plan pending d/w attending. Ashish Lujan 02/10/2023, 5:19 AM I saw and evaluated the patient, participating in the mark portions of the service. I reviewed the medical student s note. I agree with the medical student s findings and plan. Etta Frankjacinto, 02/10/2023 6:29 AM Associated attestation - Aubrie Pardo MD - 02/10/2023 6:17 PM EDT I independently saw and evaluated the patient. I agree with the findings and plan of care as documented in the resident's note. No complaints some cramping intermittently 27 yr old at 28 4/7 GA with the following: PPROM s/p Magnesium for neuroprotection, s/p BMZ x 2 and AGA growth continued latency antibiotics reports with past history of precipitous delivery PreEwoSF by mild range BP and proteinuria. Watch for signs and symptoms of pre- eclampsia with SF plan for weekly labs History of not on vaginal progesterone Ongoing inpatient hospitalization recommended and expectant management, no signs of chorioamnionitis or concerns currently. Recommend delivery for concerns of wellbeing, labor, vaginal bleedingor chorio whichever comes first prior to 34 weeks GA. I spent 25 minutes in the visit today on the floor reviewing the chart, discussing the case with the residency staff and nursing Aubrie Pardo MD * Ashish Gilmore - 02/09/2023 12:59 PM EDT Subject consented to the APS01 [employer] Breast Pump study on [id number]. See Documentation of Informed Consent in the Media Tab. Subject completed initial questionnaires and final enrollment is pending delivery and normal breasttissue assessment. Subject has [employer]meda Carol pump and supplies, pumping logs, and remaining questionnaires in room. Subject aware how to contact research staff with questions or concerns. consultants, bedside staff and maternal department managers notified of consent. Please call the 24 Hour [employer] Cellphone ([phone]) if subject delivers. For the patient to remain enrolled in the study, a breast assessment must be charted before first pumping session. If breast assessment is normal, the first pumping session must be within 6 hours of delivery. Patient must exclusively use Ameda Carol pump a minimum of 6 times per day over next 14 days and cannot breastfeed to remain compliant with study. * Latoya Farfan - 02/09/2023 9:14 AM EDT Nutrition rescreen completed. Chart reviewed. Patient to be monitored and followed by the diet central supply technician. Latoya Farfan DT * Etta Kraus DO - 02/09/2023 5:41 AM EDT Images from the original note were not included. Maternal Medicine Service Resident Progress Note 02/09/2023 5:42 AM 02/07/2023 Hospital Day: 3 Mayodylan Hernandez, 27 y.o. 28w3d Patient has been seen and examined. Pt has no complaints at this time. Slept throughout the night. Denies any fevers, chills, or night sweats. Positive movement Negative vaginal bleeding Negative LOF Negative Contractions Vitals: 02/08/23 1630 02/08/23 1700 02/08/23 2104 02/09/23 0005 BP: 105/62 111/70 BP Location: Left arm Pulse: 75 75 78 64 Resp: 17 17 Temp: 37.4 C (99.4 F) 37.4 C (99.4 F) TempSrc: Temporal Temporal SpO2: 98% 98% Weight: Height: FHT: 130, moderate variability Accels: present Decels: presentvariable @ 2219, otherwise no other decel noted Contractions: none Physical Exam: Gen: NAD, resting comfortably in bed HEENT: Normocephalic, Atraumatic Resp: No increased WOB, no respiratory distress Card: Regular rate Abd: soft, NTND, no rebound, no guarding. negative fundal tenderness Ext: No calf tenderness, swelling Medications: Current Facility-Administered Medications Medication Dose Route Frequency Provider Last Rate Last Admin amoxicillin (Amoxil) capsule 500 mg 500 mg Oral 3 times per day Bud Mahmood DO azithromycin (Zithromax) tablet 500 mg 500 mg Oral Daily Budsri Mahmood, DO calcium gluconate 10 % injection 1 g 1 g IntraVENous PRN Bud Mahmood, DO ondansetron ODT (Zofran-ODT) disintegrating tablet 4 mg 4 mg Oral q8h PRN Bud Mahmood, DO 4 mgat 02/08/23 0625 Or ondansetron (Zofran) injection 4 mg 4 mg IntraVENous q6h PRN Bud Mahmood, DO polyethylene glycol (PEG) 3350 (Miralax) packet 17 g 17 g Oral Daily PRN Budsri Mahmood, DO vitamin tablet 1 tablet Oral Daily Bud Mahmood, DO 1 tablet at 02/08/23 0953 sodium chloride 0.9 % infusion 5-250 mL/hr IntraVENous PRN Bud Mahmood, DO sodium chloride 0.9% (NS) flush 5-40 mL 5-40 mL IntraVENous q12h Bud Mahmood, DO 10 mL at 02/08/23 2354 sodium chloride 0.9% (NS) flush 5-40 mL 5-40 mL IntraVENous PRN Bud Mahmood, DO Assessment/Plan: Mayo Hernandez is a 27 y.o. female 28w3d PPROM - Ruptured 02/06/2023 at 1730 - remains Afebrile, with no fundal tenderness - S/p x2 dose of betamethasone 02/06-02/07. - S/p magnesium sulfate for 12 hrs for neuroprotection - Start on PO Amoxicillin and Azithromycin for 5 days - GBS negative - Growth US 02/07: AGA EFW 1204 grams (53%), oligohydramnios w SANAZ of 1.3, 6 BPP (off for fluid) - S/P NICU consult on 02/08, appreciate recommendations - Continue inpatient management until 34 weeks or sooner pending clinical indications gHTN with Proteinuria PreEwoSF? - Met criteria with 2 mild range BP >4hrs apart - remains asymptomatic and normotensive - total protein slightly elevated at 16 on protein urine 02/07 - consider repeat total protein level - continue to monitor and trend Bps History of delivery -Delivered at 36 weeks for PPROM -Not on vaginal progesterone this IUP @ 28w3d - Dating by LMP - Cephalic on 02/07 - Monitorinhr TID - Diet:General - BMZ x2 on 02/06-02/07 Further plan pending d/w attending. Ashish Le 02/09/2023, 5:42 AM I saw and evaluated the patient, participating in the mark portions of the service. I reviewed the medical student s note. I agree with the medical students s findings and plan. Etta DO Efra 02/09/2023 6:15 AM Associated attestation - Aubrie Pardo MD - 02/09/2023 11:40 AM EDT I independently saw and evaluated the patient. I agree with the findings and plan of care as documented in the resident's note. No complaints, significant other Helga in room sleeping today 27 yr old at 28 3/7 GA with the following: PPROM s/p Magnesium for neuroprotection, s/p BMZ x 2 and AGA growth continued latency antibiotics PreEwoSF by mild range BP and proteinuria. Watch for signs and symptoms of pre- eclampsia with SF History of not on vaginal progesterone Ongoing inpatient hospitalization recommended and expectant management, no signs of chorioamnionitis or concerns currently. Recommend delivery for concerns of wellbeing, labor, vaginal bleedingor chorio whichever comes first prior to 34 weeks GA. I spent 25 minutes in the visit today on the floor reviewing the chart, discussing the case with the residency staff and nursing Aubrie Pardo MD * Marielena Suazo RN - 02/08/2023 8:30 PM EDT Spoke to Dr. Franklin, requested that an order for saline flush orders be put into this pt's orders. Also asked to have toco orders entered to read as one hour tid to correspond with monitoring times. She states she will enter those orders as soon as she is able. * Ryan Alexandra MD - 02/08/2023 5:35 AM EDT Images from the original note were not included. Maternal Medicine Service Resident Progress Note 02/08/2023 5:35 AM 02/07/2023 Hospital Day: 2 Mayo Hernandez, 27 y.o. 28w2d Patient has been seen and examined. Patient has no complaints at this time. Patient states she slept throughout the night, she has clear LOF only, denies any contractions. She also states she is experiencing no fevers, chills, or night sweats. Positive movement Negative vaginal bleeding Positive LOF Negative Contractions Vitals: 02/07/23 1631 02/07/23 1958 02/08/23 0025 02/08/23 0431 BP: 136/86 126/89 112/67 108/65 Pulse: 83 81 68 73 Resp: Temp: 37.1 C (98.7 F) 37.4 C (99.3 F) 37.2 C (98.9 F) 37.3 C (99.1 F) TempSrc: Temporal Temporal Temporal Temporal SpO2: 98% 98% 96% 100% Weight: Height: FHT: 130, moderate variability Accels: present Decels: rare variable decel, overall reassuring Contractions: none Physical Exam: Gen: NAD HEENT: Normocephalic, Atraumatic, EOMI, MMM Resp: CTABL, no WRR Card: RRR S1S2 Abd: soft, gravid, NTND, no rebound, no guarding. negative fundal tenderness Ext: No LE edema, no calf tenderness or swelling Medications: Current Facility-Administered Medications Medication Dose Route Frequency Provider Last Rate Last Admin ampicillin (Omnipen) 2,000 mg in sodium chloride 0.9 % 100 mL IVPB 2,000 mg IntraVENous 4 times perday Bud Mahmood DO Stopped at 02/08/23 0051 Followed by [START ON 02/09/2023] amoxicillin (Amoxil) capsule 500 mg 500 mg Oral 3 times per day Bud Mahmood DO [START ON 02/09/2023] azithromycin (Zithromax) tablet 500 mg 500 mg Oral Daily Bud Mahmood DO calcium gluconate 10 % injection 1 g 1 g IntraVENous PRN Bud Jackovic, DO ondansetron ODT (Zofran-ODT) disintegrating tablet 4 mg 4 mg Oral q8h PRN Bud Mahmood, Or ondansetron (Zofran) injection 4 mg 4 mg IntraVENous q6h PRN Bud Mahmood, DO polyethylene glycol (PEG) 3350 (Miralax) packet 17 g 17 g Oral Daily PRN Bud Mahmood, DO vitamin tablet 1 tablet Oral Daily Bud Mahmood, DO 1 tablet at 02/07/23 0840 Assessment/Plan: Mayo Hernandez is a 27 y.o. female 28w2d PPROM - Ruptured 02/06/2023 at 1730 - Afebrile, VSS, no fundal tenderness - S/p x2 dose of betamethasone 02/06-02/07. - S/p magnesium sulfate for 12 hrs for neuroprotection - Continue on Azithromycin and Amp, start PO tomorrow - GBS and urine culture pending - Growth US 02/07: AGA EFW 1204 grams (53%), oligohydramnios w SANAZ of 1.3, 12/29 BPP (off for fluid) - NICU consulted, pending recs - Continue inpatient management until 34 weeks or sooner pending clinical indications tHTN Proteinuria - Mild range BP on 02/07 - Normotensive otherwise - ASX - CBC, CMP wnl on admission - UPC elevated at 0.51, no prior to compare - Continue trending Bps per protocol - If another elevated BP, will meet criteria for PreEwoSF History of delivery -Delivered at 36 weeks for PPROM -Not on vaginal progesterone this IUP @ 28w2d - Dating by LMP - Cephalic on 02/07 - Monitorinhr TID - Diet:General - BMZ x2 on 02/06-02/07 Further plan pending d/w attending. Ashish Lujan 02/08/2023, 5:35 AM Above documentation per Medical student with changes made to reflect current clinical status. PPROM, s/p BMZx2 and Mag for neuroprotection. Cervix appeared visually close on admission, No ctx on toco. Vertex presentation. Continue inpatient management. Mild range BP on 02/07, if another elevated BP, will meet criteria for PreEwoSF due to proteinuria. Ryan Alexandra MD 02/08/2023 6:28 AM Associated attestation - Aubrie Pardo MD - 02/08/2023 1:10 PM EDT I independently saw and evaluated the patient. I agree with the findings and plan of care as documented in the resident's note. 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 Recommend delivery for concerns of wellbeing, labor, vaginal bleedingor chorio whichever comes first prior to 34 weeks GA. I spent 25 minutes in the visit today on the floor reviewing the chart, discussing the case with the residency staff and nursing Aubrie Pardo MD documented in this [facility]07-31-2023 Miscellaneous Notes* Care Coordination - Latoya Wagner RN - 02/20/2023 1:25 PM EDT Date: 02/20/2023 Name: Mayo Hernandez : 1995 [facility] Information: [place] Patient Information Primary Caregiver: Self Accompanied by/Relationship: S/O;Family Marital Status: Single Support System: SO/Family Church/Cultural Factors: None Activities of Daily Living Communication: See demographics Living Arrangements Current Residence: Private residence Lives With: S/O; Family Support System: S/O; Family Income Information Income Source: Employed Financial Resource Strain How hard is it for you to pay for the very basics like food, housing, medical care and heating? N/A Housing Stability In the last 12 months, was there a time when you did not have a steady place to sleep or slept in ashelter (including now)? No Transportation Needs Has the lack of Transportation kept you from medical appointments? No In the past 12 months, has the lack of transportation kept you from meetings, work, or from gettingthings needed for daily living? No Food Insecurity Within the past 12 months, have you worried that your food would run out before you got the money to buy more? No Stress Do you feel stress - tense, restless, nervous, or anxious, or unable to sleep at night because you mind is troubled all the time? Mood stable Referral To Financial Resources: N/A Community Resources: Admission folder given upon admission to PP Unit Social Work: N/A CLP: N/A Medical Information s/p PCD for PNU admit for PPROM at 28/1 weeks; Infant in NICU Discharge Plan Home or Community Resources: Admission folder given upon admission to PP unit Equipment: N/A Education Given: Patient is independent and has insurance. She is prepared with her baby supplies. Denies any needs for housing, transportation or food. Discussion on the A. B. C's of safe sleep. Always place your baby on his or her back to sleep, use a firm sleep surface and your baby should not sleep in an adult bed, on a couch or chair. Keep soft objects, toys and loose bedding out of your baby's sleep area. Reviewed depression. It is common to have blues. This is a normal response to many of the hormonal changes, stress and lack of sleep that go with raising a and physically recovering from the . Don't hesitate to talk to your provider with any concerns. There are resources in your home going booklet. To help prevent germs from spreading to you and your baby, make sure everyone washes their hands before they handle your . Avoid crowds, and keep infant away from sick people, anyone who is sick with a cough or fever, including family members. Post- warning signs information reviewed with patient per nurse with discharge To be discharged to home. Denies any concerns at this time. Additional Information: N/A Mental Health Services: N/A Developmental Delay: N/A Children's Services: N/A * Care Coordination - LUCHO Mo - 02/17/2023 3:32 PM EDT Sw consult due to thc use. Tox screen positive thc on 02-06-23 while at [facility] in [place]. Baby born at 29 wks gestation and is in the [facility] NICU at [facility]. Childrens Sw has met with new mother and completed full Sw assessment. [facility] and mob is aware. NICU SW to follow. OK FOR MOB TO BE DC WHEN MEDICALLY READY. * Note - TERRY Noalsco - 02/17/2023 10:40 AM EDT This is the patient's second baby. She pumped and bottle fed one year with her first. This baby wasborn at 29 weeks and is in the NICU. She is going to contact nicu for a hospital pump for home. Shehas a credit card and her licence ready. Pt denies discomfort or problems with pumping. Reviewed settings and regimen, reviewed establishing a milk supply. Reviewed and shown breast milk storage chart. Discussed collection, labeling, storage and transport. Informed of support and how to contact as needed. Denies questions or needs at this time. * Care Coordination - Dian Hernandez RN - 02/17/2023 8:33 AM EDT Date: 02/17/2023 Name: Mayo Hernandez : 1995 Patient Information Primary Caregiver: Self Accompanied by/Relationship: S/O;Family Marital Status: single Support System: SO/Family Church/Cultural Factors: declined to answer Activities of Daily Living Communication: See demographics Living Arrangements Current Residence: Private residence Lives With: S/O; Family Support System: S/O; Family Income Information Income Source: Employed Financial Resource Strain How hard is it for you to pay for the very basics like food, housing, medical care and heating? N/A Housing Stability In the last 12 months, was there a time when you did not have a steady place to sleep or slept in ashelter (including now)? No Transportation Needs Has the lack of Transportation kept you from medical appointments? No In the past 12 months, has the lack of transportation kept you from meetings, work, or from gettingthings needed for daily living? No Food Insecurity Within the past 12 months, have you worried that your food would run out before you got the money to buy more? No Stress Do you feel stress - tense, restless, nervous, or anxious, or unable to sleep at night because you mind is troubled all the time? Mood stable Referral To Financial Resources: N/A Community Resources: Admission folder given upon admission to PP Unit Social Work: N/A CLP: N/A Medical Information 27 year old admitted for PPROM at 28/1 weeks. 2 Para 1. History of delivery. delivery for Cat II FHT, PPROM and preeclampsia without severe features. jn NICU Discharge Plan Home or Community Resources: Admission folder given upon admission to PP unit Equipment: N/A Education Given: Patient is independent and has insurance. She is prepared with her baby supplies. Denies any needs for housing, transportation or food. Discussion on the A. B. C's of safe sleep. Always place your baby on his or her back to sleep, use a firm sleep surface and your baby should not sleep in an adult bed, on a couch or chair. Keep soft objects, toys and loose bedding out of your baby's sleep area. Reviewed depression. It is common to have blues. This is a normal response to many of the hormonal changes, stress and lack of sleep that go with raising a and physically recovering from the . Don't hesitate to talk to your provider with any concerns. There are resources in your home going booklet. To help prevent germs from spreading to you and your baby, make sure everyone washes their hands before they handle your . Avoid crowds, and keep infant away from sick people, anyone who is sick with a cough or fever, including family members. Post- warning signs information reviewed with patient per nurse with discharge To be discharged to home. Denies any concerns at this time. Additional Information: N/A Mental Health Services: N/A Developmental Delay: N/A Children's Services: N/A * Note - Anne Marie Vasquez RN - 02/16/2023 10:29 AM EDT Patient in l&d due to full capacity on floor. Breast pump use indicated for this pt. Due to: 29 weeks in [facility] Hospital breast pump, supplies kit, swabs and colostrum collectors provided and set up for patient at the bedside. Instruction given on pump operation, settings, technique and frequency/duration. Return demonstration given by patient. Observation of pumping session and flange fitting done. Mom instructed to double pump every 2-3 hours for 8-10 times per day with at least one pump session between 12 and 6 AM. Suction to be set for comfort but recommend between 20-60%. Reassured patient that it is normal to not collect any significant amounts of breast milk in the first days of pumping, but consistent pumping is important and typically results in increased milk production. Discussed projectedamounts and daily goals. Reviewed breast massage and hand expression for increasing milk production. Reviewed colostrum collectors and swabs- how to use and collect colostrum and label swabs/syringes. Breast milk storage guidelines reviewed. Cleaning of pump parts reviewed and basin, soap and clean towels provided for this purpose. Encouraged skin to skin as soon as baby's condition is stable. Discussed plans for home electric breast pump. All questions answered. Will continue to monitor, encourage and support patient. Last was also and patient pumped for 1 year for infant. No longer eligible for ameda carol pump study since it's been over 6 hours after delivery. Educatedpatient would need rental pump for home through NICU * Op Note - Yomaira You MD - 02/16/2023 12:31 AM EDT Images from the original note were not included. Operative Note Patient: Mayo Hernandez : 1995 Date of Procedure: 02/16/2023 Principal Problem: premature rupture of membranes (PPROM) with onset of labor after 24 hours of rupture in first trimester, antepartum PREOPERATIVE DIAGNOSES: 1. at 29w3d 2. Unscheduled Primary 3. Cat II FHT 4. PPROM 5. PreEwoSF POSTOPERATIVE DIAGNOSES: 1. Same 2. Living , male PROCEDURE: Primary low transverse section SURGEON: Dr. You ASST: Dr. Mahmood ANESTHESIA: spinal ANTIBIOTIC(S): 2g Ancef and Azithromycin VAG PREP (Iodine): Yes FINDINGS: Normal appearing uterus, ovaries and fallopian tubes FLUIDS: 1800 ml crystalloids URINE: 200 ml EBL: 600 ml QBL: Quantitative Blood Loss (mL): 655 mL DRAINS: rodrigues catheter SPECIMENS: none COMPLICATIONS: none CONDITION: good, transferred to : post anesthesia recovery FINDINGS: Live male infant, Cephalic APGARS 1 min: 7 5 min: 8 Weight: 1440 grams Tubes and ovaries: within normal limits. Description: normal INDICATION FOR PROCEDURE Patient admitted to Labor and Delivery for PPROM, patient had already received latency antibiotics and betamethasone when first admitted. On hospital day 9, FHT became Cat II and therefore was consented for a primary section. She was started on Magnesium for neuroprotection and given rescue steroids. Patient was consented for a section and was agreeable to blood products as medically indicated. This was a unscheduled non-emergent section. DETAILS OF PROCEDURE: Patient was brought into the operating room and she was placed in the supine position slightly tilted to the left. The abdomen was prepped and draped in the usual manner. Anesthesia level was checked and was found to be adequate. The abdomen was entered through a pfannenstiel incision. The incision was carried through the subcutaneous tissue to the fascia which was nicked in the midline and carried transversely using paz scissors. Kochers were used to grasp the edges of the fascia and sharp and blunt dissection used to reflect the underlying rectus abdominis muscles. The muscles were in the midline bluntly and sharply exposing the parietal peritoneum.The peritoneum was entered bluntly. The peritoneal incision was extended bluntly with good visualization of bladder. Bladder retractor was placed as well as Malin retractor. The lower uterine segment was opened in a low transverse fashion with a scalpel. The amniotic cavity was entered and Clear amniotic fluid was noted. Bladder retractor and Malin retractor were removed, and baby was delivered from the cephalic presentation with fundal pressure without difficulty.The baby was handed over to the NICU personnel standing by. Placenta was extracted intact with gentle traction. The uterus was exteriorized and wrapped in a wet lap. The uterine cavity was swept and cleared of all clots and debris using a dry lap. The uterine incision was closed using a continuous locked suture of 0 monocryl. A second layer was performed. Hemostasis was ensured. The uterus was replaced in the abdomen. Hemostasis of the operative field was ensured and the gutters were cleared of all clots and debris. Fascia was closed with 0 Vicryl in a running fashion. Subcutaneous closure was performed with 3-0 Monocryl Hemostasis was ensured. Skin closure was performed with 4-0 Vicryl suture and steri-strips. Sponge, needle and instrument counts were correct twice. Patient was transferred to the recovery room in satisfactory stable condition. BUD MAHMOOD DO 02/16/2023 1:40 AM LABOR DELIVERY ??? SCD's ONLY (labor through ambulation) SCD's PLUS Prophylactic Anticoagulation until discharge SCD's PLUS Prophylactic Anticoagulation for 6 weeks SCD's PLUS Therapeutic Anticoagulation for 6 weeks Vaginal Delivery [] BMI ? 40 kg/m2 Delivery All patients Vaginal Delivery [] BMI ? 40 kg/m2 AND [] Antepartum hospitalization ? 72 hours within the past month Delivery 1 Major Risk Factor: [] BMI ? 35 kg/m2 [] Low Risk Thrombophilia [] PPH+RBCs, IR, or operation [] Infection+Antibiotics [x] Antepartum hospitalization ? 72 hours within the past month [] PMH: Sickle Cell, SLE, Cardiac Dz, Active IBD, Active Cancer, Nephrotic Syndrome OR 2 Minor Risk Factors: [] Multiple gestation [] Age > 40 [] PPH ? 1,000cc [] (+)FMH of VTE [] Smoker [] Preeclampsia [] BMI ? 40 kg/m2 AND [] Low Risk Thrombophilia OR ANY OF THE FOLLOWING: [] High Risk Thrombophilia without prior VTE [] Low Risk Thrombophilia with (+)FMH of VTE [] Any single prior VTE ANY OF THE FOLLOWING: [] Already on LMWH/UFH [] Multiple prior VTE [] High Risk Thrombophilia with prior VTE Low Risk Thrombophilia: FVL (heterozygous), Prothrombin (heterozygous), Protein C, Protein S High Risk Thrombophilia: FVL (homozygous), Prothrombin (homozygous), FVL+Prothrombin (heterozygous), Antithrombin III, APLS VTE Prophylaxis: Prophylactic Dosing until Discharge Procedures or Surgery: I was present for all mark elements of the procedure or surgery as described in the resident note. * Significant Event - Bud MahmoodDO - 02/15/2023 11:52 PM EDT Safety Huddle: FHT tracing Cat II for recurrent variable decels for the past 45min and now late decels despite conservative measures with IVF and repositioning. Pattern ran with Dr. Pardo and agrees to proceed withdelivery. Mag bolus running for neuroprotection and dose of BMZ given. SSE performed and closed cervix, no cord noted. Patient consented for PCD 2/2 Cat II FHT remote from delivery. Dr. You notified and counseled the patient as well on PCD. Consents signed. Huddle called, Dr. You, OB anesthesia, primary RN, battery recharger, NICU present and all in agreement.Will proceed with primary unscheduled, non-emergent section. BUD CRAVENDO IRVING 02/15/2023 11:54 PM * Care Coordination - Latoya Wagner RN - 02/13/2023 11:50 AM EDT Hospital day 6; Mood stable; no concerns at this time * Care Coordination - Latoya Wagner RN - 02/09/2023 3:48 PM EDT Spoke with pt re: +THC in [place]; Pamphlet given; pt states she used for N/V and appetite in earlier preg; Marijuana use during can be harmful to your baby's health. The chemicals in marijuana (in particular, THC) pass through your system to your baby and can negatively affect your baby's development. Some research shows that using marijuana while you are can cause health problems in newborns-- including low weight and developmental problems. Research shows marijuana use during may make it hard for your child to pay attention or to learn, these issues may only become noticeable as your child grows older Chemicals from marijuana can be passed to your baby through breast milk. THC is stored in fat and is slowly released over time, meaning an could be exposed for a longer period of time. * Care Coordination - Latoya Wagner RN - 02/07/2023 4:09 PM EDT Pt is a 27 yo admitted at 28/1 weeks for PPROM from [place]; denies concerns with food, transportation, or housing; no other concerns voiced at this time; will let primary RN know if any other needs arise that we can assist with documented in this [facility]07-31-2023 Note* Care Coordination - Latoya Wagner RN - 02/20/2023 1:25 PM EDT Date: 02/20/2023 Name: Mayo Hernandez : 1995 [facility] Information: [place] Patient Information Primary Caregiver: Self Accompanied by/Relationship: S/O;Family Marital Status: Single Support System: SO/Family Church/Cultural Factors: None Activities of Daily Living Communication: See demographics Living Arrangements Current Residence: Private residence Lives With: S/O; Family Support System: S/O; Family Income Information Income Source: Employed Financial Resource Strain How hard is it for you to pay for the very basics like food, housing, medical care and heating? N/A Housing Stability In the last 12 months, was there a time when you did not have a steady place to sleep or slept in ashelter (including now)? No Transportation Needs Has the lack of Transportation kept you from medical appointments? No In the past 12 months, has the lack of transportation kept you from meetings, work, or from gettingthings needed for daily living? No Food Insecurity Within the past 12 months, have you worried that your food would run out before you got the money to buy more? No Stress Do you feel stress - tense, restless, nervous, or anxious, or unable to sleep at night because you mind is troubled all the time? Mood stable Referral To Financial Resources: N/A Community Resources: Admission folder given upon admission to PP Unit Social Work: N/A CLP: N/A Medical Information s/p PCD for PNU admit for PPROM at 28/1 weeks; Infant in NICU Discharge Plan Home or Community Resources: Admission folder given upon admission to PP unit Equipment: N/A Education Given: Patient is independent and has insurance. She is prepared with her baby supplies. Denies any needs for housing, transportation or food. Discussion on the A. B. C's of safe sleep. Always place your baby on his or her back to sleep, use a firm sleep surface and your baby should not sleep in an adult bed, on a couch or chair. Keep soft objects, toys and loose bedding out of your baby's sleep area. Reviewed depression. It is common to have blues. This is a normal response to many of the hormonal changes, stress and lack of sleep that go with raising a and physically recovering from the . Don't hesitate to talk to your provider with any concerns. There are resources in your home going booklet. To help prevent germs from spreading to you and your baby, make sure everyone washes their hands before they handle your . Avoid crowds, and keep infant away from sick people, anyone who is sick with a cough or fever, including family members. Post- warning signs information reviewed with patient per nurse with discharge To be discharged to home. Denies any concerns at this time. Additional Information: N/A Mental Health Services: N/A Developmental Delay: N/A Children's Services: N/A [id number] NoteAddendum created 02/19/231652 by YANETH Ramsay CRNA Child order released for a procedure order, Clinical Note Signed, Intraprocedure Blocks edited, SmartForm [facility]Core[facility] NoteBlood Patch: Patient location during procedure: Floor Start time: 02/19/2023 3:50 PM End time: 02/19/2023 4:20 PM Time Out: 02/19/2023 3:52 PM Reason for Blood Patch: post-dural puncture headache Staffing: SEARCH STRATEGIST/Resident: YANETH Ramsay CRNA Other anesthesia staff: Dusty Ty CRNA Performed by: MAULIK Preanesthetic Checklist: Completed: patient identified, pre-op evaluation, risks and benefits discussed, monitors and equipment checked, IV bolus and anesthesia consent given Procedure Information: Location of venous blood draw: arm Patient position: sitting Prep: Chloraprep Patient monitoring: continuous pulse oximetry, EKG and blood pressure monitoring Approach: midline Injection technique: PATO saline Location: L4-5 Injection method: hustead Needle gauge: 17 Needle length: 10 cm Loss of resistance depth: 9 cm Assessment: Events: well [facility]Core[facility]-30-[facility]23 Note* Addendum Note - YANETH Ramsay CRNA - 02/19/2023 4:53 PM EDT Addendum created 02/19/231652 by YANETH Ramsay CRNA Child order released for a procedure order, Clinical Note Signed, Intraprocedure Blocks edited, SmartForm saved [facility] [id number] Miscellaneous Notes* Addendum Note - YANETH Ramsay CRNA - 02/19/2023 4:53 PM EDT Addendum created 02/19/231652 by YANETH Ramsay CRNA Child order released for a procedure order, Clinical Note Signed, Intraprocedure Blocks edited, SmartForm saved * Anesthesia Discharge Note - YANETH Roman CRNA - 02/16/2023 1:34 AM EDT Patient: Mayo Hernandez Procedure Summary Date: 02/16/23 Room / Location: [facility] Labor and Delivery Anesthesia Start: 10 Anesthesia Stop: 129 Procedure: DELIVERY (Abdomen) Diagnosis: ( Intolerance of Labor) Surgeons: Yomaira You MD Responsible Provider: Sony Alexandra MD Anesthesia Type: spinal ASA Status: 2 Anesthesia Type: spinal Vitals Value Taken Time BP 120/65 02/16/234 Temp 98.5 02/16/23133 Pulse 101 02/16/23 0134 Resp 17 02/16/23133 SpO2 100 02/16/23133 Anesthesia Post Evaluation Patient location during evaluation: PACU Patient participation: complete - patient participated Level of consciousness: awake and alert Pain management: satisfactory to patient Airway patency: patent Dental Injury: no Cardiovascular status: acceptable, blood pressure returned to baseline and hemodynamically stable Respiratory status: acceptable and spontaneous ventilation Hydration status: euvolemic Nausea/Vomiting: controlled No notable events documented. Patient can be discharged once all PACU criteria has been met. documented in this [facility]07-30-2023 Anesthesiology procedure note * Anesthesia Procedure Notes - YANETH Ramsay CRNA - 02/19/2023 4:32 PM EDTAssociated Order(s): Blood Patch Blood Patch: Patient location during procedure: Floor Start time: 02/19/2023 3:50 PM End time: 02/19/2023 4:20 PM Time Out: 02/19/2023 3:52 PM Reason for Blood Patch: post-dural puncture headache Staffing: SEARCH STRATEGIST/Resident: YANETH Ramsay CRNA Other anesthesia staff: Dusty Ty CRNA Performed by: MAULIK Preanesthetic Checklist: Completed: patient identified, pre-op evaluation, risks and benefits discussed, monitors and equipment checked, IV bolus and anesthesia consent given Procedure Information: Location of venous blood draw: arm Patient position: sitting Prep: Chloraprep Patient monitoring: continuous pulse oximetry, EKG and blood pressure monitoring Approach: midline Injection technique: PATO saline Location: L4-5 Injection method: carlitostead Needle gauge: 17 Needle length: 10 cm Loss of resistance depth: 9 cm Assessment: Events: well tolerated [facility] [id number] Surgical operation note* Anesthesia Procedure Notes - YANETH Ramsay CRNA - 02/19/2023 4:32 PM EDTAssociated Order(s): Blood Patch Blood Patch: Patient location during procedure: Floor Start time: 02/19/2023 3:50 PM End time: 02/19/2023 4:20 PM Time Out: 02/19/2023 3:52 PM Reason for Blood Patch: post-dural puncture headache Staffing: SEARCH STRATEGIST/Resident: YANETH Ramsay CRNA Other anesthesia staff: Dusty Ty CRNA Performed by: MAULIK Preanesthetic Checklist: Completed: patient identified, pre-op evaluation, risks and benefits discussed, monitors and equipment checked, IV bolus and anesthesia consent given Procedure Information: Location of venous blood draw: arm Patient position: sitting Prep: Chloraprep Patient monitoring: continuous pulse oximetry, EKG and blood pressure monitoring Approach: midline Injection technique: PATO saline Location: L4-5 Injection method: art Needle gauge: 17 Needle length: 10 cm Loss of resistance depth: 9 cm Assessment: Events: well tolerated * Anesthesia Postprocedure Evaluation - YANETH Roman CRNA - 02/16/2023 1:32 AM EDT Patient: Mayo Hernandez Procedure Summary Date: 02/16/23 Room / Location: [facility] Labor and Delivery Anesthesia Start: 10 Anesthesia Stop: 129 Procedure: DELIVERY (Abdomen) Diagnosis: ( Intolerance of Labor) Surgeons: Yomaira You MD Responsible Provider: Sony Alexandra MD Anesthesia Type: spinal ASA Status: 2 Anesthesia Type: spinal Vitals Value Taken Time BP 120/65 02/16/23 0132 Temp 98.5 02/16/23 0132 Pulse 101 07/27/23 0132 Resp 17 02/16/23 0132 SpO2 100 02/16/23 0132 Anesthesia Post Evaluation Patient location during evaluation: PACU Patient participation: complete - patient participated Level of consciousness: awake and alert Pain management: satisfactory to patient Multimodal analgesia pain management approach Airway patency: patent Two or more strategies used to mitigate risk of obstructive sleep apnea Cardiovascular status: acceptable and hemodynamically stable Respiratory status: acceptable Hydration status: acceptable No notable events documented. MIPS #430 PONV Patient did not receive an inhalational anesthetic (XX430) MIPS # 424 Perioperative Temperature Management Anesthesia time was 60 minutes or longer (4255F) Anesthesai administered was General (inhalational or TIVA) or Neuraxial block (X0424) At least one body temperature greater than 95.8F/35.5C achieved within the 30 mins immediately prior to or the 15 minutes immediately following anesthesia end time (G9771) MIPS #477 Multimodal Pain Management Emergent case Exlusion- Stop here (M1142) MIPS #404 Anesthesiology Smoking Abstinence The patient is not a current smoker (e.g. cigarette, cigar, pipe, e- cigarette/vaping/marijuana) If no stop here (XX404) I completed my handoff to the receiving clinician during which we: 1. Identified the patient 2. Identified the responsible provider 3. Reviewed the pertinent medical history 4. Discussed the surgical course 5. Reviewed intra-op anesthesia management and issues during anesthesia 6. Set expectations for post-procedure period 7. Allowed opportunity for questions and acknowledgement of understanding. * Anesthesia Procedure Notes - YANETH Roman CRNA - 02/16/2023 1:21 AM EDTAssociated Order(s): Peripheral Block Peripheral Block Time Out: 02/16/2023 1:15 AM Patient location during procedure: Procedural Start time: 02/16/2023 1:15 AM End time: 02/16/2023 1:20 AM Reason for block: at surgeon's request and post-op pain management Staffing Performed: SEARCH STRATEGIST Resident/SEARCH STRATEGIST: YANETH Roman CRNA Preanesthetic Checklist Completed: patient identified, IV checked, site marked, risks and benefits discussed, surgical consent, monitors and equipment checked, pre-op evaluation and timeout performed Region: Truncal Primary: TAP (60ml of Bupivacaine 0.375% with dexamethasone 0.01% with epinephrine 1:200,000 divided evenly bilaterally) Peripheral Block Patient position: supine Prep: ChloraPrep Patient monitoring: heart rate, restaurant front manager and continuous pulse ox O2: Room air Laterality: bilateral Injection technique: single-shot Guidance: ultrasound guided -image retained in chart, tip of the needle identified by ultraound during injection. Needle Needle: 21G X 110 mm Additional Notes 02/16/2023 1:15 AM Assessment Injection assessment: negative aspiration for heme, no paresthesia on injection, incremental injection and local visualized surrounding nerve on ultrasound Paresthesia pain: none Heart rate change: no Slow fractionated injection: yes Required Documentation: Relevant anatomy identified (Nerves, Vessels, Muscles), Negative for blood on aspiration, Local anesthetic injected incrementally with intermittent aspiration every 5 mL, No EKG changes noted, No symptoms of toxicity, Local anesthetic spread visualized around nerves or plane., Normal resistance with injection, No paresthesias reported by patient during injection and Local anesthetic injected without difficultyMedications [id number]-[id number] (TAP) syringe - Injection 50 mL - 02/16/2023 1:18:00 AM * Anesthesia Procedure Notes - YANETH Roman CRNA - 02/16/2023 12:15 AM EDTAssociated Order(s): Spinal Block Spinal Block Time Out: 02/16/2023 12:14 AM Patient location during procedure: OB Start time: 02/16/2023 12:14 AM End time: 02/16/2023 12:17 AM Reason for block: primary anesthetic Staffing Performed: SEARCH STRATEGIST Resident/SEARCH STRATEGIST: YANETH Roman CRNA Performed by: YANETH Roman CRNA Authorized by: YANETH Roman CRNA Preanesthetic Checklist Completed: patient identified, IV checked, site marked, risks and benefits discussed, surgical consent, monitors and equipment checked, pre-op evaluation and timeout performed Spinal Block Patient position: sitting Prep: ChloraPrep Sterility prep: drape Sedation level: no sedation Patient monitoring: continuous pulse oximetry and heart rate Approach: midline Location: L3-4 Injection technique: single-shot Needle Needle type: pencil-tip Needle gauge: 24 G Needle length: 10 cm Medications Administered bupivacaine in dextrose (Marcaine Spinal) 0.75-8.25 % injection - Intrathecal 13.5 mg - 02/16/2023 12:14:00 AM morphine PF (Duramorph) 0.5 MG/ML injection - Intrathecal 150 mcg - 02/16/2023 12:14:00 AM Assessment Sensory level: T10 Block outcome: block to be assessed in the OR Number of attempts: 1 Additional Notes Free flow CSF. No Heme. No Parathesia * Anesthesia Preprocedure Evaluation - YANETH Roman CRNA - 02/15/2023 11:48 PM EDT Patient: Mayo Hernandez Procedure Information Date: 02/15/23 Procedure: Labor Analgesia Relevant Problems No relevant active problems Clinical information reviewed: Allergies Meds Physical Exam Airway Mallampati: III TM distance: >3 FB Neck ROM: full Mouth Open: normalendotracheal tube not in place Cardiovascular - normal exam Dental Pulmonary - normal exam Abdominal - normal exam Anesthesia Plan patient is NPO appropriate Any family history or previous problems with anesthesia no ASA 2 spinal Any family history or previous problems with anesthesia no The patient is not a current smoker. Anesthetic plan and risks discussed with patient. Use of blood products discussed with who consented to blood products. Additional Equipment Requests documented in this enc[id number] Consult note* Lissette Schneider - 02/19/2023 10:[address] Anil Guerra for anesthesiology consult by Secure Chat, He will have a SEARCH STRATEGIST see the patient today. Leonard US [facility] [id number] Consult note* Lissette Schneider - 02/19/2023 10:[address] Anil Guerra for anesthesiology consult by Secure Chat, He will have a SEARCH STRATEGIST see the patient today. Leonard US * Mildred Santos MD - 02/09/2023 1:00 PM EDTAssociated Order(s): IP CONSULT TO NEONATOLOGY Consult by Neonatology Request by OB: Dr. Leslie Reason for Consult: 28wk pprom Maternal History and current problem: PPROM 02/06/23 around 1730 Significant history: Per H&P Patient noted water broke around 1730 on 02/06/2023, she went to [facility] where she was noted to be P PROM. They started her on penicillin and gave her a dose of betamethasone and transported to our hospital. She is comfortable, she declines any contractions at this time. She denies any vaginal bleeding or decreased movement. Her is uncomplicated. She does have a history of a delivery at 36 weeks and her first , she presented with PPROM as well at that time and delivered within a few days of admission. She has not been on any vaginal progesterone during this . Medications: PNV Betamethasone given: 02/06, 02/07 Labs: Blood type: A+ Antibody: neg GBS: unk Hepatitis B Ag: RPR: Rubella: HIV: Hepatitis C: neg GC/CT: neg HSV history: unk CF: Glucose challenge test: Present for Consult: Patient, maternal grandmother, maternal aunts Baby Sex: boy Baby Name: Marcin US findings: EFW ~1200g (53% on 02/07), low SANAZ Any known anomalies: none I discussed: Survival statistics (>90%) Delivery room management: Delayed cord clamping, possible need for CPAP, Oxygen, intubation and surfactant. IV access, possible need for advanced resuscitation, possible need for umbilical lines. Baby is a full resuscitation. Respiratory distress syndrome, chronic lung disease Feeding with NG tube and benefit of MBM. Mom plans on providing MBM--she reports providing BrM for her daughter. Fortification of MBM. Feeding readiness and growth expectations, Risk of Necrotizing enterocolitis Jaundice and phototherapy Apnea of prematurity and caffeine Possible need for transfusion Heart Murmur: PDA Neurodevelopmental Outcome and Risk: IVH Retinopathy of prematurity Hearing problems Risk of infection- early and late onset Skin to skin opportunities Physiologic criteria for discharge and timing of discharge estimate from NICU Potential need for transfer to [facility] if needs esclation of care, based on a varietyof factors. Handouts given. No further questions. Mom's older child delivered at 36wks GA, complex congenital heart defect with heterotaxy--spent significant time in CVICU at [facility]. She is familiar with pumping/providing BrM and plans to do the same for this baby. Reviewed anticipated length of stay,discharge criteria (good PO intake, weight gain, stable temps in open crib, and free from apnea/bradycardia events). A/P: Patient is a 27 Year old G2 P 1 At 28 Weeks With PPROM 1. Current Management per OB 2. NICU to attend delivery 3. Call NICU if further questions. Consult done on 02/08/23. Total consult time 50 min, >50% face to face. Mildred Santos MD documented in this [facility]07-28-2023 Note* Care Coordination - LUCHO Mo - 02/17/2023 3:32 PM EDT Sw consult due to thc use. Tox screen positive thc on 02-06-23 while at [facility] in [place]. Baby born at 29 wks gestation and is in the Children NICU at [facility]. [facility] Sw has met with new mother and completed full Sw assessment. [facility] and mob is aware. NICU SW to follow. OK FOR MOB TO BE DC WHEN MEDICALLY READY. [facility] Work Phone: 1(274) 231-626907-28-2023 Obstetrics Note* Note - TERRY Nolasco - 02/17/2023 10:40 AM EDT This is the patient's second baby. She pumped and bottle fed one year with her first. This baby wasborn at 29 weeks and is in the NICU. She is going to contact nicu for a hospital pump for home. Shehas a credit card and her licence ready. Pt denies discomfort or problems with pumping. Reviewed settings and regimen, reviewed establishing a milk supply. Reviewed and shown breast milk storage chart. Discussed collection, labeling, storage and transport. Informed of support and how to contact as needed. Denies questions or needs at this time. [id number] Discharge instructions* Discharge Instructions* Triny Zhang PA-C - 02/17/2023 10:12 AM EDT Thank you for allowing us to care of you at [facility]. This time can be one of many emotional ups and downs and many changes in your life. In these first weeks try to take good care of yourself because you will likely feel very tired. It may take 4 to 6 weeks to feel like yourself again, and possibly longer if you had a . FOLLOW-UP: Your follow-up care is a mark part of your treatment and safety. Follow-up with your OB provider in 4 weeks or as specified by your OB provider. If you had high blood pressure, visit your OB provider within 3-5 days after being home. Most women's blood pressure will return to pre- levels after delivery. However, some patients continueto have problems with their blood pressure, and some even get worse. Very high blood pressure can lead to seizures or stroke which can be life threatening. If ordered by your provider, take your blood pressure at home and call your OB provider if you have a high reading. Your OB provider can write you a prescription for a blood pressure monitor if you do not have one. Be sure to make and go to all appointments, and call your OB provider if you are having problems. It's also a good idea to know your test results and keep a list of the medicines you take. BLEEDING Vaginal bleeding will decrease in amount over the next few weeks. Bleeding may merchandise pickup/receiving associate and then decrease again around 7-10 days . Use pads instead of tampons for the bloody flow that may last as long as 2 weeks. You will notice that as your activity increases, your flow may increase. Call your provider if you are saturating one maxi pad in an hour & passing large clots for 3 hours or more. ACTIVITY NO SEXUAL activity for 6 weeks or until advised by your OB provider; Nothing in vagina: intercourse, tampons, or douching. Begin to think about your reproductive life plan. Talk to your OB provider about if and when you would like another baby in the future. The recommendation for safe spacing is 18-24 months. Showering is okay; NO tub baths, swimming, or hot tubs. Gradually increase your activity. Resume exercise regimen only after advised by your )OB provider. Avoid lifting anything heavier than ten pounds or a gallon of milk for six weeks. Avoid driving 1 week for vaginal delivery and 2 weeks for section, or longer if you are onprescription pain medicine unless otherwise instructed by your OB provider. Rise slowly from a lying to sitting and then a standing position. Climb stairs carefully. You may feel tired or have a lack of energy. You may continue your vitamin to replenish nutrients post-delivery. Nap when whenever you can to catch up on sleep. EMOTIONS You may feel jiménez, sad, teary, & overwhelmed for the first 2 weeks ; however, feelings of depression may occur any time within the first year after delivery. Contact your OBprovider if you feel you may be showing signs of depression, or have thoughts of harmingyourself or anyone. WOUND CARE For Vaginal Delivery: Shower daily, and cleanse your perineum (bottom) with mild soap from front to back. Use the plasticsquirt bottle until bleeding stops each time you use the restroom instead of wiping with toilet paper. Ease soreness of hemorrhoids and the area between your vagina and rectum with ice compresses or witch bear pads. If used, stitches will dissolve in 4-6 weeks on their own. You may use a sitz bath or soak in a clean tub with drain open and water running for comfort. Kegel exercises will help restore bladder control. To do these tighten your muscles as if you were stopping your urine flow. Hold for a few seconds and then relax. Do these throughout the day. For Section Delivery: Keep your incision clean and dry. If you had steri-strips you may remove these once they start falling off. If you have anneliese they need to be removed 3-10 daysafter delivery. If you have steri-strips, remove after 7 - 10 days. Do not wear clothing that irritates the incision line. If your incision is in a crease that is not dry, use a hair-dryer to dry the area 3 times a day. If you develop fever, shaking chills, redness, swelling, drainage or discharge from your wound, or if your wound looks like it is coming apart call your provider immediately. BREAST CARE If you develop a warm, red, tender area on your breast or develop a fever contact your OB provider.If your breasts become engorged ask your provider because treatment can vary according to your needs. DIET & CONSTIPATION Eat a well-balanced diet focusing on foods high in fiber and protein such as: whole grain cereals and breads, fruits and vegetables and legumes (eg, beans, lentils) Drink 8-10 glasses of fluids daily, especially water. Limit caffeine. To avoid constipation you may take a mild gzta-oja-dkhkfye stool softener (such as colace) as recommended by your OB provider. SWELLING Try to keep your legs elevated when you are sitting or lying down. Stay hydrated and take walks. If you had high blood pressure, weigh yourself at the same time each day. Write down your weight and take the record to your OB provider appointment. MEDICATIONS Take all medications prescribed for you exactly as ordered. Don't take any drugs not prescribed to you or over the counter medicines unless recommended by yourprovider. Don't smoke. WHEN TO CALL THE OB PROVIDER Signs of infection, including fever and chills Increased bleeding: soaking more than one pad an hour or passing clots the size of an egg or larger. Wounds that become red, swollen or drain pus Vaginal discharge that smells foul New pain, swelling, or tenderness in your legs Pain that you can't control with the medications you've been given Pain, burning, urgency or frequency of urination, or persistent bleeding in the urine Cough, shortness of breath, or serious difficulty catching your breath Chest pain or pain in the upper right area of your belly Headache (very painful) or vision changes like blurry or double vision, seeing spots or 'auras' Swelling that is worse or weight gain of more than 3 pounds in 3 days Depression, suicidal thoughts, or feelings of harming someone else Breasts that are hot, red and accompanied by fever Any cracking or bleeding from the nipple or areola (the dark-colored area of the breast) You may have been given a magnet with similar information. If so, we encourage you to use it on your refrigerator as a reminder of when to call your OB provider. In case of an emergency, call 911 immediately. documented in this [facility]07-28-2023 Note* Care Coordination - Dian Hernandez RN - 02/17/2023 8:33 AM EDT Date: 02/17/2023 Name: Mayo Hernandez : 1995 Patient Information Primary Caregiver: Self Accompanied by/Relationship: S/O;Family Marital Status: single Support System: SO/Family Church/Cultural Factors: declined to answer Activities of Daily Living Communication: See demographics Living Arrangements Current Residence: Private residence Lives With: S/O; Family Support System: S/O; Family Income Information Income Source: Employed Financial Resource Strain How hard is it for you to pay for the very basics like food, housing, medical care and heating? N/A Housing Stability In the last 12 months, was there a time when you did not have a steady place to sleep or slept in ashelter (including now)? No Transportation Needs Has the lack of Transportation kept you from medical appointments? No In the past 12 months, has the lack of transportation kept you from meetings, work, or from gettingthings needed for daily living? No Food Insecurity Within the past 12 months, have you worried that your food would run out before you got the money to buy more? No Stress Do you feel stress - tense, restless, nervous, or anxious, or unable to sleep at night because you mind is troubled all the time? Mood stable Referral To Financial Resources: N/A Community Resources: Admission folder given upon admission to PP Unit Social Work: N/A CLP: N/A Medical Information 27 year old admitted for PPROM at 28/1 weeks. 2 Para 1. History of delivery. delivery for Cat II FHT, PPROM and preeclampsia without severe features. jn NICU Discharge Plan Home or Community Resources: Admission folder given upon admission to PP unit Equipment: N/A Education Given: Patient is independent and has insurance. She is prepared with her baby supplies. Denies any needs for housing, transportation or food. Discussion on the A. B. C's of safe sleep. Always place your baby on his or her back to sleep, use a firm sleep surface and your baby should not sleep in an adult bed, on a couch or chair. Keep soft objects, toys and loose bedding out of your baby's sleep area. Reviewed depression. It is common to have blues. This is a normal response to many of the hormonal changes, stress and lack of sleep that go with raising a and physically recovering from the . Don't hesitate to talk to your provider with any concerns. There are resources in your home going booklet. To help prevent germs from spreading to you and your baby, make sure everyone washes their hands before they handle your . Avoid crowds, and keep infant away from sick people, anyone who is sick with a cough or fever, including family members. Post- warning signs information reviewed with patient per nurse with discharge To be discharged to home. Denies any concerns at this time. Additional Information: N/A Mental Health Services: N/A Developmental Delay: N/A Children's Services: N/A [id number] Procedure anesthesia Narrative* Procedure Summary Procedure Name Responsible Anesthesiologist Anesthesia Start Time Anesthesia Stop Time DELIVERY (Abdomen) Sony Alexandra MD 02/16/23 0011 02/16/23 0130 Events Date Time Event Comment 02/16/2023 0011 In Room 0011 An Start 0011 An Start Data 0014 Block Placed 0031 Proc Start 0035 Uterine Incision 0037 Baby Delivered 0037 Cord Clamped 0038 AN Placenta 0115 Block Placed 0115 Proc Fin 0122 an stop data 0126 Out of Room 0130 An Stop Meds Name Total ePHEDrine injection 25 mg fentaNYL (Sublimaze) injection 2 mL 100 mcg morphine PF (Duramorph) 0.5 MG/ML inject ion 150 mcg bupivacaine in dextrose (Marcaine Spinal ) 0.75-8.25 % injection 13.5 mg ceFAZolin in dextrose 4% (Ancef) IVPB 2, 000 mg 2,000 mg azithromycin (Zithromax) 500 mg in sodium chloride 0.9 % 250 mL IVPB (ADD-[place]) 500 mg magnesium sulfate 20 GM/500ML infusion 4 83.33 mg oxytocin (Pitocin) 30 units in 500 mL in fusion 428.88 mL dexamethasone 10 mg/mL 10 mg ondansetron (Zofran) injection 4 mg 4 mg acetaminophen (Ofirmev) injection 1,000 mg ptzEWKNUxcvlh-lkrslugjibd-hxewhqopobe (T AP) syringe 50 mL lactated Ringer's (LR) infusion 0 mL * Agents No agents on file. * Blood No blood administrations on file. Lines, Drains, and Airways Type Details Placement Removal Wound/Incision 02/16/23; 0030; N; Incision; Pelvis; Anterior 02/16/23 0030 by Jacqui Conteh RN Peripheral IV Placement Date: 02/15/23; Placement Time: 2324; Change Due: 02/22/23; Catheter Size: 18 G; Orientation: Anterior, Right; Location: Forearm; Site Prep: Alcohol; Local Anesth: None; Technique: Anatomical landmarks; Inserted by: Wero; Insertion Attempts: 1; Difficult Venous Access? No; Patient Tolerance: Tolerated well; Removal Date: 02/16/23; Removal Time: 2250; Removal Reason: Per patient/family request 02/15/232324 by Jacqui Conteh RN 02/16/232250 by Bere Grijalva RN Urethral Catheter Placement Date: 02/16/23; Placement Time: 001; Inserted by: Angelina vidal RN; Type: Non-latex; Size: 16 Fr.; Balloon Size: 10 mL; Urine Returned: Yes; Removal Date: 02/16/23; Removal Time: 112; Removal Reason: Per protocol 02/16/23 001 by Jacqui Conteh RN 02/16/231124 by Tennille Almonte RN documented in this encounter [id number] Telephone encounter Note* Telephone Encounter - Rosalia Lopez - 02/16/2023 12:06 PM EDT Unable to lm, Ampulse [id number] Telephone encounter Note* Telephone Encounter - Ryan Alexandra MD - 02/16/2023 10:35 AM EDT Please schedule pt for visit on [facility] (02/27/2023) [employer] Phone: [phone]) 581-275507-27-2023 Obstetrics Note* Note - Anne Marie Vasquez RN - 02/16/2023 10:29 AM EDT Patient in l&d due to full capacity on floor. Breast pump use indicated for this pt. Due to: 29 weeks in [facility] Hospital breast pump, supplies kit, swabs and colostrum collectors provided and set up for patient at the bedside. Instruction given on pump operation, settings, technique and frequency/duration. Return demonstration given by patient. Observation of pumping session and flange fitting done. Mom instructed to double pump every 2-3 hours for 8-10 times per day with at least one pump session between 12 and 6 AM. Suction to be set for comfort but recommend between 20-60%. Reassured patient that it is normal to not collect any significant amounts of breast milk in the first days of pumping, but consistent pumping is important and typically results in increased milk production. Discussed projectedamounts and daily goals. Reviewed breast massage and hand expression for increasing milk production. Reviewed colostrum collectors and swabs- how to use and collect colostrum and label swabs/syringes. Breast milk storage guidelines reviewed. Cleaning of pump parts reviewed and basin, soap and clean towels provided for this purpose. Encouraged skin to skin as soon as baby's condition is stable. Discussed plans for home electric breast pump. All questions answered. Will continue to monitor, encourage and support patient. Last infant was also and patient pumped for 1 year for infant. No longer eligible for ameda carol pump study since it's been over 6 hours after delivery. Educatedpatient would need rental pump for home through NICU [id number] NotePatient: Mayo Hernandez Procedure Summary Date: 02/16/23 Room / Location: [facility] Labor and Delivery Anesthesia Start: 10 Anesthesia Stop: 129 Procedure: DELIVERY (Abdomen) Diagnosis: ( Intolerance of Labor) Surgeons: Yomaira You MD Responsible Provider: Sony Alexandra MD Anesthesia Type: spinal ASA Status: 2 Anesthesia Type: spinal Vitals Value Taken Time BP 120/65 02/16/23 0134 Temp 98.5 02/16/23 0134 Pulse 101 02/16/23 0134 Resp 02/16/23133 SpO2 100 02/16/23133 Anesthesia Post Evaluation Patient location during evaluation: PACU Patient participation: complete - patient participated Level of consciousness: awake and alert Pain management: satisfactory to patient Airway patency: patent Dental Injury: no Cardiovascular status: acceptable, blood pressure returned to baseline and hemodynamically stable Respiratory status: acceptable and spontaneous ventilation Hydration status: euvolemic Nausea/Vomiting: controlled No notable events documented. Patient can be discharged once all PACU criteria has been met.[facility]07-27-2023 NotePatient: Mayo Hernandez Procedure Summary Date: 02/16/23 Room / Location: [facility] Labor and Delivery Anesthesia Start: 10 Anesthesia Stop: 129 Procedure: DELIVERY (Abdomen) Diagnosis: ( Intolerance of Labor) Surgeons: Yomaira You MD Responsible Provider: Sony Alexandra MD Anesthesia Type: spinal ASA Status: 2 Anesthesia Type: spinal Vitals Value Taken Time BP 120/65 02/16/23 0132 Temp 98.5 02/16/23 0132 Pulse 101 02/16/23 0132 Resp 17 02/16/23 013 SpO2 100 02/16/23 013 Anesthesia Post Evaluation Patient location during evaluation: PACU Patient participation: complete - patient participated Level of consciousness: awake and alert Pain management: satisfactory to patient Multimodal analgesia pain management approach Airway patency: patent Two or more strategies used to mitigate risk of obstructive sleep apnea Cardiovascular status: acceptable and hemodynamically stable Respiratory status: acceptable Hydration status: acceptable No notable events documented. MIPS #430 PONV Patient did not receive an inhalational anesthetic (XX430) MIPS # 424 Perioperative Temperature Management Anesthesia time was 60 minutes or longer (4255F) Anesthesai administered was General (inhalational or TIVA) or Neuraxial block (X0424) At least one body temperature greater than 95.8F/35.5C achieved within the 30 mins immediately prior to or the 15 minutes immediately following anesthesia end time (G9771) MIPS #477 Multimodal Pain Management Emergent case Exlusion- Stop here (M1142) MIPS #404 Anesthesiology Smoking Abstinence The patient is not a current smoker (e.g. cigarette, cigar, pipe, e-cigarette/vaping/marijuana) If no stop here (XX404) I completed my handoff to the receiving clinician during which we: 1. Identified the patient 2. Identified the responsible provider 3. Reviewed the pertinent medical history 4. Discussed the surgical course 5. Reviewed intra-op anesthesia management and issues during anesthesia 6. Set expectations for post-procedure period 7. Allowed opportunity for questions and acknowledgement of understanding.[facility] [id number] NotePeripheral Block Time Out: 02/16/2023 1:15 AM Patient location during procedure: Procedural Start time: 02/16/2023 1:15 AM End time: 02/16/2023 1:20 AM Reason for block: at surgeon's request and post-op pain management Staffing Performed: SEARCH STRATEGIST Resident/SEARCH STRATEGIST: YANETH Roman CRNA Preanesthetic Checklist Completed: patient identified, IV checked, site marked, risks and benefits discussed, surgical consent, monitors and equipment checked, pre-op evaluation and timeout performed Region: [place] Primary: TAP (60ml of Bupivacaine 0.375% with dexamethasone 0.01% with epinephrine 1:200,000 divided evenly bilaterally) Peripheral Block Patient position: supine Prep: ChloraPrep Patient monitoring: heart rate, restaurant front manager and continuous pulse ox O2: Room air Laterality: bilateral Injection technique: single-shot Guidance: ultrasound guided -image retained in chart, tip of the needle identified by ultraound during injection. Needle Needle: 21G X 110 mm Additional Notes 02/16/2023 1:15 AM Assessment Injection assessment: negative aspiration for heme, no paresthesia on injection, incremental injection and local visualized surrounding nerve on ultrasound Paresthesia pain: none Heart rate change: no Slow fractionated injection: yes Required Documentation: Relevant anatomy identified (Nerves, Vessels, Muscles), Negative for blood on aspiration, Local anesthetic injected incrementally with intermittent aspiration every 5 mL, No EKG changes noted, No symptoms of toxicity, Local anesthetic spread visualized around nerves or plane., Normal resistance with injection, No paresthesias reported by patient during injection and Local anesthetic injected without difficultyMedications bdlIKTBSjafiw-gtarybeojws-juqthusweuh (TAP) syringe - Injection 50 mL - 02/16/2023 1:18:00 [facility]07-27-2023 NoteSpinal Block Time Out: 02/16/2023 12:14 AM Patient location during procedure: OB Start time: 02/16/2023 12:14 AM End time: 02/16/2023 12:17 AM Reason for block: primary anesthetic Staffing Performed: SEARCH STRATEGIST Resident/SEARCH STRATEGIST: YANETH Roman CRNA Performed by: YANETH Roman CRNA Authorized by: YANETH Roman CRNA Preanesthetic Checklist Completed: patient identified, IV checked, site marked, risks and benefits discussed, surgical consent, monitors and equipment checked, pre-op evaluation and timeout performed Spinal Block Patient position: sitting Prep: ChloraPrep Sterility prep: drape Sedation level: no sedation Patient monitoring: continuous pulse oximetry and heart rate Approach: midline Location: L3-4 Injection technique: single-shot Needle Needle type: pencil-tip Needle gauge: 24 G Needle length: 10 cm Medications Administered bupivacaine in dextrose (Marcaine Spinal) 0.75-8.25 % injection - Intrathecal 13.5 mg - 02/16/2023 12:14:00 AM morphine PF (Duramorph) 0.5 MG/ML injection - Intrathecal 150 mcg - 02/16/2023 12:14:00 AM Assessment Sensory level: T10 Block outcome: block to be assessed in the OR Number of attempts: 1 Additional Notes Free flow CSF. No Heme. No [place] [facility] Patient: Mayo Hernandez Procedure Information Date: 02/15/23 Procedure: Labor Analgesia Relevant Problems No relevant active problems Clinical information reviewed: Allergies Meds Physical Exam Airway Mallampati: III TM distance: >3 FB Neck ROM: full Mouth Open: normalendotracheal tube not in place Cardiovascular - normal exam Dental Pulmonary - normal exam Abdominal - normal exam Anesthesia Plan patient is NPO appropriate Any family history or previous problems with anesthesia no ASA 2 spinal Any family history or previous problems with anesthesia no The patient is not a current smoker. Anesthetic plan and risks discussed with patient. Use of blood products discussed with who consented to blood products. Additional Equipment [facility]07-27-2023 Note* Anesthesia Discharge Note - YANETH Roman CRNA - 02/16/2023 1:34 AM EDT Patient: Mayo Hernandez Procedure Summary Date: 02/16/23 Room / Location: [facility] Labor and Delivery Anesthesia Start: 10 Anesthesia Stop: 129 Procedure: DELIVERY (Abdomen) Diagnosis: ( Intolerance of Labor) Surgeons: Yomaira You MD Responsible Provider: Sony Alexandra MD Anesthesia Type: spinal ASA Status: 2 Anesthesia Type: spinal Vitals Value Taken Time BP 120/65 02/16/23 0134 Temp 98.5 02/16/23 0134 Pulse 101 02/16/23 0134 Resp 17 02/16/23 0134 SpO2 100 02/16/23 0134 Anesthesia Post Evaluation Patient location during evaluation: PACU Patient participation: complete - patient participated Level of consciousness: awake and alert Pain management: satisfactory to patient Airway patency: patent Dental Injury: no Cardiovascular status: acceptable, blood pressure returned to baseline and hemodynamically stable Respiratory status: acceptable and spontaneous ventilation Hydration status: euvolemic Nausea/Vomiting: controlled No notable events documented. Patient can be discharged once all PACU criteria has been met. [facility]07-27-2023 Anesthesiology Postoperative evaluation and management note* Anesthesia Postprocedure Evaluation - YANETH Roman CRNA - 02/16/2023 1:32 AM EDT Patient: Mayo Hernandez Procedure Summary Date: 02/16/23 Room / Location: [facility] Labor and Delivery Anesthesia Start: 10 Anesthesia Stop: 129 Procedure: DELIVERY (Abdomen) Diagnosis: ( Intolerance of Labor) Surgeons: Yomaira You MD Responsible Provider: Sony Alexandra MD Anesthesia Type: spinal ASA Status: 2 Anesthesia Type: spinal Vitals Value Taken Time BP 120/65 02/16/23 0132 Temp 98.5 02/16/23 0132 Pulse 101 02/16/23 0132 Resp 17 02/16/23131 SpO2 100 02/16/23131 Anesthesia Post Evaluation Patient location during evaluation: PACU Patient participation: complete - patient participated Level of consciousness: awake and alert Pain management: satisfactory to patient Multimodal analgesia pain management approach Airway patency: patent Two or more strategies used to mitigate risk of obstructive sleep apnea Cardiovascular status: acceptable and hemodynamically stable Respiratory status: acceptable Hydration status: acceptable No notable events documented. MIPS #430 PONV Patient did not receive an inhalational anesthetic (XX430) MIPS # 424 Perioperative Temperature Management Anesthesia time was 60 minutes or longer (4255F) Anesthesai administered was General (inhalational or TIVA) or Neuraxial block (X0424) At least one body temperature greater than 95.8F/35.5C achieved within the 30 mins immediately prior to or the 15 minutes immediately following anesthesia end time (G9771) MIPS #477 Multimodal Pain Management Emergent case Exlusion- Stop here (M1142) MIPS #404 Anesthesiology Smoking Abstinence The patient is not a current smoker (e.g. cigarette, cigar, pipe, e- cigarette/vaping/marijuana) If no stop here (XX404) I completed my handoff to the receiving clinician during which we: 1. Identified the patient 2. Identified the responsible provider 3. Reviewed the pertinent medical history 4. Discussed the surgical course 5. Reviewed intra-op anesthesia management and issues during anesthesia 6. Set expectations for post-procedure period 7. Allowed opportunity for questions and acknowledgement of understanding. [employer] Phone: [phone]) 512-746307-27-2023 Anesthesiology procedure note* Anesthesia Procedure Notes - YAENTH Roman CRNA - 02/16/2023 1:21 AM EDT Associated Order(s): Peripheral Block Peripheral Block Time Out: 02/16/2023 1:15 AM Patient location during procedure: Procedural Start time: 02/16/2023 1:15 AM End time: 02/16/2023 1:20 AM Reason for block: at surgeon's request and post-op pain management Staffing Performed: SEARCH STRATEGIST Resident/SEARCH STRATEGIST: YANETH Roman CRNA Preanesthetic Checklist Completed: patient identified, IV checked, site marked, risks and benefits discussed, surgical consent, monitors and equipment checked, pre-op evaluation and timeout performed Region: [place] Primary: TAP (60ml of Bupivacaine 0.375% with dexamethasone 0.01% with epinephrine 1:200,000 divided evenly bilaterally) Peripheral Block Patient position: supine Prep: ChloraPrep Patient monitoring: heart rate, restaurant front manager and continuous pulse ox O2: Room air Laterality: bilateral Injection technique: single-shot Guidance: ultrasound guided -image retained in chart, tip of the needle identified by ultraound during injection. Needle Needle: 21G X 110 mm Additional Notes 02/16/2023 1:15 AM Assessment Injection assessment: negative aspiration for heme, no paresthesia on injection, incremental injection and local visualized surrounding nerve on ultrasound Paresthesia pain: none Heart rate change: no Slow fractionated injection: yes Required Documentation: Relevant anatomy identified (Nerves, Vessels, Muscles), Negative for blood on aspiration, Local anesthetic injected incrementally with intermittent aspiration every 5 mL, No EKG changes noted, No symptoms of toxicity, Local anesthetic spread visualized around nerves or plane., Normal resistance with injection, No paresthesias reported by patient during injection and Local anesthetic injected without difficultyMedications [id number]-qjxudpqdink-hweuivkueik (TAP) syringe - Injection 50 mL - 02/16/2023 1:18:00 AM T [id number] Note* Op Note - Yomaira You MD - 02/16/2023 12:31 AM EDT Images from the original note were not included. Operative Note Patient: Mayo Hernandez : 1995 Date of Procedure: 02/16/2023 Principal Problem: premature rupture of membranes (PPROM) with onset of labor after 24 hours of rupture in first trimester, antepartum PREOPERATIVE DIAGNOSES: 1. at 29w3d 2. Unscheduled Primary 3. Cat II FHT 4. PPROM 5. PreEwoSF POSTOPERATIVE DIAGNOSES: 1. Same 2. Living Infant, male PROCEDURE: Primary low transverse section SURGEON: Dr. You ASST: Dr. Mahmood ANESTHESIA: spinal ANTIBIOTIC(S): 2g Ancef and Azithromycin VAG PREP (Iodine): Yes FINDINGS: Normal appearing uterus, ovaries and fallopian tubes FLUIDS: 1800 ml crystalloids URINE: 200 ml EBL: 600 ml QBL: Quantitative Blood Loss (mL): 655 mL DRAINS: rodrigues catheter SPECIMENS: none COMPLICATIONS: none CONDITION: good, transferred to : post anesthesia recovery FINDINGS: Live male infant, Cephalic APGARS 1 min: 7 5 min: 8 Weight: 1440 grams Tubes and ovaries: within normal limits. Description: normal INDICATION FOR PROCEDURE Patient admitted to Labor and Delivery for PPROM, patient had already received latency antibiotics and betamethasone when first admitted. On hospital day 9, FHT became Cat II and therefore was consented for a primary section. She was started on Magnesium for neuroprotection and given rescue steroids. Patient was consented for a section and was agreeable to blood products as medically indicated. This was a unscheduled non-emergent section. DETAILS OF PROCEDURE: Patient was brought into the operating room and she was placed in the supine position slightly tilted to the left. The abdomen was prepped and draped in the usual manner. Anesthesia level was checked and was found to be adequate. The abdomen was entered through a pfannenstiel incision. The incision was carried through the subcutaneous tissue to the fascia which was nicked in the midline and carried transversely using paz scissors. Kochers were used to grasp the edges of the fascia and sharp and blunt dissection used to reflect the underlying rectus abdominis muscles. The muscles were in the midline bluntly and sharply exposing the parietal peritoneum.The peritoneum was entered bluntly. The peritoneal incision was extended bluntly with good visualization of bladder. Bladder retractor was placed as well as Malin retractor. The lower uterine segment was opened in a low transverse fashion with a scalpel. The amniotic cavity was entered and Clear amniotic fluid was noted. Bladder retractor and Malin retractor were removed, and baby was delivered from the cephalic presentation with fundal pressure without difficulty.The baby was handed over to the NICU personnel standing by. Placenta was extracted intact with gentle traction. The uterus was exteriorized and wrapped in a wet lap. The uterine cavity was swept and cleared of all clots and debris using a dry lap. The uterine incision was closed using a continuous locked suture of 0 monocryl. A second layer was performed. Hemostasis was ensured. The uterus was replaced in the abdomen. Hemostasis of the operative field was ensured and the gutters were cleared of all clots and debris. Fascia was closed with 0 Vicryl in a running fashion. Subcutaneous closure was performed with 3-0 Monocryl Hemostasis was ensured. Skin closure was performed with 4-0 Vicryl suture and steri-strips. Sponge, needle and instrument counts were correct twice. Patient was transferred to the recovery room in satisfactory stable condition. BUD MAHMOOD DO 02/16/2023 1:40 AM LABOR DELIVERY ??? SCD's ONLY (labor through ambulation) SCD's PLUS Prophylactic Anticoagulation until discharge SCD's PLUS Prophylactic Anticoagulation for 6 weeks SCD's PLUS Therapeutic Anticoagulation for 6 weeks Vaginal Delivery [] BMI ? 40 kg/m2 Delivery All patients Vaginal Delivery [] BMI ? 40 kg/m2 AND [] Antepartum hospitalization ? 72 hours within the past month Delivery 1 Major Risk Factor: [] BMI ? 35 kg/m2 [] Low Risk Thrombophilia [] PPH+RBCs, IR, or operation [] Infection+Antibiotics [x] Antepartum hospitalization ? 72 hours within the past month [] PMH: Sickle Cell, SLE, Cardiac Dz, Active IBD, Active Cancer, Nephrotic Syndrome OR 2 Minor Risk Factors: [] Multiple gestation [] Age > 40 [] PPH ? 1,000cc [] (+)FMH of VTE [] Smoker [] Preeclampsia [] BMI ? 40 kg/m2 AND [] Low Risk Thrombophilia OR ANY OF THE FOLLOWING: [] High Risk Thrombophilia without prior VTE [] Low Risk Thrombophilia with (+)FMH of VTE [] Any single prior VTE ANY OF THE FOLLOWING: [] Already on LMWH/UFH [] Multiple prior VTE [] High Risk Thrombophilia with prior VTE Low Risk Thrombophilia: FVL (heterozygous), Prothrombin (heterozygous), Protein C, Protein S High Risk Thrombophilia: FVL (homozygous), Prothrombin (homozygous), FVL+Prothrombin (heterozygous), Antithrombin III, APLS VTE Prophylaxis: Prophylactic Dosing until Discharge Procedures or Surgery: I was present for all mark elements of the procedure or surgery as described in the resident note. [employer] Phone: [phone] Anesthesiology procedure note* Anesthesia Procedure Notes - YANETH Roman CRNA - 02/16/2023 12:15 AM EDT Associated Order(s): Spinal Block Spinal Block Time Out: 02/16/2023 12:14 AM Patient location during procedure: OB Start time: 02/16/2023 12:14 AM End time: 02/16/2023 12:17 AM Reason for block: primary anesthetic Staffing Performed: SEARCH STRATEGIST Resident/SEARCH STRATEGIST: YANETH Roman CRNA Performed by: YANETH Roman CRNA Authorized by: YANETH Roman CRNA Preanesthetic Checklist Completed: patient identified, IV checked, site marked, risks and benefits discussed, surgical consent, monitors and equipment checked, pre-op evaluation and timeout performed Spinal Block Patient position: sitting Prep: ChloraPrep Sterility prep: drape Sedation level: no sedation Patient monitoring: continuous pulse oximetry and heart rate Approach: midline Location: L3-4 Injection technique: single-shot Needle Needle type: pencil-tip Needle gauge: 24 G Needle length: 10 cm Medications Administered bupivacaine in dextrose (Marcaine Spinal) 0.75-8.25 % injection - Intrathecal 13.5 mg - 02/16/2023 12:14:00 AM morphine PF (Duramorph) 0.5 MG/ML injection - Intrathecal 150 mcg - 02/16/2023 12:14:00 AM Assessment Sensory level: T10 Block outcome: block to be assessed in the OR Number of attempts: 1 Additional Notes Free flow CSF. No Heme. No Parathesia [id number] Note* Significant Event - Bud Mahmood DO - 02/15/2023 11:52 PM EDT Safety Huddle: FHT tracing Cat II for recurrent variable decels for the past 45min and now late decels despite conservative measures with IVF and repositioning. Pattern ran with Dr. Pardo and agrees to proceed withdelivery. Mag bolus running for neuroprotection and dose of BMZ given. SSE performed and closed cervix, no cord noted. Patient consented for PCD 2/2 Cat II FHT remote from delivery. Dr. You notified and counseled the patient as well on PCD. Consents signed. Chad called, Dr. You, OB anesthesia, primary RN, battery recharger, NICU present and all in agreement.Will proceed with primary unscheduled, non-emergent section. BUD MAHMOOD DO 02/15/2023 11:54 PM [facility] [id number] Anesthesiology Preoperative evaluation and management note* Anesthesia Preprocedure Evaluation - YANETH Roman CRNA - 02/15/2023 11:48 PM EDT Patient: Mayo Hernandez Procedure Information Date: 02/15/23 Procedure: Labor Analgesia Relevant Problems No relevant active problems Clinical information reviewed: Allergies Meds Physical Exam Airway Mallampati: III TM distance: >3 FB Neck ROM: full Mouth Open: normalendotracheal tube not in place Cardiovascular - normal exam Dental Pulmonary - normal exam Abdominal - normal exam Anesthesia Plan patient is NPO appropriate Any family history or previous problems with anesthesia no ASA 2 spinal Any family history or previous problems with anesthesia no The patient is not a current smoker. Anesthetic plan and risks discussed with patient. Use of blood products discussed with who consented to blood products. Additional Equipment Requests [facility] [id number] Note* Care Coordination - Latoya Wagner RN - 02/13/2023 11:50 AM EDT Hospital day 6; Mood stable; no concerns at this time [facility] [id number] Note* Care Coordination - Latoya Wagner RN - 02/09/2023 3:48 PM EDT Spoke with pt re: +THC in [place]; Pamphlet given; pt states she used for N/V and appetite in earlier preg; Marijuana use during can be harmful to your baby's health. The chemicals in marijuana (in particular, THC) pass through your system to your baby and can negatively affect your baby's development. Some research shows that using marijuana while you are can cause health problems in newborns-- including low weight and developmental problems. Research shows marijuana use during may make it hard for your child to pay attention or to learn, these issues may only become noticeable as your child grows older Chemicals from marijuana can be passed to your baby through breast milk. THC is stored in fat and is slowly released over time, meaning an infant could be exposed for a longer period of time. [facility] [id number] Consult note* Mildred Santos MD - 02/09/2023 1:00 PM EDTAssociated Order(s): IP CONSULT TO NEONATOLOGY Consult by Neonatology Request by OB: Dr. Leslie Reason for Consult: 28wk pprom Maternal History and current problem: PPROM 02/06/23 around 1730 Significant history: Per H&P Patient noted water broke around 1730 on 02/06/2023, she went to [facility] where she was noted to be P PROM. They started her on penicillin and gave her a dose of betamethasone and transported to our hospital. She is comfortable, she declines any contractions at this time. She denies any vaginal bleeding or decreased movement. Her is uncomplicated. She does have a history of a delivery at 36 weeks and her first , she presented with PPROM as well at that time and delivered within a few days of admission. She has not been on any vaginal progesterone during this . Medications: PNV Betamethasone given: 02/06, 02/07 Labs: Blood type: A+ Antibody: neg GBS: unk Hepatitis B Ag: RPR: Rubella: HIV: Hepatitis C: neg GC/CT: neg HSV history: unk CF: Glucose challenge test: Present for Consult: Patient, maternal grandmother, maternal aunts Baby Sex: boy Baby Name: Marcin US findings: EFW ~1200g (53% on 02/07), low SANAZ Any known anomalies: none I discussed: Survival statistics (>90%) Delivery room management: Delayed cord clamping, possible need for CPAP, Oxygen, intubation and surfactant. IV access, possible need for advanced resuscitation, possible need for umbilical lines. Baby is a full resuscitation. Respiratory distress syndrome, chronic lung disease Feeding with NG tube and benefit of MBM. Mom plans on providing MBM--she reports providing BrM for her daughter. Fortification of MBM. Feeding readiness and growth expectations, Risk of Necrotizing enterocolitis Jaundice and phototherapy Apnea of prematurity and caffeine Possible need for transfusion Heart Murmur: PDA Neurodevelopmental Outcome and Risk: IVH Retinopathy of prematurity Hearing problems Risk of infection- early and late onset Skin to skin opportunities Physiologic criteria for discharge and timing of discharge estimate from NICU Potential need for transfer to [facility] if needs esclation of care, based on a varietyof factors. Handouts given. No further questions. Mom's older child delivered at 36wks [place], complex congenital heart defect with heterotaxy--spent significant time in CVICU at [facility]. She is familiar with pumping/providing BrM and plans to do the same for this baby. Reviewed anticipated length of stay,discharge criteria (good PO intake, weight gain, stable temps in open crib, and free from apnea/bradycardia events). A/P: Patient is a 27 Year old G2 P 1 At 28 Weeks With PPROM 1. Current Management per OB 2. NICU to attend delivery 3. Call NICU if further questions. Consult done on 02/08/23. Total consult time 50 min, >50% face to face. Mildred Santos MD [facility] Phone: [phone] Note* Care Coordination - Latoya Wagner RN - 02/07/2023 4:09 PM EDT Pt is a 27 yo admitted at 28/1 weeks for PPROM from [place]; denies concerns with food, transportation, or housing; no other concerns voiced at this time; will let primary RN know if any other needs arise that we can assist with [facility] [id number] NoteDepartment of Obstetrics and Gynecology [facility] Discharge Summary Admission on 02/07/2023 1:16 AM Reason for admission: At 28w1d pt was transported from [facility] where she was found to be PPROM. Patient was started on latency abx and received BMZx1 02/06 prior to transport to our hospital. Patient received magnesium sulfate for neuroprotection. Patient s/p BMZ 02/06-02/07 and s/p Magnesium sulfate for neuroprotection. Patient had NICU consult on 02/08. Patient met criteria for PreEwoSF with UPC 0.51 and 2 mild range BPS >4hrs apart. On hospital day #9, FHT became Cat II and therfore ws consented for a primary section. She was started on Magnesium for neuroprotection and given rescue steroids. An unscheduled non-emergent section was performed, see delivery note for details. 29w3d PC-01 Indications for Delivery: Was patient delivered between 37w0d - 11l6mhjavi? No Surgical Operations & Procedures: Date of delivery: 02/16/23 Delivery Type: , Low Transverse Anesthesia: spinal Laceration(s): n/a Delivery Complications: none EBL: 600 cc Pertinent Findings & Procedures: Information for the patient's : Josue Hernandez [[id number]] male 1440 g (3 lb 2.8 oz) Apgars: Information for the patient's : Josue Hernandez [[id number]] Course: C/b spinal CALERO - s/p blood patch : male in [facility] Blood Type/Rh: A Antibody Screen: No results found for: LABANTI Rubella: No results found for: RUBELLAIGG Contraception: will discuss with primary OB : yes VTE Prophylaxis: Prophylactic Dosing until Discharge Meds: Medication List START taking these medications DSS 100 MG capsule Take 1 capsule (100 mg) by mouth 2 times daily as needed for constipation. ferrous sulfate 325 (65 Fe) MG tablet Take 1 tablet (325 mg) by mouth in the morning and 1 tablet (325 mg) in the evening. Take with meals. ibuprofen 600 MG tablet Take 1 tablet (600 mg) by mouth in the morning and 1 tablet (600 mg) at noon and 1 tablet (600 mg) in the evening and 1 tablet (600 mg) before bedtime. Do all this for 23 days. oxyCODONE 5 MG immediate release tablet Commonly known as: Roxicodone Take 1 tablet (5 mg) by mouth every 6 hours as needed for moderate pain (4-6) for up to 5 days. CONTINUE taking these medications 1 + IRON PO STOP taking these medications ZOFRAN PO Where to Get Your Medications These medications were sent to [facility] [address] [place], [place] [id number] Hours: Monday to Monday 10 am to 6 pm DSS 100 MG capsule ferrous sulfate 325 (65 Fe) MG tablet ibuprofen 600 MG tablet oxyCODONE 5 MG immediate release tablet Activity: Activity as tolerated Diet: Regular diet If a patient meets criteria for hypertension, make sure the following are done prior to discharge: [] Order a blood pressure kit through [facility] (or the patient's own pharmacy on the weekend) [] Order the blood pressure log through [employer] [x] Place a telephone encounter for a 72 hour blood pressure check. Specify that this will be a virtual visit. [] Include blood pressure dot phrase (.sumobhypertension) in discharge instructions [] Check here if the patient does NOT meet criteria for hypertension Follow up Care: Follow up appointment in 3-5 days for BP and incision check, then 6 weeks PP for final PP visit. Condition on discharge: Stable Discharge to: Home Discharge date: 02/20/23 Discharge Dx: S/p PLTCS 2/2 Cat II, PPROM PreEwoSF Instructions to Patient:: Pelvic Rest (no intercourse, tampons, douching, etc) x 6 weeks Specific discharge instruction printed premature rupture of membranes (PPROM) with onset of labor after 24 hours of rupture in first trimester, antepartum [O42.111] Patient Active Problem List Diagnosis premature rupture of membranes (PPROM) with onset of labor after 24 hours of rupture in first trimester, antepartum Comments: Home care, Follow-up care and control were reviewed. Signs and symptoms of mastitis and Post Depression were reviewed. The patient is to notify her physician if any of these occur. Triny Zhang PA-C on 02/17/2023 at 10:15 [facility]07-18-2023 Note Attestation signed by Kelly Leslie DO at 02/07/2023 2:12 PM Hospital Care (Independent): I independently saw and evaluated the patient. I agree with the findings and plan of care as documented in the resident's note. 27 y.o. yo at 28w1d hospital day 0 with: Patient Active Problem List Diagnosis premature rupture of membranes (PPROM) with onset of labor after 24 hours of rupture in first trimester, antepartum Transport from Dr. Disla ([place]). No contraindications for expectant management at this time. No s/s of infection or labor. status reassuring. Chart review and preparation: 15 minutes. Face to face: 15 minutes. Documentation and care coordination: 10 minutes. Total time spent on patient care today: 40 minutes. Department of Maternal Medicine History and Physical CHIEF COMPLAINT: PPROM HISTORY OF PRESENT ILLNESS: The patient is a 27 y.o. female at 28w1d. OB History 2 Para 1 Term 1 AB Living 1 SAB IAB Ectopic Multiple Live Births 1 Patient noted water broke around 1730 on 02/06/2023, she went to [facility] where she was noted to be P PROM. They started her on penicillin and gave her a dose of betamethasone and transported to our hospital. She is comfortable, she declines any contractions at this time. She denies any vaginal bleeding or decreased movement. Her is uncomplicated. She does have a history of a delivery at 36 weeks and her first , she presented with PPROM as well at that time and delivered within a few days of admission. She has not been on any vaginal progesterone during this . Transport: Yes Prior Hospitalizations: No Estimated Due Date: Estimated Date of Delivery: 05/01/23 CARE: Complications: PPROM History of delivery PAST OB HISTORY: OB History 2 Para 1 Term 1 AB Living 1 SAB IAB Ectopic Multiple Live Births 1 Detailed OB History delivery at 36 weeks, Current Past Medical History: No past medical history on file. Past Surgical History: No past surgical history on file. Allergies: Patient has no known allergies. Social History: Social History Socioeconomic History Marital status: Not on file Spouse name: Not on file Number of children: Not on file Years of education: Not on file Highest education level: Not on file Occupational History Not on file Tobacco Use Smoking status: Former Types: Cigarettes Smokeless tobacco: Never Substance and Sexual Activity Alcohol use: Never Drug use: Never Sexual activity: Yes Other Topics Concern Not on file Social History Narrative Not on file Social Determinants of Health Financial Resource Strain: Not on file Food Insecurity: Not on file Transportation Needs: Not on file Physical Activity: Not on file Stress: Not on file Social Connections: Not on file Intimate Partner Violence: Not on file Housing Stability: Not on file Family History: No family history on file. Medications Prior to Admission: Medications Prior to Admission Medication Sig Dispense Refill Last Dose Ondansetron HCl (ZOFRAN PO) Take by mouth. Past Week Qnltshwl-Azx-Nk-FA ( 1 + IRON PO) Take by mouth. 02/06/2023 REVIEW OF SYSTEMS: Review of Systems Labs: CBC: No results found for: WBC, RBC, HGB, HCT, MCV, MCH, MCHC, RDW, PLT, MPV PHYSICAL EXAM: Vitals: 02/07/23 0138 02/07/23 0408 02/07/23 0430 02/07/23 0447 BP: 133/83 126/74 (!) 143/89 Pulse: 72 70 89 (!) 112 Resp: 18 Temp: 36.7 ?C (98.1 ?F) TempSrc: Oral SpO2: 99% 99% Weight: 210 lb (95.3 kg) Height: 5' 11 (1.803 m) General appearance: awake, alert, cooperative, no apparent distress, and appears stated age Neurologic: Awake, alert, oriented to name, place and time. Lungs: No increased work of breathing, good air exchange Abdomen: Soft, non tender, gravid, consistent with her gestational age Sterile Speculum Exam: Membranes: Ruptured clear fluid HSV Lesions: not applicable Cervix: Visually closed Contraction frequency: Irritable ASSESSMENT AND PLAN: LABOR DELIVERY ??? SCD's ONLY (labor through ambulation) SCD's PLUS Prophylactic Anticoagulation until discharge SCD's PLUS Prophylactic Anticoagulation for 6 weeks SCD's PLUS Therapeutic Anticoagulation for 6 weeks Vaginal Delivery [] BMI ? 40 kg/m2 Delivery All patients Vaginal Delivery [] BMI ? 40 kg/m2 AND [] Antepartum hospitalization ? 72 hours within the past month Delivery 1 Major Risk Factor: [] BMI ? 35 kg/m2 [] Low Risk Thrombophilia [] P (more content not included)...[facility]07-18-2023 History and physical note* Ryan Alexandra MD - 02/07/2023 5:25 AM EDT Department of Maternal Medicine History and Physical CHIEF COMPLAINT: PPROM HISTORY OF PRESENT ILLNESS: The patient is a 27 y.o. female at 28w1d. OB History 2 Para 1 Term 1 AB Living 1 SAB IAB Ectopic Multiple Live Births 1 Patient noted water broke around 1730 on 02/06/2023, she went to [facility] where she was noted to be P PROM. They started her on penicillin and gave her a dose of betamethasone and transported to our hospital. She is comfortable, she declines any contractions at this time. She denies any vaginal bleeding or decreased movement. Her is uncomplicated. She does have a history ofa delivery at 36 weeks and her first , she presented with PPROM as well at that time and delivered within a few days of admission. She has not been on any vaginal progesterone duringthis . Transport: Yes Prior Hospitalizations: No Estimated Due Date: Estimated Date of Delivery: 05/01/23 CARE: Complications: PPROM History of delivery PAST OB HISTORY: OB History 2 Para 1 Term 1 AB Living 1 SAB IAB Ectopic Multiple Live Births 1 Detailed OB History delivery at 36 weeks, Current Past Medical History: No past medical history on file. Past Surgical History: No past surgical history on file. Allergies: Patient has no known allergies. Social History: Social History Socioeconomic History Marital status: Not on file Spouse name: Not on file Number of children: Not on file Years of education: Not on file Highest education level: Not on file Occupational History Not on file Tobacco Use Smoking status: Former Types: Cigarettes Smokeless tobacco: Never Substance and Sexual Activity Alcohol use: Never Drug use: Never Sexual activity: Yes Other Topics Concern Not on file Social History Narrative Not on file Social Determinants of Health Financial Resource Strain: Not on file Food Insecurity: Not on file Transportation Needs: Not on file Physical Activity: Not on file Stress: Not on file Social Connections: Not on file Intimate Partner Violence: Not on file Housing Stability: Not on file Family History: No family history on file. Medications Prior to Admission: Medications Prior to Admission Medication Sig Dispense Refill Last Dose Ondansetron HCl (ZOFRAN PO) Take by mouth. Past Week Jikosnww-Inq-Md-FA ( 1 + IRON PO) Take by mouth. 02/06/2023 REVIEW OF SYSTEMS: Review of Systems Labs: CBC: No results found for: WBC, RBC, HGB, HCT, MCV, MCH, MCHC, RDW, PLT, MPV PHYSICAL EXAM: Vitals: 02/07/23 0138 02/07/23 0408 02/07/23 0430 02/07/23 0447 BP: 133/83 126/74 (!) 143/89 Pulse: 72 70 89 (!) 112 Resp: 18 Temp: 36.7 C (98.1 F) TempSrc: Oral SpO2: 99% 99% Weight: 210 lb (95.3 kg) Height: 5' 11 (1.803 m) General appearance: awake, alert, cooperative, no apparent distress, and appears stated age Neurologic: Awake, alert, oriented to name, place and time. Lungs: No increased work of breathing, good air exchange Abdomen: Soft, non tender, gravid, consistent with her gestational age Sterile Speculum Exam: Membranes: Ruptured clear fluid HSV Lesions: not applicable Cervix: Visually closed Contraction frequency: Irritable ASSESSMENT AND PLAN: LABOR DELIVERY ??? SCD's ONLY (labor through ambulation) SCD's PLUS Prophylactic Anticoagulation until discharge SCD's PLUS Prophylactic Anticoagulation for 6 weeks SCD's PLUS Therapeutic Anticoagulation for 6 weeks Vaginal Delivery [] BMI ? 40 kg/m2 Delivery All patients Vaginal Delivery [] BMI ? 40 kg/m2 AND [] Antepartum hospitalization ? 72 hours within the past month Delivery 1 Major Risk Factor: [] BMI ? 35 kg/m2 [] Low Risk Thrombophilia [] PPH+RBCs, IR, or operation [] Infection+Antibiotics [] Antepartum hospitalization ? 72 hours within the past month [] PMH: Sickle Cell, SLE, Cardiac Dz, Active IBD, Active Cancer, Nephrotic Syndrome OR 2 Minor Risk Factors: [] Multiple gestation [] Age > 40 [] PPH ? 1,000cc [] (+)FMH of VTE [] Smoker [] Preeclampsia [] BMI ? 40 kg/m2 AND [] Low Risk Thrombophilia OR ANY OF THE FOLLOWING: [] High Risk Thrombophilia without prior VTE [] Low Risk Thrombophilia with (+)FMH of VTE [] Any single prior VTE ANY OF THE FOLLOWING: [] Already on LMWH/UFH [] Multiple prior VTE [] High Risk Thrombophilia with prior VTE Low Risk Thrombophilia: FVL (heterozygous), Prothrombin (heterozygous), Protein C, Protein S High Risk Thrombophilia: FVL (homozygous), Prothrombin (homozygous), FVL+Prothrombin (heterozygous), Antithrombin III, APLS VTE Prophylaxis: Not Indicated Admission: Admit to Antepartum (PNU) FHR: Category 1, heart monitoring continuous Labs: GBS collected GC/CT collected Urine collected FFN not obtained Type&Screen collected Serum Labs CBC, type and screen Consults: Neonatology Imaging: Indicated/ordered growth ultrasound Diet: CLD Testing: TBD Timing and Route of Delivery: TBD Medications: Neuroprotection Indicated/ordered Tocolysis Not indicated Antibiotics Indicated/ordered Steroids: Betamethasone - indicated and ordered PPROM -Ruptured 02/06/2023 at 1730 -Status post 1 dose of betamethasone on 02/06 at 1999, second dose due 02/07 at 2000 -Started on magnesium sulfate for neuro protection on admission, continue for 12 hours -Started on latency antibiotics -We will keep on continuous EFM -Onton quiet at this time -Growth ultrasound ordered for this morning -NICU consult ordered History of delivery -NG when she presented with PPROM -Delivered at 36 weeks -Has not been on vaginal progesterone this IUP @ 28w1d - Dating by LMP - Cephalic on 02/07 - Monitoring: CEFM - Diet: CLD - BMZ x1 on 02/[address] Kinsey, who agrees with plan. BUD MAHMOOD DO 02/07/2023, 5:25 AM Cc: Rashid Kinsey MD Associated attestation - Kelly Leslie DO - 02/07/2023 2:12 PM EDT Hospital Care (Independent): I independently saw and evaluated the patient. I agree with the findings and plan of care as documented in the resident's note. 27 y.o. yo at 28w1d hospital day 0 with: Patient Active Problem List Diagnosis premature rupture of membranes (PPROM) with onset of labor after 24 hours of rupture in first trimester, antepartum Transport from Dr. Disla ([place]). No contraindications for expectant management at this time. Nos/s of infection or labor. status reassuring. Chart review and preparation: 15 minutes. Face to face: 15 minutes. Documentation and care coordination: 10 minutes. Total time spent on patient care today: 40 minutes. [id number] History and physical note* Ryan Alexandra MD - 02/07/2023 5:25 AM EDT Department of Maternal Medicine History and Physical CHIEF COMPLAINT: PPROM HISTORY OF PRESENT ILLNESS: The patient is a 27 y.o. female at 28w1d. OB History 2 Para 1 Term 1 AB Living 1 SAB IAB Ectopic Multiple Live Births 1 Patient noted water broke around 1730 on 02/06/2023, she went to [facility] where she was noted to be P PROM. They started her on penicillin and gave her a dose of betamethasone and transported to our hospital. She is comfortable, she declines any contractions at this time. She denies any vaginal bleeding or decreased movement. Her is uncomplicated. She does have a history ofa delivery at 36 weeks and her first , she presented with PPROM as well at that time and delivered within a few days of admission. She has not been on any vaginal progesterone duringthis . Transport: Yes Prior Hospitalizations: No Estimated Due Date: Estimated Date of Delivery: 05/01/23 CARE: Complications: PPROM History of delivery PAST OB HISTORY: OB History 2 Para 1 Term 1 AB Living 1 SAB IAB Ectopic Multiple Live Births 1 Detailed OB History delivery at 36 weeks, Current Past Medical History: No past medical history on file. Past Surgical History: No past surgical history on file. Allergies: Patient has no known allergies. Social History: Social History Socioeconomic History Marital status: Not on file Spouse name: Not on file Number of children: Not on file Years of education: Not on file Highest education level: Not on file Occupational History Not on file Tobacco Use Smoking status: Former Types: Cigarettes Smokeless tobacco: Never Substance and Sexual Activity Alcohol use: Never Drug use: Never Sexual activity: Yes Other Topics Concern Not on file Social History Narrative Not on file Social Determinants of Health Financial Resource Strain: Not on file Food Insecurity: Not on file Transportation Needs: Not on file Physical Activity: Not on file Stress: Not on file Social Connections: Not on file Intimate Partner Violence: Not on file Housing Stability: Not on file Family History: No family history on file. Medications Prior to Admission: Medications Prior to Admission Medication Sig Dispense Refill Last Dose Ondansetron HCl (ZOFRAN PO) Take by mouth. Past Week Yntndgpu-Wrg-On-FA ( 1 + IRON PO) Take by mouth. 02/06/2023 REVIEW OF SYSTEMS: Review of Systems Labs: CBC: No results found for: WBC, RBC, HGB, HCT, MCV, MCH, MCHC, RDW, PLT, MPV PHYSICAL EXAM: Vitals: 02/07/23 0138 02/07/23 0408 02/07/23 0430 02/07/23 0447 BP: 133/83 126/74 (!) 143/89 Pulse: 72 70 89 (!) 112 Resp: 18 Temp: 36.7 C (98.1 F) TempSrc: Oral SpO2: 99% 99% Weight: 210 lb (95.3 kg) Height: 5' 11 (1.803 m) General appearance: awake, alert, cooperative, no apparent distress, and appears stated age Neurologic: Awake, alert, oriented to name, place and time. Lungs: No increased work of breathing, good air exchange Abdomen: Soft, non tender, gravid, consistent with her gestational age Sterile Speculum Exam: Membranes: Ruptured clear fluid HSV Lesions: not applicable Cervix: Visually closed Contraction frequency: Irritable ASSESSMENT AND PLAN: LABOR DELIVERY ??? SCD's ONLY (labor through ambulation) SCD's PLUS Prophylactic Anticoagulation until discharge SCD's PLUS Prophylactic Anticoagulation for 6 weeks SCD's PLUS Therapeutic Anticoagulation for 6 weeks Vaginal Delivery [] BMI ? 40 kg/m2 Delivery All patients Vaginal Delivery [] BMI ? 40 kg/m2 AND [] Antepartum hospitalization ? 72 hours within the past month Delivery 1 Major Risk Factor: [] BMI ? 35 kg/m2 [] Low Risk Thrombophilia [] PPH+RBCs, IR, or operation [] Infection+Antibiotics [] Antepartum hospitalization ? 72 hours within the past month [] PMH: Sickle Cell, SLE, Cardiac Dz, Active IBD, Active Cancer, Nephrotic Syndrome OR 2 Minor Risk Factors: [] Multiple gestation [] Age > 40 [] PPH ? 1,000cc [] (+)FMH of VTE [] Smoker [] Preeclampsia [] BMI ? 40 kg/m2 AND [] Low Risk Thrombophilia OR ANY OF THE FOLLOWING: [] High Risk Thrombophilia without prior VTE [] Low Risk Thrombophilia with (+)FMH of VTE [] Any single prior VTE ANY OF THE FOLLOWING: [] Already on LMWH/UFH [] Multiple prior VTE [] High Risk Thrombophilia with prior VTE Low Risk Thrombophilia: FVL (heterozygous), Prothrombin (heterozygous), Protein C, Protein S High Risk Thrombophilia: FVL (homozygous), Prothrombin (homozygous), FVL+Prothrombin (heterozygous), Antithrombin III, APLS VTE Prophylaxis: Not Indicated Admission: Admit to Antepartum (PNU) FHR: Category 1, heart monitoring continuous Labs: GBS collected GC/CT collected Urine collected FFN not obtained Type&Screen collected Serum Labs CBC, type and screen Consults: Neonatology Imaging: Indicated/ordered growth ultrasound Diet: CLD Testing: TBD Timing and Route of Delivery: TBD Medications: Neuroprotection Indicated/ordered Tocolysis Not indicated Antibiotics Indicated/ordered Steroids: Betamethasone - indicated and ordered PPROM -Ruptured 02/06/2023 at 1730 -Status post 1 dose of betamethasone on 02/06 at 2000, second dose due 02/07 at 1999 -Started on magnesium sulfate for neuro protection on admission, continue for 12 hours -Started on latency antibiotics -We will keep on continuous EFM -Onton quiet at this time -Growth ultrasound ordered for this morning -NICU consult ordered History of delivery -NG when she presented with PPROM -Delivered at 36 weeks -Has not been on vaginal progesterone this IUP @ 28w1d - Dating by LMP - Cephalic on 02/07 - Monitoring: CEFM - Diet: CLD - BMZ x1 on 02/[address] Kinsey, who agrees with plan. BUD MAHMOOD DO 02/07/2023, 5:25 AM Cc: Rashid Kinsey MD Associated attestation - Kelly Leslie DO - 02/07/2023 2:12 PM EDT Hospital Care (Independent): I independently saw and evaluated the patient. I agree with the findings and plan of care as documented in the resident's note. 27 y.o. yo at 28w1d hospital day 0 with: Patient Active Problem List Diagnosis premature rupture of membranes (PPROM) with onset of labor after 24 hours of rupture in first trimester, antepartum Transport from Dr. Disla ([place]). No contraindications for expectant management at this time. Nos/s of infection or labor. status reassuring. Chart review and preparation: 15 minutes. Face to face: 15 minutes. Documentation and care coordination: 10 minutes. Total time spent on patient care today: 40 minutes. [place] [id number] Evaluation + Plan note Diagnostic Tests Pending * Group B Streptococcus colonization by PCR 02/06/[address] [facility] [place] noteNo assessment information available [facility] Work Phone: Evaluation note* Diagnosis premature rupture of membranes (PPROM) with onset of labor after 24 hours of rupture in first trimester, antepartum- Primary premature rupture of membranes (PPROM) with onset of labor after 24 hours of rupture in first trimester, antepartum S/P documented in this encounter [facility] note* Diagnosis Family history of genetic disease- Primary Family history of other condition documented in this encounter [facility] [place] [facility]* Diagnosis Other fatigue- Primary Nausea Nausea alone documented in this encounter [facility] HealthcareEvaluation [facility]* Diagnosis Acute streptococcal pharyngitis- Primary Streptococcal sore throat Pharyngitis, unspecified etiology documented in this encounter [facility] HealthcareEvaluation note* Diagnosis Family history of genetic disease Family history of other condition documented in this encounter [facility] note* Diagnosis ASCUS with positive high risk HPV cervical- Primary HPV (human papilloma virus) infection documented in this encounter [facility] HealthcareEvaluation note* Diagnosis LGSIL of cervix of undetermined significance Human papilloma virus (HPV) infection documented in this encounter [facility] HealthcareEvaluation note* Diagnosis Rash and nonspecific skin eruption- Primary Rash and other nonspecific skin eruption [facility] Narrative No data available for this section [facility] instructions No data available for this section [facility] No data available for this section [facility] CenterReason for referral (narrative)No reason for referral information availableAdena [facility] Work Phone: Advance Directives No Advanced Directives Records Found Advance Directive Response Recorded Date/ Time Advance Directives No January 29 2:41pm Latest Code Status on File Code Status Date Activated Date Inactivated Comments Full Code 02/07/2023 3:43 AM Latest Code Status on File Code Status Date Activated Date Inactivated Comments Full Code 02/07/2023 3:43 AM 02/20/2023 3:38 PM Advance Directive Response Recorded Date/ Time Advance Directives No January 29 1:41pm Chief Complaint and Reason for Visit Chief Complaint exposure to covid Chief Complaint rt leg redness Chief Complaint 13 weeks cr amping bleeding Chief Complaint wellness Chief Complaint Admit Date [facility] follow up hypertension January 28, 2025 2:58pm Assessments No Assessments Information Available Discharge Instructions Additional Instructions Self quarantine until you are called with your results from [facility] If you develop breathing issues then return for recheck Summary Purpose Family History No Family History Records FoundNo Family History Records FoundNo Family History Records FoundNo Family History Records FoundNo Family History Records Found No data available for this section No Family History Records FoundNo Family History Records Found Additional Source Comments Care Teams (unrecognized sec tion and content) Team Status: Active Member Role Status Dates PHYSICIAN NO FAMILY Primary Care Provider Active Team Status: Inactive Member Role Status Dates PHYSICIAN NO FAMILY Primary Care Provider Active Matthias Garg APRN Emergency Provider Active Team Status: Active Member Role Status Dates Juan Carlos Abdullahi MD Primary Care Provider Active Team Status: Inactive Member Role Status Dates Juan Carlos Abdullahi MD Primary Care Provide r, Attending Provider Active Start: September 18, 2023 End: September 18, 2023 Hvac Mechanic Relationship Specialty Start Date End Date Unallocated, Scar Garay MD [address] [place] [address] [place] [address] PCP - General 12/13/22 Hvac Mechanic Relationship Specialty Start Date End Date Unallocated, Scar Garay MD [address] [place] [address] [place] [address] PCP - General 12/13/22 Hvac Mechanic Relationship Specialty Start Date End Date Unallocated, Scar Garay MD [facility] [address] [facility] [address] PCP - General 12/13/22 Hvac Mechanic Relationship Specialty Start Date End Date Unallocated, Scar Garay MD [address] [place] [address] [place] [address] PCP - General 12/13/22 Hvac Mechanic Relationship Specialty Start Date End Date Unallocated, [place] ProviderMD [address] [place] [address] PCP - General 12/13/22 Hvac Mechanic Relationship Specialty Start Date End Date Juan Carlos Abdullahi MD [address] [facility] [place] [id number] PCP - General Family Medicine 09/17/24 Hvac Mechanic Relationship Specialty Start Date End Date Unknown, Provider PCP - General 07/09/24 Team Status: Inactive Member Role Status Dates Juan Carlos Abdullahi MD Primary Care Provider Active Start: January 28, 2025 End: January 28, 2025 Juan Carlos Abdullahi MD Attending Provider Active St art: January 28, 2025 End: January 28, 2025 Goals (unrecognized section and content) Goals may be documented in a n alternate sectionGoals may be documented in an alternate section No data available for this sectionGoals may be documented in an alternate section No data available for this sectionGoals may be documented in an alternate section INFORMATION SOURCE (unrecogn ized section and content) DATE CREATED AUTHOR 09/18/2022 [facility] DATE CREATED AUTHOR AUTHOR'S ORGANIZ ATION 2022 [facility] DATE CREATED AUTHOR AUTHOR'S ORGANIZ ATION 03/04/2023 [facility] DATE CREATED AUTHOR AUTHOR'S ORGANIZ ATION 04/11/2023 [facility] DATE CREATED AUTHOR AUTHOR'S ORGANIZ ATION 09/18/2024 [facility] DATE CREATED AUTHOR AUTHOR'S ORGANIZ ATION 10/11/2024 [facility] DATE CREATED AUTHOR AUTHOR'S ORGANIZ ATION 02/10/2025 [facility] Reason for Visit (unrecogniz ed section and content) Specialty Diagnoses / Procedures Referred By Carolina t Referred To Contact Diagnoses premature rupture of membranes (PPROM) with onset of labor after 24 hours of rupture in first trimester, antepartum Procedures .. Rashid Kinsey MD [address] [place] [address] [facility] Antepartum [address] [place] [address] Referral ID Status Reason Start Date Expiration Date Visits Re quested Visits Authorized [id number] 1 1 Reason Comments Rupture of Membranes R/O rupture Specialty Diagnoses / Procedures Referred By Contmonet t Referred To Contact Diagnoses premature rupture of membranes (PPROM) with onset of labor after 24 hours of rupture in first trimester, antepartum Procedures .. Rashid Kinsey MD [address] [address] [facility] H2 Antepartum [address] [place] [address] Reason Onset Date Comments Genetic Counseling 06/14/2024 Reason Comments Rash Reason Onset Date Comments Results 11/20/2024 Scheduled Active and Recently Administ ered Medications (unrecognized section and content) Medication Order 02/18/2023 02/19/2023 02/20/2023 enoxaparin (Lovenox) syringe 40 mg 40 mg, SubCUTAneous, Every evening, First dose on Janie 02/16/23 at 1800, , Indication of Use: Prophylaxis-DVT/PE 2056 (Not Given - Provider: Dulce Velez RN - Reason: Patient/family refused) 1927 (Given - Provider: Dulce Velez RN) ferrous sulfate tablet 325 mg 325 mg, Oral, 2 times daily with meals, First dose on Janie 02/16/23 at 0800, , Start if Hgb less than 10. 0800 (Canceled Entry - Provider: Automatic Discharge Provider - Comment: Automatically canceled at discontinue of medication order)1700 (Not Given - Provider: Lolita Garcia RN - Reason: Order parameters not met) 0800 (Canceled Entry - Provider: Automatic Discharge Provider - Comment: Automatically canceled at discontinue of medication order)1700 (Not Given - Provider: Lolita Garcia RN - Reason: Order parameters not met) 0800 (Not Given - Provider: Jacqui Alejo RN - Reason: Order parameters not met) ibuprofen tablet 600 mg 600 mg, Oral, Every 6 hours, First dose on Janie 02/16/23 at 0330, , Once tolerating PO, discontinue Toradol and begin ibuprofen 8 hours after the final dose of Toradol. Alternate ibuprofen and acetaminophen every 3 hours. 0330 (Canceled Entry - Provider: Automatic Discharge Provider - Comment: Automatically canceled at discontinue of medication order)0411 (Given - Provider: Eryn Yoo RN)1334 (Given - Provider: Lolita Garcia RN)1530 (Canceled Entry - Provider: Automatic Discharge Provider - Comment: Automatically canceled at discontinue of medication order)2056 (Given - Provider: Dulce Velez RN)2130 (Canceled Entry - Provider: Automatic Discharge Provider - Comment: Automatically canceled at discontinue of medication order) 0257 (Given - Provider: Dulce Velez RN)0330 (Canceled Entry - Provider: Dulce Velez RN)0853 (Given - Provider: Lolita Garcia RN)1530 (Canceled Entry - Provider: Automatic Discharge Provider - Comment: Automatically canceled at discontinue of medication order)1929 (Given - Provider: Dulce Velez RN)2130 (Canceled Entry - Provider: Automatic Discharge Provider - Comment: Automatically canceled at discontinue of medication order) 0330 (Canceled Entry - Provider: Automatic Discharge Provider - Comment: Automatically canceled at discontinue of medication order)0750 (Given - Provider: Jacqui Alejo RN)0930 (Canceled Entry - Provider: Automatic Discharge Provider - Comment: Automatically canceled at discontinue of medication order)1530 (Canceled Entry - Provider: Automatic Discharge Provider - Comment: Automatically canceled at discontinue of medication order) vitamin tablet 1 tablet, Oral, Daily, First dose on Mon02/16/23 at 0900, , Begin when normal bowel activity resumes. 0900 (Canceled Entry - Provider: Automatic Discharge Provider - Comment: Automatically canceled at discontinue of medication order) 0900 (Not Given - Provider: Lolita aGrcia RN - Reason: Order parameters not met) 0900 (Not Given - Provider: Jacqui Alejo RN - Reason: Order parameters not met) sodium chloride 0.9% (NS) flush 5-40 mL 5-40 mL, IntraVENous, Every 12 hours scheduled (2 times per day), First dose on 02/16/23 at 0900, , or Line Patency: Peripheral IV = 5 mL; Midline or Central Line = 10 mL/lumen. If following IV push medication, administer flush at same rate as the IV push. Flush volume is determined by type of infusion therapy being given. For non-viscous solutions use: Peripheral IV = 5 mL Midline or Central Line = 10 mL/lumen For viscous solutions (i.e. blood components, parenteral nutrition, contrast media, or after obtaining blood sample) use: Peripheral IV = 10 mL Midline or Central Line = 20 mL/lumen 0900 (Canceled Entry - Provider: Automatic Discharge Provider - Comment: Automatically canceled at discontinue of medication order)2100 (Not Given - Provider: Dulce Velez RN - Reason: Loss of IV access) 0900 (Canceled Entry - Provider: Automatic Discharge Provider - Comment: Automatically canceled at discontinue of medication order)2100 (Canceled Entry - Provider: Automatic Discharge Provider - Comment: Automatically canceled at discontinue of medication order) 0900 (Not Given - Provider: Jacqui Alejo RN - Reason: Loss of IV access) PRN Medication Order 02/18/2023 02/19/2023 02/20/2023 acetaminophen (Tylenol) tablet 650 mg 650 mg, Oral, Every 6 hours PRN, other, Pain (1-10), Starting on Janie 02/16/23 at 0319, , Give in addition to any other pain medication ordered at same time for any pain indication. Maximum dose of acetaminophen is 4000mg from all sources in 24 hours. Alternate ibuprofen and acetaminophen every 3 hours. 0004 (Given - Provider: Eryn Yoo RN)0716 (Given - Provider: Lolita Garcia, FRANSISCO)1334 (Canceled Entry - Provider: Lolita Garcia, RN) 1929 (Given - Provider: Dulce Velez, FRANSISCO) 0750 (Given - Provider: Jacqui Alejo, FRANSISCO) butalbital-acetaminophen -caffeine 50-325-40 MG per tablet 1 tablet 1 tablet, Oral, Every 4 hours PRN, headaches, Starting on [facility] 02/18/23 at 1357 1406 (Given - Provider: Lolita Garcia RN)2320 (Given - Provider: Dulce Velez RN) 0527 (Given - Provider: Dulce Velez RN)1004 (Given - Provider: Lolita Garcia, RN)1546 (Given - Provider: Lolita Garcia, FRANSISCO) diphenhydrAMINE (BENADryl) injection 25 mg 25 mg, IntraVENous, Every 6 hours PRN, itching, hives, Starting on Janie 02/16/23 at 0319, docusate sodium (Colace) capsule 100 mg 100 mg, Oral, 2 times daily PRN, constipation, Starting on Janie 02/16/23 at 0319, , Do not crush or break. 0005 (Given - Provider: Eryn Yoo RN)2056 (Given - Provider: Dulce Velez RN) 1928 (Given - Provider: Dulce Velez RN) 0750 (Not Given - Provider: Jacqui Alejo RN - Reason: Patient/family refused) famotidine (Pepcid) tablet 20 mg 20 mg, Oral, Daily PRN, indigestion, heartburn, Starting on Janie 02/16/23 at 0319, , Renal dose per pharmacy for peptic ulcer prophylaxis. HYDROmorphone (Dilaudid) injection 0.25 mg(Linked Group 1) 0.25 mg, IntraVENous, Every 3 hours PRN, moderate pain (4-6), Starting on Janie 02/16/23 at 1300, , If oral and IV narcotics ordered, use oral first and only use IV if oral is ineffective or cannot take oral. Do Not give oral and IV within 1 hour of each other unless specifically ordered. HYDROmorphone (Dilaudid) injection 0.5 mg(Linked Group 1) 0.5 mg, IntraVENous, Every 3 hours PRN, severe pain (7-10), Starting on Janie 02/16/23 at 1300, , If oral and IV narcotics ordered, use oral first and only use IV if oral is ineffective or cannot take oral. Do Not give oral and IV within 1 hour of each other unless specifically ordered. lanolin (Lansinoh) cream Topical, Every 1 hour PRN, dry skin, nipple discomfort, Starting on Janie 02/16/23 at 0319, , Apply to affected area ondansetron (Zofran) injection 4 mg(Linked Group 2) 4 mg, IntraVENous, Every 6 hours PRN, nausea, vomiting, Starting on Janie 02/16/23 at 0319, , 1st Line. Give IV if patient is unable to take orally. If inadequate response within 60 minutes, proceed to next-line agent or contact provider if no further options ordered. ondansetron ODT (Zofran-ODT) disintegrating tablet 4 mg(Linked Group 2) 4 mg, Oral, Every 8 hours PRN, nausea, vomiting, Starting on Janie 02/16/23 at 0319, , 1st Line. If inadequate response within 60 minutes, proceed to next-line agent or contact provider if no further options ordered. Patient should allow tablet to dissolve on tongue. Do not remove from blister pack until just before administering. oxyCODONE (Roxicodone) immediate release tablet 10 mg(Linked Group 3) 10 mg, Oral, Every 4 hours PRN, severe pain (7-10), Starting on Janie 02/16/23 at 1300, 0004 (See Alternative - Provider: Eryn Yoo RN)0413 (See Alternative - Provider: Eryn Yoo RN)0817 (See Alternative - Provider: Lolita Garcia RN)2103 (See Alternative - Provider: Dulce Velez RN) 1006 (See Alternative - Provider: Lolita Garcia RN)1546 (See Alternative - Provider: Lolita Garcia RN) 0038 (See Alternative - Provider: Dulce Velez RN) oxyCODONE (Roxicodone) immediate release tablet 5 mg(Linked Group 3) 5 mg, Oral, Every 4 hours PRN, moderate pain (4-6), Starting on Janie 02/16/23 at 1300, 0004 (Given - Provider: Eryn Yoo RN)0413 (Given - Provider: Eryn Yoo RN)0817 (Given - Provider: Lolita Garcia RN)2103 (Given - Provider: Dulce Velez RN) 1006 (Given - Provider: Lolita Garcia RN)1546 (Given - Provider: Lolita Garcia RN) 0038 (Given - Provider: Dulce Velez RN) simethicone (Mylicon) chewable tablet 80 mg 80 mg, Oral, Every 6 hours PRN, flatulence, cramping, Starting on Janie 02/16/23 at 0319, sodium chloride 0.9 % infusion 5-250 mL/hr, IntraVENous, PRN, if patient receiving piggyback infusions and maintenance fluids are not ordered OR KVO fluids to protect IV site / prevent frequent line interruptions/ long duration, Starting on Janie 02/16/23 at 0319, , For piggyback infusion, administer at same rate as piggyback for a total of 25 mL. Enter 25 mL into dose field and piggyback rate into rate field of order. If piggyback is infusing at a rate less than 100 mL/hr, enter 25 mL into dose field and 100 mL/hr into rate field of order. For KVO fluids, enter rate of 20 mL/hr or less into rate field of order. sodium chloride 0.9% (NS) flush 5-40 mL 5-40 mL, IntraVENous, PRN, line care, After every IV line use, Starting on Janie 02/16/23 at 0319, , or Line Patency: Peripheral IV = 5 mL; Midline or Central Line = 10 mL/lumen. If following IV push medication, administer flush at same rate as the IV push. Flush volume is determined by type of infusion therapy being given. For non-viscous solutions use: Peripheral IV = 5 mL Midline or Central Line = 10 mL/lumen For viscous solutions (i.e. blood components, parenteral nutrition, contrast media, or after obtaining blood sample) use: Peripheral IV = 10 mL Midline or Central Line = 20 mL/lumen Linked Groups Order Group 1: HYDROmorphone (Dilaudid) injection 0.25 mgJump to med 0.25 mg, IntraVENous, Every 3 hours PRN, moderate pain (4-6), Starting on Janie 02/16/23 at 1300,
If oral and IV narcotics ordered, use oral first and only use IV if oral is ineffective or cannot take oral. Do Not give oral and IV within 1 hour of each other unless specifically ordered.
Or HYDROmorphone (Dilaudid) injection 0.5 mgJump to med 0.5 mg, IntraVENous, Every 3 hours PRN, severe pain (7-10), Starting on Janie 02/16/23 at 1300,
If oral and IV narcotics ordered, use oral first and only use IV if oral is ineffective or cannot take oral. Do Not give oral and IV within 1 hour of each other unless specifically ordered.
Group 2: ondansetron ODT (Zofran-ODT) disintegrating tablet 4 mgJump to med 4 mg, Oral, Every 8 hours PRN, nausea, vomiting, Starting on Janie 02/16/23 at 0319,
1st Line. If inadequate response within 60 minutes, proceed to next-line agent or contact provider if no further options ordered. Patient should allow tablet to dissolve on tongue. Do not remove from blister pack until just before administering.
Or ondansetron (Zofran) injection 4 mgJump to med 4 mg, IntraVENous, Every 6 hours PRN, nausea, vomiting, Starting on Janie 02/16/23 at 0319,
1st Line. Give IV if patient is unable to take orally. If inadequate response within 60 minutes, proceed to next-line agent or contact provider if no further options ordered.
Group 3: oxyCODONE (Roxicodone) immediate release tablet 5 mgJump to med 5 mg, Oral, Every 4 hours PRN, moderate pain (4-6), Starting on Janie 02/16/23 at 1300, Or oxyCODONE (Roxicodone) immediate release tablet 10 mgJump to med 10 mg, Oral, Every 4 hours PRN, severe pain (7-10), Starting on Janie 02/16/23 at 1300, FOR RECORDS PERTAINING TO PATIENTS WHO ARE OR HAVE BEEN ENROLLED IN A CHEMICAL DEPENDENCY/SUBSTANCEABUSE PROGRAM, SOME INFORMATION MAY BE OMITTED. This clinical summary was aggregated from multiple sources. Caution should be exercised in using it in the provision of clinical care. This summary normalizes information from multiple sources, and as a consequence, information in this document may materially change the coding, format and clinical context of patient data. In addition, data may be omitted in some cases. CLINICAL DECISIONS SHOULD BE BASED ON THE PRIMARY CLINICAL RECORDS. [facility] [employer] [facility]. provides no warranty or guarantee of the accuracy or completeness of information in this document.
[2025-04-28 10:46] VITALS: BP 136/75; PULSE 87; O2SAT 98
== END 2025-04-28 10:47 | disposition home or self-care (01) ==
PROVIDERS: Emergency Provider Emergency Medicine; PCP Family Medicine
DX: R10.20 Pelvic and perineal pain unspecified side (principal)
CPT/HCPCS: 76830; 81003; 84703; 99284